=== PATIENT | male | born 1950 | race Caucasian/White ===

== ENCOUNTER 2020-06-16 07:39 | Outpatient (REF) | payer MEDICARE, OTHER, SELFPAY ==
[2020-06-16 10:11] LABS: Basophils Absolute Auto 0.1 X10*3/uL (0.0-0.2); Basophils Percent Auto 0.8 % (0-2); Eosinophils Percent Auto 12.3 % (0-4); Hematocrit 40.7 % (42-52); Hemoglobin 13.4 g/dl (14.0-18.0); Imm Gran Abs Auto 0.04 X10*3/uL (0.00-0.03); Imm Gran Pct Auto 0.5 % (0.0-0.4); Lymphocytes Absolute Auto 2.7 X10*3/uL (1.2-4.9); MANUAL DIFF FLAG NO; Mean Corpuscular HGB Conc 32.9 g/dl (31.0-36.0); Mean Corpuscular Hemoglobin 29.4 pg (27.0-33.0); Mean Corpuscular Volume 89.3 fL (80-98); Mean Platelet Volume 11.3 fL (9.4-12.4); Monocytes Absolute Auto 0.6 X10*3/uL (0.1-1.2); Neutrophils Absolute Auto 3.9 X10*3/uL (2.0-8.3); Neutrophils Percent Auto 47.4 % (45-73); Platelet Count 184 X10*3/uL (160-400); Red Blood Count 4.56 X10*6/uL (4.60-5.80); Red Cell Distribution Width 13.4 % (11.0-16.0); White Blood Count 8.3 X10*3/uL (4.8-10.8)
[2020-06-16 10:59] LABS: Alanine Aminotransferase 44 U/L (0-40); Albumin Level 4.1 g/dL (3.5-5.0); Alkaline Phosphatase 64 U/L (39-117); Anion Gap 16 (12-20); Aspartate Amino Transferase 37 U/L (5-37); Bilirubin Total 0.5 mg/dL (0.0-1.0); Blood Urea Nitrogen 36 mg/dL (9-16); Calcium 8.6 mg/dL (8.4-10.2); Carbon Dioxide 19 mmol/L (22-29); Chloride 107 mmol/L (96-108); Cholesterol 114 mg/dL; Estimated Glomerular Filt Rate > 60; Glucose Fasting 148 mg/dL (60-99); HDL Cholesterol 35 mg/dL; LDL Cholesterol Calculated 60 mg/dl; Potassium 4.8 mmol/l (3.3-5.1); Sodium 137 mmol/L (135-145); Total Protein 6.8 g/dL (6.5-8.0); Triglycerides 99 mg/dL
[2020-06-16 11:19] LABS: Vitamin D 25-OH Total 23.5 ng/mL (>30)
== END 2020-06-16 07:40 | disposition home or self-care (01) ==
LOC: HO.10HDL 07:39
PROVIDERS: Visit Provider Internal Medicine
DX: I10 Essential (primary) hypertension (principal); E11.9 Type 2 diabetes mellitus without complications; E78.5 Hyperlipidemia, unspecified; R74.8 Abnormal levels of other serum enzymes; M10.9 Gout, unspecified; E55.9 Vitamin D deficiency, unspecified; E66.9 Obesity, unspecified
CPT/HCPCS: 36415; 80053; 80061; 82306; 84443; 84550; 85025

== ENCOUNTER 2020-09-04 07:44 | Outpatient (REF) | payer MEDICARE, OTHER, SELFPAY ==
[2020-09-04 10:51] LABS: MANUAL DIFF FLAG NO
[2020-09-04 11:00] LABS: Basophils Absolute Auto 0.1 X10*3/uL (0.0-0.2); Eosinophils Absolute Auto 0.6 X10*3/uL (0.0-0.4); Eosinophils Percent Auto 8.6 % (0-4); Hematocrit 43.4 % (42-52); Hemoglobin 14.5 g/dl (14.0-18.0); Imm Gran Abs Auto 0.03 X10*3/uL (0.00-0.03); Imm Gran Pct Auto 0.4 % (0.0-0.4); Lymphocytes Absolute Auto 2.2 X10*3/uL (1.2-4.9); Mean Corpuscular HGB Conc 33.4 g/dl (31.0-36.0); Mean Corpuscular Hemoglobin 29.5 pg (27.0-33.0); Mean Corpuscular Volume 88.4 fL (80-98); Mean Platelet Volume 12.1 fL (9.4-12.4); Monocytes Absolute Auto 0.6 X10*3/uL (0.1-1.2); Monocytes Percent Auto 7.6 % (2-11); Neutrophils Absolute Auto 3.8 X10*3/uL (2.0-8.3); Neutrophils Percent Auto 52.4 % (45-73); Platelet Count 174 X10*3/uL (160-400); Red Blood Count 4.91 X10*6/uL (4.60-5.80); Red Cell Distribution Width 13.7 % (11.0-16.0); White Blood Count 7.2 X10*3/uL (4.8-10.8)
[2020-09-04 11:24] LABS: Estimated Average Glucose 120 mg/dL; Hemoglobin A1c % 5.8 %
[2020-09-04 11:39] LABS: Alanine Aminotransferase 26 U/L (0-40); Albumin Level 4.1 g/dL (3.5-5.0); Alkaline Phosphatase 66 U/L (39-117); Anion Gap 16 (12-20); Aspartate Amino Transferase 27 U/L (5-37); Bilirubin Total 0.6 mg/dL (0.0-1.0); Blood Urea Nitrogen 39 mg/dL (9-16); Calcium 9.1 mg/dL (8.4-10.2); Carbon Dioxide 18 mmol/L (22-29); Chloride 107 mmol/L (96-108); Cholesterol 149 mg/dL; Estimated Glomerular Filt Rate > 60; Glucose Fasting 122 mg/dL (60-99); HDL Cholesterol 41 mg/dL; LDL Cholesterol Calculated 95 mg/dl; Potassium 4.9 mmol/L (3.3-5.1); Sodium 136 mmol/L (135-145); Total Protein 6.8 g/dL (6.5-8.0); Triglycerides 69 mg/dL; Uric Acid 9.6 mg/dL (3.4-7.0)
[2020-09-04 11:42] LABS: Vitamin D 25-OH Total 25.4 ng/mL (>30)
== END 2020-09-04 07:45 | disposition home or self-care (01) ==
LOC: HO.10HDL 07:44
PROVIDERS: Visit Provider Internal Medicine
DX: I10 Essential (primary) hypertension (principal); E78.00 Pure hypercholesterolemia, unspecified; E11.9 Type 2 diabetes mellitus without complications; M10.9 Gout, unspecified; E55.9 Vitamin D deficiency, unspecified
CPT/HCPCS: 36415; 80053; 80061; 82306; 83036; 84443; 84550; 85025

== ENCOUNTER 2021-04-20 09:52 | Outpatient (REF) | payer MEDICARE, OTHER, SELFPAY ==
[2021-04-20 14:11] LABS: MANUAL DIFF FLAG NO
[2021-04-20 14:17] LABS: Basophils Absolute Auto 0.1 X10*3/uL (0.0-0.2); Eosinophils Absolute Auto 0.5 X10*3/uL (0.0-0.4); Eosinophils Percent Auto 7.6 % (0-4); Hematocrit 38.6 % (42-52); Hemoglobin 12.8 g/dl (14.0-18.0); Imm Gran Pct Auto 1.5 % (0.0-0.4); Lymphocytes Absolute Auto 1.7 X10*3/uL (1.2-4.9); Lymphocytes Percent Auto 24.4 % (20-40); Mean Corpuscular HGB Conc 33.2 g/dl (31.0-36.0); Mean Corpuscular Hemoglobin 30.2 pg (27.0-33.0); Mean Platelet Volume 11.1 fL (9.4-12.4); Monocytes Absolute Auto 0.5 X10*3/uL (0.1-1.2); Neutrophils Percent Auto 58.5 % (45-73); Platelet Count 128 X10*3/uL (160-400); Red Blood Count 4.24 X10*6/uL (4.60-5.80); Red Cell Distribution Width 14.4 % (11.0-16.0); White Blood Count 6.8 X10*3/uL (4.8-10.8)
[2021-04-20 14:36] LABS: Alanine Aminotransferase 29 U/L (0-40); Albumin Level 3.9 g/dL (3.5-5.0); Alkaline Phosphatase 65 U/L (39-117); Anion Gap 13 (12-20); Aspartate Amino Transferase 24 U/L (5-37); Bilirubin Total 0.3 mg/dL (0.0-1.0); Blood Urea Nitrogen 22 mg/dL (9-16); Calcium 8.6 mg/dL (8.4-10.2); Carbon Dioxide 21 mmol/L (22-29); Chloride 109 mmol/L (96-108); Cholesterol 154 mg/dL; Estimated Glomerular Filt Rate > 60; Glucose Fasting 130 mg/dL (60-99); HDL Cholesterol 46 mg/dL; LDL Cholesterol Calculated 82 mg/dl; Potassium 4.7 mmol/L (3.3-5.1); Sodium 138 mmol/L (135-145); Total Protein 6.4 g/dL (6.5-8.0); Triglycerides 134 mg/dL; Uric Acid 7.1 mg/dL (3.4-7.0)
[2021-04-20 14:41] LABS: Estimated Average Glucose 134 mg/dL; Hemoglobin A1C 148.8688 umol/L; Hemoglobin A1c % 6.3 %
[2021-04-20 14:59] LABS: TSH reflex Free T4 0.71 uIU/mL (0.32-4.0); Vitamin D 25-OH Total 19.9 ng/mL (>30)
== END 2021-04-20 09:53 | disposition home or self-care (01) ==
LOC: HO.10HDL 09:52
PROVIDERS: Visit Provider Internal Medicine
DX: E11.9 Type 2 diabetes mellitus without complications (principal); E55.9 Vitamin D deficiency, unspecified; M10.00 Idiopathic gout, unspecified site; I10 Essential (primary) hypertension; E78.00 Pure hypercholesterolemia, unspecified; E66.9 Obesity, unspecified; R74.8 Abnormal levels of other serum enzymes; Z79.4 Long term (current) use of insulin
CPT/HCPCS: 36415; 80053; 80061; 82306; 83036; 84443; 84550; 85025

== ENCOUNTER 2021-06-17 08:40 | Outpatient (REF) | payer MEDICARE, OTHER, SELFPAY ==
[2021-06-17 10:56] LABS: Erythrocyte Sedimentation Rate 38 MM/HR (0-15)
[2021-06-17 11:01] LABS: Uric Acid 6.9 mg/dL (3.4-7.0)
== END 2021-06-17 08:41 | disposition home or self-care (01) ==
LOC: HO.10HDL 08:40
PROVIDERS: Absent Provider Internal Medicine; Visit Provider Podiatrist
DX: M10.9 Gout, unspecified (principal)
CPT/HCPCS: 36415; 84550; 85652

== ENCOUNTER 2021-12-24 08:13 | Outpatient (REF) | payer MEDICARE, OTHER, SELFPAY ==
[2021-12-24 11:23] LABS: MANUAL DIFF FLAG NO
[2021-12-24 11:29] LABS: Appearance Urine CLEAR; Color Urine YELLOW; Glucose Urine UA NEG (NEG); Leukocyte Esterase Urine NEG (NEG); Nitrite Urine NEG (NEG); PH 5.5 (5.0-8.0); Specific Gravity - Urine >= 1.030 (1.005-1.025); UACC Culture Trigger NO; Urine Blood 1+ (NEG); Urine Ketones NEG (NEG); Urine Protein 2+ MG/DL (NEG-TRACE)
[2021-12-24 11:33] LABS: Basophils Absolute Auto 0.1 X10*3/uL (0.0-0.2); Basophils Percent Auto 0.9 % (0-2); Eosinophils Absolute Auto 0.6 X10*3/uL (0.0-0.4); Eosinophils Percent Auto 7.7 % (0-4); Hematocrit 36.4 % (42.0-52.0); Hemoglobin 12.2 g/dl (14.0-18.0); Imm Gran Abs Auto 0.07 X10*3/uL (0.00-0.03); Imm Gran Pct Auto 0.9 % (0.0-0.4); Lymphocytes Percent Auto 26.9 % (20-40); Mean Corpuscular HGB Conc 33.5 g/dl (31.0-36.0); Mean Corpuscular Hemoglobin 29.9 pg (27.0-33.0); Mean Corpuscular Volume 89.2 fL (80.0-98.0); Monocytes Absolute Auto 0.5 X10*3/uL (0.1-1.2); Monocytes Percent Auto 7.1 % (2-11); Neutrophils Absolute Auto 4.3 x10*3/uL (2.0-8.3); Neutrophils Percent Auto 56.5 % (45-73); Platelet Count 162 X10*3/uL (160-400); Red Blood Count 4.08 X10*6/uL (4.60-5.80); Red Cell Distribution Width 13.2 % (11.0-16.0); White Blood Count 7.6 X10*3/uL (4.8-10.8)
[2021-12-24 11:42] LABS: Estimated Average Glucose 151 mg/dL; Hemoglobin A1c % 6.9 %
[2021-12-24 11:48] LABS: Alanine Aminotransferase 24 U/L (0-40); Albumin Level 3.8 g/dL (3.5-5.0); Alkaline Phosphatase 74 U/L (39-117); Anion Gap 12 (12-20); Aspartate Amino Transferase 25 U/L (5-37); Bilirubin Total 0.5 mg/dL (0.0-1.0); Blood Urea Nitrogen 22 mg/dL (9-16); Calcium 8.9 mg/dL (8.4-10.2); Carbon Dioxide 22 mmol/L (22-29); Chloride 109 mmol/L (96-108); Cholesterol 144 mg/dL; Estimated Glomerular Filt Rate > 60; Glucose Fasting 132 mg/dL (60-99); HDL Cholesterol 45 mg/dL; LDL Cholesterol Calculated 78 mg/dl; Magnesium 1.2 mg/dL (1.6-2.6); Potassium 4.6 mmol/L (3.3-5.1); Sodium 138 mmol/L (135-145); Total Protein 6.3 g/dL (6.5-8.0); Triglycerides 105 mg/dL
[2021-12-24 12:00] LABS: Uric Acid 6.6 mg/dL (3.4-7.0)
[2021-12-24 12:02] LABS: Creatinine Urine 64.27 mg/dL
[2021-12-24 12:08] LABS: Vitamin D 25-OH Total 27.1 ng/mL (>30)
[2021-12-24 13:46] LABS: Squamous Epithelial Cell Urine TRACE /LPF
== END 2021-12-24 08:14 | disposition home or self-care (01) ==
LOC: HO.HMGCLDS 08:13
PROVIDERS: PCP Internal Medicine; Visit Provider Internal Medicine
DX: I10 Essential (primary) hypertension (principal); E78.00 Pure hypercholesterolemia, unspecified; E11.9 Type 2 diabetes mellitus without complications; M10.9 Gout, unspecified; E55.9 Vitamin D deficiency, unspecified; G47.62 Sleep related leg cramps
CPT/HCPCS: 36415; 80053; 80061; 81001; 82043; 82306; 83036; 83735; 84443; 84550; 85025

== ENCOUNTER 2022-04-15 09:42 | Outpatient (REF) | payer MEDICARE, OTHER, SELFPAY ==
[2022-04-15 12:35] LABS: Alanine Aminotransferase 22 U/L (0-40); Albumin Level 3.7 g/dL (3.5-5.0); Alkaline Phosphatase 68 U/L (39-117); Anion Gap 18 (12-20); Aspartate Amino Transferase 30 U/L (5-37); Bilirubin Total < 0.2 mg/dL (0.0-1.0); Blood Urea Nitrogen 27 mg/dL (9-16); Calcium 8.6 mg/dL (8.4-10.2); Carbon Dioxide 16 mmol/L (22-29); Chloride 113 mmol/L (96-108); Estimated Glomerular Filt Rate > 60; Glucose Random 173 mg/dL (60-115); Lipase 34 U/L (8-78); Sodium 141 mmol/L (135-145); Total Protein 6.2 g/dL (6.5-8.0)
[2022-04-15 15:41] LABS: Magnesium 1.3 mg/dL (1.6-2.6)
== END 2022-04-15 09:43 | disposition home or self-care (01) ==
LOC: HO.HMGCLDS 09:42
PROVIDERS: PCP Internal Medicine; Visit Provider Internal Medicine
DX: R10.9 Unspecified abdominal pain (principal); E83.42 Hypomagnesemia; M51.36 Other intervertebral disc degeneration, lumbar region; M54.16 Radiculopathy, lumbar region; M43.06 Spondylolysis, lumbar region
CPT/HCPCS: 36415; 80053; 83690; 83735; 99202

== ENCOUNTER 2022-04-19 13:49 | Outpatient (REF) | payer MEDICARE, OTHER, SELFPAY ==
[2022-04-19 17:20] LABS: Alanine Aminotransferase 28 U/L (0-40); Albumin Level 3.9 g/dL (3.5-5.0); Alkaline Phosphatase 62 U/L (39-117); Anion Gap 15 (12-20); Aspartate Amino Transferase 40 U/L (5-37); Bilirubin Total 0.4 mg/dL (0.0-1.0); Blood Urea Nitrogen 31 mg/dL (9-16); Calcium 8.6 mg/dL (8.4-10.2); Carbon Dioxide 20 mmol/L (22-29); Chloride 109 mmol/L (96-108); Estimated Glomerular Filt Rate > 60; Glucose Random 125 mg/dL (60-115); Potassium 5.1 mmol/L (3.3-5.1); Sodium 139 mmol/L (135-145); Total Protein 6.2 g/dL (6.5-8.0)
[2022-04-19 17:31] LABS: Magnesium 1.1 mg/dL (1.6-2.6)
== END 2022-04-19 13:50 | disposition home or self-care (01) ==
LOC: HO.HMGCLDS 13:49
PROVIDERS: PCP Internal Medicine; Visit Provider Internal Medicine
DX: E87.5 Hyperkalemia (principal); E83.42 Hypomagnesemia
CPT/HCPCS: 36415; 80053; 83735

== ENCOUNTER 2022-04-30 17:48 | Outpatient (REF) | payer MEDICARE, OTHER, SELFPAY ==
--- NOTE | ~2022-04-30 | MR_ITS ---
MR LUMBAR SPINE WITHOUT CONTRAST CLINICAL INFORMATION: Intervertebral disc degeneration/lumbar region. COMPARISON: Lumbar spine radiographs 09/15/2017. TECHNIQUE: MRI of the lumbar spine was obtained using routine sequences without contrast. FINDINGS: There are 5 nonrib-bearing lumbar-type vertebral bodies. There is grade 1 degenerative anterolisthesis of L4 on L5. Vertebral body heights are maintained. Disc volumes are preserved. There is no bone marrow edema. There are no acute fractures. Modic type II endplate signal changes at T12-L1. Intraosseous hemangioma within the L1 vertebral body. There are multilevel endplate osteophytes. There is partial disc desiccation at all lumbar levels the exception of L5-S1. Conus terminates at the L1 level. There is bilateral perinephric stranding. T12-L1: There is a large left lateral disc osteophyte protrusion resulting in mild to moderate left-sided foraminal stenosis. L1-L2: Diffuse annular disc bulge with a superimposed right lateral disc osteophyte results in mild right-sided foraminal encroachment. L2-L3: Diffuse annular disc bulge and mild bilateral hypertrophic facet arthropathy. No central canal stenosis. Mild foraminal encroachment bilaterally. L3-L4: Diffuse annular disc bulge and moderate bilateral facet arthropathy and ligamentum flavum thickening. No central canal stenosis. Mild to moderate bilateral foraminal encroachment. L4-L5: There is grade 1 degenerative anterolisthesis with uncovered disc and a superimposed diffuse annular disc bulge. There is severe bilateral hypertrophic facet arthropathy and ligamentum flavum thickening. There are very large bilateral facet joint effusions. Disc osteophyte and facet arthropathy result in severe bilateral foraminal stenosis with compression of the exiting L4 nerve roots bilaterally. There is mild central canal stenosis. L5-S1: There is a diffuse annular disc bulge with a superimposed right lateral disc osteophyte protrusion that contacts the extraforaminal right L5 nerve root. Disc osteophyte and facet arthropathy result in mild bilateral foraminal encroachment. No central canal stenosis. MR/MR lumbar spine wo con IMPRESSION: - At L4-L5, grade 1 degenerative anterolisthesis in the setting of advanced bilateral facet arthropathy and additional spondylitic changes result in mild central canal stenosis and severe bilateral foraminal stenosis with compression of the exiting L4 nerve roots bilaterally. THERE ARE VERY LARGE BILATERAL FACET JOINT EFFUSIONS AT L4-L5 THAT SHOULD BE FOLLOWED WITH FLEXION-EXTENSION RADIOGRAPHS TO EXCLUDE SEGMENTAL INSTABILITY. - At L5-S1, a right lateral disc osteophyte protrusion contacts the extraforaminal right L5 nerve root.
== END 2022-04-30 17:49 | disposition home or self-care (01) ==
LOC: HO.MRI 17:48
PROVIDERS: Visit Provider Nurse Practitioner Family
DX: M54.16 Radiculopathy, lumbar region (principal); M51.36 Other intervertebral disc degeneration, lumbar region; M43.06 Spondylolysis, lumbar region
CPT/HCPCS: 72148

== ENCOUNTER 2022-05-03 15:05 | Outpatient (REF) | payer MEDICARE, OTHER, SELFPAY ==
--- NOTE | ~2022-05-03 | XR_ITS ---
EXAMINATION: XR LUMBOSACRAL SPINE WITH OBLIQUES CLINICAL INFORMATION: Radiculopathy. COMPARISON: MRI of the lumbar spine dated 04/30/2012. TECHNIQUE: AP, both oblique, and lateral views of the lumbar spine. Lateral view of the lumbosacral junction. FINDINGS: Approximate 55% superior plate compression deformity at T12. Severe degenerative disc disease at T12-L1. Mild multilevel degenerative disc disease in the remainder of the lumbar spine. Minimal grade 1 anterolisthesis of L4 over L5. Mild to moderate bilateral facet arthropathy at L4-L5 and L5-S1. Moderate to severe atherosclerosis in the abdominal aorta and iliac vessels. XR/XR lumbar spine 6V w bending IMPRESSION: 1. Approximately 55% superior endplate compression deformity at T12 was not seen on the recent MRI. 2. Severe degenerative disc disease at T12-L1. Mild multilevel degenerative disc disease in the remainder of the lumbar spine. 3. Minimal grade 1 anterolisthesis of L4 over L5.
== END 2022-05-03 15:06 | disposition home or self-care (01) ==
LOC: HO.HMGCX 15:05
PROVIDERS: PCP Internal Medicine; Visit Provider Nurse Practitioner Family
DX: M43.06 Spondylolysis, lumbar region (principal); M51.36 Other intervertebral disc degeneration, lumbar region; M54.16 Radiculopathy, lumbar region
CPT/HCPCS: 72114

== ENCOUNTER → 2022-05-11 15:10 | Outpatient (BNVA) | payer MEDICARE, OTHER, SELFPAY | PROVIDERS: PCP Internal Medicine; Visit Provider Internal Medicine | DX: K52.9 Noninfective gastroenteritis and colitis, unspecified (principal); E83.42 Hypomagnesemia; E66.9 Obesity, unspecified; Z68.35 Body mass index [BMI] 35.0-35.9, adult | CPT/HCPCS: 99202 ==

== ENCOUNTER → 2022-05-12 08:06 | Outpatient (REF) | payer MEDICARE, OTHER, SELFPAY ==
--- NOTE | 2022-05-12 08:09 | CA_ITS ---
Transthoracic Echocardiogram Patient (Last, First, Middle): Vince Cedillo S Gender: Male Date of : 1950 Age: 71 Procedure Date: 05/12/2022 Procedure Type: Transthoracic Echocardiogram Location: OP Height: 167.64 cm Weight: 104.33 kg BSA: 2.12 m2 Heart Rate: 77 bpm BP: 170 / 80 mmHg Director Talent: SB Referring MD: Rob Valerio MD Mixed Animal Veterinarian: Raza Torres MD Symptoms: R94.31 - Abnormal electrocardiogram [ECG] [EKG] Study Quality: Adequate w contrast ECG Rhythm: Sinus Conclusions: - 1. Low normal LV systolic function with LVEF of 50-55% with impaired relaxation filling pattern with severe focal hypertrophy of the basal septum 2. Mild left atrial enlargement 3. Normal cardiac valvular Dopplers 4. No gross pericardial effusion Findings Procedure Information Contrast agent, definity, is being given per protocol without apparent complications. Left Ventricle Normal left ventricular cavity size. There is normal left ventricular wall thickness. The left ventricular systolic function is low normal. The visually estimated ejection fraction is between 50-55%. There is no dynamic left ventricular outflow tract obstruction. Spectral Doppler is indicative of an impaired relaxation filling pattern. E/E prime ratio is between 8 and 15 consistent with indeterminate filling pressures. There is severe septal asymmetric hypertrophy. Wall Motion Rest Echo Findings The basal inferior segment is akinetic. All other scored wall segments showed normal motion. Right Ventricle Normal right ventricular cavity size and systolic function. Atria The left atrium is mildly dilated. Interatrial shunt cannot be excluded. The right atrium is normal in size. Aortic Valve The aortic valve structure and function is likely normal. There is no aortic valve stenosis. There is no aortic valve regurgitation. Mitral Valve There is mild anterior and moderate posterior mitral leaflet thickening. There is mild mitral annular calcification. There is trace mitral valve regurgitation. There is no mitral valve stenosis. Pulmonic Valve The pulmonic valve was not well visualized. Tricuspid Valve Likely normal tricuspid valve structure and function. Tricuspid regurgitation envelope is inadequate for calculation of right ventricular systolic pressure. Normal right atrial pressure. Great Vessels All visible segments of the aorta are normal in size. The pulmonary artery was not well visualized. Venous The inferior vena cava is normal in size and collapses greater than 50% with inspiration. Pericardium/Pleural There is no evidence of pericardial effusion. Prior Study Comparison No prior study available for comparison. Measurements 2D Linear Measurements IVSd: 1.07 0.6-0.9/0.6-1.0 cm LVIDd: 5.03 3.9-5.3/4.2-5.9 cm LVIDd Index: 2.37 2.4-3.2/2.2-3.1 cm/m2 LVIDs: 3.64 2.0-3.6 cm LVPWd: 0.92 0.7-1.1 cm LA Diam: 4.20 2.7-3.8/3.0-4.0 cm LAIDs Index: 1.98 1.5-2.3 cm/m2 LV Mass: 227.74 67-162/88-224 g LV Mass Index: 107.42 43-95/49-115 g/m2 LVOT Diam: 2.30 3.0+(-)1.3 cm 2D Systolic Function EF 4C: 58.00 >55% EF 2C: 46.00 >55% EF BiP: 52.50 >55% Mitral Valve MV Pk E: 0.74 MV PK A: 1.14 MV Decel Time: 221.00 E/A: 0.60 E'Lateral: 10.30 E'Medial: 4.13 E/E' Med: 17.80 E/E' Lat: 7.20 PHT: 65.00 MVA PHT: 3.38 Decel [place]: 3.34 Aortic Valve AoV Pk Lester: 1.21 AoV Pk Grad: 6.00 BARBARA: 3.62 LVOT LVOT Pk Lester: 1.03 LVOT Mn Lester: 0.70 LVOT VTI: 0.21 LVOT Pk Grad: 4.00 LVOT Mn Grad: 2.00 LVOT Diam: 2.30 LVOT Area: 4.15 Diastolic Function MV Pk E: 0.74 MV Pk A: 1.14 E/A: 0.60 E'Medial: 4.13 E/E' Med: 17.80 E' Laterial: 10.30 E/E' Lat: 7.20 Right Ventricle TAPSE (mm): 18.60 TVS' Lester: 14.40 Tricuspid Valve RA Press: 3.00 Great Vessels Aorta Sinus of Valsalva: 4.10 2.0-3.5 cm Ao Asc: 3.60 2.1-3.4 cm Pulmonary Valve PV Pk Lester: 1.10 Peak PV Grad: 5.00 Updated in Other Vendor System with Status of Final Raza Torres MD electronically signed on 05/13/2022 10:57:50 AM with status of Final
== END ==
LOC: HO.CARD 08:06
PROVIDERS: PCP Internal Medicine; Visit Provider Internal Medicine
DX: R94.31 Abnormal electrocardiogram [ECG] [EKG] (principal)
CPT/HCPCS: 93306; Q9957

== ENCOUNTER 2022-05-13 08:55 | Outpatient (REF) | payer MEDICARE, OTHER, SELFPAY ==
[2022-05-13 11:34] LABS: Iron 75 mcg/dL (45-160); Percent Iron Saturation 25 % (15-50); Total Iron Binding Capacity 306 mcg/dL (228-428); Unsaturated Iron Binding 231 ug/dL
[2022-05-13 11:38] LABS: Appearance Urine Clear; Color Urine Yellow; Glucose Urine UA Negative (Negative); Leukocyte Esterase Urine Negative (Negative); Nitrite Urine Negative (Negative); Specific Gravity - Urine 1.015 (1.005-1.025); UMIC TRIGGER UA YES; Urine Blood Trace (Negative); Urine Ketones Negative (Negative); Urine Protein 100 (2+) mg/dL (Neg-Trace)
[2022-05-13 11:40] LABS: Bacteria Urine None Seen (None Seen); Hyaline Casts Urine 0-2 /LPF (0-2); RBC Urine 0-2 /HPF (0-2); Squamous Epithelial Cell Urine 0-2 /HPF (0-2); WBC Urine 0-5 /HPF (0-5)
[2022-05-13 11:43] LABS: Potassium Urine Random 28.6 mmol/L
[2022-05-13 11:54] LABS: Ferritin 55 ng/mL (20-250)
[2022-05-13 16:15] LABS: Adenovirus F 40/41 Not Detected (Not Detect.); Astrovirus Not Detected (Not Detect.); Campylobacter Not Detected (Not Detect.); Cryptosporidium Not Detected (Not Detect.); Cyclospora cayetanensis Not Detected (Not Detect.); E. coli EAEC Not Detected (Not Detect.); E. coli EPEC Not Detected (Not Detect.); E. coli ETEC Not Detected (Not Detect.); E. coli STEC Not Detected (Not Detect.); Entamoeba histolytica Not Detected (Not Detect.); Giardia lamblia Not Detected (Not Detect.); Norovirus GI/GII Not Detected (Not Detect.); Plesiomonas shigelloides Not Detected (Not Detect.); Rotavirus A Not Detected (Not Detect.); Salmonella Not Detected (Not Detect.); Sapovirus Not Detected (Not Detect.); Shigella sp./EIEC Not Detected (Not Detect.); Vibrio Not Detected (Not Detect.); Vibrio Cholerae Not Detected (Not Detect.); Yersinia enterocolitica Not Detected (Not Detect.)
[2022-05-15 14:33] LABS: Immunoglobulin A 346 mg/dL (70-320)
[2022-05-17 22:11] LABS: Transglutaminase IgA <1.0 U/mL
[2022-05-19 17:43] LABS: Creatinine, Random Urine 62 mg/dL (20-320); Magnesium, Random Urine 140 mg/g creat (22-130)
[2022-05-20 20:41] LABS: Calprotectin, Fecal 62 mcg/g
== END 2022-05-13 08:56 | disposition home or self-care (01) ==
LOC: HO.HMGCLDS 08:55
PROVIDERS: PCP Internal Medicine; Visit Provider Internal Medicine
DX: R19.7 Diarrhea, unspecified (principal); E87.5 Hyperkalemia; E83.42 Hypomagnesemia
CPT/HCPCS: 36415; 81001; 82728; 82784; 83540; 83735; 83993; 84133; 84300; 86140; 86364; 87507

== ENCOUNTER 2022-05-27 10:57 | Outpatient (REF) | payer MEDICARE, OTHER, SELFPAY ==
[2022-05-27 14:06] LABS: Appearance Urine Clear; Color Urine Yellow; Glucose Urine UA Negative (Negative); Leukocyte Esterase Urine Negative (Negative); Nitrite Urine Negative (Negative); PH 5.5 (5.0-9.0); Specific Gravity - Urine 1.015 (1.005-1.025); UMIC TRIGGER UACC YES; Urine Blood Trace (Negative); Urine Ketones Negative (Negative); Urine Protein 100 (2+) mg/dL (Neg-Trace)
[2022-05-27 14:16] LABS: Alanine Aminotransferase 33 U/L (0-40); Albumin Level 3.8 g/dL (3.5-5.0); Alkaline Phosphatase 90 U/L (39-117); Anion Gap 17 (12-20); Aspartate Amino Transferase 38 U/L (5-37); Bilirubin Total 0.5 mg/dL (0.0-1.0); Blood Urea Nitrogen 29 mg/dL (9-16); Calcium 8.7 mg/dL (8.4-10.2); Carbon Dioxide 19 mmol/L (22-29); Chloride 110 mmol/L (96-108); Estimated Glomerular Filt Rate > 60; Glucose Random 129 mg/dL (60-115); Magnesium 1.7 mg/dL (1.6-2.6); Potassium 5.7 mmol/L (3.3-5.1); Sodium 140 mmol/L (135-145); Total Protein 6.6 g/dL (6.5-8.0)
[2022-05-27 14:25] LABS: Bacteria Urine None Seen (None Seen); Hyaline Casts Urine 0-2 /LPF (0-2); RBC Urine 0-2 /HPF (0-2); Squamous Epithelial Cell Urine 0-2 /HPF (0-2); WBC Urine 0-5 /HPF (0-5)
[2022-05-27 14:58] LABS: Creatinine Urine 51.82 mg/dL
[2022-05-27 15:11] LABS: Microalbum/Creatinine Ratio Ur 1626.7 ug/mg cr
== END 2022-05-27 10:58 | disposition home or self-care (01) ==
LOC: HO.HMGCLDS 10:57
PROVIDERS: PCP Internal Medicine; Visit Provider Internal Medicine
DX: M43.06 Spondylolysis, lumbar region (principal); M54.16 Radiculopathy, lumbar region; M51.36 Other intervertebral disc degeneration, lumbar region; S22.080A Wedge compression fracture of T11-T12 vertebra, initial encounter for closed fracture; M48.062 Spinal stenosis, lumbar region with neurogenic claudication; E11.9 Type 2 diabetes mellitus without complications; K52.9 Noninfective gastroenteritis and colitis, unspecified; R80.9 Proteinuria, unspecified; E83.42 Hypomagnesemia; E66.9 Obesity, unspecified; Z79.899 Other long term (current) drug therapy
CPT/HCPCS: 36415; 80053; 81001; 81003; 82043; 83735; Q3014

== ENCOUNTER → 2022-06-21 09:43 | Outpatient (REF) | payer MEDICARE, OTHER, SELFPAY ==
--- NOTE | ~2022-06-21 | NM_ITS ---
EXAMINATION: NM BONE SCAN OF THE WHOLE BODY CLINICAL INFORMATION: Low back pain. Compression wedge fracture T11/T12 vertebra. COMPARISON: Lumbar spine x-ray 05/03/2022 TECHNIQUE: Multiple gamma scintillation camera images of the whole body were performed 3 hours following the intravenous administration of 36 mCi Tc-99m MDP. FINDINGS: In the head, no activity seen in the calvarium. There is nonspecific mild activity seen within the maxilla and the mandible related to dental disease.. In the thoracic cage and upper extremities, mild focal increased activity seen within the T7 and T8 vertebra likely related to fracture. There is mild increase activity in left T12 vertebra. No additional abnormal activity seen in the thoracic cage. Mild activity seen in bilateral AC joints and bilateral radial wrist joints likely related to degenerative arthritis. In the spine, there is mild increased activity seen at T12 vertebra In the pelvis, no abnormal activity seen in the pelvis In the lower extremities, mild focal activity seen in the left ankle and bilateral tarsometatarsal joints related degenerative arthritis. No other definite bony abnormalities are noted. The urinary bladder and faint visualization of both kidneys are noted. NM/NM bone scan whole body IMPRESSION: Mild focal increased activity seen in T7, T8 vertebra likely related to compression fracture. Correlate with thoracic spine x-rays or CT. There is mild focal activity seen in the left T7 vertebra corresponding to chronic degenerative changes at the T12-L1 disc level with moderate spondylosis and T12 compression fracture likely old. This can be further evaluated with CT. Mild DJD elsewhere.
== END ==
LOC: HO.NUCMED 09:43
PROVIDERS: Visit Provider Nurse Practitioner Family
DX: S22.060D Wedge compression fracture of T7-T8 vertebra, subsequent encounter for fracture with routine healing (principal)
CPT/HCPCS: 78306; A9503

== ENCOUNTER 2022-06-25 08:45 | Outpatient (REF) | payer MEDICARE, OTHER, SELFPAY ==
[2022-06-25 10:39] LABS: MANUAL DIFF FLAG NO
[2022-06-25 10:48] LABS: Basophils Absolute Auto 0.1 X10*3/uL (0.0-0.2); Basophils Percent Auto 1.2 % (0-2); Eosinophils Absolute Auto 0.5 X10*3/uL (0.0-0.4); Eosinophils Percent Auto 8.4 % (0-4); Hematocrit 34.9 % (42.0-52.0); Hemoglobin 11.7 g/dl (14.0-18.0); Imm Gran Abs Auto 0.05 X10*3/uL (0.00-0.03); Imm Gran Pct Auto 0.8 % (0.0-0.4); Lymphocytes Absolute Auto 1.5 X10*3/uL (1.2-4.9); Lymphocytes Percent Auto 24.1 % (20-40); Mean Corpuscular HGB Conc 33.5 g/dl (31.0-36.0); Mean Corpuscular Hemoglobin 29.9 pg (27.0-33.0); Mean Corpuscular Volume 89.3 fL (80.0-98.0); Mean Platelet Volume 10.7 fL (9.4-12.4); Monocytes Absolute Auto 0.5 X10*3/uL (0.1-1.2); Monocytes Percent Auto 8.9 % (2-11); Neutrophils Absolute Auto 3.4 x10*3/uL (2.0-8.3); Neutrophils Percent Auto 56.6 % (45-73); Platelet Count 164 X10*3/uL (160-400); Red Blood Count 3.91 X10*6/uL (4.60-5.80); Red Cell Distribution Width 13.6 % (11.0-16.0); White Blood Count 6.1 X10*3/uL (4.8-10.8)
[2022-06-25 10:51] LABS: Appearance Urine Clear; Color Urine Yellow; Glucose Urine UA Negative (Negative); Leukocyte Esterase Urine Negative (Negative); Nitrite Urine Negative (Negative); UMIC TRIGGER UACC YES; Urine Blood Trace (Negative); Urine Ketones Negative (Negative); Urine Protein 300 (3+) mg/dL (Neg-Trace)
[2022-06-25 10:57] LABS: Bacteria Urine None Seen (None Seen); RBC Urine 0-2 /HPF (0-2); Squamous Epithelial Cell Urine 0-2 /HPF (0-2); WBC Urine 0-5 /HPF (0-5)
[2022-06-25 11:10] LABS: Estimated Average Glucose 140 mg/dL; Hemoglobin A1c % 6.5 %
[2022-06-25 11:58] LABS: Alanine Aminotransferase 31 U/L (0-40); Alkaline Phosphatase 80 U/L (39-117); Anion Gap 13 (12-20); Aspartate Amino Transferase 30 U/L (5-37); Blood Urea Nitrogen 32 mg/dL (9-16); Calcium 8.9 mg/dL (8.4-10.2); Carbon Dioxide 22 mmol/L (22-29); Chloride 108 mmol/L (96-108); Cholesterol 156 mg/dL; Estimated Glomerular Filt Rate > 60; Glucose Fasting 128 mg/dL (60-99); HDL Cholesterol 50 mg/dL; LDL Cholesterol Calculated 84 mg/dl; Magnesium 1.7 mg/dL (1.6-2.6); Microalbum/Creatinine Ratio Ur 1537.4 ug/mg cr; Potassium 4.7 mmol/L (3.3-5.1); Sodium 138 mmol/L (135-145); Total Protein 6.5 g/dL (6.5-8.0); Triglycerides 112 mg/dL
[2022-06-25 12:14] LABS: TSH reflex Free T4 1.49 uIU/mL (0.32-4.0); Vitamin D 25-OH Total 31.1 ng/mL (>30)
[2022-06-25 12:31] LABS: Bilirubin Total 0.6 mg/dL (0.0-1.0)
== END 2022-06-25 08:46 | disposition home or self-care (01) ==
LOC: HO.10HDL 08:45
PROVIDERS: Visit Provider Internal Medicine
DX: E11.9 Type 2 diabetes mellitus without complications (principal); E78.00 Pure hypercholesterolemia, unspecified; E83.42 Hypomagnesemia; E55.9 Vitamin D deficiency, unspecified; I10 Essential (primary) hypertension
CPT/HCPCS: 36415; 80053; 80061; 81001; 82043; 82306; 83036; 83735; 84443; 85025

== ENCOUNTER 2022-06-29 06:29 | Outpatient (REF) | payer MEDICARE, OTHER, SELFPAY ==
--- NOTE | ~2022-06-29 | FL_ITS ---
EXAMINATION: XR FLUOROSCOPY WITH IMAGES CLINICAL INFORMATION: Spinal stenosis with neurogenic claudication. Lumbar region. COMPARISON: 05/03/2022. TECHNIQUE: Fluoroscopy Supervised By: Dr. Cameron Renee. Fluoroscopy Time: 0.5 minutes. Cumulative Dose: 17.2 mGy. DAP: 4.71 Gycm2. Images: 2. FINDINGS: [place] are seen overlying the lateral aspects of the L4 vertebra bilaterally. Contrast is seen around the exiting nerve root on the right. FL/FL guidance in treatment room IMPRESSION: Intraoperative fluoroscopy for pain management procedure.
== END 2022-06-29 06:30 | disposition home or self-care (01) ==
LOC: CF 06:29
PROVIDERS: Visit Provider Anesthesiology
DX: M48.062 Spinal stenosis, lumbar region with neurogenic claudication (principal); M54.16 Radiculopathy, lumbar region; M43.06 Spondylolysis, lumbar region; M51.36 Other intervertebral disc degeneration, lumbar region; S22.080A Wedge compression fracture of T11-T12 vertebra, initial encounter for closed fracture
CPT/HCPCS: 64483; J3301

== ENCOUNTER → 2022-07-29 10:57 | Outpatient (BNVA) | payer MEDICARE, OTHER, SELFPAY | PROVIDERS: PCP Internal Medicine; Visit Provider Nurse Practitioner Family | DX: M51.36 Other intervertebral disc degeneration, lumbar region (principal); M54.16 Radiculopathy, lumbar region; M43.06 Spondylolysis, lumbar region; E66.9 Obesity, unspecified; Z68.36 Body mass index [BMI] 36.0-36.9, adult; E11.9 Type 2 diabetes mellitus without complications; R94.31 Abnormal electrocardiogram [ECG] [EKG]; I70.0 Atherosclerosis of aorta; I10 Essential (primary) hypertension; Z79.4 Long term (current) use of insulin | CPT/HCPCS: 99212 ==

== ENCOUNTER 2022-09-16 11:28 | Outpatient (REF) | payer MEDICARE, OTHER, SELFPAY ==
[2022-09-16 14:21] LABS: Prothrombin Time 11.1 SEC (10.0-13.1)
[2022-09-16 14:27] LABS: Hematocrit 41.6 % (42.0-52.0); Hemoglobin 13.4 g/dl (14.0-18.0); Mean Corpuscular HGB Conc 32.2 g/dl (31.0-36.0); Mean Corpuscular Hemoglobin 28.5 pg (27.0-33.0); Mean Corpuscular Volume 88.3 fL (80.0-98.0); Platelet Count 186 X10*3/uL (160-400); Red Blood Count 4.71 X10*6/uL (4.60-5.80); Red Cell Distribution Width 13.1 % (11.0-16.0); White Blood Count 9.2 X10*3/uL (4.8-10.8)
[2022-09-16 14:48] LABS: Creatinine Urine 112.35 mg/dL; Protein/Creatinine Ratio, Ur 0.76 (<0.2); Total Protein Urine Random 85 mg/dL (<12)
[2022-09-16 15:00] LABS: Microalbum/Creatinine Ratio Ur 561.6 ug/mg cr
[2022-09-16 16:33] LABS: Anion Gap 13 (12-20); Blood Urea Nitrogen 30 mg/dL (9-16); Carbon Dioxide 23 mmol/L (22-29); Chloride 109 mmol/L (96-108); Estimated Glomerular Filt Rate 47; Phosphorus 3.7 mg/dL (2.7-4.5); Potassium 5.2 mmol/L (3.3-5.1); Sodium 140 mmol/L (135-145)
[2022-09-17 09:28] LABS: ~HepC Num1 0.11 S/CO (0.00-0.79); ~Hepatitis C Antibody Nonreactive (Nonreactive)
[2022-09-18 15:53] LABS: Anti Nuclear Antibody Screen NEGATIVE (NEGATIVE)
[2022-09-18 20:58] LABS: Complement C3 153 mg/dL (82-185)
[2022-09-20 14:09] LABS: Neutrophil Cyto Ab Screen NEGATIVE (NEGATIVE)
[2022-09-20 17:09] LABS: Anti Glomerular Basement Memb <1.0 AI
[2022-09-20 23:33] LABS: Prot Elec - Albumin 3.5 g/dL (3.8-4.8); Prot Elec - Alpha1 0.4 g/dL (0.2-0.3); Prot Elec - Alpha2 0.9 g/dL (0.5-0.9); Prot Elec - Beta 1 0.5 g/dL (0.4-0.6); Prot Elec - Beta 2 0.4 g/dL (0.2-0.5); Prot Elec - Gamma 0.7 g/dL (0.8-1.7); Prot Elec - Total Protein 6.4 g/dL (6.1-8.1)
[2022-09-25 14:28] LABS: Phospholipase A2 IgG ELISA <4 RU/mL; Phospholipase A2 IgG IFA NEGATIVE (NEGATIVE)
== END 2022-09-16 11:29 | disposition home or self-care (01) ==
LOC: HO.10HDL 11:28
PROVIDERS: Visit Provider Internal Medicine Nephrology
DX: R80.9 Proteinuria, unspecified (principal); I10 Essential (primary) hypertension; R79.1 Abnormal coagulation profile
CPT/HCPCS: 36415; 80051; 82043; 82310; 82565; 83520; 84100; 84156; 84165; 84520; 85027; 85610; 86036; 86037; 86038; 86039; 86160; 86255; 86803

== ENCOUNTER 2022-09-20 08:08 | Outpatient (REF) | payer MEDICARE, OTHER, SELFPAY ==
[2022-09-20 11:42] LABS: Creatinine, mg/dL 86.49; Protein mg/dL 47 mg/dL
[2022-09-20 14:51] LABS: Creatinine, 24Hr Urine 1.4 G/Day (1.0-2.0); Protein 24 Hr Urine 752 mg/Day (<150); Total Volume 24 Hour Urine 1600 mL
== END 2022-09-20 08:09 | disposition home or self-care (01) ==
LOC: HO.LNP 08:08
PROVIDERS: PCP Internal Medicine; Visit Provider Internal Medicine Nephrology
DX: Z13.89 Encounter for screening for other disorder (principal)
CPT/HCPCS: 84156; 86335

== ENCOUNTER 2022-09-20 14:26 | Outpatient (REF) | payer MEDICARE, OTHER, SELFPAY ==
--- NOTE | ~2022-09-20 | US_ITS ---
EXAMINATION: US RETROPERITONEAL LIMITED (AORTA) CLINICAL INFORMATION: Atherosclerotic changes in the aorta seen on lumbar spine films 05/03/2022. COMPARISON: Lumbar spine 05/03/2022: [id number] atherosclerosis in the abdominal aorta and iliac vessels. TECHNIQUE: [place]-scale, color Doppler and spectral Doppler evaluation of the abdominal aorta. FINDINGS: Aorta demonstrates atherosclerotic changes but no evidence of an aneurysm. The measurements of the aorta in maximum AP and transverse dimensions respectively are as follows: Proximal: 2.8 x 2.9 cm. Mid: 2.2 x 2.3 cm. Distal: 2.1 x 2.3 cm. PSV: 94 cm/s. The measurements of the common iliac arteries in maximum AP and TRV dimensions are as follows: Right Common Iliac Artery: 1.0 x 1.1 cm. Velocity in the right common iliac is 298 cm/s. Left Common Iliac Artery: 1.4 x 1.5 cm. Velocity in the left common iliac is 266 cm/s. US/US aorta IMPRESSION: 1. Atherosclerotic changes in the aorta without evidence of aneurysm. 2. Bilateral common iliac artery stenoses.
== END 2022-09-20 14:27 | disposition home or self-care (01) ==
LOC: HO.US 14:26
PROVIDERS: PCP Internal Medicine; Visit Provider Nurse Practitioner Family
DX: I70.0 Atherosclerosis of aorta (principal); R94.31 Abnormal electrocardiogram [ECG] [EKG]; E66.9 Obesity, unspecified; I10 Essential (primary) hypertension; Z87.891 Personal history of nicotine dependence
CPT/HCPCS: 76775; 84156; 86335

== ENCOUNTER → 2022-09-27 13:41 | Outpatient (BNVA) | payer MEDICARE, OTHER, SELFPAY | PROVIDERS: PCP Internal Medicine; Visit Provider Internal Medicine Cardiovascular Disease | DX: I25.10 Atherosclerotic heart disease of native coronary artery without angina pectoris (principal); I73.9 Peripheral vascular disease, unspecified | CPT/HCPCS: 99202 ==

== ENCOUNTER → 2022-10-15 08:33 | Outpatient (REF) | payer MEDICARE, OTHER, SELFPAY ==
--- NOTE | ~2022-10-15 | NM_ITS ---
Myocardial perfusion study Indication: Coronary artery disease to evaluate for myocardial ischemia Technique: The patient was brought in for a Lexiscan perfusion study on 10/15/2022. Patient performed low-level exercise and was injected 0.4 mg of Lexiscan intravenously. Within a minute of injection, 35 mCi of sestamibi was given intravenously. Images were obtained using the SPECT gamma camera interlaced with the gating device. Images were obtained in supine position. Resting perfusion study was performed on 10/19/2022. Patient was administered 35 mCi of sestamibi intravenously at rest. Images were then obtained in supine position. Images obtained with and without CT attenuation. Total DLP 141 mGy-cm. Images were processed with the software and compared side to side in short axis, horizontal long axis and vertical long axis views. Findings: The stress perfusion study showed non attenuated images show absent uptake in the basal inferior as well as basal and mid inferolateral as well as severely reduced uptake in the mid inferior and apical inferior as well as remainder of the inferolateral wall and moderately reduced uptake in the mid and basal lateral wall of the LV myocardium. The attenuation corrected images show similar findings. The gated study shows low normal LV systolic function with calculated LVEF of 52%. LV cavity is mildly dilated size. The gated study shows reduced wall thickening and contraction of basal inferior and basal inferolateral segments. Resting study shows much improved uptake in the mid and apical inferior as well as the lateral and partially reversible defect in the mid and basal inferolateral and basal lateral wall of the LV myocardium.. Gating at rest reveals basal inferior wall motion with ejection fraction at 59%. The findings are consistent with large area of reversible ischemia in circumflex territory with infarct in the basal inferior and possible basal inferolateral wall.. NM/NM rivka perf SPECT rest & str Impression: 1. Myocardial perfusion imaging study shows large area of moderate intensity ischemia in the circumflex and possibly RCA territory infarct in the basal inferior and adjacent inferolateral wall 2. Gated LVEF is 52% with stress and 59% with rest 3. Transient ischemic dilatation present EKG nondiagnostic for ischemia
--- NOTE | 2022-10-15 08:36 | CA_ITS ---
Acquisition Time: 2022-10-15 08:59:56 Total Exercise Time: 00:02:00 Test Indications: ASHD Medications: SEE MED SHEET Protocol: LEXISCAN Max HR: 083 BPM 55% of Pred: 150 BPM Max BP: 148/080 mmHG Max Work Load: 1.0 METS Pharmacological stress test with Lexiscan injection, while sitting and kicking his legs, without anginal symptoms, with isolated PACs, with normotensive response to injection, with nondiagnostic EKG for ischemia. Nuclear images pending. Test reviewed with Dr Cooley. Referred By: Raza Torres Overread By: KRYSTIN NICHOLSON
== END ==
LOC: HO.CARD 08:33
PROVIDERS: PCP Internal Medicine; Visit Provider Internal Medicine Cardiovascular Disease
DX: I25.10 Atherosclerotic heart disease of native coronary artery without angina pectoris (principal)
CPT/HCPCS: 78452; 93017; A9500; J0280; J2785

== ENCOUNTER 2022-10-27 07:52 | Outpatient (REF) | payer MEDICARE, OTHER, SELFPAY ==
--- NOTE | ~2022-10-27 | US_ITS ---
EXAMINATION: US LOWER EXTREMITY DUPLEX, BILATERAL CLINICAL INFORMATION: Peripheral vascular disease TECHNIQUE: Real-time ultrasound and Doppler techniques (integrating B-mode 2-D vascular images, Doppler spectral analysis and color flow Doppler imaging) were utilized to interrogate the lower extremities. COMPARISON: None FINDINGS: RIGHT LEG: Common femoral artery: 149 cm/s, biphasic Profunda femoris artery: 157 cm/s, biphasic Superficial femoral artery (proximal): 155 cm/s, Triphasic Superficial femoral artery (mid): 141 cm/s, biphasic Superficial femoral artery (distal): 117 cm/s, biphasic Popliteal artery: 89.7 cm/s, biphasic Posterior tibial artery: 64 cm/s, Triphasic Peroneal artery: 39 cm/s, monophasic LEFT LEG: Common femoral artery: 96 cm/s, monophasic Profunda femoris artery: 76 cm/s, monophasic Superficial femoral artery (proximal): 70 cm/s, monophasic Superficial femoral artery (mid): 59 cm/s, monophasic Superficial femoral artery (distal): 45 cm/s, monophasic Popliteal artery: 38 cm/s, biphasic Posterior tibial artery: 89 cm/s, monophasic Peroneal artery: 20 cm/s, monophasic US/US arterial duplex LE BI IMPRESSION: Mild atherosclerotic disease of the right lower extremity within the superficial femoral artery.
== END 2022-10-27 07:53 | disposition home or self-care (01) ==
LOC: HO.US 07:52
PROVIDERS: PCP Internal Medicine; Visit Provider Internal Medicine Cardiovascular Disease
DX: I73.9 Peripheral vascular disease, unspecified (principal)
CPT/HCPCS: 93925

== ENCOUNTER 2022-11-09 07:38 | Outpatient (REF) | payer MEDICARE, OTHER, SELFPAY ==
[2022-11-09 11:26] LABS: MANUAL DIFF FLAG NO
[2022-11-09 11:41] LABS: Appearance Urine Clear; Color Urine Yellow; Glucose Urine UA 500 mg/dL (Negative); Leukocyte Esterase Urine Negative (Negative); Nitrite Urine Negative (Negative); PH 5.5 (5.0-9.0); Specific Gravity - Urine 1.015 (1.005-1.025); UMIC TRIGGER UACC YES; Urine Blood Negative (Negative); Urine Ketones Negative (Negative); Urine Protein 100 (2+) mg/dL (Neg-Trace)
[2022-11-09 11:48] LABS: Bacteria Urine None Seen (None Seen); Hyaline Casts Urine 0-2 /LPF (0-2); RBC Urine 0-2 /HPF (0-2); Squamous Epithelial Cell Urine 0-2 /HPF (0-2); WBC Urine 0-5 /HPF (0-5)
[2022-11-09 12:00] LABS: Basophils Absolute Auto 0.1 X10*3/uL (0.0-0.2); Basophils Percent Auto 1.4 % (0-2); Eosinophils Absolute Auto 0.6 X10*3/uL (0.0-0.4); Eosinophils Percent Auto 8.6 % (0-4); Hematocrit 43.1 % (42.0-52.0); Hemoglobin 13.9 g/dl (14.0-18.0); Imm Gran Abs Auto 0.07 X10*3/uL (0.00-0.03); Imm Gran Pct Auto 1.1 % (0.0-0.4); Lymphocytes Absolute Auto 1.7 X10*3/uL (1.2-4.9); Lymphocytes Percent Auto 26.3 % (20-40); Mean Corpuscular HGB Conc 32.3 g/dl (31.0-36.0); Mean Corpuscular Hemoglobin 28.4 pg (27.0-33.0); Mean Corpuscular Volume 88.1 fL (80.0-98.0); Mean Platelet Volume 11.2 fL (9.4-12.4); Monocytes Absolute Auto 0.6 X10*3/uL (0.1-1.2); Monocytes Percent Auto 8.5 % (2-11); Neutrophils Absolute Auto 3.6 x10*3/uL (2.0-8.3); Neutrophils Percent Auto 54.1 % (45-73); Platelet Count 154 X10*3/uL (160-400); Red Blood Count 4.89 X10*6/uL (4.60-5.80); Red Cell Distribution Width 13.7 % (11.0-16.0); White Blood Count 6.6 X10*3/uL (4.8-10.8)
[2022-11-09 12:03] LABS: Estimated Average Glucose 177 mg/dL; Hemoglobin A1c % 7.8 %
[2022-11-09 12:12] LABS: Creatinine Urine 83.16 mg/dL; Microalbum/Creatinine Ratio Ur 389.6 ug/mg cr
[2022-11-09 13:25] LABS: Alanine Aminotransferase 22 U/L (0-40); Albumin Level 3.8 g/dL (3.5-5.0); Alkaline Phosphatase 82 U/L (39-117); Anion Gap 14 (12-20); Aspartate Amino Transferase 24 U/L (5-37); Bilirubin Total 0.9 mg/dL (0.0-1.0); Blood Urea Nitrogen 38 mg/dL (9-16); Carbon Dioxide 23 mmol/L (22-29); Chloride 107 mmol/L (96-108); Cholesterol 129 mg/dL; Estimated Glomerular Filt Rate 46; Glucose Fasting 174 mg/dL (60-99); HDL Cholesterol 42 mg/dL; LDL Cholesterol Calculated 67 mg/dl; Magnesium 1.9 mg/dL (1.6-2.6); Sodium 139 mmol/L (135-145); Total Protein 6.5 g/dL (6.5-8.0); Triglycerides 100 mg/dL; Uric Acid 6.6 mg/dL (3.4-7.0)
[2022-11-09 13:42] LABS: TSH reflex Free T4 1.61 uIU/mL (0.32-4.0); Vitamin D 25-OH Total 28.5 ng/mL (>30)
== END 2022-11-09 07:39 | disposition home or self-care (01) ==
LOC: HO.HMGCLDS 07:38
PROVIDERS: PCP Internal Medicine; Visit Provider Internal Medicine
DX: E78.00 Pure hypercholesterolemia, unspecified (principal); E11.9 Type 2 diabetes mellitus without complications; E55.9 Vitamin D deficiency, unspecified; I10 Essential (primary) hypertension; M10.9 Gout, unspecified
CPT/HCPCS: 36415; 80053; 80061; 81001; 82043; 82306; 83036; 83735; 84443; 84550; 85025

== ENCOUNTER → 2022-11-15 14:32 | Outpatient (BNVA) | payer MEDICARE, OTHER, SELFPAY | PROVIDERS: PCP Internal Medicine; Referring Provider Internal Medicine; Visit Provider Internal Medicine Cardiovascular Disease | DX: I25.10 Atherosclerotic heart disease of native coronary artery without angina pectoris (principal) | CPT/HCPCS: 99212 ==

== ENCOUNTER → 2022-11-17 10:08 | Outpatient (BNVA) | payer MEDICARE, OTHER, SELFPAY | PROVIDERS: PCP Internal Medicine; Visit Provider Neurological Surgery | DX: M43.16 Spondylolisthesis, lumbar region (principal); M48.062 Spinal stenosis, lumbar region with neurogenic claudication | CPT/HCPCS: 99202 ==

== ENCOUNTER 2022-12-27 09:25 | Outpatient (REF) | payer MEDICARE, OTHER, SELFPAY ==
[2022-12-27 11:32] LABS: Hematocrit 44.2 % (42.0-52.0); Hemoglobin 14.5 g/dl (14.0-18.0); Mean Corpuscular HGB Conc 32.8 g/dl (31.0-36.0); Mean Corpuscular Hemoglobin 28.7 pg (27.0-33.0); Mean Corpuscular Volume 87.4 fL (80.0-98.0); Mean Platelet Volume 10.5 fL (9.4-12.4); Platelet Count 157 X10*3/uL (160-400); Red Blood Count 5.06 X10*6/uL (4.60-5.80); Red Cell Distribution Width 14.4 % (11.0-16.0); White Blood Count 8.3 X10*3/uL (4.8-10.8)
[2022-12-27 11:44] LABS: INTERNATIONAL NORM RATIO 0.9 (0.9-1.1)
[2022-12-27 11:57] LABS: Anion Gap 14 (12-20); Blood Urea Nitrogen 27 mg/dL (9-16); Calcium 9.6 mg/dL (8.4-10.2); Carbon Dioxide 24 mmol/L (22-29); Chloride 105 mmol/L (96-108); Cholesterol 134 mg/dL; Estimated Glomerular Filt Rate 53; Glucose Random 234 mg/dL (60-115); HDL Cholesterol 43 mg/dL; LDL Cholesterol Calculated 63 mg/dl; Sodium 138 mmol/L (135-145); Triglycerides 143 mg/dL
== END 2022-12-27 09:26 | disposition home or self-care (01) ==
LOC: HO.HMGCLDS 09:25
PROVIDERS: PCP Internal Medicine; Visit Provider Internal Medicine Cardiovascular Disease
DX: I25.10 Atherosclerotic heart disease of native coronary artery without angina pectoris (principal)
CPT/HCPCS: 36415; 80048; 80061; 85027; 85610

== ENCOUNTER → 2023-01-20 15:30 | Outpatient (BNVA) | payer MEDICARE, OTHER, SELFPAY | PROVIDERS: Visit Provider Nurse Practitioner Family | DX: I25.10 Atherosclerotic heart disease of native coronary artery without angina pectoris (principal); I10 Essential (primary) hypertension; E78.00 Pure hypercholesterolemia, unspecified; E11.9 Type 2 diabetes mellitus without complications; Z79.4 Long term (current) use of insulin; Z98.890 Other specified postprocedural states | CPT/HCPCS: 99212 ==

== ENCOUNTER 2023-01-31 16:08 | Outpatient (AMB) | payer MEDICARE, OTHER, SELFPAY ==
--- NOTE | 2023-01-31 16:42 | MHC.OFFWIV ---
Intake Vital Signs 01/31/23 16:43 Height 5 ft 7 in BP 128/60 Blood Pressure Location Rt brachial Position Sitting Pulse 82 Pulse Source Pulse Oximeter Temp 97.8 F Temp Source Temporal Artery Scan Pulse Oximetry (%) 98 Oxygen Delivery Method Room Air Intake Visit Reasons: EP, Cough Intake Note: pt is here for c/o cough x2 weeks, states he feels like he pulled a muscle in back Patient Tobacco Use Status: Former Tobacco user Allergies Sulfa (Sulfonamide Antibiotics) Allergy (Intermediate, Verified 02/03/23 06:52) ITCHING HIVES sitagliptin [Januvia] Allergy (Unknown, Verified 02/03/23 06:52) Unknown metformin Adverse Reaction (Intermediate, Verified 02/03/23 06:52) Diarrhea Medication List - Last Reconciled 02/03/23 by Jaun Figueroa MD allopurinol 200 mg (2 x 100 mg) PO DAILY 90 days amlodipine 10 mg PO DAILY 30 days aspirin (Adult Aspirin Regimen) 81 mg PO DAILY atorvastatin 40 mg PO DAILY azithromycin take 500 mg today (day 1), then 250 mg for 4 days (days 2-5) PO back brace As directed blood sugar diagnostic (FreeStyle Lite Strips) 1 strip miscellaneous 4-5 TIMES DAILY; blood-glucose meter,continuous ([employer] G6 Straight Cutter Machine) As directed blood-glucose sensor ([employer] G6 Sensor device) As directed blood-glucose transmitter ([employer] G6 Transmitter device) As directed colchicine (Colcrys) 0.6 mg PO DAILY 90 days Farxiga (dapagliflozin propanediol) 5 mg PO DAILY 30 days NS glimepiride 1 mg PO QAM lisinopril 40 mg PO DAILY magnesium oxide 400 mg PO BID 90 days metoprolol succinate ER 25 mg PO DAILY prednisone 60 mg (3 x 20 mg) PO DAILY semaglutide 1 mg (0.75 mL) subcut QWEEK tizanidine 4 mg PO BEDTIME PRN 30 days vit D3-vit [id number] [id number]-[id number]-mg tabs PO Do you need a note to return to daycare/school/sports/work: No HPI EP, Cough HPI Details Patient presents for a sick visit. Reporting symptoms of sinus congestion, sore throat and difficulty swallowing. Low-grade fever. No family member is sick. No recent travel. Patient reports symptoms of malaise and fatigue. [facility] Medical History Allergic rhinitis Benign essential hypertension Carpal tunnel syndrome on both sides Depression Diabetes mellitus Elevated liver enzymes Gout Lumbar degenerative disc disease Obesity (BMI 30-39.9) Pure hypercholesterolemia Vitamin D deficiency Surgical History History of bilateral hip arthroplasty History of carpal tunnel release History of excision of lesion Hx of colonoscopy Status post carpal tunnel release (~06/19/20) Family History Father Medical history unknown Mother Diabetes Social History Housing: House Alcohol intake: former Patient Tobacco Use Status: Former Tobacco user e-Cigarette/Vaping Use: Never Used Second Hand Smoke Exposure: Yes service: No Current occupational status: employed Cognitive needs: No Hearing needs: No Vision needs: No Physical Exam Vital Signs: Last Vital Signs Temp 97.8 F 01/31/23 16:43 Pulse 82 01/31/23 16:43 BP 128/60 01/31/23 16:43 Pulse Ox 98 01/31/23 16:43 Oxygen Delivery Method Room Air 01/31/23 16:43 Const General: cooperative and healthy appearing Nutritional Appearance: well nourished Orientation/consciousness: patient oriented x3 Limitations: no limitations HEENT Head: Yes normal to inspection Eyes General: appearance normal, both eyes and all related structures Neck Neck: Yes normal visual inspection Chest Chest palpation & inspection: normal palpation of entire chest wall Resp Effort & Inspection: normal respiratory effort Neuro General: patient oriented x3 Assessment & Plan Assessment & Plan (1) Upper respiratory tract infection: Code(s): J06.9 - Acute upper respiratory infection, unspecified Plan: Antibiotics ordered. Increase fluid intake. Tylenol for aches and pains. If symptoms worsen, follow-up here for a recheck. Medications: New azithromycin take 500 mg today (day 1), then 250 mg for 4 days (days 2-5) PO 6 tabs 0RF prednisone 60 mg (3 x 20 mg) PO DAILY 9 tabs 0RF Coding Level of Care Code Est Pt Level 3 (30961) Diagnoses Upper respiratory tract infection J06.9
[2023-01-31 16:43] VITALS: BP 128/60; PULSE 82; TEMP 36.6; O2SAT 98
== END 2023-01-31 17:05 | disposition home or self-care (01) ==
PROVIDERS: PCP Internal Medicine; Visit Provider Internal Medicine
DX: J06.9 Acute upper respiratory infection, unspecified (principal)
CPT/HCPCS: 99213

== ENCOUNTER 2023-03-18 11:31 | Outpatient (AMB) | payer MEDICARE, OTHER, SELFPAY ==
--- NOTE | 2023-03-18 12:01 | A.OFFPC_ITS ---
Vital Signs 03/18/23 12:04 Height 5 ft 6 in Weight 207 lb 2 oz BMI 33.4 BP 138/68 Blood Pressure Location Lt brachial Position Sitting Pulse 80 Pulse Source Pulse Oximeter Pulse Oximetry (%) 97 Oxygen Delivery Method Room Air Intake Visit Reasons: [facility]/02-24/03-04/([facility]) Intake Note: Patient is here for hospital discharge follow up. Patient was discharged from [facility] on 02/24/2023. Presented at [facility] with unstable angina. Pt had CAD CABGX4 PABLO ENDOVEINENDRADI HV2 MEGA 530A. 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: No Accompanied by: Self / Same As Patient Allergies Sulfa (Sulfonamide Antibiotics) Allergy (Intermediate, Verified 03/18/23 12:14) ITCHING HIVES sitagliptin [Januvia] Allergy (Unknown, Verified 03/18/23 12:14) Unknown metformin Adverse Reaction (Intermediate, Verified 03/18/23 12:14) Diarrhea Medication List - Last Reconciled 03/18/23 by AZEEM Arias acetaminophen 325 mg PO QID PRN alcohol swabs (Alcohol Prep Pads) 0 pad topical allopurinol 200 mg (2 x 100 mg) PO DAILY 90 days amiodarone 200 mg PO BID aspirin (Adult Aspirin Regimen) 81 mg PO DAILY atorvastatin 40 mg PO DAILY back brace As directed blood sugar diagnostic (FreeStyle Lite Strips) 1 strip miscellaneous 4-5 TIMES DAILY; blood-glucose meter,continuous (Dexcom G6 Director Of Strategic Sales) As directed blood-glucose sensor (Dexcom G6 Sensor device) As directed blood-glucose transmitter (Dexcom G6 Transmitter device) As directed clopidogrel 75 mg PO DAILY Farxiga (dapagliflozin propanediol) 5 mg PO DAILY 30 days NS glimepiride 1 mg PO QAM insulin aspart U-100 (Novolog FlexPen U-100 Insulin aspart) subcut insulin glargine (Lantus Solostar U-100 Insulin) 36 units subcut BEDTIME metoprolol tartrate 25 mg PO BID pen needle, diabetic (BD Ultra-Fine Mini Pen Needle) As directed semaglutide 1 mg (0.75 mL) subcut QWEEK Tobacco use date assessed: 11/12/22 Fall risk assessment: No Falls in past year Last assessed Fall Risk: 03/18/23 Dental Screening Dental Screen Date: 03/18/23 Did you have a dental visit in the last 12 months?: Yes Did you have a dental problem in the last 6 months where you did not have access to dental care?: No Was dental information given to patient?: Patient has dentist HPI HPI Comments History of Present Illness Details 72-year-old male past medical history significant for hypertension, diabetes, hypercholesteremia, vitamin-D deficiency, lumbar degenerative disc disease, athersclorosis of abdominal aorta, CAD, S/P cardiac catheritization 01/04/2023, left main normal, lad proximal 70% stenosis, 1st diagonal 70% stenosis, left circumflex 1st OM 80% stenosis at ostial, 1st OM 100% DAIRY NUTRITIONIST, RCA proximal 100% DAIRY NUTRITIONIST. Patient of Dr. Valerio presents today hospital discharge follow-up from [facility] on 03/04/2023. Patient underwent CABG x4 (PABLO-mid LAD, SVG-PLV,SVG-OM, SVG diag) by Dr. Jones. Upon discharge patient was recommended to continue metoprolol 25 mg b.i.d., amiodarone 200 mg b.i.d. for prophylaxis patient to complete on 03/25/2023. Patient had history of postop ileus which was resolved prior to discharge. Patient also had KIM creatinine bumped to 1.8 on 03/03 due to over diuresis, Lasix was discontinued creatinine improving. Patient advised to get previously ordered follow-up lab work completed. Hemoglobin A1c 8.6 % patient was recommended to continue on long-acting insulin 36 units at bedtime, and decrease NovoLog to 4 units t.i.d. with meals once he restarted back on his Ozempic and Farxiga. Patient reports overall doing well he states he just took some Tylenol for some chest soreness. Surgical incision appears to be healing well, edges well approximated no surrounding erythema or drainage. Patient reports he therapy twice a week at home. Patient reports he does have a follow-up with Dr. Devendra chiu in the upcoming weeks as well as with surgeon Dr. Combs. Patient has an appointment with [facility] outpatient cardiac rehab on 04/04/2023. [facility] Medical History (Updated 02/03/23 @ 06:55 by Jaun Figueroa MD) Allergic rhinitis Benign essential hypertension Carpal tunnel syndrome on both sides Depression Diabetes mellitus Elevated liver enzymes Gout Lumbar degenerative disc disease Obesity (BMI 30-39.9) Pure hypercholesterolemia Vitamin D deficiency Surgical History (Updated 03/18/23 @ 12:16 by GILBERTO Morales) History of bilateral hip arthroplasty History of carpal tunnel release History of excision of lesion Hx of colonoscopy S/P CABG x 4 Status post carpal tunnel release (~06/19/20) Family History Father Medical history unknown Mother Diabetes Social History Housing: House Alcohol intake: former Patient Tobacco Use Status: Former Tobacco user e-Cigarette/Vaping Use: Never Used Second Hand Smoke Exposure: Yes service: No Current occupational status: employed Cognitive needs: No Hearing needs: No Vision needs: No Questionnaire Thrive Questionnaire Date Thrive assessed: 11/12/22 RIO-7 AMB Questionnaire RIO-7 Date RIO - 7 assessed: 11/12/22 Source: Developed by Drs. Rigoberto Iqbal, Celestina Murray, Tyrone Wong and colleagues, with an educational farida from [employer]. Review of Systems Const Denies chills, Denies fatigue, Denies fever(s) and Denies poor appetite Eyes Denies no additional complaints ENT Reports Normal hearing present Card Denies chest pain, Denies syncope, Denies rapid heart rate and Denies dyspnea Resp Denies cough and Denies dyspnea GI Denies change in stool character, Denies constipation, Denies diarrhea, Denies nausea and Denies vomiting Denies dysuria, Denies urinary frequency and Denies urinary urgency Neuro Reports Normal hearing present, Denies confusion and Denies syncope Psych Denies confusion Endo Denies fatigue Physical exam (Primary Care) Vital Signs: Last Vital Signs Pulse 80 03/18/23 12:04 BP 138/68 03/18/23 12:04 Pulse Ox 97 03/18/23 12:04 Oxygen Delivery Method Room Air 03/18/23 12:04 BMI result Body Mass Index 33.4 Tobacco/Smoking Status: Tobacco use Status Tobacco use date assessed 11/12/22 03/18/23 12:03 Patient Tobacco Use Status Former Tobacco user 03/18/23 12:03 e-Cigarette/Vaping Use Never Used 03/18/23 12:03 Thrive Assessment: Date of Thrive Assessment Date Thrive assessed 11/12/22 03/18/23 12:03 Const General: No confusion Orientation/consciousness: No confusion HENMT Head: Yes normocephalic and Yes atraumatic Eyes Conjunctivae: conjunctivae normal Chest Chest palpation & inspection: normal inspection of the chest Resp Effort & Inspection: normal respiratory effort Auscultation: clear to auscultation bilaterally, no crackles, no rhonchi and no wheezes Cardio Rate: regular rate Rhythm: regular rhythm Heart sounds: S1 normal heart sound present and S2 normal heart sound present GI Inspection: Yes normal to inspection Neuro General: No confusion Cranial nerves: Yes Normal hearing present Extrem General: No edema Assessment and Plan Assessment & Plan (1) Benign essential hypertension: Code(s): I10 - Essential (primary) hypertension Plan: Continue on metoprolol 25 mg b.i.d. Follow low-salt diet exercise. (2) Diabetes mellitus: Code(s): E11.9 - Type 2 diabetes mellitus without complications Qualifiers: Diabetes mellitus complication status: without complication Diabetes mellitus fdc insulin use: with intermission coordinator use Diabetes mellitus type: type 2 Qualified Code(s): E11.9 - Type 2 diabetes mellitus without complications; Z79.4 - longterm (current) use of insulin Plan: Continue on Ozempic, Faxiga, NovoLog 4 units t.i.d. with meals and Lantus 36 units at bedtime. Follow low-carbohydrate diet. Patient requesting prescription for dexcom; prescription sent for gas turbine assembler, transmitter and sensor. (3) Pure hypercholesterolemia: Code(s): E78.00 - Pure hypercholesterolemia, unspecified Plan: Continue on atorvastatin 40 mg daily. (4) Gout: Code(s): M10.9 - Gout, unspecified Qualifiers: Chronicity: unspecified Gout etiology: idiopathic Gout site: unspecified site Qualified Code(s): M10.00 - Idiopathic gout, unspecified site Plan: Continue on allopurinol. (5) Hospital discharge follow-up: Code(s): Z09 - Encounter for follow-up examination after completed treatment for conditions other than malignant neoplasm Plan: Patient recommended to attend all recommended follow-up with specialists as noted in HPI. Patient recommended to get previously ordered fasting blood done. Patient to stop amiodarone 200 mg b.i.d. on 03/25/2023. Plan Follow-up with Dr. Valerio in 3 months or sooner if needed. Medications: New insulin glargine (Lantus Solostar U-100 Insulin) 36 units (0.36 mL) subcut BEDTIME 15 mL 3RF insulin aspart U-100 (Novolog FlexPen U-100 Insulin aspart) 4 units (0.04 mL) subcut TID 15 mL 3RF clopidogrel 75 mg PO DAILY 30 tabs 3RF Refilled blood-glucose meter,continuous (Dexcom G6 Director Of Strategic Sales) As directed 1 ea 3RF E11.9 - Type 2 diabetes mellitus without complications blood-glucose sensor (Dexcom G6 Sensor device) As directed 3 ea 3RF E11.9 - Type 2 diabetes mellitus without complications blood-glucose transmitter (Dexcom G6 Transmitter device) As directed 1 ea 3RF Coding Level of Care Code Est Pt Level 4 (30406) Diagnoses Benign essential hypertension I10 Diabetes mellitus E11.9; Z79.4 Diabetes mellitus complication status: without complication Diabetes mellitus intermission coordinator insulin use: with intermission coordinator use Diabetes mellitus type: type 2 Pure hypercholesterolemia E78.00 Gout M10.00 Chronicity: unspecified Gout etiology: idiopathic Gout site: unspecified site Hospital discharge follow-up Z09
[2023-03-18 12:04] VITALS: BP 138/68; PULSE 80; O2SAT 97; BMI 33.4
== END 2023-03-18 12:30 | disposition home or self-care (01) ==
PROVIDERS: PCP Internal Medicine; Visit Provider Nurse Practitioner Family
DX: I10 Essential (primary) hypertension (principal); E11.9 Type 2 diabetes mellitus without complications; Z79.4 Long term (current) use of insulin; E78.00 Pure hypercholesterolemia, unspecified; M10.00 Idiopathic gout, unspecified site; Z09 Encounter for follow-up examination after completed treatment for conditions other than malignant neoplasm
CPT/HCPCS: 99214

== ENCOUNTER 2023-03-28 09:33 | Outpatient (AMB) | payer MEDICARE, OTHER, SELFPAY ==
--- NOTE | 2023-03-28 10:08 | A.OFFVIS_ITS ---
Intake Vital Signs 03/28/23 10:09 Height 5 ft 6 in Weight 208 lb 15.971 oz BMI 33.7 BP 114/62 Blood Pressure Location Lt brachial Position Sitting Pulse 68 Intake Visit Reasons: FOLLOW UP AFTER QUAD. BYPASS. Intake Note: f/up after quad by pass Windows Software Engineer Required: No Credit Rating Inspector: Credit Rating Inspector Present Accompanied by: Spouse Allergies Sulfa (Sulfonamide Antibiotics) Allergy (Intermediate, Verified 03/28/23 10:18) ITCHING HIVES sitagliptin [Januvia] Allergy (Unknown, Verified 03/28/23 10:18) Unknown metformin Adverse Reaction (Intermediate, Verified 03/28/23 10:18) Diarrhea Medication List - Last Reconciled 03/28/23 by SANTINO Benton acetaminophen 325 mg PO QID PRN alcohol swabs (Alcohol Prep Pads) 0 pad topical allopurinol 200 mg (2 x 100 mg) PO DAILY 90 days amiodarone 200 mg PO BID aspirin (Adult Aspirin Regimen) 81 mg PO DAILY atorvastatin 40 mg PO DAILY back brace As directed blood sugar diagnostic (FreeStyle Lite Strips) 1 strip miscellaneous 4-5 TIMES DAILY; blood-glucose meter,continuous (Dexcom G6 Metal Sprayer) As directed blood-glucose sensor (Dexcom G6 Sensor device) As directed blood-glucose transmitter (Dexcom G6 Transmitter device) As directed Farxiga (dapagliflozin propanediol) 5 mg PO DAILY 30 days NS gabapentin 100 mg PO TID glimepiride 1 mg PO QAM insulin aspart U-100 (Novolog FlexPen U-100 Insulin aspart) 4 units (0.04 mL) subcut TID insulin glargine (Lantus Solostar U-100 Insulin) 36 units (0.36 mL) subcut BEDTIME metoprolol tartrate 25 mg PO BID pen needle, diabetic (BD Ultra-Fine Mini Pen Needle) As directed semaglutide 1 mg (0.75 mL) subcut QWEEK HPI FOLLOW UP AFTER QUAD. BYPASS. HPI Details Vince is a 72-year-old male with past medical history of hypertension, hyperlipidemia, diabetes, obesity who underwent cardiac evaluation for abnormal EKG, and found to have significant coronary artery disease on cardiac catheterization. He then underwent a 4 vessel coronary artery bypass grafting on 02/24/2023. He now presents for follow-up. Today he reports he has been doing very well since his surgery. He reports only mild anterior chest discomfort. His sternal incision is healing very well. He denies any respiratory issues. No PND, orthopnea or edema. No presyncope, syncope, falls. No heart palpitations. He has been taking all his meds as directed. He is tolerating normal ADLs and just started cardiac rehab. He says he was cleared to undergo back surgery by his cardiac surgeon and once c learance from us to proceed. His is present. [facility], [facility] Medical History (Updated 03/28/23 @ 10:54 by SANTINO Benton) Allergic rhinitis Obesity (BMI 30-39.9) Depression Carpal tunnel syndrome on both sides Lumbar degenerative disc disease Vitamin D deficiency Elevated liver enzymes Gout Pure hypercholesterolemia Diabetes mellitus Benign essential hypertension Surgical History (Updated 03/28/23 @ 10:47 by SANTINO Benton) S/P CABG x 4 Hx of colonoscopy Status post carpal tunnel release (~06/19/20) History of excision of lesion History of carpal tunnel release History of bilateral hip arthroplasty Family History Father Medical history unknown Mother Diabetes Social History Housing: House Alcohol intake: former Patient Tobacco Use Status: Former Tobacco user e-Cigarette/Vaping Use: Never Used Second Hand Smoke Exposure: Yes service: No Current occupational status: employed Cognitive needs: No Hearing needs: No Vision needs: No Review of Systems Const All systems reviewed & are unremarkable except as noted in HPI and below ENT Denies dizziness Card Details: mild anterior chest discomfort at times Denies chest pain, Denies chest pain at rest, Denies chest pain with activity, Denies rapid heart rate, Denies pedal edema, Denies edema, Denies leg edema, Denies lightheadedness, Denies palpitations, Denies dyspnea, Denies dyspnea on exertion and Denies orthopnea Resp Denies cough, Denies dyspnea and Denies dyspnea on exertion GI Denies hematochezia and Denies change in stool character Musc Denies abnormal gait, Denies limited range of motion, Denies muscle cramps, Denies muscle weakness, Denies numbness, Denies radiating pain into limb, Denies stiffness and Denies tingling Neuro Denies abnormal gait, Denies dizziness, Denies numbness and Denies tingling Endo Denies palpitations Physical Exam Vital Signs: Last Vital Signs Pulse 68 03/28/23 10:09 BP 114/62 03/28/23 10:09 BMI result Body Mass Index 33.7 Const General: cooperative, healthy appearing, comfortable and no acute distress Orientation/consciousness: patient oriented x3 Neck Neck: Yes normal visual inspection and Yes no JVD Resp Effort & Inspection: normal respiratory effort Auscultation: clear to auscultation bilaterally, no crackles, no rales, no rhonchi and no wheezes Cardio Other: sternal incision well approximated, drain sites healing well. No signs of inflammation, infection, swelling. Jugular venous distension: no JVD Rate: regular rate Rhythm: regular rhythm Heart sounds: S1 normal heart sound present, S2 normal heart sound present, no gallops, no murmurs and no rubs Neuro General: patient oriented x3 Extrem General: Yes normal to inspection Psych Appearance: grossly normal Mental Status: mental status grossly normal Speech and movement: Normal speech and movement present Office Procedures EKG Details: Today, read by me, sinus rhythm, first-degree AV block, right bundle branch block, inferior Q-wave, T-wave abnormality laterally, V4 and V5, WI interval slightly more prolonged then last EKG on 02/27/2023, T-waves similar findings seen on prior EKG, right bundle branch block is not new, heart rate 68, [id number], Complete Assessment & Plan Assessment & Plan (1) CAD (coronary artery disease): Code(s): I25.10 - Atherosclerotic heart disease of [place] coronary artery without angina pectoris Plan: Prior EKG with inferior Q-waves and slight T-wave abnormality. Patient underwent cardiac evaluation with echocardiogram on 05/12/2022 showing EF 50- 55%, impaired relaxation, severe focal hypertrophy of the basal septum, mild left atrial enlargement, normal valves. A nuclear stress test was done on 10/15/2022 showing a large area of moderate intensity ischemia in the circumflex and possibly RCA territory infarct in the basal inferior and adjacent inferior lateral wall, EF 52% with stress and 59% with rest, t.i.d. present. Cardiac catheterization done on 01/04/2023 showing significant LAD stenosis, CREDIT OPERATIONS SPECIALIST of 1st OM and CREDIT OPERATIONS SPECIALIST of proximal RCA. He then underwent 4 vessel coronary artery bypass grafting on 02/24/2023. Reports a good recovery so far. He is very pleased with how he is feeling. Only mild anterior chest wall discomfort at times. Started in cardiac rehab. He has issues with back pain is requesting clearance for back surgery who which will require an anterior and posterior approach with hardware. He says the cardiac surgeon has cleared him already. Will check an echocardiogram post Coronary artery bypass grafting to assess EF and wall motion. An EKG from today shows sinus rhythm with first-degree AV block, right bundle branch block, overall no significant change from prior. Continue current med management including aspirin, Plavix, atorvastatin, metoprolol. He is still on amiodarone however almost completed his 1 month use. Cardiology follow-up 3 months, sooner if needed. (2) S/P CABG x 4: Comment: BEV RAMOS HV2 MEGA 530A [facility] 02/24/23 Code(s): Z95.1 - Presence of aortocoronary bypass graft (3) S/P cardiac catheterization: Comment: 01/04/2023, left main normal, lad proximal 70% stenosis, 1st diagonal 70% stenosis, left circumflex 1st OM 80% stenosis at ostial, 1st OM 100% CREDIT OPERATIONS SPECIALIST, RCA proximal 100% CREDIT OPERATIONS SPECIALIST Code(s): Z98.890 - Other specified postprocedural states Plan: Right radial catheterization site well healed (4) Hypertension: Code(s): I10 - Essential (primary) hypertension Plan: Well controlled at present. No med changes made (5) Pure hypercholesterolemia: Code(s): E78.00 - Pure hypercholesterolemia, unspecified Plan: [place] LDL goal less than 70. Labs done 12/27/2022 shows LDL 63. Continue atorvastatin 40 mg daily. (6) Diabetes mellitus: Code(s): E11.9 - Type 2 diabetes mellitus without complications Qualifiers: Diabetes mellitus complication status: without complication Diabetes mellitus correction insulin use: with watermaster use Diabetes mellitus type: type 2 Qualified Code(s): E11.9 - Type 2 diabetes mellitus without complications; Z79.4 - jail (current) use of insulin Plan: Hemoglobin A1c goal less than 7. Followed by his PCP (7) Preop cardiovascular exam: Code(s): Z01.810 - Encounter for preprocedural cardiovascular examination Plan: Patient tells me he is hoping to have back surgery May 2023. This will require general anesthesia, anterior and posterior approach with hardware. He is requesting cardiac clearance. Will plan to readdress once echo from above is completed. Surgeon is Dr. Monteiro. Orders: Orders CA echo transthoracic complete Today I25.10 - Atherosclerotic heart disease of [place] coronary artery without angina pectoris, Z95.1 - Presence of aortocoronary bypass graft Coding Level of Care Code Est Pt Level 4 (52699) Diagnoses CAD (coronary artery disease) I25.10 S/P CABG x 4 Z95.1 S/P cardiac catheterization Z98.890 Hypertension I10 Pure hypercholesterolemia E78.00 Type 2 diabetes mellitus without complication, with long-term current use of insulin E11.9; Z79.4 Diabetes mellitus complication status: without complication Diabetes mellitus correction insulin use: with correction use Diabetes mellitus type: type 2 Preop cardiovascular exam Z01.810 CPT Codes EKG - CPT: [id number], Complete ([id number]) Time Spent (min) 30
[2023-03-28 10:09] VITALS: BP 114/62; PULSE 68; BMI 33.7
== END 2023-03-28 10:51 | disposition home or self-care (01) ==
PROVIDERS: PCP Internal Medicine; Referring Provider Internal Medicine; Visit Provider Nurse Practitioner Family
DX: I25.10 Atherosclerotic heart disease of native coronary artery without angina pectoris (principal); Z95.1 Presence of aortocoronary bypass graft; Z98.890 Other specified postprocedural states; I10 Essential (primary) hypertension; E78.00 Pure hypercholesterolemia, unspecified; E11.9 Type 2 diabetes mellitus without complications; Z79.4 Long term (current) use of insulin; Z01.810 Encounter for preprocedural cardiovascular examination
CPT/HCPCS: 93010; 99214

== ENCOUNTER → 2023-03-28 09:33 | Outpatient (BNVA) | payer MEDICARE, OTHER, SELFPAY | PROVIDERS: PCP Internal Medicine; Referring Provider Internal Medicine; Visit Provider Nurse Practitioner Family | DX: Z01.810 Encounter for preprocedural cardiovascular examination (principal); I25.10 Atherosclerotic heart disease of native coronary artery without angina pectoris; I10 Essential (primary) hypertension; E78.00 Pure hypercholesterolemia, unspecified; E11.9 Type 2 diabetes mellitus without complications; Z79.02 Long term (current) use of antithrombotics/antiplatelets; Z79.4 Long term (current) use of insulin; Z79.82 Long term (current) use of aspirin; Z79.899 Other long term (current) drug therapy; Z95.1 Presence of aortocoronary bypass graft | CPT/HCPCS: 93005; 99212 ==

== ENCOUNTER → 2023-04-22 08:35 | Outpatient (REF) | payer MEDICARE, OTHER, SELFPAY | LOC: HO.CARD 08:35 | PROVIDERS: PCP Internal Medicine; Visit Provider Nurse Practitioner Family | DX: I25.10 Atherosclerotic heart disease of native coronary artery without angina pectoris (principal); Z95.1 Presence of aortocoronary bypass graft | CPT/HCPCS: 93306; Q9957 ==

== ENCOUNTER → 2023-04-22 08:38 | Outpatient (BNV) | payer MEDICARE, OTHER, SELFPAY | PROVIDERS: PCP Internal Medicine; Visit Provider Internal Medicine | DX: I25.10 Atherosclerotic heart disease of native coronary artery without angina pectoris (principal) | CPT/HCPCS: 93306 ==

== ENCOUNTER 2023-06-21 14:02 | Outpatient (AMB) | payer MEDICARE, OTHER, SELFPAY ==
[2023-06-21 14:15] VITALS: BP 130/68; PULSE 72; BMI 35.2
--- NOTE | 2023-06-21 14:15 | MHC.OFFVIS ---
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 He said he has been doing well and feels 20 years younger. Denies any symptoms exertional chest pain or shortness of breath. No orthopnea, PND, leg edema. He said he gets lot of stress related to work and when he thinks about work his blood pressure is elevated. He denies any prolonged palpitations irregular heartbeat. Takes all his medications. He has repeat echocardiogram shows improved LV ejection fraction to 56% with persistent basal inferior akinesis consistent with scar. His blood pressures overall been well controlled. [facility] Medical History Allergic rhinitis Obesity (BMI 30-39.9) Depression Carpal tunnel syndrome on both sides Lumbar degenerative disc disease Vitamin D deficiency Elevated liver enzymes Gout Pure hypercholesterolemia Diabetes mellitus Benign essential hypertension Surgical History (Updated 06/21/23 @ 14:47 by Raza Torres MD) S/P CABG x 4 S/P cardiac catheterization Hx of colonoscopy Status post carpal tunnel release (~06/19/20) History of excision of lesion History of carpal tunnel release History of bilateral hip arthroplasty Family History Father Medical history unknown Mother Diabetes Social History Housing: House Alcohol intake: former Patient Tobacco Use Status: Former Tobacco user e-Cigarette/Vaping Use: Never Used Second Hand Smoke Exposure: Yes service: No Current occupational status: employed Cognitive needs: No Hearing needs: No Vision needs: No Review of Systems Const Reports chills, Reports fatigue, Reports fever(s), Reports frequent falls, Reports weakness, Reports weight gain and Reports weight loss ENT Reports dizziness Card Reports chest pain, Reports leg edema, Reports lightheadedness, Reports palpitations, Reports dyspnea and Reports dyspnea on exertion Resp Reports cough, Reports dyspnea and Reports dyspnea on exertion GI Reports hematochezia Musc Reports abnormal gait, Reports muscle weakness, Reports numbness, Reports radiating pain into limb and Reports tingling Neuro Reports abnormal gait, Reports dizziness, Reports frequent falls, Reports numbness, Reports tingling and Reports weakness Endo Reports fatigue and Reports palpitations Physical Exam Vital Signs: Last Vital Signs Pulse 72 06/21/23 14:15 BP 130/68 06/21/23 14:15 BMI result Body Mass Index 35.2 Const General: cooperative, healthy appearing, comfortable and no acute distress Orientation/consciousness: patient oriented x3 Neck Neck: Yes normal visual inspection and Yes no JVD Resp Effort & Inspection: normal respiratory effort Auscultation: clear to auscultation bilaterally, no crackles, no rales, no rhonchi and no wheezes Cardio Other: sternal incision well approximated, drain sites healing well. No signs of inflammation, infection, swelling. Jugular venous distension: no JVD Rate: regular rate Rhythm: regular rhythm Heart sounds: S1 normal heart sound present, S2 normal heart sound present, no gallops, no murmurs and no rubs Neuro General: patient oriented x3 Extrem General: Yes normal to inspection Psych Appearance: grossly normal Mental Status: mental status grossly normal Speech and movement: Normal speech and movement present Office Procedures EKG Details: EKG shows normal sinus rhythm with right bundle-branch block with inferior infarct, unchanged from before [id number], Complete Assessment & Plan Assessment & Plan (1) CAD (coronary artery disease): Code(s): I25.10 - Atherosclerotic heart disease of [place] coronary artery without angina pectoris Plan: CAD with severe three-vessel coronary artery disease status post quadruple coronary bypass grafting with symptoms of exertional fatigue and reduced exercise tolerance. He does not have classic symptoms of angina or shortness of breath. However he is feeling a lot better since coronary bypass grafting with much improved energy. Importance of aggressive medical therapy was discussed. Low-dose aspirin therapy for life. Continue high-intensity statin therapy with target goal LDL closer to 60 mg/dL. Aggressive control of diabetes goal hemoglobin A1c less than 7%. Aggressive control blood pressures advised. Advised to avoid stress including professional stress. Advised to participate in regular physical activity and weight loss program. He understands and agrees. (2) Hypertension: Code(s): I10 - Essential (primary) hypertension Plan: Hypertension which is currently well optimized. Advised to monitor blood pressure at home and maintain a log. Goal blood pressure less than 130/84. Low-salt diet was discussed. Participate in aggressive heart healthy lifestyle. Will follow up in the clinic in 6 months time, sooner p.r.n.. Thank you for allowing me to partake in his care Orders: Orders Lipid Panel Today I25.10 - Atherosclerotic heart disease of [place] coronary artery without angina pectoris Coding Level of Care Code Est Pt Level 4 (91258) Diagnoses CAD (coronary artery disease) I25.10 Hypertension I10 CPT Codes EKG - CPT: 42761-[id number], Complete ([id number])
== END 2023-06-21 14:59 | disposition home or self-care (01) ==
PROVIDERS: PCP Internal Medicine; Visit Provider Internal Medicine Cardiovascular Disease
DX: I25.10 Atherosclerotic heart disease of native coronary artery without angina pectoris (principal); I10 Essential (primary) hypertension
CPT/HCPCS: 93010; 99214

== ENCOUNTER → 2023-06-21 14:02 | Outpatient (BNVA) | payer MEDICARE, OTHER, SELFPAY | PROVIDERS: PCP Internal Medicine; Visit Provider Internal Medicine Cardiovascular Disease | DX: I25.10 Atherosclerotic heart disease of native coronary artery without angina pectoris (principal); I10 Essential (primary) hypertension | CPT/HCPCS: 93005; 99212 ==

== ENCOUNTER 2023-07-01 13:06 | Outpatient (AMB) | payer MEDICARE, OTHER, SELFPAY ==
--- NOTE | 2023-07-01 13:14 | A.OFFPC_ITS ---
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 Accompanied by: Self / Same As Patient Allergies Sulfa (Sulfonamide Antibiotics) Allergy (Intermediate, Verified 07/01/23 13:45) ITCHING HIVES sitagliptin [Januvia] Allergy (Unknown, Verified 07/01/23 13:45) Unknown metformin Adverse Reaction (Intermediate, Verified 07/01/23 13:45) Diarrhea Medication List - Last Reconciled 07/01/23 by Rob Valerio MD acetaminophen 325 mg PO QID PRN alcohol swabs (Alcohol Prep Pads) 0 pad topical allopurinol 200 mg (2 x 100 mg) PO DAILY 90 days aspirin (Adult Aspirin Regimen) 81 mg PO DAILY atorvastatin 40 mg PO DAILY back brace As directed blood sugar diagnostic (FreeStyle Lite Strips) 1 strip miscellaneous 4-5 TIMES DAILY; blood-glucose meter,continuous (Dexcom G6 Mailer) As directed blood-glucose sensor (Dexcom G6 Sensor device) As directed blood-glucose transmitter (Dexcom G6 Transmitter device) As directed clopidogrel 75 mg PO DAILY 90 days Farxiga (dapagliflozin propanediol) 5 mg PO DAILY 30 days NS insulin aspart U-100 (Novolog FlexPen U-100 Insulin aspart) 4 units (0.04 mL) subcut TID insulin glargine (Lantus Solostar U-100 Insulin) 36 units (0.36 mL) subcut BEDTIME metoprolol tartrate 25 mg PO BID pen needle, diabetic (BD Ultra-Fine Mini Pen Needle) test 4 times per day semaglutide 1 mg (0.75 mL) subcut QWEEK Tobacco use date assessed: 07/01/23 Fall risk assessment: No Falls in past year Last assessed Fall Risk: 07/01/23 Dental Screening Dental Screen Date: 07/01/23 Did you have a dental visit in the last 12 months?: Yes Did you have a dental problem in the last 6 months where you did not have access to dental care?: No Was dental information given to patient?: Patient has dentist HPI persistent cough after RSV HPI Details Patient comes in today complaining of a persistent cough ever since he received his RSV vaccine about a week ago on 06/24/2023 States that his symptoms started up less than 2 days later and have gradually gotten worse since Relates increased fatigue - states that he can sleep in bed all day if he stays in bed Also relates (+) mild sore throat (+) headaches at times but he denies any dizziness; denies any fever Coughs up thick greenish phlegm often lately and states that he sometimes cannot sleep at night due to his increased coughing Notes (+) mild LO lately; denies any chest pains No nausea/vomiting, no abdominal pain No change in bowel habits noted PFSH Medical History Allergic rhinitis Obesity (BMI 30-39.9) Depression Carpal tunnel syndrome on both sides Lumbar degenerative disc disease Vitamin D deficiency Elevated liver enzymes Gout Pure hypercholesterolemia Diabetes mellitus Benign essential hypertension Surgical History S/P CABG x 4 S/P cardiac catheterization Hx of colonoscopy Status post carpal tunnel release (~06/19/20) History of excision of lesion History of carpal tunnel release History of bilateral hip arthroplasty Family History Father Medical history unknown Mother Diabetes Social History Housing: House Alcohol intake: former Patient Tobacco Use Status: Former Tobacco user e-Cigarette/Vaping Use: Never Used Second Hand Smoke Exposure: Yes service: No Current occupational status: employed Cognitive needs: No Hearing needs: No Vision needs: No Questionnaire PHQ-9 Over the last 2 weeks, how often have you been bothered by any of the following problems? 1. Little interest or pleasure in doing things: not at all 2. Feeling down, depressed, or hopeless: not at all 3. Trouble falling or staying asleep, or sleeping too much: not at all 4. Feeling tired or having little energy: not at all 5. Poor appetite or overeating: not at all 6. Feeling bad about yourself - or that you are a failure or have let yourself or your family down: not at all 7. Trouble concentrating on things, such as reading the newspaper or watching television: not at all 8. Moving or speaking so slowly that other people could have noticed. Or the opposite - being so fidgety or restless that you have been moving around a lot more than usual: not at all 9. Thoughts that you would be better off or of hurting yourself in some way: not at all Total score: 0 Depression Screening Interpretation: Negative Depression Screening Done: Yes 18467 - PHQ-9 Billing: Yes Source: Developed by Drs. Rigoberto Iqbal, Celestina Murray, Tyrone Wong and colleagues, with an educational farida from [employer] Thrive Questionnaire Date Thrive assessed: 07/01/23 I am a: Patient What is your living situation today?: I have a steady place to live Within the past 12 months, did the food you bought not last and you didn't have the money to get more?: Never true Within the past 12 months, did you worry whether your food would run out before you got money to buy more?: Never true Do you have trouble paying for medicines?: No Do you have trouble getting transportation to medical appointments?: No Do you have trouble paying your heating and electricity bill?: No Do you have trouble taking care of your child, family member or friend?: No Do you have trouble with day-to-day activities such as bathing, preparing meals, shopping, managing finances, etc.?: No Are you currently unemployed and looking for a job?: No Are you interested in more education?: No Please select the resources that you would like help with: None Currently or been in a relationship where the following occur: no concerns reported AUDIT C Alcohol Use Questionnaire (AUDIT-C) 1. How often do you have a drink containing alcohol?: Never 3. How often do you have six or more drinks on one occasion?: Never Total Score: 0 Score Reviewed/Action Taken: Yes RIO-7 AMB Questionnaire RIO-7 Date RIO - 7 assessed: 07/01/23 Feeling nervous, anxious, or on edge: 0 = Not at all Not being able to stop or control worryin = Not at all Worrying too much about different things: 0 = Not at all Trouble relaxin = Not at all Being so restless that it is hard to sit still: 0 = Not at all Becoming easily annoyed or irritable: 0 = Not at all Feeling afraid as if something awful might happen: 0 = Not at all Total RIO-7 score (0-4 normal; 5-9 mild; 10-14 moderate; 15-21 severe): 0 Source: Developed by Drs. Rigoberto Iqbal, Celestina Murray, Tyrone Wong and colleagues, with an educational farida from [employer] Review of Systems Const Denies chills, Reports fatigue (increased), Denies fever(s) and Reports headache(s) (on and off lately) ENT Denies dysphagia, Denies dizziness, Denies otalgia, Reports headache(s) (on and off lately), Reports nasal congestion, Denies neck pain, Denies odynophagia and Reports sore throat (mild) Card Denies chest pain, Denies palpitations and Reports dyspnea on exertion (mild) Resp Reports chest congestion, Reports cough (recurrent; coughs up thick greenish phlegm often lately) and Reports dyspnea on exertion (mild) GI Denies abdominal pain, Denies constipation, Denies dysphagia, Denies heartburn, Denies diarrhea, Denies nausea, Denies odynophagia and Denies vomiting Denies dysuria, Denies nocturia and Denies urinary frequency Musc Denies neck pain Neuro Denies dizziness and Reports headache(s) (on and off lately) Endo Reports fatigue (increased) and Denies palpitations Physical exam (Primary Care) Vital Signs: Last Vital Signs Pulse 83 07/01/23 13:15 BP 112/60 07/01/23 13:15 Pulse Ox 95 07/01/23 13:15 Oxygen Delivery Method Room Air 07/01/23 13:15 BMI result Body Mass Index 34.1 Tobacco/Smoking Status: Tobacco use Status Tobacco use date assessed 07/01/23 07/01/23 13:17 Patient Tobacco Use Status Former Tobacco user 07/01/23 13:15 e-Cigarette/Vaping Use Never Used 07/01/23 13:15 PHQ-9: PHQ-9 Score PHQ-9: Total score 0 07/01/23 13:29 Depression Screening Interpretation: Negative Thrive Assessment: Date of Thrive Assessment Date Thrive assessed 07/01/23 07/01/23 13:17 Currently or been in a relationship where the following occur: no concerns reported Const General: no acute distress and alert HENMT Ears: TM's normal bilaterally and EAC's normal Throat: Yes tonsils normal (no TP congestion) and Yes posterior oropharynx abnormal (increased erythema over the posterior pharynx) Neck Neck: Yes no lymphadenopathy and Yes supple Resp Auscultation: no rales, rhonchi (scattered bilaterally), no wheezes and diminished lung sounds (slightly) bilateral Cardio Rate: regular rate Rhythm: regular rhythm Heart sounds: no murmurs GI Palpation (GI): Soft to palpation and nontender Auscultation: normal bowel sounds Skin Rashes: no rashes Extrem General: Yes no clubbing, cyanosis or edema Assessment and Plan Assessment & Plan (1) Bronchitis: Code(s): J40 - Bronchitis, not specified as acute or chronic Plan: Because of his other multiple comorbidities, will start him empirically on Cefuroxime 500 mg BID x 10 days for now Will send him to the lab for a respiratory panel, including flu, COVID and RSV Advised that if his respiratory panel comes back positive, we will contact him regarding any change in his meds or Tx Plan Follow up as scheduled on 07/13/2023 Orders: Orders SARS-CoV2/FLU/RSV Today R09.89 - Other specified symptoms and signs involving the circulatory and respiratory systems Medications: New cefuroxime axetil 500 mg PO BID 20 tabs 0RF Coding Level of Care Code Est Pt Level 3 (60009) Diagnoses Bronchitis J40
[2023-07-01 13:15] VITALS: BP 112/60; PULSE 83; O2SAT 95; BMI 34.1
== END 2023-07-01 13:58 | disposition home or self-care (01) ==
PROVIDERS: PCP Internal Medicine; Visit Provider Internal Medicine
DX: J40 Bronchitis, not specified as acute or chronic (principal)
CPT/HCPCS: 99213

== ENCOUNTER 2023-07-01 14:04 | Outpatient (REF) | payer MEDICARE, OTHER, SELFPAY ==
[2023-07-01 15:28] LABS: Influenza A PCR NEGATIVE (Negative); Influenza B PCR NEGATIVE (Negative); Resp Syncy Virus RNA Qual PCR POSITIVE (Negative); SARS COV2 PCR INHOUSE NEGATIVE (Negative)
== END 2023-07-01 14:05 | disposition home or self-care (01) ==
LOC: HO.LAB 14:04
PROVIDERS: PCP Internal Medicine; Visit Provider Internal Medicine
DX: R09.89 Other specified symptoms and signs involving the circulatory and respiratory systems (principal); Z11.52 Encounter for screening for COVID-19; Z20.828 Contact with and (suspected) exposure to other viral communicable diseases
CPT/HCPCS: 0241U

== ENCOUNTER 2023-07-05 10:59 | Outpatient (REF) | payer MEDICARE, OTHER, SELFPAY | END 2023-07-05 11:00 | disposition home or self-care (01) | LOC: HO.XRAY 10:59 | PROVIDERS: PCP Internal Medicine; Visit Provider Internal Medicine | DX: R05.9 Cough, unspecified (principal) | CPT/HCPCS: 71046 ==

== ENCOUNTER 2023-07-08 09:35 | Outpatient (REF) | payer MEDICARE, OTHER, SELFPAY ==
[2023-07-08 11:16] LABS: MANUAL DIFF FLAG NO
[2023-07-08 11:21] LABS: Basophils Absolute Auto 0.1 X10*3/uL (0.0-0.2); Basophils Percent Auto 0.9 % (0-2); Eosinophils Absolute Auto 0.5 X10*3/uL (0.0-0.4); Eosinophils Percent Auto 5.8 % (0-4); Hemoglobin 13.2 g/dl (14.0-18.0); Imm Gran Abs Auto 0.11 X10*3/uL (0.00-0.03); Imm Gran Pct Auto 1.4 % (0.0-0.4); Lymphocytes Absolute Auto 2.4 X10*3/uL (1.2-4.9); Lymphocytes Percent Auto 29.4 % (20-40); Mean Corpuscular HGB Conc 31.4 g/dl (31.0-36.0); Mean Corpuscular Hemoglobin 23.7 pg (27.0-33.0); Mean Corpuscular Volume 75.3 fL (80.0-98.0); Mean Platelet Volume 9.8 fL (9.4-12.4); Monocytes Absolute Auto 0.5 X10*3/uL (0.1-1.2); Monocytes Percent Auto 6.4 % (2-11); Neutrophils Absolute Auto 4.6 x10*3/uL (2.0-8.3); Neutrophils Percent Auto 56.1 % (45-73); Platelet Count 248 X10*3/uL (160-400); Red Blood Count 5.58 X10*6/uL (4.60-5.80); Red Cell Distribution Width 20.2 % (11.0-16.0); White Blood Count 8.1 X10*3/uL (4.8-10.8)
[2023-07-08 12:00] LABS: Estimated Average Glucose 134 mg/dL; Hemoglobin A1C 149.2483 umol/L; Hemoglobin A1c % 6.3 % (<6.0)
[2023-07-08 12:18] LABS: Alanine Aminotransferase 33 U/L (0-40); Albumin Level 3.5 g/dL (3.5-5.0); Alkaline Phosphatase 135 U/L (39-117); Anion Gap 10 (12-20); Aspartate Amino Transferase 27 U/L (5-37); Bilirubin Total 0.4 mg/dL (0.0-1.0); Blood Urea Nitrogen 22 mg/dL (9-16); Calcium 9.3 mg/dL (8.4-10.2); Carbon Dioxide 24 mmol/L (22-29); Chloride 110 mmol/L (96-108); Cholesterol 105 mg/dL (<200); Estimated Glomerular Filt Rate > 60; Glucose Fasting 100 mg/dL (60-99); HDL Cholesterol 34 mg/dL (>40); LDL Cholesterol Calculated 50 mg/dL (<100); Potassium 4.3 mmol/L (3.3-5.1); Sodium 140 mmol/L (135-145); Total Protein 7.1 g/dL (6.5-8.0); Triglycerides 106 mg/dL (<150)
[2023-07-08 12:24] LABS: TSH reflex Free T4 0.46 uIU/mL (0.32-4.0); Vitamin D 25-OH Total 27.4 ng/mL (>30)
[2023-07-08 13:44] LABS: Appearance Urine Clear; Color Urine Yellow; Glucose Urine UA 500 mg/dL (Negative); Leukocyte Esterase Urine Negative (Negative); Nitrite Urine Negative (Negative); Specific Gravity - Urine 1.015 (1.005-1.025); Urine Blood Negative (Negative); Urine Ketones Negative (Negative); Urine Protein Trace mg/dL (Neg-Trace)
[2023-07-08 14:12] LABS: Creatinine Urine 60.23 mg/dL; Microalbum/Creatinine Ratio Ur 167.6 ug/mg cr (<30)
[2023-07-08 14:14] LABS: Creatinine Urine 59.86 mg/dL; Protein/Creatinine Ratio, Ur 0.32 (<0.2); Total Protein Urine Random 19 mg/dL (<12)
== END 2023-07-08 09:36 | disposition home or self-care (01) ==
LOC: HO.HMGCLDS 09:35
PROVIDERS: Internal Medicine Nephrology; PCP Internal Medicine; Visit Provider Internal Medicine
DX: E11.9 Type 2 diabetes mellitus without complications (principal); I10 Essential (primary) hypertension; N18.30 Chronic kidney disease, stage 3 unspecified; E78.00 Pure hypercholesterolemia, unspecified; E55.9 Vitamin D deficiency, unspecified; R30.0 Dysuria
CPT/HCPCS: 36415; 80053; 80061; 81003; 82043; 82306; 82570; 83036; 84156; 84443; 85025

== ENCOUNTER 2023-07-13 12:29 | Outpatient (AMB) | payer MEDICARE, OTHER, SELFPAY ==
--- NOTE | 2023-07-13 12:47 | MHC.PC.OV ---
Vital Signs 07/13/23 12:49 Height 5 ft 6 in Weight 215 lb BMI 34.7 BP 112/60 Blood Pressure Location Lt brachial Position Sitting Pulse 79 Pulse Source Pulse Oximeter Pulse Oximetry (%) 98 Oxygen Delivery Method Room Air Intake Visit Reasons: 3 month f/u Intake Note: Patient is here to follow up on DM, CKD, CAD, HTN. Academic Program Specialist Required: No Sales Order Processor: Not Required per policy Accompanied by: Self / Same As Patient Allergies Sulfa (Sulfonamide Antibiotics) Allergy (Intermediate, Verified 11/14/23 13:42) ITCHING HIVES sitagliptin [Januvia] Allergy (Unknown, Verified 11/14/23 13:42) Unknown metformin Adverse Reaction (Intermediate, Verified 11/14/23 13:42) Diarrhea Medication List - Last Reconciled 07/13/23 by Rob Valerio MD acetaminophen 325 mg PO QID PRN alcohol swabs (Alcohol Prep Pads) 0 pad topical allopurinol 200 mg (2 x 100 mg) PO DAILY 90 days aspirin (Adult Aspirin Regimen) 81 mg PO DAILY atorvastatin 40 mg PO DAILY benzonatate 200 mg PO BID-TID PRN blood sugar diagnostic (FreeStyle Lite Strips) 1 strip miscellaneous 4-5 TIMES DAILY; blood-glucose meter,continuous (Dexcom G6 Assistant Production Manager) As directed blood-glucose sensor (Dexcom G6 Sensor device) As directed blood-glucose transmitter (Dexcom G6 Transmitter device) As directed clopidogrel 75 mg PO DAILY 90 days Farxiga (dapagliflozin propanediol) 5 mg PO DAILY 30 days NS insulin aspart U-100 (Novolog FlexPen U-100 Insulin aspart) 4 units (0.04 mL) subcut TID insulin glargine (Lantus Solostar U-100 Insulin) 36 units (0.36 mL) subcut BEDTIME metoprolol tartrate 25 mg PO BID pen needle, diabetic (BD Ultra-Fine Mini Pen Needle) test 4 times per day semaglutide 1 mg (0.75 mL) subcut QWEEK Tobacco use date assessed: 07/01/23 HPI 3 month f/u HPI Details Patient comes in today for his follow up visit States that he currently feels okay and that his respiratory symptoms from a couple of weeks ago have all since cleared up He denies any headaches or dizziness Denies any chest pains, no SOB No nausea/vomiting, no abdominal pain No change in bowel habits noted Had his follow up labs done a few days ago - to discuss his results Per his insurance, they will reportedly no longer cover his Novolog at the beginning of the year and he should switch over to Admelog instead He would also like to have his Rx for Ozempic increased in dose as he wants to try losing some weight while on this PFSH Medical History Allergic rhinitis Obesity (BMI 30-39.9) Depression Carpal tunnel syndrome on both sides Lumbar degenerative disc disease Vitamin D deficiency Elevated liver enzymes Gout Pure hypercholesterolemia Diabetes mellitus Benign essential hypertension Surgical History S/P CABG x 4 S/P cardiac catheterization Hx of colonoscopy Status post carpal tunnel release (~06/19/20) History of excision of lesion History of carpal tunnel release History of bilateral hip arthroplasty Family History Father Medical history unknown Mother Diabetes Social History Housing: House Alcohol intake: former Patient Tobacco Use Status: Former Tobacco user e-Cigarette/Vaping Use: Never Used Second Hand Smoke Exposure: Yes service: No Current occupational status: employed Cognitive needs: No Hearing needs: No Vision needs: Yes (Glasses) Questionnaire Thrive Questionnaire Date Thrive assessed: 07/01/23 RIO-7 AMB Questionnaire RIO-7 Date RIO - 7 assessed: 07/01/23 Source: Developed by Drs. Rigoberto Iqbal, Celestina Murray, Tyrone Wong and colleagues, with an educational farida from [employer]. Review of Systems Const Denies chills, Denies fatigue, Denies fever(s) and Denies headache(s) ENT Denies dysphagia, Denies dizziness, Denies otalgia, Denies headache(s), Denies neck pain, Denies odynophagia and Denies sore throat Card Denies chest pain, Denies palpitations and Denies dyspnea Resp Denies chest congestion, Denies cough and Denies dyspnea GI Denies abdominal pain, Denies constipation, Denies dysphagia, Denies heartburn, Denies diarrhea, Denies nausea, Denies odynophagia and Denies vomiting Denies dysuria, Denies nocturia and Denies urinary frequency Musc Reports back pain (on and off) and Denies neck pain Skin/Breast Denies rash Neuro Denies dizziness and Denies headache(s) Endo Denies fatigue and Denies palpitations Physical exam (Primary Care) Vital Signs: Last Vital Signs Pulse 79 07/13/23 12:49 BP 112/60 07/13/23 12:49 Pulse Ox 98 07/13/23 12:49 Oxygen Delivery Method Room Air 07/13/23 12:49 BMI result Body Mass Index 34.7 Tobacco/Smoking Status: Tobacco use Status Tobacco use date assessed 07/01/23 07/13/23 12:48 Patient Tobacco Use Status Former Tobacco user 07/13/23 12:48 e-Cigarette/Vaping Use Never Used 07/13/23 12:48 Thrive Assessment: Date of Thrive Assessment Date Thrive assessed 07/01/23 07/13/23 12:48 Const General: no acute distress and alert HENMT Ears: TM's normal bilaterally and EAC's normal Throat: Yes posterior oropharynx normal and Yes tonsils normal (no TP congestion) Neck Neck: Yes no lymphadenopathy and Yes supple Thyroid: Thyroid normal Resp Auscultation: clear to auscultation bilaterally, no rales and no wheezes Cardio Rate: regular rate Rhythm: regular rhythm Heart sounds: no murmurs GI Palpation (GI): Soft to palpation and nontender Auscultation: normal bowel sounds General: Yes no CVA tenderness Back/Spine/Pelvis Back: no CVA tenderness Thoracic/Lumbar Spine: lumbar spinal tenderness (mild) Skin Rashes: no rashes Extrem General: Yes no clubbing, cyanosis or edema Results Reviewed Results Reviewed: Laboratory Tests 07/08/23 09:45 WBC 8.1 Hgb 13.2 L Hct 42.0 Plt Count 248 D Sodium 140 Potassium 4.3 Creatinine 0.97 Estimated GFR > 60 Fasting Glucose 100 H Hemoglobin A1c % 6.3 H Calcium 9.3 AST 27 ALT 33 Triglycerides 106 Cholesterol 105 LDL Cholesterol, Calc 50 HDL Cholesterol 34 L 25-OH Vitamin D Total 27.4 L TSH 0.46 Ur Specific [place] 1.015 Urine Protein Trace Urine Glucose (UA) 500 H Urine Blood Negative Urine Nitrite Negative Ur Leukocyte Esterase Negative Microalb/Creat Ratio 167.6 H Assessment and Plan Assessment & Plan (1) Diabetes mellitus: Code(s): E11.9 - Type 2 diabetes mellitus without complications Qualifiers: Diabetes mellitus complication status: without complication Diabetes mellitus fdc insulin use: with assistant terminal manager use Diabetes mellitus type: type 2 Qualified Code(s): E11.9 - Type 2 diabetes mellitus without complications; Z79.4 - longterm (current) use of insulin Plan: HgbA1c was at 6.3% on his labs done a few days ago (was at 7.8% a few months ago in October 2022) - goal is <7.0% Reinforced diabetic diet Continue Farxiga 5 mg QD, Lantus 36 units Q HS and Novolog 4 units TID - due to insurance restrictions, will change Novolog to Admelog starting next month WIll increase his Ozempic from 1 mg to 2 mg SQ once a week (Mounjaro is non-formulary and will not be approved by his insurance) Could not tolerate Metformin or Metformin ER in the past due to diarrhea (2) Benign essential hypertension: Code(s): I10 - Essential (primary) hypertension Plan: Reinforced low sodium diet - goal is systolic BP of at least 130 mm or less Continue Lisinopril 40 mg QD, Metoprolol ER 25 mg QD and Amlodipine to 10 mg QD Echocardiogram done a few months ago revealed low normal LV systolic function with LVEF of 50-55% with impaired relaxation filling pattern with severe focal hypertrophy of the basal septum, mild left atrial enlargement, normal cardiac valvular Dopplers and no gross pericardial effusion Follow up with cardiology as scheduled (3) Proteinuria: Code(s): R80.9 - Proteinuria, unspecified Qualifiers: Proteinuria type: persistent Qualified Code(s): R80.1 - Persistent proteinuria, unspecified Plan: Is most likely related to his HTN and DM Emphasized importance of tight BP and glucose control to slow down progression of renal disease Follow up with nephrology as scheduled - is now seeing Dr. Vann (4) Pure hypercholesterolemia: Code(s): E78.00 - Pure hypercholesterolemia, unspecified Plan: Results of his labs done a few days ago reviewed and discussed with patient Reinforced low cholesterol diet Continue Simvastatin 20 mg QD Will recheck his labs and fasting lipids in 4 months for follow up (5) Elevated liver enzymes: Code(s): R74.8 - Abnormal levels of other serum enzymes Plan: Most likely related to his weight - LFTs have improved and remained normal on his most recent labs Will continue to monitor his LFTs regularly (6) Hypomagnesemia: Code(s): E83.42 - Hypomagnesemia Plan: Corrected and serum magnesium level has remained normal on his recent labs Continue Magnesium Oxide 400 mg BID (7) Nocturnal leg cramps: Code(s): G47.62 - Sleep related leg cramps Plan: Continue Tizanidine 4 mg Q HS PRN (8) Lumbar degenerative disc disease: Code(s): M51.36 - Other intervertebral disc degeneration, lumbar region Plan: Reinforced activity and weight-lifting restrictions Lumbar spine MRI done back in April 2022 revealed (+) grade 1 degenerative anterolisthesis in the setting of advanced bilateral facet arthropathy and additional spondylitic changes resulting in mild central canal stenosis and severe bilateral foraminal stenosis with compression of the exiting L4 nerve roots bilaterally at L4-L5. THERE ARE VERY LARGE BILATERAL FACET JOINT EFFUSIONS AT L4-L5 THAT SHOULD BE FOLLOWED WITH FLEXION-EXTENSION RADIOGRAPHS TO EXCLUDE SEGMENTAL INSTABILITY. There is also a right lateral disc osteophyte protrusion contacts the extraforaminal right L5 nerve root at L5-S1 Patient has been referred to neurosurgery and he is now scheduled to see Dr. Monteiro next week for neurosurgery consultation regarding his lumbar spine issues (9) Gout: Code(s): M10.9 - Gout, unspecified Qualifiers: Chronicity: unspecified Gout etiology: idiopathic Gout site: unspecified site Qualified Code(s): M10.00 - Idiopathic gout, unspecified site Plan: Serum uric acid has improved and remained normal on his labs done a few days ago Reinforced low purine diet - states that he has not had any acute gout flare ups in a while now Continue Allopurinol 100 mg 2 tablets QD (10) Vitamin D deficiency: Code(s): E55.9 - Vitamin D deficiency, unspecified Plan: Continue Vitamin D3 2000 units QD (11) Obesity (BMI 30-39.9): Code(s): E66.9 - Obesity, unspecified Plan: Reinforced diet/exercise as tolerated/lose weight Plan Follow up in 4 months Orders: Orders Hemoglobin A1c 4 Months E11.9 - Type 2 diabetes mellitus without complications Comprehensive Apison. Panel Fast 4 Months E78.00 - Pure hypercholesterolemia, unspecified Complete Blood Count Auto Diff 4 Months I10 - Essential (primary) hypertension Lipid Panel 4 Months E78.00 - Pure hypercholesterolemia, unspecified Medications: New insulin lispro (Admelog SoloStar U-100 Insulin lispro) 4 units (0.04 mL) subcut TID 15 mL 1RF 90 days Changed From semaglutide for 4 weeks 1 mg (0.75 mL) subcut QWEEK 3 mL 3RF E11.9 - Type 2 diabetes mellitus without complications To semaglutide 2 mg (0.75 mL) subcut QWEEK 12 mL 3RF 3 months E11.9 - Type 2 diabetes mellitus without complications Discontinued insulin aspart U-100 Discontinued Reason: Insurance Denied 4 units (0.04 mL) subcut TID 15 mL 3RF Coding Level of Care Code Est Pt Level 4 (51000) Diagnoses Type 2 diabetes mellitus without complication, with long-term current use of insulin E11.9; Z79.4 Diabetes mellitus complication status: without complication Diabetes mellitus fdc insulin use: with fdc use Diabetes mellitus type: type 2 Benign essential hypertension I10 Persistent proteinuria R80.1 Proteinuria type: persistent Pure hypercholesterolemia E78.00 Elevated liver enzymes R74.8 Hypomagnesemia E83.42 Nocturnal leg cramps G47.62 Lumbar degenerative disc disease M51.36 Idiopathic gout, unspecified chronicity, unspecified site M10.00 Chronicity: unspecified Gout etiology: idiopathic Gout site: unspecified site Vitamin D deficiency E55.9 Obesity (BMI 30-39.9) E66.9
[2023-07-13 12:49] VITALS: BP 112/60; PULSE 79; O2SAT 98; BMI 34.7
== END 2023-07-13 13:41 | disposition home or self-care (01) ==
PROVIDERS: PCP Internal Medicine; Visit Provider Internal Medicine
DX: E11.9 Type 2 diabetes mellitus without complications (principal); Z79.4 Long term (current) use of insulin; I10 Essential (primary) hypertension; R80.1 Persistent proteinuria, unspecified; E78.00 Pure hypercholesterolemia, unspecified; R74.8 Abnormal levels of other serum enzymes; E83.42 Hypomagnesemia; G47.62 Sleep related leg cramps; M51.36 Other intervertebral disc degeneration, lumbar region; M10.00 Idiopathic gout, unspecified site; E55.9 Vitamin D deficiency, unspecified; E66.9 Obesity, unspecified
CPT/HCPCS: 99214

== ENCOUNTER 2023-08-17 15:00 | Outpatient (AMB) | payer MEDICARE, OTHER, SELFPAY ==
--- NOTE | 2023-08-17 16:39 | HO.SPINEOV ---
Intake Intake Visit Reasons: discuss surgery Allergies Sulfa (Sulfonamide Antibiotics) Allergy (Intermediate, Verified 07/13/23 13:22) ITCHING HIVES sitagliptin [Januvia] Allergy (Unknown, Verified 07/13/23 13:22) Unknown metformin Adverse Reaction (Intermediate, Verified 07/13/23 13:22) Diarrhea Assessment & Plan Assessment & Plan (1) Spondylolisthesis, lumbar region: Code(s): M43.16 - Spondylolisthesis, lumbar region Plan Dear colleague, On 08/17/2023, I saw for follow-up Vince Cedillo to schedule his L4-5 oblique lumbar interbody fusion to correct his grade 2 L4-5 spondylolisthesis and associated severe spinal stenosis. He suffering from severe back pain and neurogenic claudication. In the original surgery was postponed as he had quadruple bypass last February. He still using Plavix until coming February. I think it is better to plan the surgery for February 2024 as he will be off Plavix. He will get clearance from his financial services director. He is scheduled for 02/20/2024. I spent 30 minutes in his consult discussing the plan. Husam Monteiro MD, PhD Spine Fellowship Trained Neurosurgeon Director, [facility] Coding Level of Care Code Est Pt Level 3 (77095) Diagnoses Spondylolisthesis, lumbar region M43.16
== END 2023-08-17 16:45 | disposition home or self-care (01) ==
PROVIDERS: PCP Internal Medicine; Visit Provider Neurological Surgery
DX: M43.16 Spondylolisthesis, lumbar region (principal)
CPT/HCPCS: 99213

== ENCOUNTER → 2023-08-17 15:00 | Outpatient (BNVA) | payer MEDICARE, OTHER, SELFPAY | PROVIDERS: PCP Internal Medicine; Visit Provider Neurological Surgery | DX: M43.16 Spondylolisthesis, lumbar region (principal) | CPT/HCPCS: 99212 ==

== ENCOUNTER 2023-10-14 08:04 | Outpatient (REF) | payer MEDICARE, OTHER, SELFPAY ==
[2023-10-14 11:07] LABS: Anion Gap 11 (12-20); Blood Urea Nitrogen 31 mg/dL (9-16); Calcium 9.1 mg/dL (8.4-10.2); Carbon Dioxide 25 mmol/L (22-29); Chloride 110 mmol/L (96-108); Estimated Glomerular Filt Rate > 60; Potassium 4.4 mmol/L (3.3-5.1); Sodium 142 mmol/L (135-145)
== END 2023-10-14 08:05 | disposition home or self-care (01) ==
LOC: HO.HMGCLDS 08:04
PROVIDERS: PCP Internal Medicine; Visit Provider Internal Medicine Nephrology
DX: N18.30 Chronic kidney disease, stage 3 unspecified (principal)
CPT/HCPCS: 36415; 80051; 82310; 82565; 84520

== ENCOUNTER 2023-10-19 08:59 | Outpatient (AMB) | payer MEDICARE, OTHER, SELFPAY ==
--- NOTE | 2023-10-19 09:29 | HO.NEPHOV ---
HPI HPI Comments History of Present Illness Details I had the privilege of seeing Vince in follow-up of his chronic kidney disease. He has longstanding diabetes. He had taken metformin in the past but has caused diarrhea and it was discontinued. He is on Ozempic and Farxiga. His last hemoglobin A1c was under 7. He denied any retinopathy but has some proteinuria. He has no neuropathy. He is hypertensive and is on medications including SARY inhibitor. His blood pressure has been at goal. He has history of coronary artery disease. He has history of gout and recently had been having exacerbations in spite of being on allopurinol 200 mg daily. His sister the age of 7 due to kidney issues. He took some nonsteroidal anti-inflammatories recently during his gout exacerbation. He is compliant with his medications. He feels well. [facility] Medical History Allergic rhinitis Obesity (BMI 30-39.9) Depression Carpal tunnel syndrome on both sides Lumbar degenerative disc disease Vitamin D deficiency Elevated liver enzymes Gout Pure hypercholesterolemia Diabetes mellitus Benign essential hypertension Surgical History S/P CABG x 4 S/P cardiac catheterization Hx of colonoscopy Status post carpal tunnel release (~06/19/20) History of excision of lesion History of carpal tunnel release History of bilateral hip arthroplasty Family History Father Medical history unknown Mother Diabetes Social History Housing: House Alcohol intake: former Patient Tobacco Use Status: Former Tobacco user e-Cigarette/Vaping Use: Never Used Second Hand Smoke Exposure: Yes service: No Current occupational status: employed Cognitive needs: No Hearing needs: No Vision needs: No Vital Signs 10/19/23 09:30 Height 5 ft 6 in Weight 211 lb 6 oz BMI 34.1 BP 140/70 H Blood Pressure Location Lt brachial Position Sitting Pulse 69 Pulse Source Pulse Oximeter Pulse Oximetry (%) 96 Oxygen Delivery Method Room Air Physical Exam Vital Signs: Last Vital Signs Pulse 69 10/19/23 09:30 BP 140/70 H 10/19/23 09:30 Pulse Ox 96 10/19/23 09:30 Oxygen Delivery Method Room Air 10/19/23 09:30 BMI result Body Mass Index 34.1 Const General: comfortable and no acute distress Orientation/consciousness: patient oriented x3 HEENT Head: Yes normocephalic Mouth: Normal oral and palatal mucosa present Eyes EOM: EOMs intact bilaterally Neck Neck: Yes supple Resp Auscultation: clear to auscultation bilaterally Cardio Jugular venous distension: no JVD Rate: regular rate GI Palpation (GI): Soft to palpation Auscultation: normal bowel sounds General: Yes no CVA tenderness Back/Spine/Pelvis Back: no CVA tenderness Skin General skin exam: no rashes or lesions noted Neuro General: patient oriented x3 and moves all extremities Extrem General: Yes no pedal edema Assessment & Plan Assessment & Plan (1) CKD (chronic kidney disease) stage 3, GFR 30-59 ml/min: Code(s): N18.30 - Chronic kidney disease, stage 3 unspecified Qualifiers: Chronic kidney disease stage 3 subtype: stage 3a (GFR 45-59) Qualified Code(s): N18.31 - Chronic kidney disease, stage 3a (2) Diabetic nephropathy: Code(s): E11.21 - Type 2 diabetes mellitus with diabetic nephropathy Qualifiers: Diabetes mellitus type: type 2 Qualified Code(s): E11.21 - Type 2 diabetes mellitus with diabetic nephropathy (3) Hypertension: Code(s): I10 - Essential (primary) hypertension Qualifiers: Hypertension type: primary hypertension Qualified Code(s): I10 - Essential (primary) hypertension (4) Gout: Code(s): M10.9 - Gout, unspecified Qualifiers: Chronicity: unspecified Gout etiology: idiopathic Gout site: unspecified site Qualified Code(s): M10.00 - Idiopathic gout, unspecified site Plan 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 His renal functions are stable. He is on SARY inhibitor and Farxiga. His blood pressure is at goal. He has been getting gout exacerbations in spite of being on allopurinol 200 mg daily. I increased the same to 300 mg daily. He will benefit from weight loss. He should minimize or abstain from nonsteroidal anti-inflammatories. He should keep up with good hydration. There is no indication for any renal biopsy now. I did not make any other medication changes today. All his questions were answered. Follow-up blood work ordered. Orders: Orders Blood Urea Nitrogen Today E11.21 - Type 2 diabetes mellitus with diabetic nephropathy, I10 - Essential (primary) hypertension, M10.9 - Gout, unspecified, N18.30 - Chronic kidney disease, stage 3 unspecified Creatinine Today E11.21 - Type 2 diabetes mellitus with diabetic nephropathy, I10 - Essential (primary) hypertension, M10.9 - Gout, unspecified, N18.30 - Chronic kidney disease, stage 3 unspecified Electrolytes Today E11.21 - Type 2 diabetes mellitus with diabetic nephropathy, I10 - Essential (primary) hypertension, M10.9 - Gout, unspecified, N18.30 - Chronic kidney disease, stage 3 unspecified Coding Level of Care Code Est Pt Level 4 (05855) Diagnoses Stage 3a chronic kidney disease N18.31 Chronic kidney disease stage 3 subtype: stage 3a (GFR 45-59) Diabetic nephropathy associated with type 2 diabetes mellitus E11. Diabetes mellitus type: type 2 Primary hypertension I10 Hypertension type: primary hypertension Idiopathic gout, unspecified chronicity, unspecified site M10.00 Chronicity: unspecified Gout etiology: idiopathic Gout site: unspecified site Results Reviewed Nephrology Results: Hgb 13.2 g/dl (14.0-18.0) L 07/08/23 WBC 8.1 X10*3/uL (4.8-10.8) 07/08/23 Plt Count 248 X10*3/uL (160-400) 07/08/23 Sodium 142 mmol/L (135-145) 10/14/23 Potassium 4.4 mmol/L (3.3-5.1) 10/14/23 Chloride 110 mmol/L (96-108) H 10/14/23 Carbon Dioxide 25 mmol/L (22-29) 10/14/23 BUN 31 mg/dL (9-16) H 10/14/23 Creatinine 1.06 mg/dL (0.5-1.4) 10/14/23 Calcium 9.1 mg/dL (8.4-10.2) 10/14/23 Urine Protein Trace mg/dL (Neg-Trace) 07/08/23 Urine Creatinine 59.86 mg/dL 07/08/23 Protein/Creatinin Ratio 0.32 (<0.2) H 07/08/23
[2023-10-19 09:30] VITALS: BP 140/70; PULSE 69; O2SAT 96; BMI 34.1
== END 2023-10-19 10:02 | disposition home or self-care (01) ==
PROVIDERS: PCP Internal Medicine; Visit Provider Internal Medicine Nephrology
DX: N18.31 Chronic kidney disease, stage 3a (principal); E11.21 Type 2 diabetes mellitus with diabetic nephropathy; I10 Essential (primary) hypertension; M10.00 Idiopathic gout, unspecified site
CPT/HCPCS: 99214

== ENCOUNTER → 2023-10-19 08:59 | Outpatient (BNVA) | payer MEDICARE, OTHER, SELFPAY | PROVIDERS: PCP Internal Medicine; Visit Provider Internal Medicine Nephrology | DX: E11.22 Type 2 diabetes mellitus with diabetic chronic kidney disease (principal); I12.9 Hypertensive chronic kidney disease with stage 1 through stage 4 chronic kidney disease, or unspecified chronic kidney disease; N18.31 Chronic kidney disease, stage 3a; E11.21 Type 2 diabetes mellitus with diabetic nephropathy; M10.00 Idiopathic gout, unspecified site | CPT/HCPCS: 99212 ==

== ENCOUNTER 2023-11-08 08:33 | Outpatient (REF) | payer MEDICARE, OTHER, SELFPAY ==
[2023-11-08 10:22] LABS: MANUAL DIFF FLAG NO
[2023-11-08 10:43] LABS: Basophils Absolute Auto 0.1 X10*3/uL (0.0-0.2); Eosinophils Absolute Auto 0.6 X10*3/uL (0.0-0.4); Eosinophils Percent Auto 7.8 % (0-4); Hematocrit 43.6 % (42.0-52.0); Hemoglobin 14.1 g/dl (14.0-18.0); Imm Gran Abs Auto 0.03 X10*3/uL (0.00-0.03); Imm Gran Pct Auto 0.4 % (0.0-0.4); Lymphocytes Absolute Auto 2.2 X10*3/uL (1.2-4.9); Lymphocytes Percent Auto 28.8 % (20-40); Mean Corpuscular HGB Conc 32.3 g/dl (31.0-36.0); Mean Corpuscular Hemoglobin 27.3 pg (27.0-33.0); Mean Corpuscular Volume 84.3 fL (80.0-98.0); Mean Platelet Volume 10.6 fL (9.4-12.4); Monocytes Absolute Auto 0.6 X10*3/uL (0.1-1.2); Neutrophils Absolute Auto 4.2 x10*3/uL (2.0-8.3); Platelet Count 182 X10*3/uL (160-400); Red Blood Count 5.17 X10*6/uL (4.60-5.80); Red Cell Distribution Width 15.1 % (11.0-16.0); White Blood Count 7.7 X10*3/uL (4.8-10.8)
[2023-11-08 11:29] LABS: Estimated Average Glucose 120 mg/dL; Hemoglobin A1c % 5.8 % (<6.0)
[2023-11-08 12:04] LABS: Alanine Aminotransferase 22 U/L (0-40); Albumin Level 3.8 g/dL (3.5-5.0); Alkaline Phosphatase 96 U/L (39-117); Anion Gap 12 (12-20); Aspartate Amino Transferase 23 U/L (5-37); Bilirubin Total 0.4 mg/dL (0.0-1.0); Blood Urea Nitrogen 36 mg/dL (9-16); Calcium 9.3 mg/dL (8.4-10.2); Carbon Dioxide 23 mmol/L (22-29); Chloride 111 mmol/L (96-108); Cholesterol 111 mg/dL (<200); Estimated Glomerular Filt Rate 60; Glucose Fasting 94 mg/dL (60-99); HDL Cholesterol 36 mg/dL (>40); LDL Cholesterol Calculated 58 mg/dL (<100); Potassium 4.5 mmol/L (3.3-5.1); Sodium 141 mmol/L (135-145); Total Protein 6.7 g/dL (6.5-8.0); Triglycerides 87 mg/dL (<150)
== END 2023-11-08 08:34 | disposition home or self-care (01) ==
LOC: HO.HMGCLDS 08:33
PROVIDERS: PCP Internal Medicine; Visit Provider Internal Medicine
DX: E11.9 Type 2 diabetes mellitus without complications (principal); I10 Essential (primary) hypertension; E78.00 Pure hypercholesterolemia, unspecified
CPT/HCPCS: 36415; 80053; 80061; 83036; 85025

== ENCOUNTER 2023-11-14 13:04 | Outpatient (AMB) | payer MEDICARE, OTHER, SELFPAY ==
--- NOTE | 2023-11-14 13:15 | A.OFFPC_ITS ---
Vital Signs 11/14/23 13:17 Height 5 ft 6 in Weight 212 lb 4 oz BMI 34.3 BP 126/62 Blood Pressure Location Rt brachial Position Sitting Pulse 71 Pulse Source Pulse Oximeter Pulse Oximetry (%) 96 Intake Visit Reasons: CAD, hyperlipidemia, DM Intake Note: Patient is here to follow up on CAD, HLD, DM. Lifts And Cranes Inspector Required: No Lead Simulation Modeling Engineer: Not Required per policy Accompanied by: Self / Same As Patient Allergies Sulfa (Sulfonamide Antibiotics) Allergy (Intermediate, Verified 11/14/23 13:42) ITCHING HIVES sitagliptin [Januvia] Allergy (Unknown, Verified 11/14/23 13:42) Unknown metformin Adverse Reaction (Intermediate, Verified 11/14/23 13:42) Diarrhea Medication List - Last Reconciled 11/14/23 by Rob Valerio MD acetaminophen 325 mg PO QID PRN alcohol swabs (Alcohol Prep Pads) 0 pad topical allopurinol 300 mg PO DAILY aspirin (Adult Aspirin Regimen) 81 mg PO DAILY atorvastatin 40 mg PO DAILY blood-glucose meter,continuous (Dexcom G6 Apartment Manager) As directed blood-glucose sensor (Dexcom G6 Sensor device) As directed blood-glucose transmitter (Dexcom G6 Transmitter device) As directed clopidogrel 75 mg PO DAILY 90 days Farxiga (dapagliflozin propanediol) 5 mg PO DAILY 30 days NS insulin glargine (Lantus Solostar U-100 Insulin) 36 units (0.36 mL) subcut BEDTIME metoprolol succinate ER 50 mg PO DAILY pen needle, diabetic (BD Ultra-Fine Mini Pen Needle) test 4 times per day semaglutide 2 mg (0.75 mL) subcut QWEEK 3 months Tobacco use date assessed: 11/14/23 Fall risk assessment: No Falls in past year Last assessed Fall Risk: 11/14/23 Dental Screening Dental Screen Date: 11/14/23 Did you have a dental visit in the last 12 months?: Yes Did you have a dental problem in the last 6 months where you did not have access to dental care?: No Was dental information given to patient?: Patient has dentist HPI CAD, hyperlipidemia, DM HPI Details Patient comes in today for his follow up visit States that he feels okay except for recurrent burning pain and discomfort over his right lower leg and foot and at times, also over his right thigh Recalls that he was on Gabapentin 100 mg TID in the past but he stopped taking it a while back as he did not feel that it was helping States that he recently tried one of his 's 300 mg Gabapentin at bedtime and thinks it helped slightly but not by much States that his leg symptoms are starting to bother him and are becoming annoying He denies any headaches or dizziness Denies any chest pains, no SOB No nausea/vomiting, no abdominal pain No change in bowel habits noted Adds that his insurance is now switching formulary for his insulin and will no longer cover Humalog and he needs Rx for Admelog sent in to his local pharmacy Had his follow up labs done last week - to discuss his results [facility] [place] Medical History Allergic rhinitis Obesity (BMI 30-39.9) Depression Carpal tunnel syndrome on both sides Lumbar degenerative disc disease Vitamin D deficiency Elevated liver enzymes Gout Pure hypercholesterolemia Diabetes mellitus Benign essential hypertension Surgical History S/P CABG x 4 S/P cardiac catheterization Hx of colonoscopy Status post carpal tunnel release (~06/19/20) History of excision of lesion History of carpal tunnel release History of bilateral hip arthroplasty Family History Father Medical history unknown Mother Diabetes Social History Housing: House Alcohol intake: former Patient Tobacco Use Status: Former Tobacco user e-Cigarette/Vaping Use: Never Used Second Hand Smoke Exposure: Yes service: No Current occupational status: employed Cognitive needs: No Hearing needs: No Vision needs: Yes (Glasses) Questionnaire PHQ-9 Over the last 2 weeks, how often have you been bothered by any of the following problems? 1. Little interest or pleasure in doing things: not at all 2. Feeling down, depressed, or hopeless: not at all 3. Trouble falling or staying asleep, or sleeping too much: not at all 4. Feeling tired or having little energy: not at all 5. Poor appetite or overeating: not at all 6. Feeling bad about yourself - or that you are a failure or have let yourself or your family down: not at all 7. Trouble concentrating on things, such as reading the newspaper or watching television: not at all 8. Moving or speaking so slowly that other people could have noticed. Or the opposite - being so fidgety or restless that you have been moving around a lot more than usual: not at all 9. Thoughts that you would be better off or of hurting yourself in some way: not at all Total score: 0 Depression Screening Interpretation: Negative Depression Screening Done: Yes 31357 - PHQ-9 Billing: Yes Source: Developed by Drs. Rigoberto Iqbal, Celestina Murray, Tyrone Wong and colleagues, with an educational farida from [employer]. Thrive Questionnaire Date Thrive assessed: 11/14/23 I am a: Patient What is your living situation today?: I have a steady place to live Within the past 12 months, did the food you bought not last and you didn't have the money to get more?: Never true Within the past 12 months, did you worry whether your food would run out before you got money to buy more?: Never true Do you have trouble paying for medicines?: No Do you have trouble getting transportation to medical appointments?: No Do you have trouble paying your heating and electricity bill?: No Do you have trouble taking care of your child, family member or friend?: No Do you have trouble with day-to-day activities such as bathing, preparing meals, shopping, managing finances, etc.?: No Are you currently unemployed and looking for a job?: No Are you interested in more education?: No Currently or been in a relationship where the following occur: no concerns reported THRIVE Score: 0 AUDIT C Alcohol Use Questionnaire (AUDIT-C) 1. How often do you have a drink containing alcohol?: Never 3. How often do you have six or more drinks on one occasion?: Never Total Score: 0 Score Reviewed/Action Taken: Yes RIO-7 AMB Questionnaire RIO-7 Date RIO - 7 assessed: 11/14/23 Feeling nervous, anxious, or on edge: 0 = Not at all Not being able to stop or control worryin = Not at all Worrying too much about different things: 0 = Not at all Trouble relaxin = Not at all Being so restless that it is hard to sit still: 0 = Not at all Becoming easily annoyed or irritable: 0 = Not at all Feeling afraid as if something awful might happen: 0 = Not at all Total RIO-7 score (0-4 normal; 5-9 mild; 10-14 moderate; 15-21 severe): 0 Source: Developed by Drs. Rigoberto Iqbal, Celestina Murray, Tyrone Wong and colleagues, with an educational farida from [employer]. Review of Systems Const Denies chills, Denies fatigue, Denies fever(s) and Denies headache(s) ENT Denies dysphagia, Denies dizziness, Denies otalgia, Denies headache(s), Denies neck pain, Denies odynophagia and Denies sore throat Card Denies chest pain, Denies palpitations and Denies dyspnea Resp Denies chest congestion, Denies cough and Denies dyspnea GI Denies abdominal pain, Denies constipation, Denies dysphagia, Denies heartburn, Denies diarrhea, Denies nausea, Denies odynophagia and Denies vomiting Denies dysuria, Denies nocturia and Denies urinary frequency Musc Reports back pain (on and off) and Denies neck pain Skin/Breast Denies rash Neuro Reports as per HPI (burning pain over his right thigh, leg and foot), Denies dizziness and Denies headache(s) Endo Denies fatigue and Denies palpitations Physical exam (Primary Care) Vital Signs: Last Vital Signs Pulse 71 11/14/23 13:17 BP 126/62 11/14/23 13:17 Pulse Ox 96 11/14/23 13:17 BMI result Body Mass Index 34.3 Tobacco/Smoking Status: Tobacco use Status Tobacco use date assessed 11/14/23 11/14/23 13:25 Patient Tobacco Use Status Former Tobacco user 11/14/23 13:25 e-Cigarette/Vaping Use Never Used 11/14/23 13:25 PHQ-9: PHQ-9 Score PHQ-9: Total score 0 11/14/23 13:25 Depression Screening Interpretation: Negative Thrive Assessment: Date of Thrive Assessment Date Thrive assessed 11/14/23 11/14/23 13:25 Currently or been in a relationship where the following occur: no concerns reported Const General: no acute distress and alert HENMT Ears: TM's normal bilaterally and EAC's normal Throat: Yes posterior oropharynx normal and Yes tonsils normal (no TP congestion) Neck Neck: Yes no lymphadenopathy and Yes supple Thyroid: Thyroid normal Resp Auscultation: clear to auscultation bilaterally, no rales and no wheezes Cardio Rate: regular rate Rhythm: regular rhythm Heart sounds: no murmurs GI Palpation (GI): Soft to palpation and nontender Auscultation: normal bowel sounds General: Yes no CVA tenderness Back/Spine/Pelvis Back: no CVA tenderness Thoracic/Lumbar Spine: lumbar spinal tenderness (mild) Skin Rashes: no rashes Extrem General: Yes no clubbing, cyanosis or edema Results Reviewed Results Reviewed: Laboratory Tests 11/08/23 08:44 WBC 7.7 Hgb 14.1 Hct 43.6 Plt Count 182 D Sodium 141 Potassium 4.5 Creatinine 1.20 Estimated GFR 60 Fasting Glucose 94 Hemoglobin A1c % 5.8 Calcium 9.3 AST 23 ALT 22 Triglycerides 87 Cholesterol 111 LDL Cholesterol, Calc 58 HDL Cholesterol 36 L Assessment and Plan Assessment & Plan (1) Diabetes mellitus: Code(s): E11.9 - Type 2 diabetes mellitus without complications Qualifiers: Diabetes mellitus type: type 2 Diabetes mellitus long term care administrator insulin use: with chcf use Diabetes mellitus complication status: without complication Qualified Code(s): E11.9 - Type 2 diabetes mellitus without complications; 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 Plan: HgbA1c was at 5.8% on his labs done last week (was at 6.3% a few months ago) - goal is <7.0% Reinforced diabetic diet Continue Farxiga 5 mg QD and Lantus 36 units Q HS; will switch his Novolog 4 units TID to Admelog 6 to 8 units TID per sliding scale due to insurance restrictions Continue Ozempic 2 mg SQ once a week (Keithro is non-formulary and will not be approved by his insurance) - states that he has not really lost any weight on Ozempic even though others on it claims to have lost a lot of weight Patient again could not tolerate Metformin or Metformin ER in the past due to diarrhea (2) Benign essential hypertension: Code(s): I10 - Essential (primary) hypertension Plan: Reinforced low sodium diet - goal is systolic BP of at least 130 mm or less Continue Lisinopril 40 mg QD and Metoprolol ER 50 mg QD (dose was increased by nephrology recently) Echocardiogram done last year revealed low normal LV systolic function with LVEF of 50-55% with impaired relaxation filling pattern with severe focal hypert rophy of the basal septum, mild left atrial enlargement, normal cardiac valvular Dopplers and no gross pericardial effusion Follow up with cardiology as scheduled (3) Proteinuria: Code(s): R80.9 - Proteinuria, unspecified Qualifiers: Proteinuria type: persistent Qualified Code(s): R80.1 - Persistent proteinuria, unspecified Plan: Is most likely related to his HTN and DM Emphasized importance of tight BP and glucose control to slow down progression of renal disease Follow up with nephrology as scheduled - is now seeing Dr. Vann (4) Pure hypercholesterolemia: Code(s): E78.00 - Pure hypercholesterolemia, unspecified Plan: Results of his labs done last week reviewed and discussed with patient Reinforced low cholesterol diet Continue Simvastatin 20 mg QD Will recheck his labs and fasting lipids in 4 months for follow up (5) Elevated liver enzymes: Code(s): R74.8 - Abnormal levels of other serum enzymes Plan: Most likely related to his weight - LFTs have improved and remained normal on his most recent labs Will continue to monitor his LFTs regularly (6) Hypomagnesemia: Code(s): E83.42 - Hypomagnesemia Plan: Corrected and serum magnesium level has remained normal on his recent labs Continue Magnesium Oxide 400 mg BID (7) Nocturnal leg cramps: Code(s): G47.62 - Sleep related leg cramps Plan: Continue Tizanidine 4 mg Q HS PRN (8) Lumbar degenerative disc disease: Code(s): M51.36 - Other intervertebral disc degeneration, lumbar region Plan: Reinforced activity and weight-lifting restrictions Lumbar spine MRI done back in April 2022 revealed (+) grade 1 degenerative anterolisthesis in the setting of advanced bilateral facet arthropathy and additional spondylitic changes resulting in mild central canal stenosis and severe bilateral foraminal stenosis with compression of the exiting L4 nerve roots bilaterally at L4-L5. THERE ARE VERY LARGE BILATERAL FACET JOINT EFFUSIONS AT L4-L5 THAT SHOULD BE FOLLOWED WITH FLEXION-EXTENSION RADIOGRAPHS TO EXCLUDE SEGMENTAL INSTABILITY. There is also a right lateral disc osteophyte protrusion contacts the extraforaminal right L5 nerve root at L5-S1 Patient has been referred to neurosurgery (Dr. Monteiro) regarding his lumbar spine issues and he has been recommended to undergo L4-5 oblique lumbar interbody fusion, which will ne scheduled for February 2024 (9) Gout: Code(s): M10.9 - Gout, unspecified Qualifiers: Gout site: unspecified site Gout etiology: idiopathic Chronicity: unspecified Qualified Code(s): M10.00 - Idiopathic gout, unspecified site Plan: Serum uric acid has improved and remained normal on his labs done a few days ago Reinforced low purine diet - states that he has not had any acute gout flare ups in a while now Continue Allopurinol 300 mg QD (10) Vitamin D deficiency: Code(s): E55.9 - Vitamin D deficiency, unspecified Plan: Patient is advised that his Vitamin D level is again low and should start back on Vitamin D supplements - will start him back on Vitamin D3 1000 units QD (11) Obesity (BMI 30-39.9): Code(s): E66.9 - Obesity, unspecified Plan: Reinforced diet/exercise as tolerated/lose weight Plan Follow up in 4 months Orders: Orders Hemoglobin A1c 4 Months E11.9 - Type 2 diabetes mellitus without complications Lipid Panel 4 Months E78.00 - Pure hypercholesterolemia, unspecified Comprehensive [place]. Panel Fast 4 Months E78.00 - Pure hypercholesterolemia, unspecified Microalbumin, Random (w Creat) 4 Months E11.9 - Type 2 diabetes mellitus without complications Uric Acid 4 Months M10.9 - Gout, unspecified Complete Blood Count Auto Diff 4 Months D64.9 - Anemia, unspecified TSH reflex Free T4 4 Months E78.00 - Pure hypercholesterolemia, unspecified UA CC w/rflx Micro + Cult 4 Months R30.0 - Dysuria Vitamin D 25-OH Total 4 Months E55.9 - Vitamin D deficiency, unspecified Vitamin B12 and Folate 4 Months E53.8 - Deficiency of other specified B group vitamins Medications: New Admelog SoloStar U-100 Insulin (insulin lispro) 6 to 8 units 3 times a day with meals SQ per sliding scale subcutaneously 3 times a day; 30 days 15 mL 3RF NS cholecalciferol (vitamin D3) 25 mcg PO DAILY 90 days 90 caps 3RF E55.9 - Vitamin D deficiency, unspecified gabapentin 300 mg PO TID 30 days 90 caps 3RF Changed From allopurinol 200 mg (2 x 100 mg) PO DAILY 90 days 180 tabs 1RF M10.00 - Idiopathic gout, unspecified site To allopurinol 300 mg PO DAILY M10.00 - Idiopathic gout, unspecified site Coding Level of Care Code Est Pt Level 4 (37596) Diagnoses Type 2 diabetes mellitus without complication, with long-term current use of insulin E11.9; Z79.4 Diabetes mellitus type: type 2 Diabetes mellitus long term care administrator insulin use: with chcf use Diabetes mellitus complication status: without complication Benign essential hypertension I10 Persistent proteinuria R80.1 Proteinuria type: persistent Pure hypercholesterolemia E78.00 Elevated liver enzymes R74.8 Hypomagnesemia E83.42 Nocturnal leg cramps G47.62 Lumbar degenerative disc disease M51.36 Idiopathic gout, unspecified chronicity, unspecified site M10.00 Gout site: unspecified site Gout etiology: idiopathic Chronicity: unspecified Vitamin D deficiency E55.9 Obesity (BMI 30-39.9) E66.9
[2023-11-14 13:17] VITALS: BP 126/62; PULSE 71; O2SAT 96; BMI 34.3
== END 2023-11-14 13:59 | disposition home or self-care (01) ==
PROVIDERS: PCP Internal Medicine; Visit Provider Internal Medicine
DX: E11.9 Type 2 diabetes mellitus without complications (principal); Z79.4 Long term (current) use of insulin; I10 Essential (primary) hypertension; R80.1 Persistent proteinuria, unspecified; E78.00 Pure hypercholesterolemia, unspecified; R74.8 Abnormal levels of other serum enzymes; E83.42 Hypomagnesemia; G47.62 Sleep related leg cramps; M51.36 Other intervertebral disc degeneration, lumbar region; M10.00 Idiopathic gout, unspecified site; E55.9 Vitamin D deficiency, unspecified; E66.9 Obesity, unspecified
CPT/HCPCS: 99214

== ENCOUNTER 2023-12-29 10:27 | Outpatient (AMB) | payer MEDICARE, OTHER, SELFPAY ==
--- NOTE | 2023-12-29 10:43 | MHC.OFFVIS ---
Vital Signs 12/29/23 10:44 Height 5 ft 6 in Weight 218 lb 4.122 oz BMI 35.2 BP 122/62 Blood Pressure Location Lt brachial Position Sitting Pulse 71 Pulse Source Pulse Oximeter Intake Visit Reasons: 6 mth /up Intake Note: pt is here for 6 month f/u pt feels good Allergies Sulfa (Sulfonamide Antibiotics) Allergy (Intermediate, Verified 11/14/23 13:42) ITCHING HIVES sitagliptin [Januvia] Allergy (Unknown, Verified 11/14/23 13:42) Unknown metformin Adverse Reaction (Intermediate, Verified 11/14/23 13:42) Diarrhea Medication List - Last Reconciled 12/29/23 by Raza Torres MD acetaminophen 325 mg PO QID PRN Admelog SoloStar U-100 Insulin (insulin lispro) 6 to 8 units 3 times a day with meals SQ per sliding scale subcutaneously 3 times a day; 30 days NS alcohol swabs (Alcohol Prep Pads) 0 pad topical allopurinol 300 mg PO DAILY aspirin (Adult Aspirin Regimen) 81 mg PO DAILY atorvastatin 40 mg PO DAILY blood-glucose meter,continuous (Dexcom G6 Sprinkler Inspector) As directed blood-glucose sensor (Dexcom G6 Sensor device) As directed blood-glucose transmitter (Dexcom G6 Transmitter device) As directed cholecalciferol (vitamin D3) 25 mcg PO DAILY 90 days clopidogrel 75 mg PO DAILY 90 days Farxiga (dapagliflozin propanediol) 5 mg PO DAILY 30 days NS gabapentin 300 mg PO TID 30 days insulin glargine (Lantus Solostar U-100 Insulin) 36 units (0.36 mL) subcut BEDTIME lisinopril 40 mg PO DAILY metoprolol succinate ER 50 mg PO DAILY pen needle, diabetic (BD Ultra-Fine Mini Pen Needle) test 4 times per day semaglutide 2 mg (0.75 mL) subcut QWEEK 3 months HPI Comments Details: Vince comes for follow-up. Main issue currently is his back issues and currently seeing spine surgery for the same. He said cardiovascular symptoms have significantly improved. He denies any symptoms of exertional shortness of breath or fatigue or chest pain. Taking all his medications. LDL is well optimized. Currently still on dual antiplatelet therapy. Blood pressures been well stable. Denies any heart failure symptoms. Denies any prolonged palpitations irregular heartbeat. [facility] Medical History Allergic rhinitis Obesity (BMI 30-39.9) Depression Carpal tunnel syndrome on both sides Lumbar degenerative disc disease Vitamin D deficiency Elevated liver enzymes Gout Pure hypercholesterolemia Diabetes mellitus Benign essential hypertension Surgical History S/P CABG x 4 S/P cardiac catheterization Hx of colonoscopy Status post carpal tunnel release (~06/19/20) History of excision of lesion History of carpal tunnel release History of bilateral hip arthroplasty Family History Father Medical history unknown Mother Diabetes Social History Housing: House Alcohol intake: former Patient Tobacco Use Status: Former Tobacco user e-Cigarette/Vaping Use: Never Used Second Hand Smoke Exposure: Yes service: No Current occupational status: employed Cognitive needs: No Hearing needs: No Vision needs: Yes (Glasses) Review of Systems Const Denies weakness ENT Denies dizziness Card Denies chest pain, Denies chest pain with activity, Denies syncope, Denies rapid heart rate, Denies pedal edema, Denies edema, Denies leg edema, Denies lightheadedness, Denies palpitations, Denies dyspnea, Denies dyspnea on exertion and Denies orthopnea Resp Denies cough, Denies dyspnea and Denies dyspnea on exertion GI Denies hematochezia and Denies change in stool character Musc Denies abnormal gait, Denies muscle cramps, Denies muscle weakness, Denies numbness, Denies radiating pain into limb and Denies tingling Neuro Denies abnormal gait, Denies dizziness, Denies syncope, Denies numbness, Denies tingling and Denies weakness Endo Denies palpitations Physical Exam Vital Signs: Last Vital Signs Pulse 71 12/29/23 10:44 BP 122/62 12/29/23 10:44 BMI result Body Mass Index 35.2 Const General: cooperative, healthy appearing, comfortable and no acute distress Orientation/consciousness: patient oriented x3 Neck Neck: Yes normal visual inspection and Yes no JVD Resp Effort & Inspection: normal respiratory effort Auscultation: clear to auscultation bilaterally, no crackles, no rales, no rhonchi and no wheezes Cardio Other: sternal incision well approximated, drain sites healing well. No signs of inflammation, infection, swelling. Jugular venous distension: no JVD Rate: regular rate Rhythm: regular rhythm Heart sounds: S1 normal heart sound present, S2 normal heart sound present, no gallops, no murmurs and no rubs Neuro General: patient oriented x3 Extrem General: Yes normal to inspection Psych Appearance: grossly normal Mental Status: mental status grossly normal Speech and movement: Normal speech and movement present Assessment & Plan Assessment & Plan (1) CAD (coronary artery disease): Code(s): I25.10 - Atherosclerotic heart disease of [place] coronary artery without angina pectoris Category: Medical Plan: Coronary artery disease status post coronary artery bypass grafting with resolved symptoms. Doing very well from cardiac perspective. Continue dual antiplatelet therapy till March of 2024. Then lifelong aspirin therapy beyond that. However if he has to undergo spine surgery in the near future for his disabling symptoms he can stop his antiplatelet therapy for short period of time. He is optimized to undergo spine surgery with low to intermediate risk for perioperative cardiovascular morbidity mortality. Continue high-intensity statin therapy with well optimized LDL at this point in time. Target goal LDL closer to 60 mg/dL. Aggressive diabetes as blood pressure control is recommended. Encouraged to continue to participate in physical activity as tolerated. (2) Benign essential hypertension: Code(s): I10 - Essential (primary) hypertension Category: Medical Plan: Hypertension which is currently well optimized advised to monitor blood pressure at home and maintain a log. Goal blood pressure less than 130/84. Low-salt diet was discussed. Importance of good blood pressure control was discussed. Continue participate in regular physical activity and weight loss program. Will follow up in the clinic in 1 year's time, sooner p.r.n.. Thank you for allowing me to partake in his care Coding Level of Care Code Est Pt Level 4 (31116) Diagnoses CAD (coronary artery disease) I25.10 Benign essential hypertension I10
[2023-12-29 10:44] VITALS: BP 122/62; PULSE 71; BMI 35.2
== END 2023-12-29 11:08 | disposition home or self-care (01) ==
PROVIDERS: PCP Internal Medicine; Visit Provider Internal Medicine Cardiovascular Disease
DX: I25.10 Atherosclerotic heart disease of native coronary artery without angina pectoris (principal); I10 Essential (primary) hypertension
CPT/HCPCS: 99214

== ENCOUNTER → 2023-12-29 10:27 | Outpatient (BNVA) | payer MEDICARE, OTHER, SELFPAY | PROVIDERS: PCP Internal Medicine; Visit Provider Internal Medicine Cardiovascular Disease | DX: I25.10 Atherosclerotic heart disease of native coronary artery without angina pectoris (principal); I10 Essential (primary) hypertension | CPT/HCPCS: 99212 ==

== ENCOUNTER 2024-03-16 08:49 | Outpatient (REF) | payer MEDICARE, OTHER, SELFPAY ==
[2024-03-16 10:01] LABS: MANUAL DIFF FLAG NO
[2024-03-16 10:07] LABS: Appearance Urine Clear; Color Urine Yellow; Glucose Urine UA Negative (Negative); Leukocyte Esterase Urine Negative (Negative); Nitrite Urine Negative (Negative); Urine Blood Negative (Negative); Urine Ketones Negative (Negative); Urine Protein Trace mg/dL (Neg-Trace)
[2024-03-16 10:11] LABS: Basophils Absolute Auto 0.1 X10*3/uL (0.0-0.2); Eosinophils Absolute Auto 0.5 X10*3/uL (0.0-0.4); Eosinophils Percent Auto 7.3 % (0-4); Hematocrit 41.8 % (42.0-52.0); Hemoglobin 13.8 g/dl (14.0-18.0); Imm Gran Abs Auto 0.04 X10*3/uL (0.00-0.03); Imm Gran Pct Auto 0.6 % (0.0-0.4); Lymphocytes Percent Auto 29.5 % (20-40); Mean Corpuscular Hemoglobin 29.3 pg (27.0-33.0); Mean Corpuscular Volume 88.7 fL (80.0-98.0); Mean Platelet Volume 10.8 fL (9.4-12.4); Monocytes Absolute Auto 0.5 X10*3/uL (0.1-1.2); Monocytes Percent Auto 6.7 % (2-11); Neutrophils Absolute Auto 3.8 x10*3/uL (2.0-8.3); Neutrophils Percent Auto 54.9 % (45-73); Platelet Count 147 X10*3/uL (160-400); Red Blood Count 4.71 X10*6/uL (4.60-5.80); Red Cell Distribution Width 15.7 % (11.0-16.0); White Blood Count 6.9 X10*3/uL (4.8-10.8)
[2024-03-16 10:41] LABS: Blood Urea Nitrogen 27 mg/dL (9-16)
[2024-03-16 10:45] LABS: Alanine Aminotransferase 26 U/L (0-40); Albumin Level 3.9 g/dL (3.5-5.0); Alkaline Phosphatase 86 U/L (39-117); Anion Gap 9 (12-20); Aspartate Amino Transferase 28 U/L (5-37); Bilirubin Total 0.5 mg/dL (0.0-1.0); Blood Urea Nitrogen 27 mg/dL (9-16); Calcium 8.9 mg/dL (8.4-10.2); Carbon Dioxide 21 mmol/L (22-29); Chloride 113 mmol/L (96-108); Cholesterol 120 mg/dL (<200); Estimated Glomerular Filt Rate > 60; Glucose Fasting 100 mg/dL (60-99); HDL Cholesterol 44 mg/dL (>40); LDL Cholesterol Calculated 65 mg/dL (<100); Potassium 4.3 mmol/L (3.3-5.1); Sodium 139 mmol/L (135-145); TSH reflex Free T4 0.34 uIU/mL (0.32-4.0); Total Protein 6.6 g/dL (6.5-8.0); Triglycerides 55 mg/dL (<150); Uric Acid 4.6 mg/dL (3.4-7.0)
[2024-03-16 10:47] LABS: Microalbum/Creatinine Ratio Ur 75.9 ug/mg cr (<30)
[2024-03-16 11:00] LABS: Folate 11.2 ng/mL (> or = 4.0); Vitamin B12 672 pg/mL (200-900)
[2024-03-16 12:11] LABS: Estimated Average Glucose 114 mg/dL; Hemoglobin A1c % 5.6 % (<6.0)
== END 2024-03-16 08:50 | disposition home or self-care (01) ==
LOC: HO.HMGCLDS 08:49
PROVIDERS: PCP Internal Medicine; Referring Provider Internal Medicine Nephrology; Visit Provider Internal Medicine
DX: I12.9 Hypertensive chronic kidney disease with stage 1 through stage 4 chronic kidney disease, or unspecified chronic kidney disease (principal); E11.21 Type 2 diabetes mellitus with diabetic nephropathy; N18.30 Chronic kidney disease, stage 3 unspecified; E53.8 Deficiency of other specified B group vitamins; R30.0 Dysuria; E55.9 Vitamin D deficiency, unspecified; E78.00 Pure hypercholesterolemia, unspecified; D64.9 Anemia, unspecified; M10.9 Gout, unspecified
CPT/HCPCS: 36415; 80053; 80061; 81003; 82043; 82306; 82570; 82607; 82746; 83036; 84443; 84520; 84550; 85025

== ENCOUNTER 2024-03-21 09:28 | Outpatient (AMB) | payer MEDICARE, OTHER, SELFPAY ==
--- NOTE | 2024-03-21 09:36 | HO.NEPHOV_ITS ---
Vital Signs 03/21/24 09:37 Height 5 ft 6 in Weight 218 lb BMI 35.2 BP 130/70 Blood Pressure Location Lt brachial Pulse 71 Pulse Source Pulse Oximeter Pulse Oximetry (%) 97 Oxygen Delivery Method Room Air Intake Visit Reasons: CKD/ 5 MO FU- Conf Spar Cap Beveler Required: No Accompanied by: Self / Same As Patient Allergies Sulfa (Sulfonamide Antibiotics) Allergy (Intermediate, Verified 03/21/24 09:40) ITCHING HIVES sitagliptin [Januvia] Allergy (Unknown, Verified 03/21/24 09:40) Unknown metformin Adverse Reaction (Intermediate, Verified 03/21/24 09:40) Diarrhea HPI Comments Details: I had the privilege of seeing Vince in follow-up of his chronic kidney disease. He has longstanding diabetes. He had taken metformin in the past but has caused diarrhea and it was discontinued. He is on Ozempic and Farxiga. His last hemoglobin A1c was under 6. He denied any retinopathy but has some proteinuria. He has no neuropathy. He is hypertensive and is on medications including SARY inhibitor. His blood pressure has been at goal. He has history of coronary artery disease. He has history of gout but is on allopurinol 200 mg daily. His sister the age of 7 due to kidney issues. He took some nonsteroidal anti-inflammatories recently during his gout exacerbation. He is compliant with his medications. He feels well. [facility] Medical History Allergic rhinitis Obesity (BMI 30-39.9) Depression Carpal tunnel syndrome on both sides Lumbar degenerative disc disease Vitamin D deficiency Elevated liver enzymes Gout Pure hypercholesterolemia Diabetes mellitus Benign essential hypertension Surgical History S/P CABG x 4 S/P cardiac catheterization Hx of colonoscopy Status post carpal tunnel release (~06/19/20) History of excision of lesion History of carpal tunnel release History of bilateral hip arthroplasty Family History Father Medical history unknown Mother Diabetes Social History Housing: House Alcohol intake: former Patient Tobacco Use Status: Former Tobacco user e-Cigarette/Vaping Use: Never Used Second Hand Smoke Exposure: Yes service: No Current occupational status: employed Cognitive needs: No Hearing needs: No Vision needs: Yes (Glasses) Review of Systems Const All systems reviewed & are unremarkable except as noted in HPI and below Physical Exam Vital Signs: Last Vital Signs Pulse 71 03/21/24 09:37 BP 130/70 03/21/24 09:37 Pulse Ox 97 03/21/24 09:37 Oxygen Delivery Method Room Air 03/21/24 09:37 BMI result Body Mass Index 35.2 Const General: comfortable and no acute distress Orientation/consciousness: patient oriented x3 HEENT Head: Yes normocephalic Mouth: Normal oral and palatal mucosa present Eyes EOM: EOMs intact bilaterally Neck Neck: Yes supple Resp Auscultation: clear to auscultation bilaterally Cardio Jugular venous distension: no JVD Rate: regular rate GI Palpation (GI): Soft to palpation Auscultation: normal bowel sounds General: Yes no CVA tenderness Back/Spine/Pelvis Back: no CVA tenderness Skin General skin exam: no rashes or lesions noted Neuro General: patient oriented x3 and moves all extremities Extrem General: Yes no pedal edema Results Reviewed Nephrology Results: Hgb 13.8 g/dl (14.0-18.0) L 03/16/24 WBC 6.9 X10*3/uL (4.8-10.8) 03/16/24 Plt Count 147 X10*3/uL (160-400) L 03/16/24 Sodium 139 mmol/L (135-145) 03/16/24 Potassium 4.3 mmol/L (3.3-5.1) 03/16/24 Chloride 113 mmol/L (96-108) H 03/16/24 Carbon Dioxide 21 mmol/L (22-29) L 03/16/24 BUN 27 mg/dL (9-16) H 03/16/24 Creatinine 1.11 mg/dL (0.5-1.4) 03/16/24 Calcium 8.9 mg/dL (8.4-10.2) 03/16/24 Urine Protein Trace mg/dL (Neg-Trace) 03/16/24 Urine Creatinine 110.60 mg/dL 03/16/24 Protein/Creatinin Ratio 0.32 (<0.2) H 07/08/23 Assessment & Plan Assessment & Plan (1) Diabetic nephropathy: Code(s): E11.21 - Type 2 diabetes mellitus with diabetic nephropathy Category: Medical Qualifiers: Diabetes mellitus type: type 2 Qualified Code(s): E11.21 - Type 2 diabetes mellitus with diabetic nephropathy (2) CKD (chronic kidney disease) stage 3, GFR 30-59 ml/min: Code(s): N18.30 - Chronic kidney disease, stage 3 unspecified Category: Medical Qualifiers: Chronic kidney disease stage 3 subtype: stage 3a (GFR 45-59) Qualified Code(s): N18.31 - Chronic kidney disease, stage 3a (3) Gout: Code(s): M10.9 - Gout, unspecified Category: Medical Qualifiers: Gout site: unspecified site Gout etiology: idiopathic Chronicity: unspecified Qualified Code(s): M10.00 - Idiopathic gout, unspecified site (4) Benign essential hypertension: Code(s): I10 - Essential (primary) hypertension Category: Medical Plan 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 His renal functions are stable. He is on SARY inhibitor and Farxiga. His blood pressure is at goal. He should continue Allopurinol 300 mg daily. He will benefit from weight loss. He should minimize or abstain from nonsteroidal anti-inflammatories. He should keep up with good hydration. There is no indication for any renal biopsy now. I did not make any other medication changes today. All his questions were answered. Follow-up blood work ordered. Orders: Orders Creatinine Today E11.21 - Type 2 diabetes mellitus with diabetic nephropathy, I10 - Essential (primary) hypertension, M10.00 - Idiopathic gout, unspecified site, N18.31 - Chronic kidney disease, stage 3a Blood Urea Nitrogen Today E11.21 - Type 2 diabetes mellitus with diabetic nephropathy, I10 - Essential (primary) hypertension, M10.00 - Idiopathic gout, unspecified site, N18.31 - Chronic kidney disease, stage 3a Electrolytes Today E11.21 - Type 2 diabetes mellitus with diabetic nephropathy, I10 - Essential (primary) hypertension, M10.00 - Idiopathic gout, unspecified site, N18.31 - Chronic kidney disease, stage 3a Coding Level of Care Code Est Pt Level 4 (50657) Diagnoses Diabetic nephropathy associated with type 2 diabetes mellitus E11.21 Diabetes mellitus type: type 2 Stage 3a chronic kidney disease N18.31 Chronic kidney disease stage 3 subtype: stage 3a (GFR 45-59) Idiopathic gout, unspecified chronicity, unspecified site M10.00 Gout site: unspecified site Gout etiology: idiopathic Chronicity: unspecified Benign essential hypertension I10
[2024-03-21 09:37] VITALS: BP 130/70; PULSE 71; O2SAT 97; BMI 35.2
== END 2024-03-21 10:12 | disposition home or self-care (01) ==
PROVIDERS: PCP Internal Medicine; Visit Provider Internal Medicine Nephrology
DX: E11.21 Type 2 diabetes mellitus with diabetic nephropathy (principal); N18.31 Chronic kidney disease, stage 3a; M10.00 Idiopathic gout, unspecified site; I10 Essential (primary) hypertension
CPT/HCPCS: 99214

== ENCOUNTER → 2024-03-21 09:28 | Outpatient (BNVA) | payer MEDICARE, OTHER, SELFPAY | PROVIDERS: PCP Internal Medicine; Visit Provider Internal Medicine Nephrology | DX: E11.22 Type 2 diabetes mellitus with diabetic chronic kidney disease (principal); I12.9 Hypertensive chronic kidney disease with stage 1 through stage 4 chronic kidney disease, or unspecified chronic kidney disease; N18.31 Chronic kidney disease, stage 3a; E11.21 Type 2 diabetes mellitus with diabetic nephropathy; M10.00 Idiopathic gout, unspecified site | CPT/HCPCS: 99212 ==

== ENCOUNTER 2024-03-26 16:24 | Outpatient (AMB) | payer MEDICARE, OTHER, SELFPAY ==
[2024-03-26 16:25] VITALS: BP 132/80; PULSE 73; O2SAT 98; BMI 35.0
--- NOTE | 2024-03-26 16:25 | MHC.PC.OV ---
Vital Signs 03/26/24 16:25 Height 5 ft 6 in Weight 217 lb BMI 35.0 BP 132/80 Blood Pressure Location Lt brachial Position Sitting Pulse 73 Pulse Source Pulse Oximeter Pulse Oximetry (%) 98 Oxygen Delivery Method Room Air Intake Visit Reasons: DM, hyperlipidemia, neuropathy [employer] [place] Required: No Accompanied by: Self / Same As Patient Allergies Sulfa (Sulfonamide Antibiotics) Allergy (Intermediate, Verified 03/26/24 16:52) ITCHING HIVES sitagliptin [Januvia] Allergy (Unknown, Verified 03/26/24 16:52) Unknown metformin Adverse Reaction (Intermediate, Verified 03/26/24 16:52) Diarrhea Medication List - Last Reconciled 03/26/24 by Rob Valerio MD acetaminophen 325 mg PO QID PRN Admelog SoloStar U-100 Insulin (insulin lispro) 6 to 8 units 3 times a day with meals SQ per sliding scale subcutaneously 3 times a day; 30 days NS alcohol swabs (Alcohol Prep Pads) 0 pad topical allopurinol 300 mg (3 x 100 mg) PO DAILY aspirin (Adult Aspirin Regimen) 81 mg PO DAILY atorvastatin 40 mg PO DAILY blood-glucose meter,continuous (Dexcom G6 Copy Worker) As directed blood-glucose sensor (Dexcom G6 Sensor device) As directed blood-glucose transmitter (Dexcom G6 Transmitter device) As directed cholecalciferol (vitamin D3) 25 mcg PO DAILY 90 days Farxiga (dapagliflozin propanediol) 5 mg PO DAILY 30 days NS insulin glargine (Lantus Solostar U-100 Insulin) 36 units (0.36 mL) subcut BEDTIME lisinopril 40 mg PO DAILY metoprolol succinate ER 50 mg (2 x 25 mg) PO DAILY pen needle, diabetic (BD Ultra-Fine Mini Pen Needle) test 4 times per day semaglutide 2 mg (0.75 mL) subcut QWEEK 3 months tizanidine 4 mg PO BEDTIME Tobacco use date assessed: 03/26/24 Fall risk assessment: No Falls in past year Last assessed Fall Risk: 03/26/24 Dental Screening Dental Screen Date: 03/26/24 Did you have a dental visit in the last 12 months?: Yes Did you have a dental problem in the last 6 months where you did not have access to dental care?: No Was dental information given to patient?: Patient has dentist HPI DM, hyperlipidemia, neuropathy HPI Details Patient comes in today for his follow up visit States that he feels okay He denies any headaches or dizziness Denies any chest pains, no increased SOB No nausea/vomiting, no abdominal pain No change in bowel habits noted He continues to experiencing recurrent low back pain that gets worse with activity or exertion and he is scheduled for back surgery with Dr. Monteiro in a few weeks Needs his Allopurinol Rx refilled today He had his follow up labs done about a week or so ago - to discuss his results [facility] Medical History Allergic rhinitis Obesity (BMI 30-39.9) Depression Carpal tunnel syndrome on both sides Lumbar degenerative disc disease Vitamin D deficiency Elevated liver enzymes Gout Pure hypercholesterolemia Diabetes mellitus Benign essential hypertension Surgical History S/P CABG x 4 S/P cardiac catheterization Hx of colonoscopy Status post carpal tunnel release (~06/19/20) History of excision of lesion History of carpal tunnel release History of bilateral hip arthroplasty Family History Father Medical history unknown Mother Diabetes Social History Housing: House Alcohol intake: former Patient Tobacco Use Status: Former Tobacco user e-Cigarette/Vaping Use: Never Used Second Hand Smoke Exposure: Yes service: No Current occupational status: employed Cognitive needs: No Hearing needs: No Vision needs: Yes (Glasses) Questionnaire PHQ-9 Over the last 2 weeks, how often have you been bothered by any of the following problems? 1. Little interest or pleasure in doing things: not at all 2. Feeling down, depressed, or hopeless: not at all 3. Trouble falling or staying asleep, or sleeping too much: not at all 4. Feeling tired or having little energy: not at all 5. Poor appetite or overeating: not at all 6. Feeling bad about yourself - or that you are a failure or have let yourself or your family down: not at all 7. Trouble concentrating on things, such as reading the newspaper or watching television: not at all 8. Moving or speaking so slowly that other people could have noticed. Or the opposite - being so fidgety or restless that you have been moving around a lot more than usual: not at all 9. Thoughts that you would be better off or of hurting yourself in some way: not at all Total score: 0 Depression Screening Interpretation: Negative Depression Screening Done: Yes 73533 - PHQ-9 Billing: Yes Source: Developed by Drs. Rigoberto Iqbal, Celestina Murray, Tyrone Wong and colleagues, with an educational farida from [employer]. Thrive Questionnaire Date Thrive assessed: 03/26/24 I am a: Patient What is your living situation today?: I have a steady place to live Within the past 12 months, did the food you bought not last and you didn't have the money to get more?: Never true Within the past 12 months, did you worry whether your food would run out before you got money to buy more?: Never true Do you have trouble paying for medicines?: No Do you have trouble getting transportation to medical appointments?: No Do you have trouble paying your heating and electricity bill?: No Do you have trouble taking care of your child, family member or friend?: No Do you have trouble with day-to-day activities such as bathing, preparing meals, shopping, managing finances, etc.?: No Are you currently unemployed and looking for a job?: No Are you interested in more education?: No Please select the resources that you would like help with: None Currently or been in a relationship where the following occur: No concerns reported THRIVE Score: 0 AUDIT C Alcohol Use Questionnaire (AUDIT-C) 1. How often do you have a drink containing alcohol?: Never 3. How often do you have six or more drinks on one occasion?: Never Total Score: 0 Score Reviewed/Action Taken: Yes RIO-7 AMB Questionnaire RIO-7 Date RIO - 7 assessed: 03/26/24 Feeling nervous, anxious, or on edge: 0 = Not at all Not being able to stop or control worryin = Not at all Worrying too much about different things: 0 = Not at all Trouble relaxin = Not at all Being so restless that it is hard to sit still: 0 = Not at all Becoming easily annoyed or irritable: 0 = Not at all Feeling afraid as if something awful might happen: 0 = Not at all Total RIO-7 score (0-4 normal; 5-9 mild; 10-14 moderate; 15-21 severe): 0 Source: Developed by Drs. Rigoberto Iqbal, Celestina Murray, Tyrone Wong and colleagues, with an educational farida from [employer]. Review of Systems Const Denies chills, Denies fatigue, Denies fever(s) and Denies headache(s) ENT Denies dysphagia, Denies dizziness, Denies otalgia, Denies headache(s), Denies neck pain, Denies odynophagia and Denies sore throat Card Denies chest pain, Denies palpitations and Denies dyspnea Resp Denies chest congestion, Denies cough and Denies dyspnea GI Denies abdominal pain, Denies constipation, Denies dysphagia, Denies heartburn, Denies diarrhea, Denies nausea, Denies odynophagia and Denies vomiting Denies dysuria, Denies nocturia and Denies urinary frequency Musc Reports back pain (on and off) and Denies neck pain Skin/Breast Denies rash Neuro Reports burning sensations (on and off burning pain over his right thigh, leg and foot), Denies dizziness and Denies headache(s) Endo Denies fatigue and Denies palpitations Physical exam (Primary Care) Vital Signs: Last Vital Signs Pulse 73 03/26/24 16:25 BP 132/80 03/26/24 16:25 Pulse Ox 98 03/26/24 16:25 Oxygen Delivery Method Room Air 03/26/24 16:25 BMI result Body Mass Index 35.0 Tobacco/Smoking Status: Tobacco use Status Tobacco use date assessed 03/26/24 03/26/24 16:27 Patient Tobacco Use Status Former Tobacco user 03/26/24 16:27 e-Cigarette/Vaping Use Never Used 03/26/24 16:27 PHQ-9: PHQ-9 Score PHQ-9: Total score 0 03/26/24 16:27 Depression Screening Interpretation: Negative Thrive Assessment: Date of Thrive Assessment Date Thrive assessed 03/26/24 03/26/24 16:27 Currently or been in a relationship where the following occur: No concerns reported Const General: no acute distress and alert HENMT Ears: TM's normal bilaterally and EAC's normal Throat: Yes posterior oropharynx normal and Yes tonsils normal (no TP congestion) Neck Neck: Yes no lymphadenopathy and Yes supple Thyroid: Thyroid normal Resp Auscultation: clear to auscultation bilaterally, no rales and no wheezes Cardio Rate: regular rate Rhythm: regular rhythm Heart sounds: no murmurs GI Palpation (GI): Soft to palpation and nontender Auscultation: normal bowel sounds General: Yes no CVA tenderness Back/Spine/Pelvis Back: no CVA tenderness Thoracic/Lumbar Spine: lumbar spinal tenderness Skin Rashes: no rashes Extrem General: Yes no clubbing, cyanosis or edema Results Reviewed Results Reviewed: Laboratory Tests 03/16/24 03/16/24 09:05 09:08 WBC 6.9 Hgb 13.8 L Hct 41.8 L Plt Count 147 L Sodium 139 Potassium 4.3 Creatinine 1.11 Estimated GFR > 60 Fasting Glucose 100 H Hemoglobin A1c % 5.6 Uric Acid 4.6 Calcium 8.9 AST 28 ALT 26 Triglycerides 55 Cholesterol 120 LDL Cholesterol, Calc 65 HDL Cholesterol 44 Vitamin B12 672 25-OH Vitamin D Total 34.0 TSH 0.34 Ur Specific [place] 1.020 Urine Protein Trace Urine Glucose (UA) Negative Urine Blood Negative Urine Nitrite Negative Ur Leukocyte Esterase Negative Microalb/Creat Ratio 75.9 H Assessment and Plan Assessment & Plan (1) Diabetes mellitus: Code(s): E11.9 - Type 2 diabetes mellitus without complications Qualifiers: Diabetes mellitus type: type 2 Diabetes mellitus long term care social worker insulin use: with snf use Diabetes mellitus complication status: without complication Qualified Code(s): E11.9 - Type 2 diabetes mellitus without complications; Z79.4 - [facility] (current) use of insulin Plan: HgbA1c was at 5.6% on his labs done last about a week ago (was previously at 5.8% a few months ago) - goal is <7.0% Reinforced diabetic diet Continue Farxiga 5 mg QD, Ozempic 2 mg SQ once a week, Lantus 36 units Q HS and Admelog 6 to 8 units TID per sliding scale (Rx was changed from Novolog and Mounjaro due to insurance restrictions) Patient could not tolerate Metformin or Metformin ER in the past due to diarrhea (2) Benign essential hypertension: Code(s): I10 - Essential (primary) hypertension Plan: Reinforced low sodium diet - goal is systolic BP of at least 130 mm or less Continue Lisinopril 40 mg QD and Metoprolol ER 50 mg QD Echocardiogram done last year revealed low normal LV systolic function with LVEF of 50-55% with impaired relaxation filling pattern with severe focal hypertrophy of the basal septum, mild left atrial enlargement, normal cardiac valvular dopplers and no gross pericardial effusion Follow up with cardiology as scheduled (3) Proteinuria: Code(s): R80.9 - Proteinuria, unspecified Qualifiers: Proteinuria type: persistent Qualified Code(s): R80.1 - Persistent proteinuria, unspecified Plan: Is most likely related to his HTN and DM Have emphasized again the importance of tight BP and glucose control to slow down progression of renal disease Follow up with nephrology (Dr. Vann) as scheduled (4) Pure hypercholesterolemia: Code(s): E78.00 - Pure hypercholesterolemia, unspecified Plan: Results of his labs done a week or so ago reviewed and discussed with patient Reinforced low cholesterol diet Continue Simvastatin 20 mg QD Will recheck his labs and fasting lipids in 4 months for follow up (5) Elevated liver enzymes: Code(s): R74.8 - Abnormal levels of other serum enzymes Plan: Discussed again that this is most likely related to his weight - his LFTs have improved and remained normal on his most recent labs Will continue to monitor his LFTs regularly (6) Hypomagnesemia: Code(s): E83.42 - Hypomagnesemia Plan: Corrected; serum magnesium level has remained normal on his recent labs Continue Magnesium Oxide 400 mg BID (7) Nocturnal leg cramps: Code(s): G47.62 - Sleep related leg cramps Plan: Continue Tizanidine 4 mg Q HS PRN (8) Lumbar degenerative disc disease: Code(s): M51.36 - Other intervertebral disc degeneration, lumbar region Plan: Reinforced activity and weight-lifting restrictions Lumbar spine MRI done back in April 2022 revealed (+) grade 1 degenerative anterolisthesis in the setting of advanced bilateral facet arthropathy and additional spondylitic changes resulting in mild central canal stenosis and severe bilateral foraminal stenosis with compression of the exiting L4 nerve roots bilaterally at L4-L5. THERE ARE VERY LARGE BILATERAL FACET JOINT EFFUSIONS AT L4-L5 THAT SHOULD BE FOLLOWED WITH FLEXION-EXTENSION RADIOGRAPHS TO EXCLUDE SEGMENTAL INSTABILITY. There is also a right lateral disc osteophyte protrusion contacts the extraforaminal right L5 nerve root at L5-S1 Patient has been referred to neurosurgery (Dr. Monteiro) regarding his lumbar spine issues and he has been recommended to undergo L4-5 oblique lumbar interbody fusion, which is now scheduled for 04/17/2024 (9) Gout: Code(s): M10.9 - Gout, unspecified Qualifiers: Gout site: unspecified site Gout etiology: idiopathic Chronicity: unspecified Qualified Code(s): M10.00 - Idiopathic gout, unspecified site Plan: His serum uric acid has improved and has remained normal on his recent labs Reinforced low purine diet - states that he has not had any acute gout flare ups in a while now Continue Allopurinol 300 mg QD (Rx refilled) Will recheck his serum uric acid level in a few months for follow up (10) Vitamin D deficiency: Code(s): E55.9 - Vitamin D deficiency, unspecified Plan: Continue Vitamin D3 1000 units QD (11) Obesity (BMI 30-39.9): Code(s): E66.9 - Obesity, unspecified Plan: Reinforced diet/exercise as tolerated/lose weight Plan Follow up in 4 months Orders: Orders Complete Blood Count Auto Diff 4 Months D64.9 - Anemia, unspecified Comprehensive [place]. Panel Fast 4 Months E78.00 - Pure hypercholesterolemia, unspecified Hemoglobin A1c 4 Months E11.9 - Type 2 diabetes mellitus without complications Microalbumin, Random (w Creat) 4 Months E11.9 - Type 2 diabetes mellitus without complications TSH reflex Free T4 4 Months E78.00 - Pure hypercholesterolemia, unspecified Uric Acid 4 Months M10.9 - Gout, unspecified Vitamin D 25-OH Total 4 Months E55.9 - Vitamin D deficiency, unspecified Lipid Panel 4 Months E78.00 - Pure hypercholesterolemia, unspecified Magnesium 4 Months E83.42 - Hypomagnesemia UA CC w/rflx Micro + Cult 4 Months R30.0 - Dysuria Vitamin B12 and Folate 4 Months E53.8 - Deficiency of other specified B group vitamins Medications: Refilled allopurinol 300 mg (3 x 100 mg) PO DAILY 240 tabs 1RF M10.00 - Idiopathic gout, unspecified site Coding Level of Care Code Est Pt Level 4 (25652) Complex EM visit Add On G2211 Diagnoses Type 2 diabetes mellitus without complication, with long-term current use of insulin E11.9; Z79.4 Diabetes mellitus type: type 2 Diabetes mellitus snf insulin use: with long term care social worker use Diabetes mellitus complication status: without complication Benign essential hypertension I10 Persistent proteinuria R80.1 Proteinuria type: persistent Pure hypercholesterolemia E78.00 Elevated liver enzymes R74.8 Hypomagnesemia E83.42 Nocturnal leg cramps G47.62 Lumbar degenerative disc disease M51.36 Idiopathic gout, unspecified chronicity, unspecified site M10.00 Gout site: unspecified site Gout etiology: idiopathic Chronicity: unspecified Vitamin D deficiency E55.9 Obesity (BMI 30-39.9) E66.9
== END 2024-03-26 17:08 | disposition home or self-care (01) ==
PROVIDERS: PCP Internal Medicine; Visit Provider Internal Medicine
DX: E11.29 Type 2 diabetes mellitus with other diabetic kidney complication (principal); R80.1 Persistent proteinuria, unspecified; Z79.4 Long term (current) use of insulin; I10 Essential (primary) hypertension; E78.00 Pure hypercholesterolemia, unspecified; R74.8 Abnormal levels of other serum enzymes; E83.42 Hypomagnesemia; G47.62 Sleep related leg cramps; M51.36 Other intervertebral disc degeneration, lumbar region; M10.00 Idiopathic gout, unspecified site; E55.9 Vitamin D deficiency, unspecified
CPT/HCPCS: 99214; G2211

== ENCOUNTER 2024-06-28 07:29 | Outpatient (REF) | payer MEDICARE, OTHER, SELFPAY ==
--- OUTSIDE RECORDS SUMMARY | 2024-06-28 07:32 | XMS_ITS | Patient Health Record ---
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 Name Role Phone Teodoro NAYLOR, [place] Primary Care Provider Yocasta Brito Unavailable [phone] Vince Perez Unavailable [phone] Allergies Allergen (clinical drug ingredient) Drug/Non Drug Allergy documented on EMR Reaction Allergy Type Onset Date Status sulfamethoxazole / trimethoprim Bactrim DS Rash Drug Allergy Active Results Component Value Reference Range Notes HEMOGLOBIN A1C (GLYCOHEMOGLO BIN) Reviewed date:12/27/2023 08:09:14 AM Interpretation: Performing Lab: Notes/Report: HEMOGLOBIN A1C (HH) 6.1 Reason For Referral No Information Medications Medication SIG (Take, Route, Frequency, Duration) Notes Start Date End Date Status Vitamin D3 Not-Takin g Extra Depth Orthopedic Shoes (1 Pair) with Customized Heat Molded Multidensity Innersoles (3 Pair) Dx: IDDM/Polyneuropathy (E10.42), Hammertoe Foot Deformity (M20.41,M20.42), Preulcerative Skin Lesion(s) (L85.1) 06/26/2024 Active Allopurinol 100 MG 1 tablet Orally Once a day for 30 day(s) 200mg Active Basaglar KwikPen Not -Taking Baby Aspirin Active Lisinopril 40 MG 1 tablet Orally Once a day for 30 day(s) Active Metoprolol & Diet Manage Prod 25 1/2 tablet twice daily Activ e Vitamin C Not-Taking Clopidogrel Bisulfate Not-Taking Colcrys 0.6 MG 1 tablet Orally Once a day for 30 Not-Taking Farxiga Active Victoza Not-Taking Atorvastatin Calcium Active Trulicity Not-Taking Colcrys 0.6 MG 1 tablet Orally Once a day for 30 days Not-Taking metFORMIN HCl ER 500 MG 1 tablet with ev ening meal Orally Twice daily Not-Alicia luna Lantus Active Extra Depth Diabetic Shoes with 3 Pair Custom heat-molded multi-density innersoles for 1 year Dx: N ot-Taking Extra Depth Diabetic Shoes with 3 Pair Custom heat-molded multi-density innersoles for 1 year Dx: N ot-Taking Indomethacin 50 MG 1 capsule with food Orally i po tid pc for 10 days 08/13/2019 Not-Taking Colcrys 0.6 MG 1 tablet Orally once a day for 10 days 06/16/2021 Not-Taking Medrol eben 4mg as directed orally a s directed for 6 days 08/10/2021 Not-Taking Work Note . . . patient is disab led from work until further notice 08/13/2019 Not-Taking Gabapentin Not-Pro g Extra Depth Diabetic Shoes with 3 Pair Custom heat-molded multi-density innersoles for 1 year Dx: N ot-Taking Aleve Not-Taking Gabapentin 300 MG 1 capsule Orally Thr ee times daily Not-Taking Magnesium 500 MG 1 tablet with a meal Orally Once a day for 30 day(s) Not-Taking Ozempic Not-Taking Amlodipine & Diet Manage Prod 5 Once daily Not-Taking Simvastatin 20 MG 1 tablet in the even ing Orally Once a day for 30 day(s) Not-Taking Immunizations Vaccine Route Administration Date Status Comme nts COVID-19 Pfizer BioNTech Vaccine Unknown 05/19/2021 Administered 1st 10/12/2020 2nd 11/03/2020 Influenza Unknown 04/16/2021 Administered Social History Tobacco Use: Social History Observation Description Date Details (start date - stop date) Former Smoker NA - NA Tobacco Use/Smoking Question Answer Notes Are you a: former smoker Additional Findings: Tobacco Non-User Current no n-smoker Alcohol Screen Question Answer Notes Did you have a drink containing alcohol in the p ast year? No Points 0 Interpretation Negative Tobacco use other than smoking: Question Answer Notes Are you an other tobacco user? No Problems Problem Type SNOMED Code ICD Code Onset Dates Problem Status W/U Status Risk Notes Problem 810154478 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, accidental (unintentional), initial encounter (T56.0X1A) Active confirmed Problem Acquired hammer toe of right foot (9447624134175824) Other hammer toe(s) (acquired), right foot (M20.41) Active confirmed Problem Acquired hammer toe of left foot (8933413383909967) Other hammer toe(s) (acquired), left foot (M20.42) Active confirmed Problem Polyneuropathy due to type 2 diabetes mellitus (528638097) Type 2 diabetes mellitus with diabetic polyneuropathy (E11.42) Active confirmed Problem Primary gout (22128448) Idiopathic gout, 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) Active confirmed Problem Polyneuropathy due to diabetes mellitus type I (270736053) Type 1 diabetes mellitus with diabetic polyneuropathy (E10.42) Active confirmed Problem 8333144101530165 Acute gout of left foot, unspecified cause (M10.9) Active confirmed Vital Signs Height 5ft 7in in 06/26/2024 Weight 210 lbs 06/26/2024 BMI 32.89 kg/m2 06/26/2024 Procedures Procedure Date Ordered Date Performed Result Body Sit e 40868-TNKQLPJ NAIL, 6 OR MORE 06/26/2024 N/A 90646-WKVS SKIN LESIONS, OVER 4 06/26/2024 N/A Encounters Encounter Location Date Provider Diagnosis [address] [address] 12/27/2023 Vince Perez Type 2 diabetes mellitus with diabetic polyneuropathy E11.42 ; Pain in right foot M79.671 ; Other hammer toe(s) (acquired), left foot M20.42 ; Other hammer toe(s) (acquired), right foot M20.41 ; Other viral warts B07.8 ; Pain in left foot M79.672 ; Metatarsalgia, right foot M77.41 and Xerosis cutis L85.[address] [facility] [address] 06/26/2024 Yocasta Ashford Other hammer toe(s) (acquired), right foot M20.41 ; Other hammer toe(s) (acquired), left foot M20.42 ; Type 2 diabetes mellitus with diabetic polyneuropathy E11.42 and Tinea unguium B35.1 Assessments Encounter Date Diagnosis (ICD Code) Assessment Notes Treatment Notes Treatment Clinical Notes Section Notes 12/27/2023 Pain in right foot (ICD-10 - M79.671) 12/27/2023 Type 2 diabetes mellitus with diabetic polyneuropathy (ICD-10 - E11.42) 06/26/2024 Other hammer toe(s) (acquired), right foot (ICD-10 - M20.41) Patient Educated with: DIABETIC FOOT CARE INSTRUCTIONS. pdf (DIABETIC FOOT CARE INSTRUCTIONS. pdf) 06/26/2024 Other hammer toe(s) (acquired), left foot (ICD-10 - M20.42) 06/26/2024 Type 2 diabetes mellitus with diabetic polyneuropathy (ICD-10 - E11.42) 12/27/2023 Other hammer toe(s) (acquired), left foot (ICD-10 - M20.42) 12/27/2023 Other hammer toe(s) (acquired), right foot (ICD-10 - M20.41) 06/26/2024 Tinea unguium (ICD-10 - B35.1) 12/27/2023 Other viral warts (ICD-10 - B07.8) 12/27/2023 Pain in left foot (ICD-10 - M79.672) 12/27/2023 Metatarsalgia, right foot (ICD-10 - M77.41) 12/27/2023 Xerosis cutis (ICD-10 - L85.3) Plan Of Treatment Pending Test Test Name Order Date *Uric Acid, Serum 08/13/2019 *Uric Acid, Serum 06/16/2021 *CBC With Differential/Platelet 08/13/19 20 *Sedimentation Rate-Westergren 0 *Sedimentation Rate-Westergren 1 X ray : Foot, left 3V 08/10/2021 X ray : Foot, right 3V 08/13/2019 50929-JIVMWLX NAIL, 6 OR MORE 06/26/2024 33308-GJLT SKIN LESIONS, OVER 4 06/26/20 24 29268-UXRP SKIN LESIONS, OVER 4 06/04/20 21 12799-FGVG SKIN LESIONS, OVER 4 12/23/19 22 84164-SVYB SKIN LESIONS, OVER 4 12/02/19 21 70630-VUNB SKIN LESIONS, OVER 4 08/22/19 20 69122-OQJQ SKIN LESIONS, OVER 4 06/02/20 20 F3146-ULFEGAQQ DYSTROPHIC NAILS ANY # Z2092-IIZYUEOD DYSTROPHIC NAILS ANY # F5323-JPVWNNZY DYSTROPHIC NAILS ANY # A5129-GEQOXNOK DYSTROPHIC NAILS ANY # Next Appt Details Provider Name:Yocasta Augustin ale, 12/25/2024 09:00:00 AM, [address], [address], [place], [address], Insurance Providers Payer Name Payer Address Payer Phone Subscriber Number Group Number Insured Name Patient Relationship to Insured Coverage Start Date Coverage End Date Medicare [employer] [address] [place] [address] [id number] Vince Cedillo Self - patient is the insured [facility] [address] [place] [address] [id number] Aga Cedillo Spouse - patient is the spouse of the insured Medical (General) History Medical History History ICD Code Arthritis Back,Hip,and Knee pain type II diabetes High blood pressure Measles Mumps Chicken pox Joint implants/screws Surgical History Surgery Date(Month/Year) hip replacement-Bilateral 1997 bone scan, back 06/21/22 quadruple bypass 02/2023
--- OUTSIDE RECORDS SUMMARY | 2024-06-28 07:32 | XMS_ITS ---
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 Name Role Phone Teodoro NAYLOR, Rob Primary Care Provider Yocasta Brito Unavailable [phone] Vince Perez Unavailable [phone] Allergies Allergen (clinical drug ingredient) Drug/Non Drug Allergy documented on EMR Reaction Allergy Type Onset Date Status sulfamethoxazole / trimethoprim Bactrim DS Rash Drug Allergy Active REASON FOR VISIT Wart(s) Medications Medication SIG (Take, Route, Frequency, Duration) Notes Start Date End Date Status Tres GutierrezHayden Not -Taking Trulicity Not-Taking Victoza Not-Taking Colcrys 0.6 MG 1 tablet Orally Once a day for 30 Not-Taking Vitamin C Not-Taking Medrol eben 4mg as directed orally a s directed for 6 days 08/10/2021 Not-Taking Vitamin D3 Not-Takin g metFORMIN HCl ER 500 MG 1 tablet with ev ening meal Orally Twice daily Not-Taki ng Colcrys 0.6 MG 1 tablet Orally Once a day for 30 days Not-Taking Work Note . . . patient is disab led from work until further notice 08/13/2019 Not-Taking Colcrys 0.6 MG 1 tablet Orally once a day for 10 days 06/16/2021 Not-Taking Magnesium 500 MG 1 tablet with a meal Orally Once a day for 30 day(s) Not-Taking Gabapentin 300 MG 1 capsule Orally Thr ee times daily Not-Taking Aleve Not-Taking Indomethacin 50 MG 1 capsule with food Orally i po tid pc for 10 days 08/13/2019 Not-Taking Simvastatin 20 MG 1 tablet in the even ing Orally Once a day for 30 day(s) Not-Taking Amlodipine & Diet Manage Prod 5 Once daily Not-Taking Ozempic Not-Taking Extra Depth Diabetic Shoes with 3 Pair Custom heat-molded multi-density innersoles for 1 year Dx: Not-Taking Extra Depth Diabetic Shoes with 3 Pair Custom heat-molded multi-density innersoles for 1 year Dx: Active Lisinopril 40 MG 1 tablet Orally Once a day for 30 day(s) Active Metoprolol & Diet Manage Prod 25 1/2 tablet twice daily Activ e Baby Aspirin Active Extra Depth Diabetic Shoes with 3 Pair Custom heat-molded multi-density innersoles for 1 year Dx: Active Allopurinol 100 MG 1 tablet Orally Once a day for 30 day(s) 200mg Active Gabapentin Active Atorvastatin Calcium Active Farxiga Active Clopidogrel Bisulfate Active Social History Tobacco Use: Social History Observation [...] Are you an other tobacco user? No Vital Signs Height 5ft 7in in 12/27/2023 Weight 202 lbs 12/27/2023 BMI 31.63 kg/m2 12/27/2023 Encounters Encounter Location Date Provider Diagnosis [facility] [address] [address] 12/27/2023 Vince Perez Type 2 diabetes mellitus with diabetic polyneuropathy E11.42 ; Pain in right foot M79.671 ; Other hammer toe(s) (acquired), left foot M20.42 ; Other hammer toe(s) (acquired), right foot M20.41 ; Other viral warts B07.8 ; Pain in left foot M79.672 ; Metatarsalgia, right foot M77.41 and Xerosis cutis L85.3 Assessments Encounter Date Diagnosis (ICD Code) Assessment Notes Treatment Notes Treatment Clinical Notes Section Notes 12/27/2023 Type 2 diabetes mellitus with diabetic polyneuropathy (ICD-10 - E11.42) 12/27/2023 Pain in right foot (ICD-10 - M79.671) 12/27/2023 Other hammer toe(s) (acquired), left foot (ICD-10 - M20.42) 12/27/2023 Other hammer toe(s) (acquired), right foot (ICD-10 - M20.41) 12/27/2023 Other viral warts (ICD-10 - B07.8) 12/27/2023 Pain in left foot (ICD-10 - M79.672) 12/27/2023 Metatarsalgia, right foot (ICD-10 - M77.41) 12/27/2023 Xerosis cutis (ICD-10 - L85.3) Plan Of Treatment Medication Medication Name Sig Start Date Stop Date Notes Extra Depth Diabetic Shoes w ith 3 Pair Custom heat-molded multi-density innersoles for 1 year Dx: Extra Depth Diabetic Shoes w ith 3 Pair Custom heat-molded multi-density innersoles for 1 year Dx: Next Appt Details Follow Up: 6 Months, Reason: Provider Name:Yocasta aguilera, 12/25/2024 09:00:00 AM, [address] [facility], [address], [place], [address], Procedure Notes * Category Sub-Category Detail Notes Keratoma Treatment Parring or Cutting o f Benign Hyperkeratotic Lesion(s) 44623 ( >4 Lesions) - The Benign hyperkeratotic lesions, as described above were pared, and/or cut utilizing a sterile #15 blade, tissue nippers, and/or dremel Nail Reduction Nail Reduction Trimming of dyst rophic nails performed to reduce/remove overall nail length and girth, by manual and electrical means with use of a nail nipper and/or dremel, to more viable healthy nail plate or bed tissue 6-10 (G0127) Progress Notes * Vince PHAN SDOB:[birth year] (73 yo M)Acc No.[id number]:12/27/2023 Progress Note Patient:?Vince Phan Provider:?Vince Perez DPM :1950???Age:73 Y???Sex:Male Sina e:12/27/2023 Address:[address] [place], [place] [id number] Pcp:Rob Valerio MD Subjective: * Chief Complaints: * ???Wart(s) * HPI: ???Wart:?Pt States Last PCP Visit:?Date:?10/17/2023 ?Misc:?pt had cabgx4 03/09.?Skin problems:?Nature:?feels like skin is cut.?Location:?Bottom, Forefoot, Right .?Duration:?a week.?Onset/Cause:?unknown, denies injury.?Course:?worse.?Foot Pain:?Nature:?aching.?Location:?B/L, Midfoot.?Course:?intermittent.? * ROS:?General/Constitutional:?Nausea?denies.?Vomiting?denies.?Hunger Thirst?denies.?Loss appetite?denies.?Chills?denies.?Fatigue?denies.?Fever?denies.?Night Sweats?denies.?Unexplained weight loss?denies.?Unexplained weight gain?denies.?HEENTM:?Dentures?denies.?Dizziness?denies.?Glasses/contacts?admits.?Retinopathy?de nies.?Blurred/double vision?denies.?TMJ?denies.?Discharge/drainage?denies.?Implants?denies.?Sore throat?denies.?Dental implants?denies.?Hard of hearing ?denies.?Difficulty chewing/swallowing/speaking?denies.?Nose bleeds?denies.?Sore mouth?denies.?Respiratory:?On Oxygen?denies.?Pneumonia/pleurisy?denies.?Bronchitis?denies.?Emphysema?denies.?C oughing?denies.?Cough blood?denies.?Shortness of breath?denies.?Wheezing?denies.?Cardiovascular:?Pacemaker?denies.?MVP?denies.?WPW?denies.?CHF?denies.?Heart attack?denies.?Septal defect?denies.?Rapid beat?denies.?Chest pain ?denies.?Atrial Fib.?denies.?Murmur/Palpitations?denies.?Gastrointestinal:?Hemorrhoids?denies.?Stomach/Abdominal pain?denies.?Dark blood stool?denies.?Irritable bowel ?denies.?Constipation?denies.?Diarrhea?denies.?Hematology:?Swelling?admits.?Clots?denies.?Varicose Veins?denies.?Bruising?denies.?Bleeding problem?denies.?Genitourinary:?Blood urine?denies.?Frequent/Painfu/urination/bladder control?denies.?Kidney stones?denies.?Infection (UTI)?denies.?Nephropathy?denies.?sex trans dis (STD)?denies.?Prostate?denies.?Musculoskeletal:?Hammertoes?denies.?Bunions?denies.?Back Pain?denies.?Muscle Cramps/ Resting?denies.?Muscle cramps / walking?denies.?Generalized aches and pains?denies.?Weakness?denies.?Integ.:?Hammonds?denies.?Scars?denies.?Corns/calluses?denies.?Ingrown nails?denies.?Painful nails?denies.?Open Sores?denies.?Rashes?denies.?Neurologic:?Difficulty sleeping?denies.?Brain disorder?denies.?Numbness?denies.?Balance trouble?denies.?Confusion?denies.?Fainting/blackouts?denies.?Tingling?denies.?Tr emors?denies.? * Medical History:? * Surgical History:?hip replac ement-Bilateral 1998bone scan, back 06/21/22quadruple bypass 02/2023 * Hospitalization/Major Diagno stic Procedure:?No Hospitalization History. * Family History:?Mother: dece ased, diagnosed with Diabetic - NIDDM.?Father: .? * Social History:?Tobacco Use:?Tobacco Use/Smoking?Are you a:?former smoker ?Additional Findings: Tobacco Non-User?Current non-smoker ?Tobacco use other than smoking?Are you an other tobacco user??No ???Drugs/Alcohol:?Drugs?Have you used drugs other than those for medical reasons in the past 12 months??No ?Alcohol Screen?Did you have a drink containing alcohol in the past year??No ?Points?0 ?Interpretation?Negative ???Miscellaneous:?Caffeine: yes. ?Children: yes. ?no Exercise. ?Marital status: . 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 * Medications:?TakingGabapenti n Clopidogrel Bisulfate Farxiga Atorvastatin Calcium Allopurinol 100 MG Tablet 1 tablet Orally Once a day, Notes: 200mgBaby Aspirin Lisinopril 40 MG Tablet 1 tablet Orally Once a dayMetoprolol & Diet Manage Prod 25 MG 1/2 tablet twice dailyTaking Gabapentin Taking Clopidogrel Bisulfate Taking Farxiga Taking Atorvastatin Calcium Taking Allopurinol 100 MG Tablet 1 tablet Orally Once a day, Notes: 200mgTaking Baby Aspirin Taking Lisinopril 40 MG Tablet 1 tablet Orally Once a dayTaking Metoprolol & Diet Manage Prod 25 MG 1/2 tablet twice dailyNot-Taking/PRNExtra Depth Diabetic Shoes with 3 Pair Custom heat-molded multi-density innersoles for 1 year Dx:Extra Depth Diabetic Shoes with 3 Pair Custom heat-molded multi-density innersoles for 1 year Dx:Ozempic Amlodipine & Diet Manage Prod 5 MG Once dailySimvastatin 20 MG Tablet 1 tablet in the evening Orally Once a dayExtra Depth Diabetic Shoes with 3 Pair Custom heat-molded multi-density innersoles for 1 year Dx:Aleve Gabapentin 300 MG Capsule 1 capsule Orally Three times dailyMagnesium 500 MG Tablet 1 tablet with a meal Orally Once a dayIndomethacin 50 MG Capsule 1 capsule with food Orally i po tid pcColcrys 0.6 MG Tablet 1 tablet Orally once a dayMedrol eben 4mg Tablet Therapy Pack as directed orally as directedWork Note . . . . patient is disabled from work until further noticeColcrys 0.6 MG Tablet 1 tablet Orally Once a daymetFORMIN HCl ER 500 MG Tablet Extended Release 24 Hour 1 tablet with evening meal Orally Twice dailyVitamin D3 Vitamin C Colcrys 0.6 MG Tablet 1 tablet Orally Once a dayVictoza TrMag[facility] Medication List reviewed and reconciled with the patientNot-Taking/PRN Extra Depth Diabetic Shoes with 3 Pair Custom heat-molded multi-density innersoles for 1 year Dx:Not-Taking/PRN Extra Depth Diabetic Shoes with 3 Pair Custom heat-molded multi-density innersoles for 1 year Dx:Not-Taking/PRN Ozempic Not-Taking/PRN Amlodipine & Diet Manage Prod 5 MG Once dailyNot-Taking/PRN Simvastatin 20 MG Tablet 1 tablet in the evening Orally Once a dayNot-Taking/PRN Extra Depth Diabetic Shoes with 3 Pair Custom heat-molded multi-density innersoles for 1 year Dx:Not-Taking/PRN Aleve Not-Taking/PRN Gabapentin 300 MG Capsule 1 capsule Orally Three times dailyNot-Taking/PRN Magnesium 500 MG Tablet 1 tablet with a meal Orally Once a dayNot-Taking/PRN Indomethacin 50 MG Capsule 1 capsule with food Orally i po tid pcNot-Taking/PRN Colcrys 0.6 MG Tablet 1 tablet Orally once a dayNot-Taking/PRN Medrol eben 4mg Tablet Therapy Pack as directed orally as directedNot-Taking/PRN Work Note . . . . patient is disabled from work until further noticeNot-Taking/PRN Colcrys 0.6 MG Tablet 1 tablet Orally Once a dayNot-Taking/PRN metFORMIN HCl ER 500 MG Tablet Extended Release 24 Hour 1 tablet with evening meal Orally Twice dailyNot-Taking/PRN Vitamin D3 Not-Taking/PRN Vitamin C Not-Taking/PRN Colcrys 0.6 MG Tablet 1 tablet Orally Once a dayNot-Taking/PRN Victoza Not-Taking/PRN Trulicity Not-Taking/PRN Bassarah MattHayden Medication List reviewed and reconciled with the patient * Allergies:?Bactrim DS: Antoine jeffery[Allergies Verified] Objective: * Vitals:?Ht: 5ft 7in, Wt:202, BMI:31.63, Shoe size: 8.5EEE, BS: 78, Ht-cm: 170.18 cm, Wt-k.63 kg. * ???Past Orders: ???Lab:HEMOGLOBIN A1C (GLYCO HEMOGLOBIN) (Order Date - 12/27/2023) (Collection Date - 12/27/2023) ? Value Reference Range ?HEMOGLOBIN A1C (HH) 6.1 * Examination: ???General Examination: ?GENERAL APPEARANCE:?pleasant, alert, well nourished, well developed, well hydrated, with good attention to hygene/body habitus, and in no acute distress.?ORIENTED:?person,place, and time.?FOOT EXAM:?Neurological: ?SENSORY:?Neurological exam demonstrates, reduced vibration sensation, at Forefoot, at Midfoot, B/L--right has more sensory loss.?TINEL'S COMPRESSION:?Negative tarsal tunnel, sang pedis, and medial calcaneal nerves B/L.?BABINSKI REFLEX:?absent.?Neuroma Pain: ?PALPATION:?No interspace pain noted on palpation.?Vascular: ?DP PULSES:? 07/21, B/L.?PT PULSES:? 07/21, B/L.?CAPILLARY FILL TIME:?3 secs. per digit, B/L.?EDEMA:? 07/21, Right.?TELANGECTASIA:?absent.?VARICOSITIES:?absent.?Dermatologic: ?SKIN FINDINGS:?Skin exam reveals Keratotic lesion(s) located at, Plantar, Heel(s), B/L , Skin exam reveals Keratotic lesion(s) located at, SUB MTH (s), 4, 5, Left , SUB MTH (s), 2, 3, Right, fissure noted plantar right 1/2 mtpj?.?Orthopedic: ?MUSCLE STRENGTH:?/ all groups in a symmetrical fashion , B/L.?GAIT ABNORMALITY:?pronated, abducted, B/L.?DIGITAL DEFORMITIES:? Digital contracture, PIPJ, 2-5 B/L, incompl- reducable to push-up test, no over, nor underlapping.?Ophthalmology Referral: ?DIABETES EYE EXAM?Nails: ?NAILS are:? Elongated, overgrown, dystrophic, lytic, greater than 3mm thick, discolored and friable with crumbly malodorous subungual debris, with dull to no pain on palpation due to neuropathy, 1-5 B/L.? Assessment: * Assessment: 1.?Pain in right foot - M79. 671?2.?Type 2 diabetes mellitus with diabetic polyneuropathy - E11.42 (Primary)?3.?Other hammer toe(s) (acquired), left foot - M20.42?4.?Other hammer toe(s) (acquired), right foot - M20.41?5.?Other viral warts - B07.8?6. 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 Plan: * Treatment: * Procedures:?Keratoma Treatment:?Parring or Cutting of Benign Hyperkeratotic Lesion(s)?83010 ( >4 Lesions) - The Benign hyperkeratotic lesions, as described above were pared, and/or cut utilizing a sterile #15 blade, tissue nippers, and/or dremel.?Nail Reduction:?Nail Reduction?Trimming of dystrophic nails performed to reduce/remove overall nail length and girth, by manual and electrical means with use of a nail nipper and/or dremel, to more viable healthy nail plate or bed tissue 6-10 (G0127).? * Procedure Codes:?24135 TRIM SKIN LESIONS, OVER 4, Modifiers: XS G0127 TRIMMING DYSTROPHIC NAILS ANY #, Modifiers: XS * Preventive Medicine:? ??Counseling:?Discussion:?-13: Office or other outpatient visit for the evaluation and management of an established patient, which required a medically appropriate history and/or examination and LOW level of DECISION MAKING for: 1 STABLE ACUTE UNCOMPLICATED PROBLEM, 2 OR MORE MINOR PROBLEMS, OR 1 STABLE CHRONIC PROBLEM, THAT POSE(S) A LOW RISK FOR MORBIDITY/MORTALITY. The visit on the day of the encounter encompassed interpreting the data and educating the patient as to the nature of their condition, treatment options available according to their individual PMH, meds, allergies, and overall health/living conditions, as well as any potential risks or complications that may occur from a failure to adhere to, and participate in, the recommended course of therapy. The discussion included a complete verbal, and/or written explanation of the examination results, any x-rays taken, the proposed diagnosis, and outline of the treatment plan. A schedule for future care needs was also explained. The patient verbalized an understanding of the instructions at this time and agreed to be an active participant in their treatment. If the patient should think of any questions or concerns after the visit, I have encouraged the patient to call the office.?Xerosis:?The patient was counseled on the diagnosis, potential etiologies, and treatment options for their skin condition. We discussed the risks and benefits of each option from performing no treatment, to utilizing OTC topical skin creams/ointments, to utilizing prescription topical creams/ointments, to utilizing customized compounded topical medications and use of nocturnal occlusion with any/all previously detailed therapies. We discussed the advantages and disadvantages of each possible treatment and importance for adherence to all the recommended therapies for optimum success and avoid potential complications such as open sore/infection/possible hospitalization. We discussed the potential effectiveness of each topical preparation as well as each ones possible side effects and/or patient medication interactions. Patient questions re: use, dosage, successful outcomes, and application consistency were reviewed and the patient verbalized that all answers were clearly understood. The patient has decided to apply Rx skin creams to their feet save the interspaces while paying special attention to the heels. Such was sent to their pharmacy at the time of visit.? * Follow Up:?6 Months * Images: * Sign off status: Completed true * Provider:?Vince Perez DPM Date:? 024 Generated for Hugh luna/Joseph/Melviitting on:?06/28/2024 07:31 AM EST History and Physical Notes * HPI (History of Present Illness) Category Sub-Category Detail Notes Category Not es Wart Misc: pt had cabgx4 03/09 Pt States Last PCP Visit: Date:: 10/17/2023 Skin problems Nature: feels like skin is cut Location: Bottom, Forefoot, Ri ght Duration: a week Onset/Cause: unknown, denies inju ry Course: worse Foot Pain Nature: aching Location: B/L, Midfoot Course: intermittent Examination Category Sub-Category Detail Notes Category Not es Neuroma Pain PALPATION: No interspace pain noted on palpation Neurological SENSORY: Neurological exa m demonstrates, reduced vibration sensation, at Forefoot, at Midfoot, B/L--right has more sensory loss BABINSKI REFLEX: absent TINEL'S COMPRESSION: Negative tarsal sona matt, sang pedis, and medial calcaneal nerves B/L Dermatologic SKIN FINDINGS: Skin exam reveal s Keratotic lesion(s) located at, Plantar, Heel(s), B/L , Skin exam reveals Keratotic lesion(s) located at, SUB MTH (s), 4, 5, Left , SUB MTH (s), 2, 3, Right, fissure noted plantar right 1/2 mtpj Orthopedic GAIT ABNORMALITY: pronated, abducted, B/L DIGITAL DEFORMITIES: Digital contracture , PIPJ, 2-5 B/L, incompl-reducable to push-up test, no over, nor underlapping MUSCLE STRENGTH: 5/5 all groups in a symmetrical fashion , B/L General Examination GENERAL APPEARANCE: pleasant , alert, well nourished, well developed, well hydrated, with good attention to hygene/body habitus, and in no acute distress FOOT EXAM: Lower Extremity Neurological Exa m performed:: Yes Visual exam of foot performed:: Yes Date: 12/27/2023 Sensory testing performed:: sensations d iminished Pedal pulse taking performed:: 1+ ORIENTED: person,place, and ti me Ophthalmology Referral DIABETES EYE EXAM Diabetic Retinopa thy Screening:: Yes Vascular DP PULSES(B): 1/4, B/L PT PULSES(B): 1/4, B/L CAPILLARY FILL TIME: 3 secs. per digit, B/L EDEMA(C): 1/4, Right TELANGECTASIA: absent VARICOSITIES: absent Nails NAILS are: Elongated, overg rown, dystrophic, lytic, greater than 3mm thick, discolored and friable with crumbly malodorous subungual debris, with dull to no pain on palpation due to neuropathy, 1-5 B/L
--- OUTSIDE RECORDS SUMMARY | 2024-06-28 07:32 | XMS_ITS ---
[facility] Address [address] [place] [address] Care Team Providers Care Undercover Cop Name Role Phone Teodoro NAYLOR, Rob Primary Care Provider Yocasta Brito Unavailable [phone] Allergies Allergen (clinical drug ingredient) Drug/Non Drug Allergy documented on EMR Reaction Allergy Type Onset Date Status sulfamethoxazole / trimethoprim Bactrim DS Rash Drug Allergy Active REASON FOR VISIT Transfer to Different Provider, Toe Irritation, At Risk Footcare Medications Medication SIG (Take, Route, Frequency, Duration) Notes Start Date End Date Status Simvastatin 20 MG 1 tablet in the even ing Orally Once a day for 30 day(s) Not-Taking Extra Depth Diabetic Shoes with 3 Pair Custom heat-molded multi-density innersoles for 1 year Dx: N ot-Taking Aleve Not-Taking Gabapentin 300 MG 1 capsule Orally Thr ee times daily Not-Taking Magnesium 500 MG 1 tablet with a meal Orally Once a day for 30 day(s) Not-Taking Ozempic Not-Taking Amlodipine & Diet Manage Prod 5 Once daily Not-Taking Extra Depth Orthopedic Shoes (1 Pair) with Customized Heat Molded Multidensity Innersoles (3 Pair) Dx: IDDM/Polyneuropathy (E10.42), Hammertoe Foot Deformity (M20.41,M20.42), Preulcerative Skin Lesion(s) (L85.1) 06/26/2024 Active Lisinopril 40 MG 1 tablet Orally Once a day for 30 day(s) Active Metoprolol & Diet Manage Prod 25 1/2 tablet twice daily Activ e Allopurinol 100 MG 1 tablet Orally Once a day for 30 day(s) 200mg Active Baby Aspirin Active Clopidogrel Bisulfate Not-Taking Farxiga Active Atorvastatin Calcium Active Lantus Active Extra Depth Diabetic Shoes with 3 Pair Custom heat-molded multi-density innersoles for 1 year Dx: N ot-Taking Extra Depth Diabetic Shoes with 3 Pair Custom heat-molded multi-density innersoles for 1 year Dx: N ot-Taking Basaglar KwikPen Not -Taking Gabapentin Not-Takin g Vitamin D3 Not-Takin g Vitamin C Not-Taking Colcrys 0.6 MG 1 tablet Orally Once a day for 30 Not-Taking Victoza Not-Taking Trulicity Not-Taking Colcrys 0.6 MG 1 tablet Orally Once a day for 30 days Not-Taking metFORMIN HCl ER 500 MG 1 tablet with ev ening meal Orally Twice daily Not-Taki ng Colcrys 0.6 MG 1 tablet Orally once a day for 10 days 06/16/2021 Not-Taking Medrol eben 4mg as directed orally a s directed for 6 days 08/10/2021 Not-Taking Work Note . . . patient is disab led from work until further notice 08/13/2019 Not-Taking Indomethacin 50 MG 1 capsule with food Orally i po tid pc for 10 days 08/13/2019 Not-Taking Social History Tobacco Use: Social History Observation [...] No Vital Signs Height 5ft 7in in 06/26/2024 Weight 210 lbs 06/26/2024 BMI 32.89 kg/m2 06/26/2024 Procedures Procedure Date Ordered Date Performed Result Body Sit e 15671-YYMRMKW NAIL, 6 OR MORE 06/26/2024 N/A 48451-LEYW SKIN LESIONS, OVER 4 06/26/2024 N/A Encounters Encounter Location Date Provider Diagnosis [facility] [address] [address] 06/26/2024 Yocasta Mcginnisaker Other hammer toe(s) (acquired), right foot M20.41 ; Other hammer toe(s) (acquired), left foot M20.42 ; Type 2 diabetes mellitus with diabetic polyneuropathy E11.42 and Tinea unguium B35.1 Assessments Encounter Date Diagnosis (ICD Code) Assessment Notes Treatment Notes Treatment Clinical Notes Section Notes 06/26/2024 Other hammer toe(s) (acquired), right foot (ICD-10 - M20.41) Patient Educated with: DIABETIC FOOT CARE INSTRUCTIONS. pdf (DIABETIC FOOT CARE INSTRUCTIONS. pdf) 06/26/2024 Other hammer toe(s) (acquired), left foot (ICD-10 - M20.42) 06/26/2024 Type 2 diabetes mellitus with diabetic polyneuropathy (ICD-10 - E11.42) 06/26/2024 Tinea unguium (ICD-10 - B35.1) Plan Of Treatment Medication Medication Name Sig Start Date Stop Date Notes Extra Depth Orthopedic Shoes (1 Pair) with Customized Heat Molded Multidensity Innersoles (3 Pair) Dx: IDDM/Polyneuropathy (E10.42), Hammertoe Foot Deformity (M20.41,M20.42), Preulcerative Skin Lesion(s) (L85.1) 06/26/2024 Treatment Notes Assessment Notes Other hammer toe(s) (acquired), right fo ot Patient Educated with: DIABETIC FOOT CARE INSTRUCTIONS.pdf (DIABETIC FOOT CARE INSTRUCTIONS.pdf) Pending Test Test Name Order Date 14939-WXGCDSK NAIL, 6 OR MORE 06/26/2024 92497-ODHP SKIN LESIONS, OVER 4 06/26/20 24 Next Appt Details Follow Up: 6 Months, Reason: Provider Name:Yocasta Rahelnima ale, 12/25/2024 09:00:00 AM, [address] [facility], [address], [place], [address], Procedure Notes * Category Sub-Category Detail Notes Debride Nail 6-10 Nail debridement Due to the cl inical pathology outlined in the exam findings, performance of this nail treatment is medically necessary as its management by an unskilled/untrained nonprofessional would put this patients foot and overall health at risk. Therefore, debridement to affected nail(s), as described in exam, was performed extensively to reduce/remove overall nail length, girth, thickness, subungual debris, and necrotic tissue, by manual and/or electrical means through the use of a nail nipper and/or dremel-type gear grinder, to a more viable healthy nail plate or bed tissue 6-10 nails in total. Silver nitrate was used for any petechial bleeding as necessary. Definitive antifungal treatment options, both pharmaceutical and surgical, have been reviewed and discussed with the patient. The patient solely prefers the use of intermittent/as needed professional debridement services for their nail condition and understands the need for additional periodic treatments to maintain effectiveness in symptomatic relief - 00101 Keratoma Treatment Parring or Cutting o f Benign Hyperkeratotic Lesion(s) (-57) More than 4 Lesions - Due to the at risk nature of the patients medical condition as documented in the exam findings, performance of this keratoderma treatment is medically necessary as its management by an unskilled/untrained nonprofessional would put this patients foot and overall health at risk. Therefore, the benign hyperkeratotic lesions, ( 5 ) in total, locations as stated and described in the exam, were pared, and/or cut utilizing a sterile 15 blade, tissue nippers, and/or power dremel instrumentation - 86608 Progress Notes * Vince PHAN SDOB:[birth year] (73 yo M)Acc No.[id number]:06/26/2024 Progress Note Patient:?SYLVESTERVince GRAFF Samantha Provider:?Yocasta Ashford DPM :1950???Age:73 Y???Sex:Male Sina e:06/26/2024 Address:[address] [place], [place] [id number] Pcp:Rob Valerio MD Subjective: * Chief Complaints: * ???Transfer to Different Pro viderToe IrritationAt Risk Footcare * HPI: ???Toe pain:?Location:?B/L feet.?Duration:?several years.?Course:?worse.?Aggravated by:?shoes, any pressure.?Treatments:?change in shoes.?At Risk footcare:?Pt States Last PCP Visit:?Date?03/06/2024 * ROS:?General/Constitutional:?Nausea?denies.?Vomiting?denies.?Hunger Thirst?denies.?Loss appetite?denies.?Chills?denies.?Fatigue?denies.?Fever?denies.?Night Sweats?denies.?Unexplained weight loss?denies.?Unexplained [...] year??No ?Points?0 ?Interpretation?Negative ???Miscellaneous:?Caffeine: yes. ?Children: yes. ?Exercise: no. ?Marital status: . 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 * Medications:?TakingLantus Fa rxiga Atorvastatin Calcium Allopurinol 100 MG Tablet 1 tablet Orally Once a day , Notes to Pharmacist: 200mgBaby Aspirin Lisinopril 40 MG Tablet 1 tablet Orally Once a day Metoprolol & Diet Manage Prod 25 MG 1/2 tablet twice daily Taking Lantus Taking Farxiga Taking Atorvastatin Calcium Taking Allopurinol 100 MG Tablet 1 tablet Orally Once a day , Notes to Pharmacist: 200mgTaking Baby Aspirin Taking Lisinopril 40 MG Tablet 1 tablet Orally Once a day Taking Metoprolol & Diet Manage Prod 25 MG 1/2 tablet twice daily Not- Taking/PRNExtra Depth Diabetic Shoes with 3 Pair Custom heat-molded multi-density innersoles for 1 year Dx: Extra Depth Diabetic Shoes with 3 Pair Custom heat-molded multi-density innersoles for 1 year Dx: Gabapentin Clopidogrel Bisulfate Ozempic Amlodipine & Diet Manage Prod 5 MG Once daily Simvastatin 20 MG Tablet 1 tablet in the evening Orally Once a day Extra Depth Diabetic Shoes with 3 Pair Custom heat-molded multi- density innersoles for 1 year Dx: Aleve Gabapentin 300 MG Capsule 1 capsule Orally Three times daily Magnesium 500 MG Tablet 1 tablet with a meal Orally Once a day Indomethacin 50 MG Capsule 1 capsule with food Orally i po tid pc Colcrys 0.6 MG Tablet 1 tablet Orally once a day Medrol eben 4mg Tablet Therapy Pack as directed orally as directed Work Note . . . . patient is disabled from work until further notice Colcrys 0.6 MG Tablet 1 tablet Orally Once a day metFORMIN HCl ER 500 MG Tablet Extended Release 24 Hour 1 tablet with evening meal Orally Twice daily Vitamin D3 Vitamin C Colcrys 0.6 MG Tablet 1 tablet Orally Once a day Victoza Trulicity Basaglar KwikPen Medication List reviewed and reconciled with the patientNot-Taking/PRN Extra Depth Diabetic Shoes with 3 Pair Custom heat-molded multi-density innersoles for 1 year Dx: Not-Taking/PRN Extra Depth Diabetic Shoes with 3 Pair Custom heat-molded multi-density innersoles for 1 year Dx: Not- Taking/PRN Gabapentin Not-Taking/PRN Clopidogrel Bisulfate Not-Taking/PRN Ozempic Not- Taking/PRN Amlodipine & Diet Manage Prod 5 MG Once daily Not-Taking/PRN Simvastatin 20 MG Tablet 1 tablet in the evening Orally Once a day Not-Taking/PRN Extra Depth Diabetic Shoes with 3 Pair Custom heat-molded multi-density innersoles for 1 year Dx: Not- Taking/PRN Aleve Not-Taking/PRN Gabapentin 300 MG Capsule 1 capsule Orally Three times daily Not-Taking/PRN Magnesium 500 MG Tablet 1 tablet with a meal Orally Once a day Not-Taking/PRN Indomethacin 50 MG Capsule 1 capsule with food Orally i po tid pc Not-Taking/PRN Colcrys 0.6 MG Tablet 1 tablet Orally once a day Not-Taking/PRN Medrol eben 4mg Tablet Therapy Pack as directed orally as directed Not-Taking/PRN Work Note . . . . patient is disabled from work until further notice Not-Taking/PRN Colcrys 0.6 MG Tablet 1 tablet Orally Once a day Not-Taking/PRN metFORMIN HCl ER 500 MG Tablet Extended Release 24 Hour 1 tablet with evening meal Orally Twice daily Not- Taking/PRN Vitamin D3 Not-Taking/PRN Vitamin C Not-Taking/PRN Colcrys 0.6 MG Tablet 1 tablet Orally Once a day Not-Taking/PRN Victoza Not-Taking/PRN Trulicity Not-Taking/PRN Basaglar KwikPen Medication List reviewed and reconciled with the patient * Allergies:?Bactrim DS: Antoine jeffery[Allergies Verified] Objective: * Vitals:?Ht: 5ft 7in, Wt:210, BMI:32.89, Shoe size: 8.5EEE, BS: 139, Ht-cm: 170.18 cm, Wt-k.25 kg. * ???Past Orders: ???Lab:HEMOGLOBIN A1C (GLYCO HEMOGLOBIN) (Order Date - 12/27/2023) (Collection Date & Time - 12/27/2023 08:08 AM) ? Value Reference Range ?HEMOGLOBIN A1C (HH) 6.1 * Examination: ???General Examination: ?GENERAL APPEARANCE:?Reveals a pleasant, alert, well nourished, well- developed, well hydrated individual, who demonstrates proper attention to hygiene/body habitus, and is in no acute distress, Pt serves as own historian for office visit today.?ORIENTED:?person, place, and time.?FOOT EXAM:?Footwear Evaluation?Orthopedic: ?MUSCLE STRENGTH:?5/5 all groups in a symmetrical fashion, B/L.?DIGITAL DEFORMITIES:?Digital contracture, PIPJ, 2-5 B/L, incompl-reducible to push-up test, no over, nor underlapping,?there is?evidence of shoe producing skin irritation.?FOOTWEAR:?worn, non-supportive, shoe gear properties exacerbate patient's foot/toe deformity.?Neurological: ?SENSORY:? Neurological exam demonstrates, reduced light touch sensation, reduced sharp/dull pin prick discrimination , B/L, 5.07 monofilament test performed at plantar aspects of 5 varied sites per foot shows sensation, reduced , B/L.?Dermatologic: ?SKIN FINDINGS:?Skin exam reveals Keratotic lesion(s) located at sub 3rd metatarsal head, RIGHT, sub 1st and 5th metatarsal head, LEFT, plantar heels B/L.?Nails: ?NAILS are:?Elongated, overgrown, dystrophic, lytic, greater than 3mm thick, discolored and friable with crumbly malodorous subungual debris, with dull to no pain on palpation due to neuropathy, 1-5 B/L.?Vascular: ?DP PULSES(B):?1/, B/L.?PT PULSES(B):? 1/4, B/L.?CAPILLARY FILL TIME:?3 secs. per digit, B/L.?EDEMA(C):? /, Right.?TELANGECTASIA:?absent.?VARICOSITIES:?absent.?Ophthalmology Referral: ?DIABETES EYE EXAM? Assessment: * Assessment: 1.?Other hammer toe(s) (acqu ired), right foot - M20.41 (Primary)???Specify :Chronic problem, Worse (4),Rx Management (4)???2.?Other hammer toe(s) (acquired), left foot - M20.42???Specify :Chronic problem, Worse (4),Rx Management (4)???3.?Type 2 diabetes mellitus with diabetic polyneuropathy - E11.42???4.?Tinea unguium - B35.1??? Plan: * Treatment: 2.?Type 2 diabetes mellitus with diabetic polyneuropathy?Procedure: 18200-UKLPNYL NAIL, 6 OR MORE ?Procedure: 53316-QCXY SKIN LESIONS, OVER 4 * Procedures:?Debride Nail 6-10:?Nail debridement?Due to the clinical pathology outlined in the exam findings, performance of this nail treatment is medically necessary as its management by an unskilled/untrained nonprofessional would put this patients foot and overall health at risk. Therefore, debridement to affected nail(s), as described in exam, was performed extensively to reduce/remove overall nail length, girth, thickness, subungual debris, and necrotic tissue, by manual and/or electrical means through the use of a nail nipper and/or dremel-type gear grinder, to a more viable healthy nail plate or bed tissue 6-10 nails in total. Silver nitrate was used for any petechial bleeding as necessary. Definitive antifungal treatment options, both pharmaceutical and surgical, have been reviewed and discussed with the patient. The patient solely prefers the use of intermittent/as needed professional debridement services for their nail condition and understands the need for additional periodic treatments to maintain effectiveness in symptomatic relief - 74918.?Keratoma Treatment:?Parring or Cutting of Benign Hyperkeratotic Lesion(s)?(-57) More than 4 Lesions - Due to the at risk nature of the patients medical condition as documented in the exam findings, performance of this keratoderma treatment is medically necessary as its management by an unskilled/untrained nonprofessional would put this patients foot and overall health at risk. Therefore, the benign hyperkeratotic lesions, ( 5 ) in total, locations as stated and described in the exam, were pared, and/or cut utilizing a sterile 15 blade, tissue nippers, and/or power dremel instrumentation - 70226.? * Procedure Codes:?04960 DEBRI DE NAIL, 6 OR MORE, Modifiers: XS 71203 TRIM SKIN LESIONS, OVER 4, Modifiers: XS * Preventive Medicine:? ??Counseling:?Discussion:?-14: Office or other outpatient visit for the evaluation and management of an established patient, which required a medically appropriate history and/or examination and MODERATE level of DECISION MAKING for: 1 OR MORE CHRONIC PROBLEM(S) THATS WORSENING, 2 STABLE CHRONIC PROBLEMS, A NEWLY DIAGNOSED PROBLEM WITH UNCERTAIN PROGNOSIS, AN ACUTE COMPLICATED INJURY WITH MULTIPLE TREATMENT OPTIONS, OR AN ACUTE PROBLEM WITH ACCOMPANYING SYSTEMIC SYMPTOMS, THAT POSE(S) A MODERATE RISK OF MORBIDITY. THIS CONDITION MAY ALSO INCLUDE RX DRUG MANAGEMENT, OR A DECISON FOR MINOR SURGERY. The visit on the day of the [...] have encouraged the patient to call the office.?Digital Surgery:?Digital surgery was discussed with the patient, We elected to try conservative treatment at the present time, due to the patients medical history and increased asssociated post-operative risks.?Digital Treatment:?HT- I explained to the patient the possible etiologies of Hammertoes, including genetics/foot type/shoegear/activity level/exercise routine and the risks/benefits of all the different treatment options for their pain including: No treatment at all, Rest, Ice, New/supportive/wider/deeper Shoegear, Digital Padding/Strapping/Taping/Bracing/Gel protective sleeves, Foot/Ankle AFO Bracing, Stretching exercises, Deep Tissue Massage, Arch support/shoe inserts with splay metatarsal padding, and Custom orthoses. I insisted that any digital devices be removed daily and not worn overnight for safety. The patient is to carefully examine the toes daily for any skin irritation while using any splinting or padding device. The advantages and disadvantages of each option were discussed and the patients questions re: shoegear, padding, custom vs prefabricated inserts, activity level, and consistency in home treatment regimens for optimal success were answered to their verbally confirmed satisfaction.?Shoe Gear Counseling:?SHOE Rx - The patient was counseled in great detail on their muscoloskeletal foot and toe deformities which coincided with the dermatological presentations visualized on exam. We discussed how their deformities put the integrity of their feet at risk for potential pedal complications which makes the accomidative diabetic shoes and cutomizable inserts medically necessary. We discussed the different shoe and insert treatment types and options, as well as the important advantages for adhering to regularly wearing these accomidative devices daily. The patient was made aware of the fact that a failure to abide by these recommedations may be deleterious to their foot health as they are able to prevent many pedal complications such as skin irritation, skin ulceration, infection, and even loss of toe/foot/leg/or life. Time was also spent with the patient dispensing and discussing proper diabetic footcare techniques including daily skin moisturization, daily foot inspection for any interruption in skin integrity including open lesions, or sign of infection such as redness/malodor/drainage/swelling. Also discussed and recommended were procedures regarding daily shoe inspection for the presence of internal foreign bodies as well as any visualized irregular shoe or insert wear. Patient questions re: shoes, inserts, and self foot inspections were answered to their satisfaction as the patient verbally confirmed a full understanding of the above information. A Rx for Extra Depth Orthopedic Shoes with 3 pair of custom heat-molded inserts was dispensed.? * Follow Up:?6 Months * Images: * Sign off status: Completed true * Provider:?Yocasta Ashford DPM Date:?08/27/2023 Generated for Hugh luna/Joseph/Willy on:?06/28/2024 07:31 AM EST History and Physical Notes * HPI (History of Present Illness) Category Sub-Category Detail Notes Category Not es Toe pain Location: B/L feet Duration: several years Course: worse Aggravated by: shoes, any pressure Treatments: change in shoes At Risk footcare Pt States Last PCP Visit: Date: 4 Examination Category Sub-Category Detail Notes Category Not es Neurological SENSORY: Neurological exa m demonstrates, reduced light touch sensation, reduced sharp/dull pin prick discrimination , B/L, 5.07 monofilament test performed at plantar aspects of 5 varied sites per foot shows sensation, reduced , B/L Dermatologic SKIN FINDINGS: Skin exam reveal s Keratotic lesion(s) located at sub 3rd metatarsal head, RIGHT, sub 1st and 5th metatarsal head, LEFT, plantar heels B/L Orthopedic FOOTWEAR: worn, non-suppor tive, shoe gear properties exacerbate patient's foot/toe deformity DIGITAL DEFORMITIES: Digital contracture , PIPJ, 2-5 B/L, incompl-reducible to push-up test, no over, nor underlapping, there is evidence of shoe producing skin irritation MUSCLE STRENGTH: 5/5 all groups in a symmetrical fashion, B/L General Examination GENERAL APPEARANCE: Reveals a pleasant, alert, well nourished, well-developed, well hydrated individual, who demonstrates proper attention to hygiene/body habitus, and is in no acute distress, Pt serves as own historian for office visit today FOOT EXAM: Lower Extremity Neurological Exa m performed:: Yes ORIENTED: person, place, and t nohemy Footwear Evaluation Footwear Evaluation performe d:: Yes Ophthalmology Referral DIABETES EYE EXAM Diabetic Retinopa thy Screening:: Yes Vascular DP PULSES(B): 07/21, B/L PT PULSES(B): 07/21, B/L CAPILLARY FILL TIME: 3 secs. per digit, B/L EDEMA(C): 07/21, Right TELANGECTASIA: absent VARICOSITIES: absent Nails NAILS are: Elongated, overg rown, dystrophic, lytic, greater than 3mm thick, discolored and friable with crumbly malodorous subungual debris, with dull to no pain on palpation due to neuropathy, 1-5 B/L
--- OUTSIDE RECORDS SUMMARY | 2024-06-28 07:32 | XMS_ITS ---
Author Organization [facility] Address [address] [place] [address] Care Team Providers Care Tripe Finisher Name Role Phone Teodoro NAYLOR, Rob Primary Care Provider Yocasta Brito Unavailable [phone] Vince Perez Unavailable [phone] Allergies Allergen (clinical drug ingredient) Drug/Non Drug Allergy documented on EMR Reaction Allergy Type Onset Date Status sulfamethoxazole / trimethoprim Bactrim DS Rash Drug Allergy Active REASON FOR VISIT Wart(s) Medications Medication SIG (Take, Route, Frequency, Duration) Notes Start Date End Date Status Colcrys 0.6 MG 1 tablet Orally Once a day for 30 Not-Taking Victoza Not-Taking Vitamin C Not-Taking Trulicity Not-Taking Basaglar KwikPen Not -Taking Colcrys 0.6 MG 1 tablet Orally Once a day for 30 days Not-Taking metFORMIN HCl ER 500 MG 1 tablet with ev ening meal Orally Twice daily Not-Alicia luna Work Note . . . patient is disab led from work until further notice 08/13/2019 Not-Taking Vitamin D3 Not-Pro nelson Medrol eben 4mg as directed orally a s directed for 6 days 08/10/2021 Not-Taking Aleve Not-Taking Gabapentin 300 MG 1 capsule Orally Thr ee times daily Not-Taking Colcrys 0.6 MG 1 tablet Orally once a day for 10 days 06/16/2021 Not-Taking Magnesium 500 MG 1 tablet with a meal Orally Once a day for 30 day(s) Not-Taking Indomethacin 50 MG 1 capsule with food Orally i po tid pc for 10 days 08/13/2019 Not-Taking Lisinopril 40 MG 1 tablet Orally Once a day for 30 day(s) Active Metoprolol & Diet Manage Prod 25 1/2 tablet twice daily Activ e Extra Depth Diabetic Shoes with 3 Pair Custom heat-molded multi-density innersoles for 1 year Dx: Active Simvastatin 20 MG 1 tablet in the even ing Orally Once a day for 30 day(s) Not-Taking Extra Depth Diabetic Shoes with 3 Pair Custom heat-molded multi-density innersoles for 1 year Dx: Not-Taking Allopurinol 100 MG 1 tablet Orally Once a day for 30 day(s) 200mg Active Baby Aspirin Active Extra Depth Diabetic Shoes with 3 Pair Custom heat-molded multi-density innersoles for 1 year Dx: Active Atorvastatin Calcium Active Amlodipine & Diet Manage Prod 5 Once daily Not-Taking Clopidogrel Bisulfate Active Ozempic Not-Taking Farxiga Active Social History Tobacco Use: Social History [...] No Vital Signs Height 5ft 7in in 06/21/2023 Weight 203 lbs 06/21/2023 BMI 31.79 kg/m2 06/21/2023 Encounters Encounter Location Date Provider Diagnosis [facility] [address] [address] 06/21/2023 Vince Perez Type 2 diabetes mellitus with diabetic polyneuropathy E11.42 ; Pain in right foot M79.671 ; Other hammer toe(s) (acquired), left foot M20.42 ; Other hammer toe(s) (acquired), right foot M20.41 ; Other viral warts B07.8 ; Pain in left foot M79.672 and Metatarsalgia, right foot M77.41 Assessments Encounter Date Diagnosis (ICD Code) Assessment Notes Treatment Notes Treatment Clinical Notes Section Notes 06/21/2023 Type 2 diabetes mellitus with diabetic polyneuropathy (ICD-10 - E11.42) 06/21/2023 Pain in right foot (ICD-10 - M79.671) 06/21/2023 Other hammer toe(s) (acquired), left foot (ICD-10 - M20.42) 06/21/2023 Other hammer toe(s) (acquired), right foot (ICD-10 - M20.41) 06/21/2023 Other viral warts (ICD-10 - B07.8) 06/21/2023 Pain in left foot (ICD-10 - M79.672) 06/21/2023 Metatarsalgia, right foot (ICD-10 - M77.41) Plan Of Treatment Medication Medication Name Sig Start Date Stop Date Notes Extra Depth Diabetic Shoes w ith 3 Pair Custom heat-molded multi-density innersoles for 1 year Dx: Extra Depth Diabetic Shoes w ith 3 Pair Custom heat-molded multi-density innersoles for 1 year Dx: Next Appt Details Follow Up: 6 Months, Reason: Provider Name:Yocasta aguilera, 12/25/2024 09:00:00 AM, [address] [facility], [address], [place], [address], Procedure Notes * Category Sub-Category Detail Notes Keratoma Treatment Parring or Cutting o f Benign Hyperkeratotic Lesion(s) 78827 ( >4 Lesions) - The Benign hyperkeratotic [...] Progress Notes * Vince PHAN SDOB:[birth year] (72 yo M)Acc No.[id number]:06/21/2023 Progress Note Patient:?Vince Phan Samantha Provider:?Vince Perez DPM :1950???Age:72 Y???Sex:Male Sina e:06/21/2023 Address:[address] [place], [place] [id number] Pcp:Rob Valerio MD Subjective: * Chief Complaints: * ???Wart(s) * HPI: ???Wart:?Pt States Last PCP Visit:?Date:?03/18/2023 ?Misc:?pt had cabgx4 03/09.?Skin problems:?Nature:?itching.?Location:?B/L legs.?Course:?improved.?Foot Pain:?Nature:?aching.?Location:?B/L, Midfoot.?Course:?intermittent.? * ROS:?General/Constitutional:?Nausea?denies.?Vomiting?denies.?Hunger Thirst?denies.?Loss appetite?denies.?Chills?denies.?Fatigue?denies.?Fever?denies.?Night Sweats?denies.?Unexplained [...] yes. ?no Exercise. ?Marital status: . 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 * Medications:?TakingClopidogr el Bisulfate Extra Depth Diabetic Shoes with 3 Pair Custom heat-molded multi-density innersoles for 1 year Dx:Extra Depth Diabetic Shoes with 3 Pair Custom heat-molded multi-density innersoles for 1 year Dx:Farxiga Atorvastatin Calcium Allopurinol 100 MG Tablet 1 tablet Orally Once a day, Notes: 200mgBaby Aspirin Lisinopril 40 MG Tablet 1 tablet Orally Once a dayMetoprolol & Diet Manage Prod 25 MG 1/2 tablet twice dailyTaking Clopidogrel Bisulfate Taking Extra Depth Diabetic Shoes with 3 Pair Custom heat-molded multi-density innersoles for 1 year Dx:Taking Extra Depth Diabetic Shoes with 3 Pair Custom heat-molded multi-density innersoles for 1 year Dx:Taking Farxiga Taking Atorvastatin Calcium Taking Allopurinol 100 MG Tablet 1 tablet Orally Once a day, Notes: 200mgTaking Baby Aspirin Taking Lisinopril 40 MG Tablet 1 tablet Orally Once a dayTaking Metoprolol & Diet Manage Prod 25 MG 1/2 tablet twice dailyNot-Taking/PRNOzempic Amlodipine & Diet Manage Prod 5 MG Once dailySimvastatin 20 MG Tablet 1 tablet in the evening Orally Once a dayExtra Depth Diabetic Shoes with 3 Pair Custom heat-molded multi- density innersoles for 1 year Dx:Aleve Gabapentin 300 [...] MG Tablet 1 tablet Orally Once a dayVicto [facility]iom[facility] [place] Medication List reviewed and reconciled with the patientNot-Taking/PRN Ozempic Not-Taking/PRN Amlodipine & Diet Manage Prod [...] 1 tablet with evening meal Orally Twice dailyNot- Taking/PRN Vitamin D3 Not-Taking/PRN Vitamin C Not-Taking/PRN Colcrys 0.6 MG Tablet 1 tablet Orally Once a dayNot-Taking/PRN Victoza Not-Taking/PRN Trulicity Not-Taking/PRN [place] Medication List reviewed and reconciled with the patient * Allergies:?Bactrim DS: Antoine es[Allergies Verified] Objective: * Vitals:?Ht: 5ft 7in, Wt:203, BMI:31.79, Shoe size: 8.5EEE, BS: 99, Ht-cm: 170.18 cm, Wt-k.08 kg. * ???Past Orders: ???Lab:HEMOGLOBIN A1C (GLYCO HEMOGLOBIN) (Order Date - 06/21/2023) (Collection Date - 06/21/2023) ? Value Reference Range ?HEMOGLOBIN A1C (HH) 6.3 * Examination: ???General Examination: ?GENERAL APPEARANCE:?pleasant, alert, [...] B/L.?CAPILLARY FILL TIME:?3 secs. per digit, B/L.?EDEMA:? /, Right.?TELANGECTASIA:?absent.?VARICOSITIES:?absent.?Dermatologic: ?SKIN FINDINGS:?Skin exam reveals Keratotic lesion(s) located at, Plantar, Heel(s), B/L , Skin exam reveals Keratotic lesion(s) located at, SUB MTH (s), 4, 5, Left , SUB MTH (s), 2, 3, Right .?Orthopedic: ?MUSCLE STRENGTH:?5/5 all groups in a symmetrical fashion , B/L.?GAIT ABNORMALITY:?pronated, abducted, B/L.?DIGITAL DEFORMITIES:? Digital contracture, PIPJ, 2-5 B/L, incompl- reducable to push-up test, no over, nor underlapping.?Ophthalmology Referral: ?DIABETES EYE EXAM?Nails: ?NAILS are:? Elongated, overgrown, dystrophic, lytic, greater than 3mm thick, discolored and friable with crumbly malodorous subungual debris, with dull to no pain on palpation due to neuropathy, 1-5 B/L.? Assessment: * Assessment: 1.?Type 2 diabetes mellitus with diabetic polyneuropathy - E11.42 (Primary)?2.?Pain in right foot - M79.671?3.?Other hammer toe(s) (acquired), left foot - M20.42?4.?Other hammer toe(s) (acquired), right foot - M20.41?5.?Other viral warts - B07.8?6. Pain in left foot - M79.672?7.?Metatarsalgia, right foot - M77.41? Plan: * Treatment: * Procedures:?Keratoma Treatment:?Parring or Cutting of Benign Hyperkeratotic Lesion(s)?17488 ( >4 Lesions) - The Benign hyperkeratotic lesions, as described above were pared, and/or cut utilizing a sterile #15 blade, tissue nippers, and/or dremel.?Nail Reduction:?Nail Reduction?Trimming of dystrophic nails performed to reduce/remove overall nail length and girth, by manual and electrical means with use of a nail nipper and/or dremel, to more viable healthy nail plate or bed tissue 6-10 (G0127).? * Procedure Codes:?29958 TRIM SKIN LESIONS, OVER 4, Modifiers: XS G0127 TRIMMING DYSTROPHIC NAILS ANY #, Modifiers: XS * Follow Up:?6 Months * Images: * Sign off status: Completed true * Provider:?Vince Perez DPM Date:? 023 Generated for Hugh luna/Joseph/Willy on:?06/28/2024 07:31 AM EST History and Physical Notes * HPI (History of Present Illness) Category Sub-Category Detail Notes Category Not es Wart Misc: pt had cabgx4 03/09 Pt States Last PCP Visit: Date:: 03/18/2023 Skin problems Nature: itching Location: B/L legs Course: improved Foot Pain Nature: aching Location: B/L, Midfoot [...] Left , SUB MTH (s), 2, 3, Right Orthopedic GAIT ABNORMALITY: pronated, abducted, B/L DIGITAL [...] Visual exam of foot performed:: Yes Date: 12/21/2022 Sensory testing performed:: sensations d iminished Pedal [...]
[2024-06-28 09:50] LABS: Appearance Urine Cloudy; Color Urine Yellow; Glucose Urine UA Negative (Negative); Leukocyte Esterase Urine Negative (Negative); Nitrite Urine Negative (Negative); PH 5.5 (5.0-9.0); Urine Blood Negative (Negative); Urine Ketones Negative (Negative); Urine Protein Negative (Neg-Trace)
[2024-06-28 09:50] LABS: MANUAL DIFF FLAG NO
[2024-06-28 10:02] LABS: Creatinine Urine 101.38 mg/dL; Microalbum/Creatinine Ratio Ur 59.1 ug/mg cr (<30)
[2024-06-28 10:05] LABS: Basophils Absolute Auto 0.1 X10*3/uL (0.0-0.2); Basophils Percent Auto 1.1 % (0-2); Eosinophils Absolute Auto 0.6 X10*3/uL (0.0-0.4); Eosinophils Percent Auto 7.9 % (0-4); Hematocrit 44.5 % (42.0-52.0); Hemoglobin 14.7 g/dl (14.0-18.0); Imm Gran Abs Auto 0.02 X10*3/uL (0.00-0.03); Imm Gran Pct Auto 0.3 % (0.0-0.4); Lymphocytes Percent Auto 28.5 % (20-40); Mean Corpuscular Hemoglobin 29.6 pg (27.0-33.0); Mean Corpuscular Volume 89.7 fL (80.0-98.0); Mean Platelet Volume 11.1 fL (9.4-12.4); Monocytes Absolute Auto 0.6 X10*3/uL (0.1-1.2); Monocytes Percent Auto 8.5 % (2-11); Neutrophils Absolute Auto 3.9 x10*3/uL (2.0-8.3); Neutrophils Percent Auto 53.7 % (45-73); Platelet Count 162 X10*3/uL (160-400); Red Blood Count 4.96 X10*6/uL (4.60-5.80); Red Cell Distribution Width 14.3 % (11.0-16.0); White Blood Count 7.2 X10*3/uL (4.8-10.8)
[2024-06-28 10:18] LABS: Estimated Average Glucose 114 mg/dL; Hemoglobin A1C 142.7946 umol/L; Hemoglobin A1c % 5.6 % (<6.0); Total Hemoglobin (HGBA1C) 3767.7673 umol/L
[2024-06-28 11:01] LABS: Folate 12.3 ng/mL (> or = 4.0); Vitamin B12 > 2000 pg/mL (200-900)
[2024-06-28 11:26] LABS: Alanine Aminotransferase 31 U/L (0-40); Albumin Level 3.8 g/dL (3.5-5.0); Alkaline Phosphatase 84 U/L (39-117); Anion Gap 14 (12-20); Aspartate Amino Transferase 40 U/L (5-37); Bilirubin Total 0.7 mg/dL (0.0-1.0); Blood Urea Nitrogen 40 mg/dL (9-16); Calcium 9.4 mg/dL (8.4-10.2); Carbon Dioxide 21 mmol/L (22-29); Chloride 109 mmol/L (96-108); Cholesterol 115 mg/dL (<200); Estimated Glomerular Filt Rate 57; Glucose Fasting 88 mg/dL (60-99); HDL Cholesterol 42 mg/dL (>40); LDL Cholesterol Calculated 58 mg/dL (<100); Potassium 4.8 mmol/L (3.3-5.1); Sodium 139 mmol/L (135-145); TSH reflex Free T4 0.65 uIU/mL (0.32-4.0); Total Protein 6.9 g/dL (6.5-8.0); Triglycerides 76 mg/dL (<150); Uric Acid 4.7 mg/dL (3.4-7.0); Vitamin D 25-OH Total 43.9 ng/mL (>30)
== END 2024-06-28 07:30 | disposition home or self-care (01) ==
LOC: HO.HMGCLDS 07:29
PROVIDERS: PCP Internal Medicine; Visit Provider Internal Medicine
DX: D64.9 Anemia, unspecified (principal); E78.00 Pure hypercholesterolemia, unspecified; M10.9 Gout, unspecified; E83.42 Hypomagnesemia; R30.0 Dysuria; E53.8 Deficiency of other specified B group vitamins; E11.9 Type 2 diabetes mellitus without complications; E55.9 Vitamin D deficiency, unspecified
CPT/HCPCS: 36415; 80053; 80061; 81003; 82043; 82306; 82570; 82607; 82746; 83036; 83735; 84443; 84550; 85025

== ENCOUNTER 2024-07-02 09:35 | Outpatient (AMB) | payer MEDICARE, OTHER, SELFPAY ==
--- OUTSIDE RECORDS SUMMARY | 2024-07-02 09:38 | XMS_ITS ---
Author Organization [facility] Address [address] [place] [address] Care Team Providers Care Typing Element Machine Operator Name Role Phone Teodoro NAYLOR, Rob Primary Care Provider Yocasta Brito Unavailable [phone] Allergies Allergen (clinical drug ingredient) Drug/Non Drug [...] Ordered Date Performed Result Body Sit e 25838-QUHLRMN NAIL, 6 OR MORE 06/26/2024 N/A 85401-NPEK SKIN LESIONS, OVER 4 06/26/2024 N/A Encounters Encounter Location Date Provider Diagnosis [facility] [address] [address] 06/26/2024 Yocasta Mcginnisaker Other hammer toe(s) (acquired), [...] INSTRUCTIONS.pdf) Pending Test Test Name Order Date 13505-CKRNENX NAIL, 6 OR MORE 06/26/2024 62577-IFBF SKIN LESIONS, OVER 4 06/26/20 24 Next Appt Details Follow Up: 6 Months, Reason: Provider Name:Yocasta Rahelnima ale, 12/25/2024 09:00:00 AM, [address] [facility], [address], [place], [address], Procedure Notes * Category Sub-Category Detail Notes [...] use of a nail nipper and/or dremel-type tool grinder operator, to a more viable healthy nail plate [...] to maintain effectiveness in symptomatic relief - 86728 Keratoma Treatment Parring or Cutting o f [...] tissue nippers, and/or power dremel instrumentation - 92419 Progress Notes * Vince PHAN SDOB:[birth year] (73 yo M)Acc No.[id number]:06/26/2024 Progress Note Patient:?SYLVESTERVince GRAFF Samantha Provider:?Yocasta Ashford DPM :1950???Age:73 Y???Sex:Male Sina e:06/26/2024 Address:[address] [place], [place] [address] Pcp:Rob Valerio MD Subjective: * Chief Complaints: [...] yes. ?Exercise: no. ?Marital status: . 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 * Medications:?TakingLantus Fa rxiga Atorvastatin Calcium [...] 2.?Type 2 diabetes mellitus with diabetic polyneuropathy?Procedure: 88462-BFJEHYP NAIL, 6 OR MORE ?Procedure: 79245-ULIK SKIN LESIONS, OVER 4 * Procedures:?Debride Nail [...] use of a nail nipper and/or dremel-type tool grinder operator, to a more viable healthy nail plate [...] to maintain effectiveness in symptomatic relief - 95371.?Keratoma Treatment:?Parring or Cutting of Benign Hyperkeratotic Lesion(s)?(-57) [...] tissue nippers, and/or power dremel instrumentation - 89202.? * Procedure Codes:?45014 DEBRI DE NAIL, 6 OR MORE, Modifiers: XS 53060 TRIM SKIN LESIONS, OVER 4, Modifiers: XS [...] Ashford DPM Date:?08/27/2023 Generated for Hugh luna/Joseph/Willy on:?07/02/2024 09:38 AM EST History and Physical Notes * [...]
--- OUTSIDE RECORDS SUMMARY | 2024-07-02 09:38 | XMS_ITS ---
Author Organization [facility] Address [address] [place] [address] Care Team Providers Care Email Manager Name Role Phone Teodoro NAYLOR, Rob Primary Care Provider Yocasta Brito Unavailable [phone] Vince Perez Unavailable [phone] Allergies Allergen (clinical drug ingredient) Drug/Non Drug [...] 06/21/2023 Encounters Encounter Location Date Provider Diagnosis [facility] [address] [address] 06/21/2023 Vince Perez Type 2 diabetes mellitus [...] Provider Name:Yocasta aguilera, 12/25/2024 09:00:00 AM, [address] [facility], [address], [place], [address], Procedure Notes * Category Sub-Category Detail Notes Keratoma Treatment Parring or Cutting o f Benign Hyperkeratotic Lesion(s) 36221 ( >4 Lesions) - The Benign hyperkeratotic [...] Vince PHAN SDOB:[birth year] (72 yo M)Acc No.[id number]:06/21/2023 Progress Note Patient:?Vince Phan Samantha Provider:?Vince Perez DPM :1950???Age:72 Y???Sex:Male Sina e:06/21/2023 Address:[address] [place], [place] [id number] Pcp:Rob Valerio MD Subjective: * Chief Complaints: [...] yes. ?no Exercise. ?Marital status: . 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 * Medications:?TakingClopidogr el Bisulfate Extra Depth Diabetic [...] Tablet 1 tablet Orally Once a dayVicto Antonioselect [facility] [place] Medication List reviewed and [...] Procedures:?Keratoma Treatment:?Parring or Cutting of Benign Hyperkeratotic Lesion(s)?03720 ( >4 Lesions) - The Benign hyperkeratotic lesions, as described above were pared, and/or cut utilizing a sterile #15 blade, tissue nippers, and/or dremel.?Nail Reduction:?Nail Reduction?Trimming of dystrophic nails performed to reduce/remove overall nail length and girth, by manual and electrical means with use of a nail nipper and/or dremel, to more viable healthy nail plate or bed tissue 6-10 (G0127).? * Procedure Codes:?82602 TRIM SKIN LESIONS, OVER 4, Modifiers: XS G0127 TRIMMING DYSTROPHIC NAILS ANY #, Modifiers: XS * Follow Up:?6 Months * Images: * Sign off status: Completed true * Provider:?Vince Perez DPM Date:? 023 Generated for Hugh luna/Joseph/Willy on:?07/02/2024 09:38 AM [...]
--- OUTSIDE RECORDS SUMMARY | 2024-07-02 09:38 | XMS_ITS ---
Author Organization [facility] Address [address] [place] [address] Care Team Providers Care Stucco Laborer Name Role Phone Teodoro NAYLOR, Rob Primary Care Provider Yocasta Brito Unavailable [phone] Vince Perez Unavailable [phone] Allergies Allergen (clinical drug ingredient) Drug/Non Drug [...] 12/27/2023 Encounters Encounter Location Date Provider Diagnosis [facility] [address] [address] 12/27/2023 Vince Perez Type 2 diabetes mellitus [...] Provider Name:Yocasta aguilera, 12/25/2024 09:00:00 AM, [address] [facility], [address], [place], [address], Procedure Notes * Category Sub-Category Detail Notes Keratoma Treatment Parring or Cutting o f Benign Hyperkeratotic Lesion(s) 26667 ( >4 Lesions) - The Benign hyperkeratotic [...] Vince PHAN SDOB:[birth year] (73 yo M)Acc No.[id number]:12/27/2023 Progress Note Patient:?Vince hPan Provider:?Vince Perez DPM :1950???Age:73 Y???Sex:Male Sina e:12/27/2023 Address:[address] [place], [place] [id number] Pcp:Rob Valerio MD Subjective: * Chief Complaints: [...] ?no Exercise. ?Marital status: . 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 * Medications:?TakingGabapenti n Clopidogrel Bisulfate Farxiga Atorvastatin [...] Tablet 1 tablet Orally Once a dayVictoza TrOhio[facility] Medication List reviewed and reconciled with [...] Procedures:?Keratoma Treatment:?Parring or Cutting of Benign Hyperkeratotic Lesion(s)?97998 ( >4 Lesions) - The Benign hyperkeratotic lesions, as described above were pared, and/or cut utilizing a sterile #15 blade, tissue nippers, and/or dremel.?Nail Reduction:?Nail Reduction?Trimming of dystrophic nails performed to reduce/remove overall nail length and girth, by manual and electrical means with use of a nail nipper and/or dremel, to more viable healthy nail plate or bed tissue 6-10 (G0127).? * Procedure Codes:?06701 TRIM SKIN LESIONS, OVER 4, Modifiers: XS [...] DPM Date:? 024 Generated for Hugh luna/Joseph/Melviitting on:?07/02/2024 09:38 AM EST History and Physical [...]
--- OUTSIDE RECORDS SUMMARY | 2024-07-02 09:39 | XMS_ITS | Patient Health Record ---
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) Active confirmed Problem Acquired hammer toe of right foot (8918186720645257) Other hammer toe(s) (acquired), right foot (M20.41) Active confirmed Problem Acquired hammer toe of left foot (0289931115846410) Other hammer toe(s) (acquired), left foot (M20.42) Active confirmed Problem Polyneuropathy due to type 2 diabetes mellitus (481981338) Type 2 diabetes mellitus with diabetic polyneuropathy (E11.42) Active confirmed Problem Primary gout (92136392) Idiopathic gout, 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) Active confirmed Problem Polyneuropathy due to diabetes mellitus type I (652306154) Type 1 diabetes mellitus with diabetic polyneuropathy (E10.42) Active confirmed Problem 8681617562538801 Acute gout of left foot, unspecified cause (M10.9) Active confirmed Vital Signs Height 5ft 7in in 06/26/2024 Weight 210 lbs 06/26/2024 BMI 32.89 kg/m2 06/26/2024 Procedures Procedure Date Ordered Date Performed Result Body Sit e 56768-RCPMGWB NAIL, 6 OR MORE 06/26/2024 N/A 06741-SCWZ SKIN LESIONS, OVER 4 06/26/2024 N/A Encounters Encounter Location Date Provider Diagnosis [address] [address] 12/27/2023 Vince Perez Type 2 diabetes mellitus with diabetic polyneuropathy E11.42 ; Pain in right foot M79.671 ; Other hammer toe(s) (acquired), left foot M20.42 ; Other hammer toe(s) (acquired), right foot M20.41 ; Other viral warts B07.8 ; Pain in left foot M79.672 ; Metatarsalgia, right foot M77.41 and Xerosis cutis L85.[address] [facility] [address] 06/26/2024 Yocasta Ashford Other hammer toe(s) (acquired), [...] X ray : Foot, right 3V 08/13/2019 83315-KQZUIVT NAIL, 6 OR MORE 06/26/2024 91276-SMZP SKIN LESIONS, OVER 4 06/26/20 24 62326-GIUB SKIN LESIONS, OVER 4 06/04/20 21 26861-CGEK SKIN LESIONS, OVER 4 12/23/19 22 50903-OXCR SKIN LESIONS, OVER 4 12/02/19 21 62705-GQWE SKIN LESIONS, OVER 4 08/22/19 20 20882-KCSB SKIN LESIONS, OVER 4 06/02/20 20 L8380-PIRDJQHS DYSTROPHIC NAILS ANY # Z4972-TMOUXIBU DYSTROPHIC NAILS ANY # M9310-AWDSSIYZ DYSTROPHIC NAILS ANY # E6449-VKSTESOK DYSTROPHIC NAILS ANY # Next Appt Details Provider Name:Yocasta Augustin ale, 12/25/2024 09:00:00 AM, [address] [facility], [address], [place], [address], Insurance Providers Payer Name Payer Address Payer Phone Subscriber Number Group Number Insured Name Patient Relationship to Insured Coverage Start Date Coverage End Date Medicare [employer] [address] [place] [address] [id number] Vince Cedillo Self - patient is the insured [facility] [address] [place] [address] [phone] [id number] Aga Cedillo Spouse - patient is the spouse of the insured Medical (General) History Medical History History ICD Code Arthritis Back,Hip,and Knee pain type II diabetes High blood pressure Measles Mumps Chicken pox Joint implants/screws Surgical History Surgery Date(Month/Year) hip replacement-Bilateral 1997 bone scan, back 06/21/22 quadruple bypass 02/2023
[2024-07-02 09:43] VITALS: BP 124/76; PULSE 71; O2SAT 96; BMI 35.1
--- NOTE | 2024-07-02 09:43 | MHC.PC.OV ---
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 Required: No Accompanied by: Self / Same As Patient Allergies Sulfa (Sulfonamide Antibiotics) Allergy (Intermediate, Verified 07/02/24 10:18) ITCHING HIVES sitagliptin [Januvia] Allergy (Unknown, Verified 07/02/24 10:18) Unknown metformin Adverse Reaction (Intermediate, Verified 07/02/24 10:18) Diarrhea Medication List - Last Reconciled 07/02/24 by Rob Valerio MD acetaminophen 325 mg PO QID PRN Admelog SoloStar U-100 Insulin (insulin lispro) 6 to 8 units 3 times a day with meals SQ per sliding scale subcutaneously 3 times a day; 30 days NS alcohol swabs (Alcohol Prep Pads) 0 pad topical allopurinol 300 mg (3 x 100 mg) PO DAILY aspirin (Adult Aspirin Regimen) 81 mg PO DAILY atorvastatin 40 mg PO DAILY blood-glucose meter,continuous (Dexcom G6 Broadcast Director Operations) As directed blood-glucose sensor (Dexcom G6 Sensor device) As directed blood-glucose transmitter (Dexcom G6 Transmitter device) As directed cholecalciferol (vitamin D3) 25 mcg PO DAILY 90 days Farxiga (dapagliflozin propanediol) 5 mg PO DAILY 30 days NS insulin glargine (Lantus Solostar U-100 Insulin) 36 units (0.36 mL) subcut BEDTIME lisinopril 40 mg PO DAILY metoprolol succinate ER 50 mg (2 x 25 mg) PO DAILY pen needle, diabetic (BD Ultra-Fine Mini Pen Needle) test 4 times per day semaglutide 2 mg (0.75 mL) subcut QWEEK 3 months tizanidine 4 mg PO BEDTIME PRN 90 days Tobacco use date assessed: 07/02/24 Fall risk assessment: No Falls in past year Last assessed Fall Risk: 07/02/24 Dental Screening Dental Screen Date: 07/02/24 Did you have a dental visit in the last 12 months?: Yes Did you have a dental problem in the last 6 months where you did not have access to dental care?: No Was dental information given to patient?: Patient has dentist HPI 4 month f/u HPI Details Patient comes in today for his follow up visit States that he feels okay He denies any headaches or dizziness Denies any chest pains, no increased SOB No nausea/vomiting, no abdominal pain No change in bowel habits noted He continues to experiencing recurrent low back pain that gets worse with activity or exertion and he is scheduled for back surgery with Dr. Monteiro early next year on 07/24/2024 He had his follow up labs done a few days ago - to discuss his results [facility] Medical History Allergic rhinitis Obesity (BMI 30-39.9) Depression Carpal tunnel syndrome on both sides Lumbar degenerative disc disease Vitamin D deficiency Elevated liver enzymes Gout Pure hypercholesterolemia Diabetes mellitus Benign essential hypertension Surgical History S/P CABG x 4 S/P cardiac catheterization Hx of colonoscopy Status post carpal tunnel release (~06/19/20) History of excision of lesion History of carpal tunnel release History of bilateral hip arthroplasty Family History Father Medical history unknown Mother Diabetes Social History Housing: House Alcohol intake: former Patient Tobacco Use Status: Former Tobacco user e-Cigarette/Vaping Use: Never Used Second Hand Smoke Exposure: Yes service: No Current occupational status: employed Cognitive needs: No Hearing needs: No Vision needs: Yes (Glasses) Questionnaire PHQ-9 Over the last 2 weeks, how often have you been bothered by any of the following problems? 1. Little interest or pleasure in doing things: not at all 2. Feeling down, depressed, or hopeless: not at all 3. Trouble falling or staying asleep, or sleeping too much: not at all 4. Feeling tired or having little energy: not at all 5. Poor appetite or overeating: not at all 6. Feeling bad about yourself - or that you are a failure or have let yourself or your family down: not at all 7. Trouble concentrating on things, such as reading the newspaper or watching television: not at all 8. Moving or speaking so slowly that other people could have noticed. Or the opposite - being so fidgety or restless that you have been moving around a lot more than usual: not at all 9. Thoughts that you would be better off or of hurting yourself in some way: not at all Total score: 0 Depression Screening Interpretation: Negative Depression Screening Done: Yes 47566 - PHQ-9 Billing: Yes Source: Developed by Drs. Rigoberto Iqbal, Celestina Murray, Tyrone Wong and colleagues, with an educational farida from [employer]. Thrive Questionnaire Date Thrive assessed: 07/02/24 I am a: Patient What is your living situation today?: I have a steady place to live Within the past 12 months, did the food you bought not last and you didn't have the money to get more?: Never true Within the past 12 months, did you worry whether your food would run out before you got money to buy more?: Never true Do you have trouble paying for medicines?: No Do you have trouble getting transportation to medical appointments?: No Do you have trouble paying your heating and electricity bill?: No Do you have trouble taking care of your child, family member or friend?: No Do you have trouble with day-to-day activities such as bathing, preparing meals, shopping, managing finances, etc.?: No Are you currently unemployed and looking for a job?: No Are you interested in more education?: No Please select the resources that you would like help with: None Currently or been in a relationship where the following occur: No concerns reported THRIVE Score: 0 AUDIT C Alcohol Use Questionnaire (AUDIT-C) 1. How often do you have a drink containing alcohol?: Never 3. How often do you have six or more drinks on one occasion?: Never Total Score: 0 Score Reviewed/Action Taken: Yes RIO-7 AMB Questionnaire RIO-7 Date RIO - 7 assessed: 07/02/24 Feeling nervous, anxious, or on edge: 0 = Not at all Not being able to stop or control worryin = Not at all Worrying too much about different things: 0 = Not at all Trouble relaxin = Not at all Being so restless that it is hard to sit still: 0 = Not at all Becoming easily annoyed or irritable: 0 = Not at all Feeling afraid as if something awful might happen: 0 = Not at all Total RIO-7 score (0-4 normal; 5-9 mild; 10-14 moderate; 15-21 severe): 0 Source: Developed by Drs. Rigoberto Iqbal, Celestina Murray, Tyrone Wong and colleagues, with an educational farida from [employer]. Review of Systems Const Denies chills, Denies fatigue, Denies fever(s) and Denies headache(s) ENT Denies dysphagia, Denies dizziness, Denies otalgia, Denies headache(s), Denies neck pain, Denies odynophagia and Denies sore throat Card Denies chest pain, Denies palpitations and Denies dyspnea Resp Denies chest congestion, Denies cough and Denies dyspnea GI Denies abdominal pain, Denies constipation, Denies dysphagia, Denies heartburn, Denies diarrhea, Denies nausea, Denies odynophagia and Denies vomiting Denies dysuria, Denies nocturia and Denies urinary frequency Musc Reports back pain (chronic, worse with prolonged standing or increased activity) and Denies neck pain Skin/Breast Denies rash Neuro Reports burning sensations (on and off burning pain over his right thigh, leg and foot), Denies dizziness and Denies headache(s) Endo Denies fatigue and Denies palpitations Physical exam (Primary Care) Vital Signs: Last Vital Signs Pulse 71 07/02/24 09:43 BP 124/76 07/02/24 09:43 Pulse Ox 96 07/02/24 09:43 Oxygen Delivery Method Room Air 07/02/24 09:43 BMI result Body Mass Index 35.1 Tobacco/Smoking Status: Tobacco use Status Tobacco use date assessed 07/02/24 07/02/24 09:49 Patient Tobacco Use Status Former Tobacco user 07/02/24 09:49 e-Cigarette/Vaping Use Never Used 07/02/24 09:49 PHQ-9: PHQ-9 Score PHQ-9: Total score 0 07/02/24 09:49 Depression Screening Interpretation: Negative Thrive Assessment: Date of Thrive Assessment Date Thrive assessed 07/02/24 07/02/24 09:49 Currently or been in a relationship where the following occur: No concerns reported Const General: no acute distress and alert HENMT Ears: TM's normal bilaterally and EAC's normal Throat: Yes posterior oropharynx normal and Yes tonsils normal (no TP congestion) Neck Neck: Yes supple and No lymphadenopathy Thyroid: Thyroid normal Resp Auscultation: clear to auscultation bilaterally, no rales and no wheezes Cardio Rate: regular rate Rhythm: regular rhythm Heart sounds: no murmurs GI Palpation (GI): Soft to palpation and nontender Auscultation: normal bowel sounds General: Yes no CVA tenderness Back/Spine/Pelvis Back: no CVA tenderness Thoracic/Lumbar Spine: lumbar spinal tenderness Skin Rashes: no rashes Extrem General: Yes no clubbing, cyanosis or edema Results Reviewed Results Reviewed: Laboratory Tests 06/28/24 06/28/24 06/28/24 07:42 07:47 07:50 WBC 7.2 Hgb 14.7 Hct 44.5 Plt Count 162 Sodium 139 Potassium 4.8 Creatinine 1.25 Estimated GFR 57 Fasting Glucose 88 Hemoglobin A1c % 5.6 Uric Acid 4.7 Calcium 9.4 Magnesium 2.0 AST 40 H ALT 31 Triglycerides 76 Cholesterol 115 LDL Cholesterol, Calc 58 HDL Cholesterol 42 Vitamin B12 > 2000 H 25-OH Vitamin D Total 43.9 TSH 0.65 Urine pH 5.5 Ur Specific Paradox 1.020 Urine Protein Negative Urine Glucose (UA) Negative Urine Blood Negative Urine Nitrite Negative Ur Leukocyte Esterase Negative Microalb/Creat Ratio 59.1 H Coding Level of Care Code Est Pt Level 4 (59688) Complex EM visit Add On G2211 Diagnoses Type 2 diabetes mellitus without complication, with long-term current use of insulin E11.9; Z79.4 Diabetes mellitus type: type 2 Diabetes mellitus fci insulin use: with fci use Diabetes mellitus complication status: without complication Benign essential hypertension I10 Persistent proteinuria R80.1 Proteinuria type: persistent Pure hypercholesterolemia E78.00 Elevated liver enzymes R74.8 Hypomagnesemia E83.42 Nocturnal leg cramps G47.62 Degeneration of intervertebral disc of lumbar region with discogenic back pain and lower extremity pain M51.362 Disc-related pain type: discogenic back pain and lower extremity pain Idiopathic gout, unspecified chronicity, unspecified site M10.00 Gout site: unspecified site Gout etiology: idiopathic Chronicity: unspecified Vitamin D deficiency E55.9 Elevated vitamin B12 level R79.89 Obesity (BMI 30-39.9) E66.9 Additional Codes PHQ-9 - 29895 - PHQ-9 Billing: Yes ([id number]) Assessment & Plan Assessment & Plan (1) Diabetes mellitus: Code(s): E11.9 - Type 2 diabetes mellitus without complications Category: Medical Qualifiers: Diabetes mellitus type: type 2 Diabetes mellitus 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 Diabetes mellitus complication status: without complication Qualified Code(s): E11.9 - Type 2 diabetes mellitus without complications; Z79.4 - USP (current) use of insulin Plan: His HgbA1c remained unchanged from previous at 5.6% on his labs done a few days ago (HgbA1c was also at 5.6% a few months ago) - goal is at least <7.0% but ideally <6.5% Reinforced diabetic diet Continue Farxiga 5 mg QD, Ozempic 2 mg SQ once a week, Lantus 36 units Q HS and Admelog 6 to 8 units TID per sliding scale (Rx was changed from Novolog and Mounjaro due to insurance restrictions and it looks like his Lantus will need to be changed to Basaglar next year) Patient could not tolerate Metformin or Metformin ER in the past due to diarrhea (2) Benign essential hypertension: Code(s): I10 - Essential (primary) hypertension Category: Medical Plan: Reinforced low sodium diet - goal is systolic BP of at least 130 mm or less Continue Lisinopril 40 mg QD and Metoprolol ER 50 mg QD Echocardiogram done last year revealed low normal LV systolic function with LVEF of 50-55% with impaired relaxation filling pattern with severe focal hypertrophy of the basal septum, mild left atrial enlargement, normal cardiac valvular dopplers and no gross pericardial effusion Follow up with cardiology as scheduled (3) Proteinuria: Code(s): R80.9 - Proteinuria, unspecified Category: Medical Qualifiers: Proteinuria type: persistent Qualified Code(s): R80.1 - Persistent proteinuria, unspecified Plan: This is most likely related to his HTN and DM and appears to have cleared up as he no longer has any proteins in his urine and his microalbumin level has also improved significantly on his recent labs Have emphasized again the importance of tight BP and glucose control to slow down progression of renal disease Follow up with nephrology (Dr. Vann) as scheduled (4) Pure hypercholesterolemia: Code(s): E78.00 - Pure hypercholesterolemia, unspecified Category: Medical Plan: Results of his labs done a few days ago reviewed and discussed with patient Reinforced low cholesterol diet Continue Simvastatin 20 mg QD Will recheck his labs and fasting lipids in 4 months for follow up (5) Elevated liver enzymes: Code(s): R74.8 - Abnormal levels of other serum enzymes Category: Medical Plan: Improving - have advised patient again that this is most likely related to his weight and should improve with continuing weight loss Will continue to monitor his LFTs regularly (6) Hypomagnesemia: Code(s): E83.42 - Hypomagnesemia Category: Medical Plan: Corrected; his serum magnesium level has remained normal on his recent labs Continue Magnesium Oxide 400 mg BID (7) Nocturnal leg cramps: Code(s): G47.62 - Sleep related leg cramps Category: Medical Plan: Continue Tizanidine 4 mg Q HS PRN (8) Lumbar degenerative disc disease: Code(s): M51.36 - Other intervertebral disc degeneration, lumbar region Category: Medical Qualifiers: Disc-related pain type: discogenic back pain and lower extremity pain Qualified Code(s): M51.362 - Other intervertebral disc degeneration, lumbar region with discogenic back pain and lower extremity pain Plan: Reinforced activity and weight-lifting restrictions Lumbar spine MRI done back in April 2022 revealed (+) grade 1 degenerative anterolisthesis in the setting of advanced bilateral facet arthropathy and additional spondylitic changes resulting in mild central canal stenosis and severe bilateral foraminal stenosis with compression of the exiting L4 nerve roots bilaterally at L4-L5. THERE ARE VERY LARGE BILATERAL FACET JOINT EFFUSIONS AT L4-L5 THAT SHOULD BE FOLLOWED WITH FLEXION-EXTENSION RADIOGRAPHS TO EXCLUDE SEGMENTAL INSTABILITY. There is also a right lateral disc osteophyte protrusion contacts the extraforaminal right L5 nerve root at L5-S1 Patient has been referred to neurosurgery (Dr. Monteiro) regarding his lumbar spine issues and he has been recommended to undergo L4-5 oblique lumbar interbody fusion, which is now scheduled for 07/24/2024 (9) Gout: Code(s): M10.9 - Gout, unspecified Category: Medical Qualifiers: Gout site: unspecified site Gout etiology: idiopathic Chronicity: unspecified Qualified Code(s): M10.00 - Idiopathic gout, unspecified site Plan: His serum uric acid has improved and has remained normal on his recent labs Reinforced low purine diet - states that he has not had any acute gout flare ups in a while now Continue Allopurinol 300 mg QD Will recheck his serum uric acid level in a few months for follow up (10) Vitamin D deficiency: Code(s): E55.9 - Vitamin D deficiency, unspecified Category: Medical Plan: Continue Vitamin D3 1000 units QD (11) Elevated vitamin B12 level: Code(s): R79.89 - Other specified abnormal findings of blood chemistry Category: Medical Plan: Patient adds that he currently takes about 300 to 500 mcg of Vitamin B12 daily Have advised him that his B12 level is now very high (> 2000 pg/ml) on his recent labs and he should cut back on his Vitamin B12 to every 2 to 3 days dosing instead of daily Will recheck his Vitamin B12 level in a few months for follow up (12) Obesity (BMI 30-39.9): Code(s): E66.9 - Obesity, unspecified Category: Medical Plan: Reinforced diet/exercise as tolerated/lose weight Plan Follow up in 4 months Orders: Orders Comprehensive [place]. Panel Fast 4 Months E78.00 - Pure hypercholesterolemia, unspecified Prostate Specific Antigen Scr 4 Months Z00.00 - Encounter for general adult medical examination without abnormal findings Vitamin B12 and Folate 4 Months E53.8 - Deficiency of other specified B group vitamins Vitamin D 25-OH Total 4 Months E55.9 - Vitamin D deficiency, unspecified Complete Blood Count Auto Diff 4 Months D64.9 - Anemia, unspecified Lipid Panel 4 Months E78.00 - Pure hypercholesterolemia, unspecified Hemoglobin A1c 4 Months E11.9 - Type 2 diabetes mellitus without complications Magnesium 4 Months E83.42 - Hypomagnesemia Uric Acid 4 Months M10.9 - Gout, unspecified Microalbumin, Random (w Creat) 4 Months E11.9 - Type 2 diabetes mellitus without complications TSH reflex Free T4 4 Months E78.00 - Pure hypercholesterolemia, unspecified UA CC w/rflx Micro + Cult 4 Months R30.0 - Dysuria
== END 2024-07-02 10:29 | disposition home or self-care (01) ==
PROVIDERS: PCP Internal Medicine; Visit Provider Internal Medicine
DX: E11.9 Type 2 diabetes mellitus without complications (principal); Z79.4 Long term (current) use of insulin; I10 Essential (primary) hypertension; R80.1 Persistent proteinuria, unspecified; E78.00 Pure hypercholesterolemia, unspecified; R74.8 Abnormal levels of other serum enzymes; E83.42 Hypomagnesemia; G47.62 Sleep related leg cramps; M51.362 Other intervertebral disc degeneration, lumbar region with discogenic back pain and lower extremity pain; M10.00 Idiopathic gout, unspecified site; E55.9 Vitamin D deficiency, unspecified; R79.89 Other specified abnormal findings of blood chemistry; E66.9 Obesity, unspecified

== ENCOUNTER → 2024-07-02 09:35 | Outpatient (BNVA) | payer MEDICARE, OTHER, SELFPAY | PROVIDERS: PCP Internal Medicine; Visit Provider Internal Medicine | DX: E11.9 Type 2 diabetes mellitus without complications (principal); I10 Essential (primary) hypertension; R80.1 Persistent proteinuria, unspecified; E78.00 Pure hypercholesterolemia, unspecified; R74.8 Abnormal levels of other serum enzymes; E83.42 Hypomagnesemia; G47.62 Sleep related leg cramps; M51.362 Other intervertebral disc degeneration, lumbar region with discogenic back pain and lower extremity pain; M10.00 Idiopathic gout, unspecified site; E55.9 Vitamin D deficiency, unspecified; R79.89 Other specified abnormal findings of blood chemistry; E66.9 Obesity, unspecified; D64.9 Anemia, unspecified; M10.9 Gout, unspecified; R30.0 Dysuria; Z87.891 Personal history of nicotine dependence; Z68.35 Body mass index [BMI] 35.0-35.9, adult; Z79.4 Long term (current) use of insulin | CPT/HCPCS: 96127; 99212 ==

== ENCOUNTER 2024-07-09 | Outpatient (REF) | payer MEDICARE, OTHER, SELFPAY ==
--- NOTE | 2024-07-09 | ECG_ITS ---
Test Reason : PRE OP Blood Pressure : / mmHG Vent. Rate : 064 BPM Atrial Rate : 064 BPM P-R Int : 212 ms QRS Dur : 130 ms QT Int : 416 ms P-R-T Axes : 032 -07 076 degrees QTc Int : 429 ms Sinus rhythm with 1st degree A-V block Right bundle branch block Inferior infarct , age undetermined Abnormal ECG When compared with ECG of 06-FEB-2010 10:24, GA interval has increased Right bundle branch block is now Present Inferior infarct is now Present Referred By: Mayte Cespedes Electronically Signed By:Wei Nieto
[2024-07-09 10:00] VITALS: BP 145/67; PULSE 61; RESP 20; O2SAT 97; BMI 35.5
--- NOTE | 2024-07-09 10:16 | HO.ANESPROP2 ---
HPI - Anesthesia Eval Consult details Narrative: ? Reschedule 73yo M for L4-5 Oblique Lumbar Interbody Fusion Cardiac optimized. Follows [facility] Cardiology for CAD s/p CABG x 4 2022. 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 Follows [facility] nephro, stable disease per 03/2024 office visit Anesthesia Pre-Procedure Meds Is the patient on any of the following meds?: GLP1/DPP4 and SGLT2 Inhib PMFSH Active Problems Active Problems: All Active Problems Elevated vitamin B12 level (Acute) Diabetic nephropathy (Acute) Bronchitis (Acute) CKD (chronic kidney disease) stage 3, GFR 30-59 ml/min (Acute) Preop cardiovascular exam (Acute) Upper respiratory tract infection (Acute) Spondylolisthesis, lumbar region (Acute) Claudication of both lower extremities (Acute) CAD (coronary artery disease) (Acute) Atherosclerosis of abdominal aorta (Acute) Hypertension (Acute) Spinal stenosis, lumbar region, with neurogenic claudication (Acute) T12 compression fracture (Acute) Proteinuria (Acute) Chronic diarrhea (Acute) COVID-19 (Acute) Hyperkalemia (Acute) Abnormal electrocardiogram [ECG] [EKG] (Acute) Lumbar spondylolysis (Acute) Lumbar back pain with radiculopathy affecting lower extremity (Acute) Postprandial diarrhea (Acute) Hypomagnesemia (Acute) Nocturnal leg cramps (Acute) Colon cancer screening (Acute) Allergic rhinitis (Acute) Obesity (BMI 30-39.9) (Acute) Depression (Acute) Carpal tunnel syndrome on both sides (Acute) Lumbar degenerative disc disease (Acute) Vitamin D deficiency (Acute) Elevated liver enzymes (Acute) Gout (Acute) Pure hypercholesterolemia (Acute) Diabetes mellitus (Acute) Benign essential hypertension (Acute) Past Medical History Medical History (Updated 07/09/24 @ 10:15 by Evelin Smith RN) Skin cancer Back pain CAD (coronary artery disease) Allergic rhinitis Obesity (BMI 30-39.9) Depression Carpal tunnel syndrome on both sides Lumbar degenerative disc disease Vitamin D deficiency Elevated liver enzymes Gout Pure hypercholesterolemia Diabetes mellitus Benign essential hypertension Family History Family History Father Medical history unknown Mother Diabetes Surgical History Surgical History (Updated 07/09/24 @ 09:38 by Evelin Smith RN) S/P CABG x 4 S/P cardiac catheterization Hx of colonoscopy Status post carpal tunnel release (~06/19/20) History of excision of lesion History of carpal tunnel release History of bilateral hip arthroplasty Social History Social History Housing: House Are you a primary home care manager rn to a significant other at home: No Do you presently have visiting nurse or other home services: No Alcohol intake: former Patient Tobacco Use Status: Former Tobacco user Tobacco use type: Cigarette Years Smoked: 15 e-Cigarette/Vaping Use: Never Used Second Hand Smoke Exposure: Yes Use of substances other than those prescribed or required for medical reasons: No Have you been hit, kicked, punched, or otherwise hurt by someone within the past year? If so, by whom?: No Spiritual Healthcare Practices: none Cheondoism Healthcare Practices: Judaism Cultural Healthcare Practices: none Are you DNR?: No Advance Directives Information Provided: Yes (as above noted) Advance Directives on File: No Recently lost weight without trying: No Eating poorly because of decreased appetite: No Nutrition Risks: No Nutritional Risk Poor oral hygiene: Yes (partial) service: No Current occupational status: employed Cognitive needs: No Hearing needs: No Vision needs: Yes (Glasses) Meds Allergies Allergy/AdvReac Type Severity Reaction Status Date / Time Sulfa (Sulfonamide Allergy Intermediate ITCHING / Verified 07/09/24 09:53 Antibiotics) HIVES sitagliptin [Januvia] Allergy Unknown Unknown-patient Verified 07/09/24 09:53 does not remember reaction metformin AdvReac Intermediate Diarrhea Verified 07/02/24 10:18 Home Medications ?Medication ?Instructions ?Recorded ?Confirmed ?Last Taken ?Type aspirin 81 mg tablet,delayed 81 mg PO QAM 05/11/22 07/09/24 Unknown History release (Adult Aspirin Regimen) acetaminophen 325 mg tablet 325 mg PO QID PRN Pain 03/18/23 07/09/24 Unknown History alcohol swabs (Alcohol Prep Pads) 0 pad topical 03/18/23 07/02/24 Unknown History allopurinol 100 mg tablet 300 mg PO QAM 07/09/24 07/09/24 Unknown History atorvastatin 40 mg tablet 40 mg PO BEDTIME 07/09/24 07/09/24 Unknown History cholecalciferol (vitamin D3) 25 25 mcg PO QAM 07/09/24 07/09/24 Unknown History mcg (1,000 unit) capsule cyanocobalamin (vitamin B-12) 2,500 mcg sublingual Q2D 07/09/24 07/09/24 Unknown History 2,500 mcg sublingual tablet (Vitamin B-12) dapagliflozin propanediol 5 mg 5 mg PO QAM 07/09/24 07/09/24 Unknown History tablet (Farxiga) lisinopril 40 mg tablet 40 mg PO QAM 07/09/24 07/09/24 Unknown History magnesium oxide 800 mg PO BEDTIME 07/09/24 07/09/24 Unknown History milk thistle seed extract 150 1 cap PO DAILY 07/09/24 07/09/24 Unknown History mg-artichoke leaf extract 300 mg capsule (Artichoke Premium Extract) Exam Height,Weight and Vital Signs: Height 5 ft 6 in Weight 99.79 kg Last Vital Signs Pulse 61 07/09/24 10:00 Resp 20 07/09/24 10:00 BP 145/67 H 07/09/24 10:00 Pulse Ox 97 07/09/24 10:00 O2 Del Method Room Air 07/09/24 10:00 Pertinent Lab Results Pertinent Lab Results: Laboratory Tests 06/28/24 07:42 WBC 7.2 Hgb 14.7 Hct 44.5 Plt Count 162 Sodium 139 Potassium 4.8 Chloride 109 H Carbon Dioxide 21 L BUN 40 H Creatinine 1.25 Narrative Narrative: EKG 06/2024 Vent. Rate : 064 BPM Atrial Rate : 064 BPM P-R Int : 212 ms QRS Dur : 130 ms QT Int : 416 ms P-R-T Axes : 032 -07 076 degrees QTc Int : 429 ms Sinus rhythm with 1st degree A-V block Right bundle branch block Inferior infarct , age undetermined Abnormal ECG When compared with ECG of 06-FEB-2010 10:24, DC interval has increased Right bundle branch block is now Present Inferior infarct is now Present (No change from in office EKGs) Airway Mallampati Class: III TM Dist: >3cm Neck ROM: Full Partial: Upper Heart: RRR Lungs: CTAB Assessment and Plan Assessment Anesthesia Assessment: Anesthesia Plan Discussed and PAT Visit
== END 2024-07-09 00:01 | disposition home or self-care (01) ==
LOC: HO.PAT
PROVIDERS: Admitting Provider Neurological Surgery; PCP Internal Medicine; Visit Provider Neurological Surgery
DX: Z01.818 Encounter for other preprocedural examination (principal); M43.16 Spondylolisthesis, lumbar region
CPT/HCPCS: 86850; 86900; 86901; 93005

== ENCOUNTER → 2024-07-09 11:19 | Outpatient (BNV) | payer MEDICARE, OTHER, SELFPAY | PROVIDERS: Admitting Provider Neurological Surgery; PCP Internal Medicine; Visit Provider Internal Medicine Cardiovascular Disease | DX: R94.31 Abnormal electrocardiogram [ECG] [EKG] (principal) | CPT/HCPCS: 93010 ==

== ENCOUNTER 2024-09-04 06:29 | Inpatient (IN) | payer MEDICARE, OTHER, SELFPAY ==
--- NOTE | 2024-08-30 14:31 | P.CONAN_ITS ---
Documented by User: Mayte Cespedes NP 08/30/24 14:32 HPI - Anesthesia Eval Consult details Narrative: 73yo M for L4-5 Oblique Lumbar Interbody Fusion Cardiac optimized. Follows [facility] Cardiology for CAD s/p CABG x 4 2022. 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 Follows [facility] nephro, stable disease per 03/2024 office visit (Pt seen in PAT 06/2024) Anesthesia Pre-Procedure Meds Is the patient on any of the following meds?: GLP1/DPP4 and SGLT2 Inhib PMFSH Active Problems Active Problems: All Active Problems Elevated vitamin B12 level (Acute) Diabetic nephropathy (Acute) Bronchitis (Acute) CKD (chronic kidney disease) stage 3, GFR 30-59 ml/min (Acute) Preop cardiovascular exam (Acute) Upper respiratory tract infection (Acute) Spondylolisthesis, lumbar region (Acute) Claudication of both lower extremities (Acute) CAD (coronary artery disease) (Acute) Atherosclerosis of abdominal aorta (Acute) Hypertension (Acute) Spinal stenosis, lumbar region, with neurogenic claudication (Acute) T12 compression fracture (Acute) Proteinuria (Acute) Chronic diarrhea (Acute) COVID-19 (Acute) Hyperkalemia (Acute) Abnormal electrocardiogram [ECG] [EKG] (Acute) Lumbar spondylolysis (Acute) Lumbar back pain with radiculopathy affecting lower extremity (Acute) Postprandial diarrhea (Acute) Hypomagnesemia (Acute) Nocturnal leg cramps (Acute) Colon cancer screening (Acute) Allergic rhinitis (Acute) Obesity (BMI 30-39.9) (Acute) Depression (Acute) Carpal tunnel syndrome on both sides (Acute) Lumbar degenerative disc disease (Acute) Vitamin D deficiency (Acute) Elevated liver enzymes (Acute) Gout (Acute) Pure hypercholesterolemia (Acute) Diabetes mellitus (Acute) Benign essential hypertension (Acute) Past Medical History Medical History Skin cancer Back pain CAD (coronary artery disease) Allergic rhinitis Obesity (BMI 30-39.9) Depression Carpal tunnel syndrome on both sides Lumbar degenerative disc disease Vitamin D deficiency Elevated liver enzymes Gout Pure hypercholesterolemia Diabetes mellitus Benign essential hypertension Family History Family History Father Medical history unknown Mother Diabetes Surgical History Surgical History S/P CABG x 4 S/P cardiac catheterization Hx of colonoscopy Status post carpal tunnel release (~06/19/20) History of excision of lesion History of carpal tunnel release History of bilateral hip arthroplasty Social History Social History Housing: House Are you a primary healthcare science specialist to a significant other at home: No Do you presently have visiting nurse or other home services: No Alcohol intake: former Patient Tobacco Use Status: Former Tobacco user Tobacco use type: Cigarette Years Smoked: 15 e-Cigarette/Vaping Use: Never Used Second Hand Smoke Exposure: Yes Have you been hit, kicked, punched, or otherwise hurt by someone within the past year? If so, by whom?: No Baptism Healthcare Practices: congregation Are you DNR?: No Advance Directives: No Advance Directives Information Provided: Yes Advance Directives on File: No Recently lost weight without trying: No Nutrition Risks: No Nutritional Risk Poor oral hygiene: Yes (partial) service: No Current occupational status: employed Cognitive needs: No Hearing needs: No Vision needs: Yes (Glasses) Meds Allergies Allergy/AdvReac Type Severity Reaction Status Date / Time Sulfa (Sulfonamide Allergy Intermediate ITCHING / Verified 07/09/24 09:53 Antibiotics) HIVES sitagliptin [Januvia] Allergy Unknown Unknown-patient Verified 07/09/24 09:53 does not remember reaction metformin AdvReac Intermediate Diarrhea Verified 07/02/24 10:18 Home Medications ?Medication ?Instructions ?Recorded ?Confirmed ?Last Taken ?Type aspirin 81 mg tablet,delayed 81 mg PO QAM 05/11/22 09/04/24 08/31/24 History release (Adult Aspirin Regimen) acetaminophen 325 mg tablet 325 mg PO QID PRN Pain 03/18/23 09/04/24 08/18/24 History allopurinol 100 mg tablet 300 mg PO QAM 07/09/24 09/04/24 08/30/24 History atorvastatin 40 mg tablet 40 mg PO BEDTIME 07/09/24 09/04/24 08/30/24 History cholecalciferol (vitamin D3) 25 25 mcg PO QAM 07/09/24 09/04/24 08/30/24 History mcg (1,000 unit) capsule cyanocobalamin (vitamin B-12) 2,500 mcg sublingual Q2D 07/09/24 09/04/24 08/30/24 History 2,500 mcg sublingual tablet (Vitamin B-12) dapagliflozin propanediol 5 mg 5 mg PO QAM 07/09/24 09/04/24 08/30/24 History tablet (Farxiga) lisinopril 40 mg tablet 40 mg PO QAM 07/09/24 09/04/24 08/30/24 History magnesium oxide 800 mg PO BEDTIME 07/09/24 09/04/24 08/30/24 History milk thistle seed extract 150 1 cap PO DAILY 07/09/24 09/04/24 08/24/24 History mg-artichoke leaf extract 300 mg capsule (Artichoke Premium Extract) Exam Height,Weight and Vital Signs: Height 5 ft 6 in Weight 99.79 kg Last Vital Signs Pulse 61 07/09/24 10:00 Resp 20 07/09/24 10:00 BP 145/67 H 07/09/24 10:00 Pulse Ox 97 07/09/24 10:00 O2 Del Method Room Air 07/09/24 10:00 Pertinent Lab Results Pertinent Lab Results: Laboratory Tests 06/28/24 07:42 WBC 7.2 Hgb 14.7 Hct 44.5 Plt Count 162 Sodium 139 Potassium 4.8 Chloride 109 H Carbon Dioxide 21 L BUN 40 H Creatinine 1.25 Narrative Narrative: EKG 06/2024 Vent. Rate : 064 BPM Atrial Rate : 064 BPM P-R Int : 212 ms QRS Dur : 130 ms QT Int : 416 ms P-R-T Axes : 032 -07 076 degrees QTc Int : 429 ms Sinus rhythm with 1st degree A-V block Right bundle branch block Inferior infarct , age undetermined Abnormal ECG When compared with ECG of 06-FEB-2010 10:24, ME interval has increased Right bundle branch block is now Present Inferior infarct is now Present (No change from in office EKGs) Airway Mallampati Class: III TM Dist: >3cm Neck ROM: Full Partial: Upper Heart: RRR Lungs: CTAB Assessment and Plan Assessment Anesthesia Assessment: Chart Reviewed Documented by User: Luisa Avilez MD 09/04/24 08:21 PMFSH Past Medical History Medical History Skin cancer Back pain CAD (coronary artery disease) Allergic rhinitis Obesity (BMI 30-39.9) Depression Carpal tunnel syndrome on both sides Lumbar degenerative disc disease Vitamin D deficiency Elevated liver enzymes Gout Pure hypercholesterolemia Diabetes mellitus Benign essential hypertension Family History Family History Father Medical history unknown Mother Diabetes Surgical History Surgical History S/P CABG x 4 S/P cardiac catheterization Hx of colonoscopy Status post carpal tunnel release (~06/19/20) History of excision of lesion History of carpal tunnel release History of bilateral hip arthroplasty History of Problems with Anesthesia: No Social History Social History Housing: House Are you a primary healthcare science specialist to a significant other at home: No Do you presently have visiting nurse or other home services: No Alcohol intake: former Patient Tobacco Use Status: Former Tobacco user Tobacco use type: Cigarette Years Smoked: 15 e-Cigarette/Vaping Use: Never Used Second Hand Smoke Exposure: Yes Have you been hit, kicked, punched, or otherwise hurt by someone within the past year? If so, by whom?: No Baptism Healthcare Practices: congregation Are you DNR?: No Advance Directives: No Advance Directives Information Provided: Yes Advance Directives on File: No Recently lost weight without trying: No Nutrition Risks: No Nutritional Risk Poor oral hygiene: Yes (partial) service: No Current occupational status: employed Cognitive needs: No Hearing needs: No Vision needs: Yes (Glasses) Meds Allergies Allergy/AdvReac Type Severity Reaction Status Date / Time Sulfa (Sulfonamide Allergy Intermediate ITCHING / Verified 07/09/24 09:53 Antibiotics) HIVES sitagliptin [Januvia] Allergy Unknown Unknown-patient Verified 07/09/24 09:53 does not remember reaction metformin AdvReac Intermediate Diarrhea Verified 07/02/24 10:18 Home Medications ?Medication ?Instructions ?Recorded ?Confirmed ?Last Taken ?Type aspirin 81 mg tablet,delayed 81 mg PO QAM 05/11/22 09/04/24 08/31/24 History release (Adult Aspirin Regimen) acetaminophen 325 mg tablet 325 mg PO QID PRN Pain 03/18/23 09/04/24 08/18/24 History allopurinol 100 mg tablet 300 mg PO QAM 07/09/24 09/04/24 08/30/24 History atorvastatin 40 mg tablet 40 mg PO BEDTIME 07/09/24 09/04/24 08/30/24 History cholecalciferol (vitamin D3) 25 25 mcg PO QAM 07/09/24 09/04/24 08/30/24 History mcg (1,000 unit) capsule cyanocobalamin (vitamin B-12) 2,500 mcg sublingual Q2D 07/09/24 09/04/24 08/30/24 History 2,500 mcg sublingual tablet (Vitamin B-12) dapagliflozin propanediol 5 mg 5 mg PO QAM 07/09/24 09/04/24 08/30/24 History tablet (Farxiga) lisinopril 40 mg tablet 40 mg PO QAM 07/09/24 09/04/24 08/30/24 History magnesium oxide 800 mg PO BEDTIME 07/09/24 09/04/24 08/30/24 History milk thistle seed extract 150 1 cap PO DAILY 07/09/24 09/04/24 08/24/24 History mg-artichoke leaf extract 300 mg capsule (Artichoke Premium Extract) Exam Airway Loose/Missing/Broken Teeth: No Assessment and Plan Assessment Anesthesia Assessment: Anesthesia Plan Discussed Final Anesthetic Review History of Problems with Anesthesia: No NPO: Yes ASA Class: III Final Preanesthetic Review: Meds/Allgs Chart Reviewed, Consent Obtained/Reviewed and Anes Risks/Benef Reviewed Patient Risk: Intermediate Procedure Risk: Intermediate Assessment/Block/Sedation in SS: Assess/Block/Sedation- Anesthetic Plan Anesthetic Plan: GA Disposition: Standard PACU
[2024-08-31 09:11] VITALS: BMI 35.0
[2024-09-04] VITALS (17 sets, daily range): BP systolic 115–170; BP diastolic 49–76; PULSE 53–85; RESP 16–20; TEMP 36–37; O2SAT 92–99; BMI 35.6; BMI 33.9
--- NOTE | ~2024-09-04 | FL_ITS ---
EXAMINATION: XR FLUOROSCOPY WITH IMAGES CLINICAL INFORMATION: Lumbar OLIF COMPARISON: None available. TECHNIQUE: Fluoroscopy provided to: Dr. Monteiro Fluoroscopy time: 1 minute, 58 seconds DAP: 25.65 Gycm2 Images: 6 FINDINGS: 6 images taken during L4-5 anterior and posterior interbody fusion. Please refer to the full operative report for details. FL/FL guidance in OR IMPRESSION: Fluoroscopic guidance. Electronically signed by: Han Alejandre MD 09/05/2024 08:32 AM JELLY
[2024-09-04] MEDS: Gabapentin 300 MG CAPSULE PO (06:21)
[2024-09-04] MEDS: methocarbamoL 750 MG TABLET PO (06:21)
[2024-09-04] MEDS: Lactated Ringers 1,000 ML 100 ML IVCONT (06:21)
[2024-09-04] MEDS: vancomycin HCL 1,500 MG in 0.9 % Sodium Chloride 500 ML 333.33 MG IV (06:27)
--- NOTE | 2024-09-04 07:00 | MHC.SHP ---
Pre-Procedural Eval Section A - 24 Hr Update-Section A only Date of Service: 09/04/24 The patient is an INPATIENT: No Changes since office visit: No Cold of Flu in the past 2 weeks, No New Medical Problems, No Changes in Medication and No Patient answered all questions The patient has been examined within 24 hours of the surgical procedure. The History & Physical has been completed within 30 days and I have reviewed it.: No Section B - Complete if H&P > 30 days Chief Complaint: Spondylolisthesis, lumbar region Allergies: Allergies Allergy/AdvReac Type Severity Reaction Status Date / Time Sulfa (Sulfonamide Allergy Intermediate ITCHING / Verified 07/09/24 09:53 Antibiotics) HIVES sitagliptin [Januvia] Allergy Unknown Unknown-patient Verified 07/09/24 09:53 does not remember reaction metformin AdvReac Intermediate Diarrhea Verified 07/02/24 10:18 Review of Systems Sugical H&P ROS: Negative: Constitution, Cardiovascular, Respiratory, Neurological, Psychiatric, Hem-Onc, Allergic/Immunologic, Gastrointestinal, Genitourinary, Musculoskeletal, Integumentary, Endocrine and Eyes/Ears/Nose/Throat Exam Surgical H&P Exam: Normal: HEENT, Normal: Heart, Normal: Lungs, Normal: Extremities, Normal: Abdomen, Normal: Skin and Normal: Neurological (awake, alert,oriented x 3 ) Plan Diagnosis/Plan: Unchanged L4-5 oblique lumbar interbody fusion Time Spent With Patient Time: Total time managing care of this patient today __5__ minutes.
--- NOTE | 2024-09-04 07:56 | PHA.MEDREC ---
Addendum entered by Shayna Menjivar RPh 09/04/24 12:51: Pt takes Ozempic on Fridays. Original Note: Pharmacy Consult ? Medication Reconciliation Pharmacy has reviewed the medication reconciliation completed by nursing. Pt has not taken Ozempic in over a month, could not confirm day of the week.
--- NOTE | 2024-09-04 09:52 | P.OP_ITS ---
Operative Note Operative Note Date of Service: 09/04/24 Narrative: Preop Diagnosis: 1.) L4-5 instability 2.) Neurogenic claudication Procedure: 1) L4-5 discectomy, arthrodesis and implantation cage through an anterolateral, retroperitoneal approach 2) L4-5 posterior instrumented fusion 3) allograft 4) Injection of 10 cc of Exparel at the bilateral L4 transverse processi for a muscular erector spinae block and additional Exparel in paravertebral tissue for postop management Consent Informed Consent was obtained for this operation. I have explained the nature, purpose and benefits of the operation. I have discussed the risks and benefit of the operation including possible complications or adverse events with patient/family. Alternative(s) were discussed with the patient with their relative benefits and risks as well as the consequences of not accepting the operation were included in obtaining consent. Surgeon: OBED MACIAS MD, PHD Procedure Assisted By: diomedes Padron Description of Procedure This 74-year-old male suffering from back and bilateral leg walking and standing, which improves when he sits down. The MRI shows instability L4-5 with spinal stenosis. The patient was offered an oblique lumbar interbody fusion L4- 5. The procedure and complications were explained. The patient was consented. The patient was brought to the operating room and endotracheally intubated. The patient was turned in a lateral position with the left side up. Prep and drape was done followed by timeout. A small incision was made in the left lower abdominal quadrant. The muscle fascia was opened after which the 3 muscle layer was split to enter the retroperitoneal space. Dilators were docked in the anterior one third of the L4-5 disc space followed by a retractor. The retractor was opened. The L4-5 disc space was exposed. An annulotomy was done after which an elevator Astudillo was used to release the disc material from its endplates and to perforate the contralateral side. A partial discectomy was done. An 8, 10 and 12 mm height trial implants were inserted. The discectomy was completed. The endplates were prepared. An 12 x 50 mm with 6 degree lordosis 4 web cage filled with allograft was inserted into the disc space under fluoroscopic guidance. This resulted in correction of the spondylolisthesis. The retractor was removed. Hemostasis was done. The incision was closed in 2 layers. Steri-Strips used to approximate incision. An OpSite with Tegaderm was used to cover the incision. This marked first part of the procedure. The patient was turned prone on the Fermin spine table. 2C arms were installed for fluoroscopy. Prep and drape was done followed by a second timeout. Injection of 10 cc of Exparel at the bilateral L4 transverse processi for a muscular erector spinae block. Two paramedian incisions were made lateral from the L4 and L5 pedicles. The muscle fascia was opened after which the muscle layer was split bluntly to expose the posterolateral gutter. The following steps were taken. A pediguard tap was used to create a transpedicular trajectory into the vertebral body. A K wire was placed. A specially designed instrument was advanced over the K wire to decorticate the posterolateral gutter in preparation for the posterolateral fusion. A pedicle screw was advanced over the K wire and the K wire was removed. The steps were done for the bilateral L4 and L5 pedicles. A total of 4 screws were placed with a diameter of 6.5 x 45 mm. Pedicle screws were connected with 40 mm tania bilaterally and locked down with locking caps. The extension towers were removed. The posterolateral gutter was filled with allograft to complete the posterolateral L4-5 fusion Hemostasis was done and the incision was closed in 2 layers. Steri-Strips were used to approximate the incision. An OpSite with tegaderm was used to cover the incision. All sponge and needle counts were correct. Patient was extubated and transferred in stable is to recovery room. Anesthesia: General Estimated Blood Loss (ml): 35 Duration of Surgery: 1 hour 45 minutes Complications: None Postoperative Plan: Admit to inpatient for observation
[2024-09-04] MEDS: oxyCODONE HCl Immed Release 5 MG TABLET 10 MG PO ×2 (13:05→20:23)
[2024-09-04] MEDS: 0.9 % Sodium Chloride 1,000 ML 75 ML IVCONT (13:47)
[2024-09-04 13:56] LABS: Glucose, Whole Blood 103 mg/dL (60-115)
[2024-09-04] MEDS: Empagliflozin 10 MG TABLET PO (14:18)
[2024-09-04] MEDS: allopurinoL 300 MG TABLET PO (14:18)
[2024-09-04] MEDS: lisinopriL 40 MG TABLET PO (14:18)
[2024-09-04] MEDS: Cyanocobalamin (Vitamin B-12) 500 MCG TABLET 2500 MCG PO (14:19)
[2024-09-04] MEDS: ceFAZolin Sodium/Dextrose,Iso 2 GM/50 ML PIGGYBACK IV ×2 (14:20→20:38)
[2024-09-04] MEDS: Cholecalciferol (Vitamin D3) 25 MCG TABLET PO (14:21)
[2024-09-04] MEDS: Acetaminophen 1,000 MG/100 ML PIGGYBACK 400 MG IV ×2 (16:32→20:19)
[2024-09-04 16:38] LABS: Glucose, Whole Blood 143 mg/dL (60-115)
[2024-09-04 19:42] LABS: Glucose, Whole Blood 148 mg/dL (60-115)
[2024-09-04] MEDS: Magnesium Oxide 400 MG TABLET 800 MG PO (20:23)
[2024-09-04] MEDS: Atorvastatin Calcium 40 MG TABLET PO (20:23)
[2024-09-04] MEDS: Docusate Sodium 100 MG CAPSULE PO (20:23)
[2024-09-04] MEDS: Insulin Glargine,Hum.rec.anlog 100 UNIT/ML 10 ML VIAL 36 UNIT SUBCUT (20:24)
[2024-09-05 00:19] VITALS: BP 131/58; PULSE 74; RESP 18; TEMP 36.8; O2SAT 96
[2024-09-05] MEDS: HYDROmorphone HCl 1 MG/ML SYRINGE IVPUSH ×2 (00:29→09:10)
[2024-09-05] MEDS: ceFAZolin Sodium/Dextrose,Iso 2 GM/50 ML PIGGYBACK IV (02:27)
[2024-09-05] MEDS: 0.9 % Sodium Chloride 1,000 ML 75 ML IVCONT (02:57)
[2024-09-05 03:20] VITALS: BP 133/63; PULSE 75; RESP 18; TEMP 37.2; O2SAT 94
[2024-09-05] MEDS: Acetaminophen 1,000 MG/100 ML PIGGYBACK 400 MG IV (03:20)
[2024-09-05] MEDS: oxyCODONE HCl Immed Release 5 MG TABLET 10 MG PO ×2 (06:58→10:47)
[2024-09-05] MEDS: Empagliflozin 10 MG TABLET PO (06:58)
[2024-09-05] MEDS: Docusate Sodium 100 MG CAPSULE PO (06:58)
[2024-09-05] MEDS: allopurinoL 300 MG TABLET PO (06:58)
[2024-09-05 07:33] VITALS: BP 142/75; PULSE 75; RESP 18; TEMP 36.6; O2SAT 92
[2024-09-05 07:40] LABS: Glucose, Whole Blood 130 mg/dL (60-115)
[2024-09-05 07:51] VITALS: BP 142/75; PULSE 75; O2SAT 92
--- NOTE | 2024-09-05 09:02 | HO.POSTANES ---
Post Anesthesia Evaluation Post Anesthesia Evaluation Date of Service: 09/05/24 Vital Signs: Vital Signs Temp Pulse Resp BP Pulse Ox O2 Del Method O2 Flow Rate 09/05/24 07:51 75 142/75 H 92 09/05/24 07:33 98 F 75 18 142/75 H 92 Room Air 09/05/24 03:20 98.9 F 75 18 133/63 94 Room Air 09/05/24 00:19 98.2 F 74 18 131/58 L 96 Room Air 09/04/24 22:00 98.6 F 85 20 145/75 H 95 Nasal Cannula 1 Anesthesia: General Endotracheal-GETA Mental Status: Awake Pain Control: Satisfactory Nausea/Vomiting: None Hydration: Adequate Anesthesia-Related Issues: No Anes. Related Issues
[2024-09-05] MEDS: Cholecalciferol (Vitamin D3) 25 MCG TABLET PO (09:05)
[2024-09-05] MEDS: lisinopriL 40 MG TABLET PO (09:05)
[2024-09-05] MEDS: Metoprolol Succinate ER 50 MG TAB.ER.24H PO (09:05)
--- NOTE | 2024-09-05 09:10 | P.DS_ITS ---
DS: Providers Provider Date of Service: 09/05/24 Date of admission: 09/04/24 06:29 Date of discharge: 09/05/24 Primary care physician: Rob Valerio MD DS: Summary Time Attestation Discharge Coordination Time (in mins): 14 Quality: Safe Use of Opioids Does Pt have an Active Cancer Diagnosis on the Problem List?: No Quality: Stroke Does the patient have a stroke diagnosis?: No Physical Exam Vital Signs: Vital Signs: Last Vital Signs Temp 98 F 09/05/24 07:33 Pulse 75 09/05/24 07:51 Resp 18 09/05/24 07:33 BP 142/75 H 09/05/24 07:51 Pulse Ox 92 09/05/24 07:51 O2 Del Method Room Air 09/05/24 07:33 O2 Flow Rate 1 09/04/24 22:00 BMI result Body Mass Index 33.9 DS: Data Data Completed and Pending Labs on day of discharge: Laboratory Results - last 24 hr 09/04/24 09/04/24 09/04/24 13:51 16:18 19:33 POC Glucose 103 143 H 148 H 09/05/24 07:35 POC Glucose 130 H Discharge Plan Discharge Anticipated Discharge Date/Time: 09/05/24 09:10 Patient Disposition: Home, Self-Care Discharge Diagnosis: S/P L4-5 OLIF Referrals: Rob Valerio MD [Primary Care Provider] - 1 Week Discharge Medications: New oxycodone 5 mg tablet See Rx Instructions .ROUTE .COMPLEX PRN (Reason: pain) Qty: 30 0RF Rx Instructions: Take 1-2 tablets every 4 hours. Partial Fill upon patient request. Continued tizanidine 4 mg tablet 4 mg PO BEDTIME PRN (Reason: for cramps) 90 Days Qty: 90 1RF insulin lispro [Admelog SoloStar U-100 Insulin] 100 unit/mL insulin pen See Rx Instructions subcut TID 30 Days Qty: 15 3RF Rx Instructions: 6 to 8 units 3 times a day with meals SQ per sliding scale subcutaneously 3 times a day; insulin glargine [Basaglar KwikPen U-100 Insulin] 100 unit/mL (3 mL) insulin pen 36 unit subcut BEDTIME Qty: 15 5RF metoprolol succinate 25 mg tablet extended release 24 hr 50 mg PO QAM Qty: 90 3RF (DME) pen needle, diabetic [BD Ultra-Fine Mini Pen Needle] 31 gauge x 3/16 needle See Rx Instructions .ROUTE QID Qty: 1200 3RF Rx Instructions: 4 times per day semaglutide 2 mg/dose (8 mg/3 mL) pen injector 2 mg subcut FR@0900 Rx Instructions: takes on Fridays cyanocobalamin (vitamin B-12) [Vitamin B-12] 2,500 mcg Tablet, Sublingual 2,500 mcg SUBLINGUAL Q2D magnesium oxide 400 mg magnesium Tablet 800 mg PO BEDTIME Artichoke Premium Extract 150-300 mg Capsule 1 cap PO DAILY atorvastatin 40 mg tablet 40 mg PO BEDTIME allopurinol 100 mg tablet 300 mg PO QAM lisinopril 40 mg tablet 40 mg PO QAM cholecalciferol (vitamin D3) 25 mcg (1,000 unit) capsule 25 mcg PO QAM dapagliflozin propanediol [Farxiga] 5 mg tablet 5 mg PO QAM acetaminophen 325 mg tablet 325 mg PO QID PRN (Reason: Pain) (DME) Dexcom G6 Component Lab Tech Misc See Rx Instructions .Route Qty: 1 3RF Rx Instructions: As directed (DME) Dexcom G6 Sensor Device See Rx Instructions .Route Qty: 3 3RF Rx Instructions: As directed (DME) Dexcom G6 Transmitter Device See Rx Instructions .Route Qty: 1 3RF Rx Instructions: As directed Held aspirin [Adult Aspirin Regimen] 81 mg tablet,delayed release (DR/EC) 81 mg PO QAM Hold Instructions: Resume on 09/09/24. Discharge Orders: Discharge Order (Routine); Ordered 09/05/24 Ordered By: Arnulfo Sumner Diet: Advance to usual diet Activity on Discharge: As tolerated Stand Alone Forms: Patient Portal Discharge page Print Language: Maori Activity Restrictions/Additional Instructions: After your spinal surgery we ask you to observe the following restrictions/guidelines: Activity: It is normal to feel some discomfort as you increase your activity, but that will improve with time. We ask you avoid heavy lifting or acitivities that cause pain. As a general rule, 8lbs is a safe limit for lifting right after surgery. Walk as much as you feel comfortable but not to exhaustion. You will feel extra tired the first few days after surgery. Stay well hydrated. It is OK to walk up and down stairs You may return to driving when you are off narcotics (such as vicodin, oxycodone, dilaudid, etc), and you are back to normal functional capacity. If you have any concerns please check with office before driving. Return to work is specific to each patient and each surgery, so please speak with your doctor/PA at first follow up. Please bring paperwork such as FMLA at that time if you need it filled out. Medications: We recommend you take 1,000mg Tylenol every 8 hours for the first few weeks after surgery, if you do not have any liver issues and can tolerate this medication. Do not exceed 4,000mg daily. We will give you a short supply of narcotics after surgery (usually one weeks worth). If you need more please call the office but do not use more than prescribed. You will need to give our office 48 hours notice if you need narcotics refilled and we do not fill narcotics on weekends or evenings. If you are on a narcotic, it is a good idea to take a stool softener such as colace or senna to avoid constipation If you take blood thinner such as aspirin, Plavix, Coumadin, Effient, Eliquis etc for conditions such as Afib, DVT, Pulmonary embolus, coronary disease, stents etc please speak with your surgeon about specific details as to when you can resume these medications. You can resume NSAIDs on post op day 1 (eg: Motrin, Naproxen, etc). Follow up: Please call the office, , after surgery to arrange a 3 week follow up for wound check. Wound Care: You may remove your dressing on the first day after surgery. ?You may ?leave open to air. Please do not remove the steri strips underneath. they will fall off on their own in one week. IT IS NORMAL FOR THE WOUND TO OOZE OR BE BLOODY FOR A FEW DAYS AFTER SURGERY. ?IF THIS HAPPENS JUST PLACE NEW DRESSING OVER IT TO AVOID STAINING CLOTHES. You may shower on post op day # 1 We ask that you do not let the water soak the wound. If it does get wet, just towel dry lightly. Please do not scrub your incision or place any type of chemical/ointment on the wound. No tub baths, pools or jacuzzis for one month. If you have any leaking or redness from your wound, or fevers, please call the office. Care Plan Goals: Return to normal activity as tolerated Health Concerns: None Plan of Treatment: Follow-up in clinic in 2-3 weeks Assessment: POD: 1 Procedure: L4-5 OLIF Vince was seen this morning sitting urpright in bed on 3-S. He is a pleasant 74-year-old male who underwent L4-[address] Monteiro yesterday. He reports he is up walking around is otherwise doing well. He feels his symptoms are overall much better than pre-operatively. He still reports mild pain in his low back with good relief with pain medication. He is voiding well, tolerating diet. Afebrile, vital signs stable. Full strength 5/5 bilateral LE's. Back dressings have some staining without signs of hematoma. No active sanguineous drainage. Area is dry. Plan: Patient meets criteria to be medically discharged home. I will send in a short supply of Oxycodone for him to take at home. This was discussed with Dr. Monteiro. Arnulfo Monteiro MD,PhD [facility]
--- NOTE | 2024-09-05 09:14 | MHC.CM.PN ---
pt dcd home self care prior to being seen by cm
[2024-09-05 10:52] VITALS: BP 112/60; PULSE 75; RESP 18; TEMP 36.8; O2SAT 97
== END 2024-09-05 11:31 | disposition home or self-care (01) | DRG 451 ==
LOC: HO.SSSA 06:30 → HO.S3 12:41
PROVIDERS: Neurological Surgery; Admitting Provider Physician Assistant; PCP Internal Medicine; Visit Provider Physician Assistant
PROC: 0SG00A0 Fusion of Lumbar Vertebral Joint with Interbody Fusion Device, Anterior Approach, Anterior Column, Open Approach (ICD-10-PCS; principal; 2024-09-04 07:30)
DX: M53.2X6 Spinal instabilities, lumbar region (principal); M43.16 Spondylolisthesis, lumbar region; I25.10 Atherosclerotic heart disease of native coronary artery without angina pectoris; Z95.1 Presence of aortocoronary bypass graft; Z87.891 Personal history of nicotine dependence; Z79.4 Long term (current) use of insulin; Z79.82 Long term (current) use of aspirin; Z79.899 Other long term (current) drug therapy
CPT/HCPCS: 82947; 86850; 86900; 86901; 97116; 97162; C1713; J0131; J0665; J0666; J0690; J1171; J2003; J2250; J2371; J2405; J2704; J3010; J3371; L8699

== ENCOUNTER → 2024-09-04 06:29 | Outpatient (BNV) | payer MEDICARE, OTHER, SELFPAY | PROVIDERS: Admitting Provider Physician Assistant; PCP Internal Medicine; Visit Provider Neurological Surgery | DX: M43.16 Spondylolisthesis, lumbar region (principal); M48.062 Spinal stenosis, lumbar region with neurogenic claudication | CPT/HCPCS: 20930; 22558; 22612; 22840; 22853; 99499 ==

== ENCOUNTER 2024-09-27 10:56 | Outpatient (REF) | payer MEDICARE, OTHER, SELFPAY ==
--- NOTE | ~2024-09-27 | XR_ITS ---
EXAMINATION: XR LUMBAR SPINE 4 OR MORE VIEWS HISTORY: M54.50 - Low back pain, unspecified COMPARISON: Comparison is made with the prior examination dated 05/03/2022. FINDINGS: AP, and neutral, flexion, and extension lateral views of the lumbar spine are submitted. Osseous mineralization is normal. Interval since the prior study, the patient is status post posterior fusion of L4 and L5 with pedicle screws, spinal stabilization rods, and intervertebral spacer. The fusion hardware is intact. Again seen is slight spondylolisthesis of L4 on L5. This does not change with flexion or extension. Again seen is a moderate compression deformity of T12. There is degenerative disc disease most prominent at the thoracolumbar junction with anterior osteophyte formation and disc space narrowing. The patient is status post bilateral total hip arthroplasty. There is calcification of the abdominal aorta. XR/XR lumbar spine 4V min IMPRESSION: Status post posterior fusion of L4 and L5. Slight spondylolisthesis at this level does not change with flexion or extension. Electronically signed by: Rigoberto Pressley MD 09/27/2024 02:15 PM EDT
--- OUTSIDE RECORDS SUMMARY | 2024-09-27 15:02 | XMS_ITS | Clinical Summary ---
Author Organization [facility] ity Address [address] [place] [address] Care Team Providers Care Rag Sorter And Cutter Name Role Phone Unavailable Primary Care Provider [...]
--- OUTSIDE RECORDS SUMMARY | 2024-09-27 15:02 | XMS_ITS | Clinical Summary ---
Author Organization [facility] Address [address] [place] [address] Care Team Providers Care Pool Coordinator Name Role Phone Rob Valerio MD Primary Care Provider +1- [phone] Allergies Active Allergy Reactions Criticality Noted Date [...] age to complete this topic Insurance MEDICARE [facility] MEDICARE [facility] Care Teams Pool Coordinator Relationship Specialty Start Date End Date Rob Valerio MD [address] [place] [address] PCP - General Internal Medicine 05/24/22
== END 2024-09-27 10:57 | disposition home or self-care (01) ==
LOC: HO.HOSX 10:56
PROVIDERS: PCP Internal Medicine; Visit Provider Physician Assistant
DX: M54.50 Low back pain, unspecified (principal); Z98.1 Arthrodesis status
CPT/HCPCS: 72110

== ENCOUNTER → 2024-09-27 11:59 | Outpatient (BNV) | payer MEDICARE, OTHER, SELFPAY | PROVIDERS: PCP Internal Medicine; Visit Provider Radiology Diagnostic Radiology | DX: M54.50 Low back pain, unspecified (principal) | CPT/HCPCS: 72110 ==

== ENCOUNTER 2024-10-24 09:02 | Outpatient (REF) | payer MEDICARE, OTHER, SELFPAY ==
--- OUTSIDE RECORDS SUMMARY | 2024-10-24 09:31 | XMS_ITS | Clinical Summary ---
Author Organization [facility] Address [address] [place] [address] Care Team Providers Care Dam Worker Name Role Phone Rob Valerio MD Primary Care Provider +1- [phone] Allergies Active Allergy Reactions Criticality Noted Date [...] Diabetes: Visual Foot Exam 08/19/2022 Influenza Vaccine (Season Ended) 2025 04/16/20 21 Hepatitis B Vaccine Aged Out No longe r eligible based on patient's age to complete this topic Insurance MEDICARE [facility] MEDICARE [facility] Care Teams Dam Worker Relationship Specialty Start Date End Date Rob Valerio MD [address] [place] [address] PCP - General Internal Medicine 05/24/22
--- OUTSIDE RECORDS SUMMARY | 2024-10-24 09:31 | XMS_ITS ---
Author Organization [facility] Address [address] [place] [address] Care Team Providers Care Junior Software Engineer Name Role Phone Teodoro NAYLOR, Rob Primary Care Provider Yocasta Brito Unavailable [phone] Vince Perez Unavailable [phone] Allergies Allergen (clinical drug ingredient) Drug/Non Drug [...] 06/21/2023 Encounters Encounter Location Date Provider Diagnosis [facility] [address] [address] 06/21/2023 Vince Perez Type 2 diabetes mellitus [...] AM, [address] [facility], [address], [place], [address], Procedure Notes * Category Sub-Category Detail Notes Keratoma Treatment Parring or Cutting o f Benign Hyperkeratotic Lesion(s) 61532 ( >4 Lesions) - The Benign hyperkeratotic [...] Vince PHAN SDOB:[birth year] (72 yo M)Acc No.[id number]:06/21/2023 Progress Note Patient:?Vince Phan Samantha Provider:?Vince Perez DPM :1950???Age:72 Y???Sex:Male Sina e:06/21/2023 Address:[address] [place], [place] [address] Pcp:Rob Valerio MD Subjective: * Chief Complaints: [...] ?no Exercise. ?Marital status: . 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 * Medications:?TakingClopidogr el Bisulfate Extra Depth Diabetic [...] Tablet 1 tablet Orally Once a dayVicto Antoniothe [facility] [place] Medication List reviewed [...] Procedures:?Keratoma Treatment:?Parring or Cutting of Benign Hyperkeratotic Lesion(s)?81863 ( >4 Lesions) - The Benign hyperkeratotic lesions, as described above were pared, and/or cut utilizing a sterile #15 blade, tissue nippers, and/or dremel.?Nail Reduction:?Nail Reduction?Trimming of dystrophic nails performed to reduce/remove overall nail length and girth, by manual and electrical means with use of a nail nipper and/or dremel, to more viable healthy nail plate or bed tissue 6-10 (G0127).? * Procedure Codes:?96494 TRIM SKIN LESIONS, OVER 4, Modifiers: XS G0127 TRIMMING DYSTROPHIC NAILS ANY #, Modifiers: XS * Follow Up:?6 Months * Images: * Sign off status: Completed true * Provider:?Vince Perez DPM Date:? 023 Generated for Hugh luna/Joseph/eTlizitting on:?10/24/2024 09:31 AM EDT History and Physical Notes * [...]
--- OUTSIDE RECORDS SUMMARY | 2024-10-24 09:31 | XMS_ITS ---
Author Organization [facility] Address [address] [place] [address] Care Team Providers Care Reading Specialist Name Role Phone Teodoro NAYLOR, Rob Primary Care Provider Yocasta Brito Unavailable [phone] Allergies Allergen (clinical drug ingredient) Drug/Non Drug [...] Ordered Date Performed Result Body Sit e 39601-WGAIROC NAIL, 6 OR MORE 06/26/2024 N/A 60912-DEJT SKIN LESIONS, OVER 4 06/26/2024 N/A Encounters Encounter Location Date Provider Diagnosis [facility] [address] [address] 06/26/2024 Yocasta Mcginnisaker Other hammer toe(s) (acquired), [...] INSTRUCTIONS.pdf) Pending Test Test Name Order Date 00709-FNMPLXR NAIL, 6 OR MORE 06/26/2024 87883-BNIM SKIN LESIONS, OVER 4 06/26/20 24 Next Appt Details Follow Up: 6 Months, Reason: Provider Name:Yocasta Rahelnima ale, 12/25/2024 09:00:00 AM, [address] [facility], [address], [place], [address], Procedure Notes * Category Sub-Category Detail Notes [...] use of a nail nipper and/or dremel-type external grinder tool, to a more viable healthy nail plate [...] to maintain effectiveness in symptomatic relief - 29910 Keratoma Treatment Parring or Cutting o f [...] tissue nippers, and/or power dremel instrumentation - 67408 Progress Notes * Vince PHAN SDOB:[birth year] (73 yo M)Acc No.[id number]:06/26/2024 Progress Note Patient:?SYLVESTERVince GRAFF Samantha Provider:?Yocasta Ashford DPM :1950???Age:73 Y???Sex:Male Sina e:06/26/2024 Address:[address] [place], [place] [address] Pcp:Rob Valerio MD Subjective: * Chief Complaints: [...] yes. ?Exercise: no. ?Marital status: . 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 * Medications:?TakingLantus Fa rxiga Atorvastatin Calcium Allopurinol [...] 2.?Type 2 diabetes mellitus with diabetic polyneuropathy?Procedure: 33482-YPMBGWD NAIL, 6 OR MORE ?Procedure: 86866-PZTL SKIN LESIONS, OVER 4 * Procedures:?Debride Nail [...] use of a nail nipper and/or dremel-type external grinder tool, to a more viable healthy nail plate [...] to maintain effectiveness in symptomatic relief - 06541.?Keratoma Treatment:?Parring or Cutting of Benign Hyperkeratotic Lesion(s)?(-57) [...] tissue nippers, and/or power dremel instrumentation - 72076.? * Procedure Codes:?77485 DEBRI DE NAIL, 6 OR MORE, Modifiers: XS 81493 TRIM SKIN LESIONS, OVER 4, Modifiers: XS [...] Provider:?Yocasta Ashford DPM Date:?08/27/2023 Generated for Hugh luna/Joseph/Melviitting on:?10/24/2024 09:31 AM EDT History and Physical [...] metatarsal head, LEFT, plantar heels B/L Orthopedic FOOTWEAR EVALUATION: worn, non-s upportive, shoe gear properties exacerbate patient's foot/toe deformity [...]
--- OUTSIDE RECORDS SUMMARY | 2024-10-24 09:31 | XMS_ITS | Clinical Summary ---
Author Organization [facility] ity Address [address] [place] [address] Care Team Providers Care Piccolo Mechanic Name Role Phone Unavailable Primary Care Provider [...] 2024 Influenza Vaccine (#1) 2024 RSV Immunization Adult Patie nts (1 - 1-dose 75+ series) 2027 HIB [...] age to complete this topic Meningococcal B Vaccine Aged Out No l onger eligible based on patient's age to complete this topic RSV Immunization Patients Un gerardo 20 months Aged Out No longer eligible b ased on patient's age to complete this topic Varicella Vaccines Aged Out No longer eligible based on patient's age to complete this topic
--- OUTSIDE RECORDS SUMMARY | 2024-10-24 09:31 | XMS_ITS | Patient Health Record ---
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, accidental (unintentional), initial encounter (T56.0X1A) Active confirmed Problem Acquired hammer toe of right foot (1880627863747962) Other hammer toe(s) (acquired), right foot (M20.41) Active confirmed Problem Acquired hammer toe of left foot (6467108724996399) Other hammer toe(s) (acquired), left foot (M20.42) Active confirmed Problem Polyneuropathy due to type 2 diabetes mellitus (589408707) Type 2 diabetes mellitus with diabetic polyneuropathy (E11.42) Active confirmed Problem Primary gout (30079152) Idiopathic gout, 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) Active confirmed Problem Polyneuropathy due to diabetes mellitus type I (711265186) Type 1 diabetes mellitus with diabetic polyneuropathy (E10.42) Active confirmed Problem 2251278784388813 Acute gout of left foot, unspecified cause (M10.9) Active confirmed Vital Signs Height 5ft 7in in 06/26/2024 Weight 210 lbs 06/26/2024 BMI 32.89 kg/m2 06/26/2024 Procedures Procedure Date Ordered Date Performed Result Body Sit e 41529-SGEOQUV NAIL, 6 OR MORE 06/26/2024 N/A 41942-UBJE SKIN LESIONS, OVER 4 06/26/2024 N/A Encounters Encounter Location Date Provider Diagnosis [address] [address] 12/27/2023 Vince Perez Type 2 diabetes mellitus with diabetic polyneuropathy E11.42 ; Pain in right foot M79.671 ; Other hammer toe(s) (acquired), left foot M20.42 ; Other hammer toe(s) (acquired), right foot M20.41 ; Other viral warts B07.8 ; Pain in left foot M79.672 ; Metatarsalgia, right foot M77.41 and Xerosis cutis L85.[address] [facility] [address] 06/26/2024 Yocasta Ashford Other hammer toe(s) (acquired), [...] X ray : Foot, right 3V 08/13/2019 59238-HJHSCLA NAIL, 6 OR MORE 06/26/2024 11726-QOUR SKIN LESIONS, OVER 4 06/26/20 24 20557-FKLN SKIN LESIONS, OVER 4 06/04/20 21 37964-FHVC SKIN LESIONS, OVER 4 12/23/19 22 12849-HITX SKIN LESIONS, OVER 4 12/02/19 21 04416-KIPO SKIN LESIONS, OVER 4 08/22/19 20 21556-ZOIZ SKIN LESIONS, OVER 4 06/02/20 20 Q9704-SGREZOEC DYSTROPHIC NAILS ANY # J7407-VFPWBQMI DYSTROPHIC NAILS ANY # S6855-VOHQSMBJ DYSTROPHIC NAILS ANY # F3909-JWSWFVDY DYSTROPHIC NAILS ANY # Next Appt Details Provider Name:Yocasta Augustin ale, 12/25/2024 09:00:00 AM, [address] [facility], [address], [place], [address], Insurance Providers Payer Name Payer Address Payer Phone Subscriber Number Group Number Insured Name Patient Relationship to Insured Coverage Start Date Coverage End Date Medicare National Govt Svcs Inc [address] [place] [address] [id number] Vince Cedillo Self - patient is the insured [facility] [address] [place] [id number] Aga Cedillo Spouse - patient is the spouse of the insured Medical (General) History Medical History History ICD Code Arthritis Back,Hip,and Knee pain type II diabetes High blood pressure Measles Mumps Chicken pox Joint implants/screws Surgical History Surgery Date(Month/Year) hip replacement-Bilateral 1997 bone scan, back 06/21/22 quadruple bypass 02/2023
--- OUTSIDE RECORDS SUMMARY | 2024-10-24 09:32 | XMS_ITS ---
Author [facility] Address [address] [place] [address] Care Team Providers Care Bed Setter Name Role Phone Teodoro NAYLOR, Rob Primary Care Provider Yocasta Brito Unavailable [phone] Vince Perez Unavailable [phone] Allergies Allergen (clinical drug ingredient) Drug/Non Drug [...] 12/27/2023 Encounters Encounter Location Date Provider Diagnosis [facility] [address] [address] 12/27/2023 Vince Perez Type 2 diabetes mellitus [...] Provider Name:Yocasta aguilera, 12/25/2024 09:00:00 AM, [address] [facility], [address], [place], [address], Procedure Notes * Category Sub-Category Detail Notes Keratoma Treatment Parring or Cutting o f Benign Hyperkeratotic Lesion(s) 48331 ( >4 Lesions) - The Benign hyperkeratotic [...] Vince PHAN SDOB:[birth year] (73 yo M)Acc No.[id number]:12/27/2023 Progress Note Patient:?Vince Phan Provider:?Vince Perez DPM :1950???Age:73 Y???Sex:Male Sina e:12/27/2023 Address:[address] [place], [place] [address] Pcp:Rob Valerio MD Subjective: * Chief Complaints: [...] yes. ?no Exercise. ?Marital status: . 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 * Medications:?TakingGabapenti n Clopidogrel Bisulfate Farxiga [...] Tablet 1 tablet Orally Once a dayVictoza [facility] Medication List reviewed and reconciled with the [...] a dayNot-Taking/PRN Victoza Not-Taking/PRN Trulicity Not-Taking/PRN [place] Medication List reviewed and reconciled with [...] Procedures:?Keratoma Treatment:?Parring or Cutting of Benign Hyperkeratotic Lesion(s)?62729 ( >4 Lesions) - The Benign hyperkeratotic lesions, as described above were pared, and/or cut utilizing a sterile #15 blade, tissue nippers, and/or dremel.?Nail Reduction:?Nail Reduction?Trimming of dystrophic nails performed to reduce/remove overall nail length and girth, by manual and electrical means with use of a nail nipper and/or dremel, to more viable healthy nail plate or bed tissue 6-10 (G0127).? * Procedure Codes:?50031 TRIM SKIN LESIONS, OVER 4, Modifiers: XS [...] DPM Date:? 024 Generated for Hugh luna/Joseph/Melviitting on:?10/24/2024 09:31 AM [...] taking performed:: 1+ ORIENTED: person,place, and ti co Ophthalmology Referral DIABETES EYE EXAM Diabetic Retinopa [...]
[2024-10-24 10:47] LABS: MANUAL DIFF FLAG NO
[2024-10-24 10:57] LABS: Appearance Urine Clear; Color Urine Yellow; Glucose Urine UA 250 mg/dL (Negative); Leukocyte Esterase Urine Negative (Negative); Nitrite Urine Negative (Negative); PH 5.5 (5.0-9.0); Specific Gravity - Urine 1.015 (1.005-1.025); UMIC TRIGGER UACC YES; Urine Blood Negative (Negative); Urine Ketones Negative (Negative); Urine Protein 30 (1+) mg/dL (Neg-Trace)
[2024-10-24 11:02] LABS: Bacteria Urine None Seen (None Seen); Hyaline Casts Urine 0-2 /LPF (0-2); RBC Urine 0-2 /HPF (0-2); Squamous Epithelial Cell Urine 0-2 /HPF (0-2); WBC Urine 0-5 /HPF (0-5)
[2024-10-24 11:03] LABS: Basophils Absolute Auto 0.1 X10*3/uL (0.0-0.2); Eosinophils Absolute Auto 0.6 X10*3/uL (0.0-0.4); Eosinophils Percent Auto 7.6 % (0-4); Hematocrit 43.1 % (42.0-52.0); Imm Gran Abs Auto 0.06 X10*3/uL (0.00-0.03); Imm Gran Pct Auto 0.8 % (0.0-0.4); Lymphocytes Absolute Auto 1.8 X10*3/uL (1.2-4.9); Mean Corpuscular HGB Conc 32.5 g/dl (31.0-36.0); Mean Corpuscular Hemoglobin 29.4 pg (27.0-33.0); Mean Corpuscular Volume 90.4 fL (80.0-98.0); Mean Platelet Volume 10.5 fL (9.4-12.4); Monocytes Absolute Auto 0.6 X10*3/uL (0.1-1.2); Neutrophils Absolute Auto 4.7 x10*3/uL (2.0-8.3); Neutrophils Percent Auto 59.6 % (45-73); Platelet Count 172 X10*3/uL (160-400); Red Blood Count 4.77 X10*6/uL (4.60-5.80); Red Cell Distribution Width 14.8 % (11.0-16.0); White Blood Count 7.9 X10*3/uL (4.8-10.8)
[2024-10-24 11:06] LABS: Estimated Average Glucose 117 mg/dL; Hemoglobin A1C 150.0946 umol/L; Hemoglobin A1c % 5.7 % (<6.0); Total Hemoglobin (HGBA1C) 3840.9422 umol/L
[2024-10-24 11:22] LABS: Creatinine Urine 79.23 mg/dL; Microalbum/Creatinine Ratio Ur 214.5 ug/mg cr (<30)
[2024-10-24 12:02] LABS: Prostate Specific Antigen Scr 0.42 ng/mL (<0.05-4.0); Vitamin B12 979 pg/mL (200-900)
== END 2024-10-24 09:03 | disposition home or self-care (01) ==
LOC: HO.HMGCLDS 09:02
PROVIDERS: PCP Internal Medicine; Visit Provider Internal Medicine
DX: D64.9 Anemia, unspecified (principal); E11.9 Type 2 diabetes mellitus without complications; Z00.00 Encounter for general adult medical examination without abnormal findings; E53.8 Deficiency of other specified B group vitamins; Z12.5 Encounter for screening for malignant neoplasm of prostate
CPT/HCPCS: 36415; 80053; 80061; 81001; 82043; 82306; 82570; 82607; 82746; 83036; 83735; 84153; 84443; 84550; 85025

== ENCOUNTER 2024-10-26 09:28 | Outpatient (REF) | payer MEDICARE, OTHER, SELFPAY ==
--- OUTSIDE RECORDS SUMMARY | 2024-10-26 09:54 | XMS_ITS ---
Author Organization [facility] Address [address] [place] [address] Care Team Providers Care Transit Mixer Driver Name Role Phone Teodoro NAYLOR, Rob Primary Care Provider Yocasta Brito Unavailable [phone] Allergies Allergen (clinical drug ingredient) Drug/Non Drug [...] Ordered Date Performed Result Body Sit e 78036-XSSYYLP NAIL, 6 OR MORE 06/26/2024 N/A 37678-AIIN SKIN LESIONS, OVER 4 06/26/2024 N/A Encounters Encounter Location Date Provider Diagnosis [facility] [address] [address] 06/26/2024 Yocasta Mcginnisaker Other hammer toe(s) (acquired), [...] INSTRUCTIONS.pdf) Pending Test Test Name Order Date 00767-YLJXUFH NAIL, 6 OR MORE 06/26/2024 44838-HCTX SKIN LESIONS, OVER 4 06/26/20 24 Next Appt Details Follow Up: 6 Months, Reason: Provider Name:Yocasta Rahelnima ale, 12/25/2024 09:00:00 AM, [address] [facility], [address], [place], [address], Procedure Notes * Category Sub-Category Detail Notes [...] use of a nail nipper and/or dremel-type industrial coffee grinder, to a more viable healthy nail [...] to maintain effectiveness in symptomatic relief - 55016 Keratoma Treatment Parring or Cutting o f [...] tissue nippers, and/or power dremel instrumentation - 94601 Progress Notes * Vince PHAN SDOB:[birth year] (73 yo M)Acc No.[id number]:06/26/2024 Progress Note Patient:?SYLVESTERVince GRAFF Samantha Provider:?Yocasta Ashford DPM :1950???Age:73 Y???Sex:Male Sina e:06/26/2024 Address:[address] [place], [place] [address] Pcp:Rob Valerio MD Subjective: * Chief Complaints: [...] ?Exercise: no. ?Marital status: . 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 * Medications:?TakingLantus Fa rxiga Atorvastatin Calcium Allopurinol [...] 2.?Type 2 diabetes mellitus with diabetic polyneuropathy?Procedure: 07376-FWBUUVX NAIL, 6 OR MORE ?Procedure: 05366-JOLY SKIN LESIONS, OVER 4 * Procedures:?Debride Nail [...] use of a nail nipper and/or dremel-type industrial coffee grinder, to a more viable healthy nail [...] to maintain effectiveness in symptomatic relief - 85775.?Keratoma Treatment:?Parring or Cutting of Benign Hyperkeratotic Lesion(s)?(-57) [...] tissue nippers, and/or power dremel instrumentation - 26331.? * Procedure Codes:?93128 DEBRI DE NAIL, 6 OR MORE, Modifiers: XS 31605 TRIM SKIN LESIONS, OVER 4, Modifiers: XS [...] Ashford DPM Date:?08/27/2023 Generated for Hugh luna/Joseph/Melviitting on:?10/26/2024 09:54 AM EDT History and Physical Notes * [...]
--- OUTSIDE RECORDS SUMMARY | 2024-10-26 09:54 | XMS_ITS ---
Author Organization [facility] Address [address] [place] [address] Care Team Providers Care Ethnology Professor Name Role Phone Teodoro NAYLOR, Rob Primary Care Provider Yocasta Brito Unavailable [phone] Vince Perez Unavailable [phone] Allergies Allergen (clinical drug ingredient) Drug/Non Drug [...] 06/21/2023 Encounters Encounter Location Date Provider Diagnosis [facility] [address] [address] 06/21/2023 Vince Perez Type 2 diabetes mellitus [...] Provider Name:Yocasta aguilera, 12/25/2024 09:00:00 AM, [address] [facility], [address], [place], [address], Procedure Notes * Category Sub-Category Detail Notes Keratoma Treatment Parring or Cutting o f Benign Hyperkeratotic Lesion(s) 66023 ( >4 Lesions) - The Benign hyperkeratotic [...] Vince PHAN SDOB:[birth year] (72 yo M)Acc No.[id number]:06/21/2023 Progress Note Patient:?Vince Phan Samantha Provider:?Vince Perez DPM :1950???Age:72 Y???Sex:Male Sina e:06/21/2023 Address:[address] [place], [place] [address] Pcp:Rob Valerio MD Subjective: * Chief Complaints: [...] ?no Exercise. ?Marital status: . 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 * Medications:?TakingClopidogr el Bisulfate Extra Depth Diabetic [...] Tablet 1 tablet Orally Once a dayVicto [facility]oh[facility] [place] Medication List reviewed [...] Procedures:?Keratoma Treatment:?Parring or Cutting of Benign Hyperkeratotic Lesion(s)?23819 ( >4 Lesions) - The Benign hyperkeratotic lesions, as described above were pared, and/or cut utilizing a sterile #15 blade, tissue nippers, and/or dremel.?Nail Reduction:?Nail Reduction?Trimming of dystrophic nails performed to reduce/remove overall nail length and girth, by manual and electrical means with use of a nail nipper and/or dremel, to more viable healthy nail plate or bed tissue 6-10 (G0127).? * Procedure Codes:?55006 TRIM SKIN LESIONS, OVER 4, Modifiers: XS G0127 TRIMMING DYSTROPHIC NAILS ANY #, Modifiers: XS * Follow Up:?6 Months * Images: * Sign off status: Completed true * Provider:?Vince Perez DPM Date:? 023 Generated for Hugh luna/Joseph/eTlizitting on:?10/26/2024 09:54 AM EDT History and Physical [...]
--- OUTSIDE RECORDS SUMMARY | 2024-10-26 09:54 | XMS_ITS | Clinical Summary ---
Author Organization [facility] Address [address] [place] [address] Care Team Providers Care Customer Advisor Specialist Name Role Phone Rob Valerio MD Primary Care Provider [phone] Allergies Active Allergy Reactions Criticality Noted Date [...] left ankle Hypertension 08/19/2022 Hypotension 02/16/2011 Immunizations Immunization Administration Dates Next Due Influenza (IM) Preservative [...] Due Date Last Done Comments Pneumococcal Vaccine: 50+ Ye ars (1 of 2 - PCV) [...] patient's age to complete this topic Insurance Medicare [facility] Medicare [facility] Care Teams Customer Advisor Specialist Relationship Specialty Start Date End Date Rob Valerio MD [address] [place] [address] PCP - General Internal Medicine 05/24/22
--- OUTSIDE RECORDS SUMMARY | 2024-10-26 09:54 | XMS_ITS ---
Author Organization [facility] Address [address] [place] [address] Care Team Providers Care Fashion Director Party Plan Sales Name Role Phone Teodoro NAYLOR, Rob Primary Care Provider Yocasta Brito Unavailable [phone] Vince Perez Unavailable [phone] Allergies Allergen (clinical drug ingredient) Drug/Non Drug [...] 12/27/2023 Encounters Encounter Location Date Provider Diagnosis [facility] [address] [address] 12/27/2023 Vince Perez Type 2 diabetes mellitus [...] Provider Name:Yocasta aguilera, 12/25/2024 09:00:00 AM, [address] [facility], [address], [place], [address], Procedure Notes * Category Sub-Category Detail Notes Keratoma Treatment Parring or Cutting o f Benign Hyperkeratotic Lesion(s) 91643 ( >4 Lesions) - The Benign hyperkeratotic [...] Vince PHAN SDOB:[birth year] (73 yo M)Acc No.[id number]:12/27/2023 Progress Note Patient:?Vince Phan Provider:?Vince Perez DPM :1950???Age:73 Y???Sex:Male Sina e:12/27/2023 Address:[address] [place], [place] [address] Pcp:Rob Valerio MD Subjective: * Chief Complaints: [...] yes. ?no Exercise. ?Marital status: . 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 * Medications:?TakingGabapenti n Clopidogrel Bisulfate Farxiga [...] Tablet 1 tablet Orally Once a dayVictoza [facility] Medication List reviewed and reconciled with the [...] Procedures:?Keratoma Treatment:?Parring or Cutting of Benign Hyperkeratotic Lesion(s)?91643 ( >4 Lesions) - The Benign hyperkeratotic lesions, as described above were pared, and/or cut utilizing a sterile #15 blade, tissue nippers, and/or dremel.?Nail Reduction:?Nail Reduction?Trimming of dystrophic nails performed to reduce/remove overall nail length and girth, by manual and electrical means with use of a nail nipper and/or dremel, to more viable healthy nail plate or bed tissue 6-10 (G0127).? * Procedure Codes:?04659 TRIM SKIN LESIONS, OVER 4, Modifiers: XS [...] Perez DPM Date:? 024 Generated for Hugh luna/Joseph/eTlizitting on:?10/26/2024 09:54 AM [...] taking performed:: 1+ ORIENTED: person,place, and ti ne Ophthalmology Referral DIABETES EYE EXAM Diabetic Retinopa [...]
--- OUTSIDE RECORDS SUMMARY | 2024-10-26 09:54 | XMS_ITS | Clinical Summary ---
Author Organization [facility] Address [address] [place] [address] Care Team Providers Care Binitrotoluene Operator Name Role Phone Unavailable Primary Care Provider [...] - 2023-2 5 season) 2024 Influenza Vaccine (Season Ended) 2025 RSV Immunization Adult Patie nts (1 - [...]
--- OUTSIDE RECORDS SUMMARY | 2024-10-26 09:54 | XMS_ITS | Patient Health Record ---
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, accidental (unintentional), initial encounter (T56.0X1A) Active confirmed Problem Acquired hammer toe of right foot (6584034409542239) Other hammer toe(s) (acquired), right foot (M20.41) Active confirmed Problem Acquired hammer toe of left foot (7783655659584975) Other hammer toe(s) (acquired), left foot (M20.42) Active confirmed Problem Polyneuropathy due to type 2 diabetes mellitus (594699207) Type 2 diabetes mellitus with diabetic polyneuropathy (E11.42) Active confirmed Problem Primary gout (95680159) Idiopathic gout, 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) Active confirmed Problem Polyneuropathy due to diabetes mellitus type I (167854013) Type 1 diabetes mellitus with diabetic polyneuropathy (E10.42) Active confirmed Problem 1621606842066062 Acute gout of left foot, unspecified cause (M10.9) Active confirmed Vital Signs Height 5ft 7in in 06/26/2024 Weight 210 lbs 06/26/2024 BMI 32.89 kg/m2 06/26/2024 Procedures Procedure Date Ordered Date Performed Result Body Sit e 48409-GPANGNO NAIL, 6 OR MORE 06/26/2024 N/A 22920-BHPS SKIN LESIONS, OVER 4 06/26/2024 N/A Encounters Encounter Location Date Provider Diagnosis [address] [address] 12/27/2023 Vince Perez Type 2 diabetes mellitus with diabetic polyneuropathy E11.42 ; Pain in right foot M79.671 ; Other hammer toe(s) (acquired), left foot M20.42 ; Other hammer toe(s) (acquired), right foot M20.41 ; Other viral warts B07.8 ; Pain in left foot M79.672 ; Metatarsalgia, right foot M77.41 and Xerosis cutis L85.[address] [facility] [address] 06/26/2024 Yocasta Ashford Other hammer toe(s) (acquired), [...] X ray : Foot, right 3V 08/13/2019 36294-ENLOUZF NAIL, 6 OR MORE 06/26/2024 71498-HGCI SKIN LESIONS, OVER 4 06/26/20 24 16794-LAGR SKIN LESIONS, OVER 4 06/04/20 21 00087-RBNL SKIN LESIONS, OVER 4 12/23/19 22 60042-UNXA SKIN LESIONS, OVER 4 12/02/19 21 17974-JIRP SKIN LESIONS, OVER 4 08/22/19 20 85597-BDGM SKIN LESIONS, OVER 4 06/02/20 20 B4240-LKLUPSVV DYSTROPHIC NAILS ANY # Y4903-IRMDEGNS DYSTROPHIC NAILS ANY # O8712-XPPJUCTD DYSTROPHIC NAILS ANY # I3768-NINZTIRF DYSTROPHIC NAILS ANY # Next Appt Details Provider Name:Yocasta Augustin ale, 12/25/2024 09:00:00 AM, [address] [facility], [address], [place], [address], Insurance Providers Payer Name Payer Address Payer Phone Subscriber Number Group Number Insured Name Patient Relationship to Insured Coverage Start Date Coverage End Date Medicare National Govt Svcs Inc [address] [place] [address] [id number] Vince Cedillo Self - patient is the insured [facility] [address] [place] [id number] Aga Cedillo Spouse - patient is the spouse of the insured Medical (General) History Medical History History ICD Code Arthritis Back,Hip,and Knee pain type II diabetes High blood pressure Measles Mumps Chicken pox Joint implants/screws Surgical History Surgery Date(Month/Year) hip replacement-Bilateral 1997 bone scan, back 06/21/22 quadruple bypass 02/2023
[2024-10-26 13:56] LABS: Cholesterol 132 mg/dL (<200); HDL Cholesterol 52 mg/dL (>40); LDL Cholesterol Calculated 61 mg/dL (<100); Magnesium 1.6 mg/dL (1.6-2.6); Triglycerides 97 mg/dL (<150); Uric Acid 4.8 mg/dL (3.4-7.0)
[2024-10-26 14:15] LABS: TSH reflex Free T4 0.64 uIU/mL (0.32-4.0); Vitamin D 25-OH Total 33.5 ng/mL (>30)
== END 2024-10-26 09:29 | disposition home or self-care (01) ==
LOC: HO.HMGCLDS 09:28
PROVIDERS: PCP Internal Medicine; Visit Provider Internal Medicine
DX: E55.9 Vitamin D deficiency, unspecified (principal); E83.42 Hypomagnesemia; M10.9 Gout, unspecified; E78.00 Pure hypercholesterolemia, unspecified
CPT/HCPCS: 36415; 80061; 82306; 83735; 84443; 84550

== ENCOUNTER 2024-10-31 15:46 | Outpatient (AMB) | payer MEDICARE, OTHER, SELFPAY ==
[2024-10-31 16:12] VITALS: BP 128/60; PULSE 73; O2SAT 95; BMI 36.0
--- NOTE | 2024-10-31 16:12 | A.OFFPC_ITS ---
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 Required: No Accompanied by: Self / Same As Patient Allergies Sulfa (Sulfonamide Antibiotics) Allergy (Intermediate, Verified 10/31/24 16:47) ITCHING / HIVES sitagliptin [Januvia] Allergy (Unknown, Verified 10/31/24 16:47) Unknown-patient does not remember reaction metformin Adverse Reaction (Intermediate, Verified 10/31/24 16:47) Diarrhea Medication List - Last Reconciled 10/31/24 by Rob Valerio MD acetaminophen 325 mg PO QID PRN Admelog SoloStar U-100 Insulin (insulin lispro) 6 to 8 units 3 times a day with meals SQ per sliding scale subcutaneously 3 times a day; 30 days NS allopurinol 300 mg PO QAM aspirin (Adult Aspirin Regimen) 81 mg PO QAM atorvastatin 40 mg PO BEDTIME Basaglar KwikPen U-100 Insulin (insulin glargine) 36 units (0.36 mL) subcut BEDTIME NS blood-glucose sensor (Dexcom G6 Sensor device) As directed blood-glucose transmitter (Dexcom G6 Transmitter device) As directed blood-glucose,hl7 interface developer,cont (Dexcom G6 Senior Java Architect) As directed cholecalciferol (vitamin D3) 25 mcg PO QAM cyanocobalamin (vitamin B-12) (Vitamin B-12) 2,500 mcg sublingual Q2D dapagliflozin propanediol (Farxiga) 5 mg PO QAM lisinopril 40 mg PO QAM magnesium oxide 800 mg PO BEDTIME metoprolol succinate ER 50 mg (2 x 25 mg) PO QAM milk thist seed-artichoke leaf 150-300 mg (Artichoke Premium Extract) 1 cap PO DAILY oxycodone Take 1-2 tablets every 4-6 hours. Partial Fill upon patient request. pen needle, diabetic (BD Ultra-Fine Mini Pen Needle) 4 times per day semaglutide 2 mg subcut FR@0900 tizanidine 4 mg PO BEDTIME PRN 90 days Tobacco use date assessed: 10/31/24 Fall risk assessment: No Falls in past year Last assessed Fall Risk: 10/31/24 Dental Screening Dental Screen Date: 10/31/24 Did you have a dental visit in the last 12 months?: Yes Did you have a dental problem in the last 6 months where you did not have access to dental care?: No Was dental information given to patient?: Patient has dentist HPI 4 month f/u HPI Details Patient comes in today for his follow-up visit He continues to experience increased pain over his lower back, especially on the right side, with frequent radiation of pain down the back of his right leg He underwent L4-5 discectomy, arthrodesis, implantation cage and posterior instrumented fusion surgery a couple of months ago on 09/04/2024 States that he is now almost 2 months out from his back surgery and is still experiencing a lot of pain and discomfort over his lower back States that he feels very disappointed and does not think that his back surgery helped at all He will be seeing neurosurgery for follow-up again next week for his lower back issues He is aware that he has gained a lot of weight lately as he has not been able to move around much over the past couple of months due to his increased low back pain States that he has noticed high blood sugar readings again often lately, which he is attributing to his weight gain and reduced physical activity States that he continues to watch his diet diligently and takes all of his medications as prescribed He denies any headaches or dizziness Denies any chest pains, no increased shortness of breath No nausea/vomiting, no abdominal pain No change in bowel habits noted He had his follow-up labs done a few days ago - to discuss his results He also has a couple of additional requests today - he is looking for a dermatology referral for further evaluation of a few keratotic lesions that he has noticed on his skin - over his arms, over his scalp and around the sides of his neck He is also concerned about the possibility of sleep apnea as his has mentioned to him that he snores very heavily when he is sleeping at night lately He is aware that his recent weight gain is likely contributing to this but he would like to see if we can get a home sleep study to get checked out for possible sleep apnea [facility] Medical History Skin cancer Back pain CAD (coronary artery disease) Allergic rhinitis Obesity (BMI 30-39.9) Depression Carpal tunnel syndrome on both sides Lumbar degenerative disc disease Vitamin D deficiency Elevated liver enzymes Gout Pure hypercholesterolemia Diabetes mellitus Benign essential hypertension Surgical History S/P CABG x 4 S/P cardiac catheterization Hx of colonoscopy Status post carpal tunnel release (~06/19/20) History of excision of lesion History of carpal tunnel release History of bilateral hip arthroplasty Family History Father Medical history unknown Mother Diabetes Social History Household Members: Spouse Housing: House Are you a primary lawn care technician to a significant other at home: No Do you presently have visiting nurse or other home services: No Alcohol intake: former Patient Tobacco Use Status: Former Tobacco user Tobacco use type: Cigarette Years Smoked: 15 e-Cigarette/Vaping Use: Never Used Second Hand Smoke Exposure: No service: No Current occupational status: employed Cognitive needs: No Hearing needs: No Vision needs: Yes (Glasses) Questionnaire PHQ-9 Over the last 2 weeks, how often have you been bothered by any of the following problems? 1. Little interest or pleasure in doing things: not at all 2. Feeling down, depressed, or hopeless: not at all 3. Trouble falling or staying asleep, or sleeping too much: not at all 4. Feeling tired or having little energy: not at all 5. Poor appetite or overeating: not at all 6. Feeling bad about yourself - or that you are a failure or have let yourself or your family down: not at all 7. Trouble concentrating on things, such as reading the newspaper or watching television: not at all 8. Moving or speaking so slowly that other people could have noticed. Or the opposite - being so fidgety or restless that you have been moving around a lot more than usual: not at all 9. Thoughts that you would be better off or of hurting yourself in some way: not at all Total score: 0 Depression Screening Interpretation: Negative Depression Screening Done: Yes 23066 - PHQ-9 Billing: Yes Source: Developed by Drs. Rigoberto Iqbal, Celestina Tyrone Rodríguez and colleagues, with an educational farida from [employer]. Thrive Questionnaire Date Thrive assessed: 10/31/24 I am a: Patient What is your living situation today?: I have a steady place to live Within the past 12 months, did the food you bought not last and you didn't have the money to get more?: Never true Within the past 12 months, did you worry whether your food would run out before you got money to buy more?: Never true Do you have trouble paying for medicines?: No Do you have trouble getting transportation to medical appointments?: No Do you have trouble paying your heating and electricity bill?: No Do you have trouble taking care of your child, family member or friend?: No Do you have trouble with day-to-day activities such as bathing, preparing meals, shopping, managing finances, etc.?: No Are you currently unemployed and looking for a job?: No Are you interested in more education?: No Please select the resources that you would like help with: None Currently or been in a relationship where the following occur: No concerns reported THRIVE Score: 0 AUDIT C Alcohol Use Questionnaire (AUDIT-C) 1. How often do you have a drink containing alcohol?: Never 3. How often do you have six or more drinks on one occasion?: Never Total Score: 0 Score Reviewed/Action Taken: Yes RIO-7 AMB Questionnaire RIO-7 Date RIO - 7 assessed: 10/31/24 Feeling nervous, anxious, or on edge: 0 = Not at all Not being able to stop or control worryin = Not at all Worrying too much about different things: 0 = Not at all Trouble relaxin = Not at all Being so restless that it is hard to sit still: 0 = Not at all Becoming easily annoyed or irritable: 0 = Not at all Feeling afraid as if something awful might happen: 0 = Not at all Total RIO-7 score (0-4 normal; 5-9 mild; 10-14 moderate; 15-21 severe): 0 Source: Developed by Drs. Rigoberto Iqbal, Tyrone Good and colleagues, with an educational farida from [employer]. Review of Systems Const Denies chills, Denies fatigue, Denies fever(s), Denies headache(s), Reports snoring and Reports weight gain ENT Denies dysphagia, Denies dizziness, Denies otalgia, Denies headache(s), Denies neck pain, Denies odynophagia and Denies sore throat Card Denies chest pain, Denies palpitations and Denies dyspnea Resp Denies chest congestion, Denies cough, Denies dyspnea and Reports snoring GI Denies abdominal pain, Denies constipation, Denies dysphagia, Denies heartburn, Denies diarrhea, Denies nausea, Denies odynophagia and Denies vomiting Denies difficulty urinating, Denies dysuria, Denies nocturia and Denies urinary frequency Musc Reports back pain (chronic, worse with prolonged standing or increased activity) and Denies neck pain Skin/Breast Details: (+) few scattered keratotic skin lesions - see HPI Denies rash Neuro Denies dizziness and Denies headache(s) Endo Denies fatigue and Denies palpitations Physical exam (Primary Care) Vital Signs: Last Vital Signs Pulse 73 10/31/24 16:12 BP 128/60 10/31/24 16:12 Pulse Ox 95 10/31/24 16:12 Oxygen Delivery Method Room Air 10/31/24 16:12 BMI result Body Mass Index 36.0 Tobacco/Smoking Status: Tobacco use Status Tobacco use date assessed 10/31/24 10/31/24 16:19 Patient Tobacco Use Status Former Tobacco user 10/31/24 16:19 Tobacco use type Cigarette 10/31/24 16:19 e-Cigarette/Vaping Use Never Used 10/31/24 16:19 PHQ-9: PHQ-9 Score PHQ-9: Total score 0 10/31/24 16:52 Depression Screening Interpretation: Negative Thrive Assessment: Date of Thrive Assessment Date Thrive assessed 10/31/24 10/31/24 16:19 Currently or been in a relationship where the following occur: No concerns reported Const General: no acute distress and alert HENMT Ears: TM's normal bilaterally and EAC's normal Throat: Yes posterior oropharynx normal and Yes tonsils normal (no TP congestion) Neck Neck: Yes supple and No lymphadenopathy Thyroid: Thyroid normal Resp Auscultation: clear to auscultation bilaterally, no rales and no wheezes Cardio Rate: regular rate Rhythm: regular rhythm Heart sounds: no murmurs GI Palpation (GI): Soft to palpation and nontender Auscultation: normal bowel sounds General: Yes no CVA tenderness Back/Spine/Pelvis Back: no CVA tenderness Thoracic/Lumbar Spine: lumbar spinal tenderness Skin Other: (+) few scattered patches of keratotic lesions - on the right arm, on the scalp and around neck area Extrem General: Yes no clubbing, cyanosis or edema Results Reviewed Results Reviewed: Laboratory Tests 10/24/24 10/24/24 10/26/24 09:20 09:28 09:46 WBC 7.9 Hgb 14.0 Hct 43.1 Plt Count 172 Estimat Average Glucose 117 Hemoglobin A1c % 5.7 Uric Acid 4.8 Magnesium 1.6 Triglycerides 97 Cholesterol 132 LDL Cholesterol, Calc 61 HDL Cholesterol 52 PSA Screen 0.42 Vitamin B12 979 H 25-OH Vitamin D Total 33.5 TSH 0.64 Ur Specific [place] 1.015 Urine Protein 30 (1+) H Urine Glucose (UA) 250 H Urine Blood Negative Urine Nitrite Negative Ur Leukocyte Esterase Negative Microalb/Creat Ratio 214.5 H Coding Level of Care Code Est Pt Level 4 (78758) Complex EM visit Add On G2211 Diagnoses Type 2 diabetes mellitus without complication, with long-term current use of insulin E11.9; Z79.4 Diabetes mellitus complication status: without complication Diabetes mellitus assisted insulin use: with assisted use Diabetes mellitus type: type 2 Benign essential hypertension I10 Persistent proteinuria R80.1 Proteinuria type: persistent Pure hypercholesterolemia E78.00 Elevated liver enzymes R74.8 Hypomagnesemia E83.42 Nocturnal leg cramps G47.62 Degeneration of intervertebral disc of lumbar region with discogenic back pain and lower extremity pain M51.362 Disc-related pain type: discogenic back pain and lower extremity pain Idiopathic gout, unspecified chronicity, unspecified site M10.00 Chronicity: unspecified Gout etiology: idiopathic Gout site: unspecified site Vitamin D deficiency E55.9 Elevated vitamin B12 level R79.89 Loud snoring R06.83 Keratotic lesion L57.0 Obesity (BMI 30-39.9) E66.9 Additional Codes PHQ-9 - 26145 - PHQ-9 Billing: Yes ([id number]) Assessment & Plan Assessment & Plan (1) Diabetes mellitus: Comment: type 2-dx ~ age 52-has glucose sensor-usually ~ 110 (A1C on 06/28/24 was 5.6%) Code(s): E11.9 - Type 2 diabetes mellitus without complications Category: Medical Qualifiers: Diabetes mellitus complication status: without complication 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 insulin use: with termite control technician use Diabetes mellitus type: type 2 Qualified Code(s): E11.9 - Type 2 diabetes mellitus without complications; Z79.4 - care home (current) use of insulin Plan: His HgbA1c was at 5.7% on his labs done a few days ago (was previously at 5.6% a few months ago) - goal is at least <7.0% but ideally <6.5% Reinforced diabetic diet Continue Farxiga 5 mg QD, Ozempic 2 mg SQ once a week, Lantus 36 units Q HS and Admelog 6 to 8 units TID per sliding scale (Lantus might need to be switched over to Basaglar soon due to formulary changes) Patient could not tolerate Metformin or Metformin ER in the past due to diarrhea (2) Benign essential hypertension: Code(s): I10 - Essential (primary) hypertension Category: Medical Plan: Reinforced low sodium diet - goal is systolic BP of at least 130 mm or less Continue Lisinopril 40 mg QD and Metoprolol ER 50 mg QD Echocardiogram done a couple of years ago revealed low normal LV systolic function with LVEF of 50-55% with impaired relaxation filling pattern with severe focal hypertrophy of the basal septum, mild left atrial enlargement, normal cardiac valvular dopplers and no gross pericardial effusion Follow up with cardiology as scheduled (3) Proteinuria: Code(s): R80.9 - Proteinuria, unspecified Category: Medical Qualifiers: Proteinuria type: persistent Qualified Code(s): R80.1 - Persistent proteinuria, unspecified Plan: This is most likely related to his HTN and DM This appears to have cleared up previously as he did not have any proteins in his urine a few months ago and his microalbumin level also improved significantly but both appears to have regressed/recurred on his recent labs Have emphasized again the importance of tight BP and glucose control to slow down progression of renal disease Follow up with nephrology (Dr. Vann) as scheduled (4) Pure hypercholesterolemia: Code(s): E78.00 - Pure hypercholesterolemia, unspecified Category: Medical Plan: Results of his labs done a few days ago reviewed and discussed with patient Reinforced low cholesterol diet Continue Simvastatin 20 mg QD Will recheck his labs and fasting lipids in 4 months for follow up (5) Elevated liver enzymes: Code(s): R74.8 - Abnormal levels of other serum enzymes Category: Medical Plan: His recent labs did not include his LFTs for unclear reasons as they were previously ordered They were improving when last checked a few months ago - have advised patient again that his elevated LFTs were most likely related to his weight and should improve with continuing weight loss but he has gained weight lately due to decreased physical activity related to his lower back issues Will continue to monitor his LFTs regularly (6) Hypomagnesemia: Code(s): E83.42 - Hypomagnesemia Category: Medical Plan: Corrected - his serum magnesium level remained normal on his previous labs Continue Magnesium Oxide 400 mg BID (7) Nocturnal leg cramps: Code(s): G47.62 - Sleep related leg cramps Category: Medical Plan: Continue Tizanidine 4 mg Q HS PRN (8) Lumbar degenerative disc disease: Code(s): M51.36 - Other intervertebral disc degeneration, lumbar region Category: Medical Qualifiers: Disc-related pain type: discogenic back pain and lower extremity pain Qualified Code(s): M51.362 - Other intervertebral disc degeneration, lumbar region with discogenic back pain and lower extremity pain Plan: Reinforced activity and weight-lifting restrictions Lumbar spine MRI done back in April 2022 revealed (+) grade 1 degenerative anterolisthesis in the setting of advanced bilateral facet arthropathy and additional spondylitic changes resulting in mild central canal stenosis and severe bilateral foraminal stenosis with compression of the exiting L4 nerve roots bilaterally at L4-L5. THERE ARE VERY LARGE BILATERAL FACET JOINT EFFUSIONS AT L4-L5 THAT SHOULD BE FOLLOWED WITH FLEXION-EXTENSION RADIOGRAPHS TO EXCLUDE SEGMENTAL INSTABILITY. There is also a right lateral disc osteophyte protrusion contacts the extraforaminal right L5 nerve root at L5-S1 Patient has been referred to neurosurgery (Dr. Monteiro) regarding his lumbar spine issues and he subsequently underwent L4-5 oblique lumbar interbody fusion back on 09/04/2024 Patient states that it has been almost 2 months since his back surgery but he has not yet experience any improvement so far and he is disappointed and frustrated that his back surgery apparently failed to address his symptoms Follow-up with neurosurgery as scheduled (9) Gout: Code(s): M10.9 - Gout, unspecified Category: Medical Qualifiers: Chronicity: unspecified Gout etiology: idiopathic Gout site: unspecified site Qualified Code(s): M10.00 - Idiopathic gout, unspecified site Plan: His serum uric acid has improved and has remained normal on his recent labs Reinforced low purine diet - states that he has not had any acute gout flare ups in a while now Continue Allopurinol 300 mg QD Will recheck his serum uric acid level in a few months for follow up (10) Vitamin D deficiency: Code(s): E55.9 - Vitamin D deficiency, unspecified Category: Medical Plan: Continue Vitamin D3 1000 units QD (11) Elevated vitamin B12 level: Code(s): R79.89 - Other specified abnormal findings of blood chemistry Category: Medical Plan: His Vitamin B12 level has dropped off from previous on his recent labs - it was > 2000 pg/ml a few months ago and is now down to 979 pg/ml Continue Vitamin B12 tablets every 2 to 3 days Will recheck his Vitamin B12 level in a few months for follow up (12) Loud snoring: Code(s): R06.83 - Snoring Category: Medical Plan: Per request, will try to send patient for a home sleep study for further ev aluation and to rule out sleep apnea (13) Keratotic lesion: Code(s): L57.0 - Actinic keratosis Category: Medical Plan: Will refer patient to Dermatology for further evaluation and management (14) Obesity (BMI 30-39.9): Code(s): E66.9 - Obesity, unspecified Category: Medical Plan: Reinforced diet; exercise and weight loss are not practical or realistic at this time due to his low back pain and physical issues Plan Follow up in 4 months Orders: Orders Complete Blood Count Auto Diff 4 Months D64.9 - Anemia, unspecified Comprehensive [place]. Panel Fast 4 Months E78.00 - Pure hypercholesterolemia, unspecified Lipid Panel 4 Months E78.00 - Pure hypercholesterolemia, unspecified TSH reflex Free T4 4 Months E78.00 - Pure hypercholesterolemia, unspecified UA CC w/rflx Micro + Cult 4 Months R30.0 - Dysuria Vitamin D 25-OH Total 4 Months E55.9 - Vitamin D deficiency, unspecified RT home sleep study 10/31/24 G47.33 - Obstructive sleep apnea (adult) (pediatric) Microalbumin, Random (w Creat) 4 Months E11.9 - Type 2 diabetes mellitus without complications Hemoglobin A1c 4 Months E11.9 - Type 2 diabetes mellitus without complications Vitamin B12 and Folate 4 Months E53.8 - Deficiency of other specified B group vitamins Uric Acid 4 Months M10.9 - Gout, unspecified Referrals Dermatology Referral L57.0 - Actinic keratosis
--- OUTSIDE RECORDS SUMMARY | 2024-10-31 18:07 | XMS_ITS | Clinical Summary ---
Author Organization [facility] [address] ity Address [address] [place] [address] Care Team Providers Care Institute Scientist Name Role Phone Unavailable Primary Care Provider [...]
--- OUTSIDE RECORDS SUMMARY | 2024-10-31 18:07 | XMS_ITS | Clinical Summary ---
Author Organization [facility] Address [address] [place] [address] Care Team Providers Care Brim Edge Trimmer Name Role Phone Rob Valerio MD Primary Care Provider [phone] Allergies Active Allergy Reactions Criticality Noted Date [...] Ye ars (1 of 2 - PCV) 1971 Colorectal Cancer Screening: Annual FOBT 2001 Colorectal [...] age to complete this topic Insurance Medicare [facility] Medicare [facility] Care Teams Brim Edge Trimmer Relationship Specialty Start Date End Date Rob Valerio MD [address] [place] [address] PCP - General Internal Medicine 05/24/22
--- OUTSIDE RECORDS SUMMARY | 2024-10-31 18:07 | XMS_ITS ---
[facility] Address [address] [place] [address] Care Team Providers Care Vegetable Picker Name Role Phone Teodoro NAYLOR, Rob Primary Care Provider Yocasta Brito Unavailable [phone] Allergies Allergen (clinical drug ingredient) Drug/Non Drug [...] Ordered Date Performed Result Body Sit e 05711-[id number] NAIL, 6 OR MORE 06/26/2024 N/A 81808-UFXY SKIN LESIONS, OVER 4 06/26/2024 N/A Encounters Encounter Location Date Provider Diagnosis [facility] [address] [address] 06/26/2024 Yocasta Mcginnisaker Other hammer toe(s) (acquired), [...] INSTRUCTIONS.pdf) Pending Test Test Name Order Date [id number] NAIL, 6 OR MORE 06/26/2024 95779-FCKN SKIN LESIONS, OVER 4 06/26/20 24 Next Appt Details Follow Up: 6 Months, Reason: Provider Name:Yocasta Rahelnima ale, 12/25/2024 09:00:00 AM, [address], [address], [place], [address], Procedure Notes * Category Sub-Category Detail Notes [...] use of a nail nipper and/or dremel-type blade grinder, to a more viable healthy nail [...] to maintain effectiveness in symptomatic relief - 30180 Keratoma Treatment Parring or Cutting o f [...] tissue nippers, and/or power dremel instrumentation - 43253 Progress Notes * Vince PHAN SDOB:[birth year] (73 yo M)Acc No.[id number]:06/26/2024 Progress Note Patient:?SYLVESTERVince GRAFF Samantha Provider:?Yocasta Ashford DPM :1950???Age:73 Y???Sex:Male Sina e:06/26/2024 Address:[address] [place], [place] [id number] Pcp:Rob Valerio MD Subjective: * Chief Complaints: [...] ?Exercise: no. ?Marital status: . 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 * Medications:?TakingLantus Fa rxiga Atorvastatin Calcium Allopurinol [...] 2.?Type 2 diabetes mellitus with diabetic polyneuropathy?Procedure: 99097-DZMQCIM NAIL, 6 OR MORE ?Procedure: 80695-MHDP SKIN LESIONS, OVER 4 * Procedures:?Debride Nail [...] use of a nail nipper and/or dremel-type blade grinder, to a more viable healthy nail [...] to maintain effectiveness in symptomatic relief - 33506.?Keratoma Treatment:?Parring or Cutting of Benign Hyperkeratotic Lesion(s)?(-57) [...] tissue nippers, and/or power dremel instrumentation - 87596.? * Procedure Codes:?72476 DEBRI DE NAIL, 6 OR MORE, Modifiers: XS 50809 TRIM SKIN LESIONS, OVER 4, Modifiers: XS [...] Ashford DPM Date:?08/27/2023 Generated for Hugh luna/Joseph/Melviitting on:?10/31/2024 06:07 PM EDT History and Physical Notes * HPI [...]
--- OUTSIDE RECORDS SUMMARY | 2024-10-31 18:07 | XMS_ITS | Patient Health Record ---
Author Organization [facility] Address [address] [place] [address] Care Team Providers Care Director Of Investigations Name Role Phone Teodoro NAYLOR, [place] Primary Care Provider Yocasta Brito Unavailable [phone] Vince Perez Unavailable [phone] Allergies Allergen (clinical drug ingredient) Drug/Non Drug [...] Problem Status W/U Status Risk Notes Problem 587007866 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, accidental (unintentional), initial encounter (T56.0X1A) Active confirmed Problem Acquired hammer toe of right foot (8595150190169080) Other hammer toe(s) (acquired), right foot (M20.41) Active confirmed Problem Acquired hammer toe of left foot (7607147725455501) Other hammer toe(s) (acquired), left foot (M20.42) Active confirmed Problem Polyneuropathy due to type 2 diabetes mellitus (594606308) Type 2 diabetes mellitus with diabetic polyneuropathy (E11.42) Active confirmed Problem Primary gout (67908694) Idiopathic gout, 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) Active confirmed Problem Polyneuropathy due to diabetes mellitus type I (008635846) Type 1 diabetes mellitus with diabetic polyneuropathy (E10.42) Active confirmed Problem 1412313722303400 Acute gout of left foot, unspecified cause (M10.9) Active confirmed Vital Signs Height 5ft 7in in 06/26/2024 Weight 210 lbs 06/26/2024 BMI 32.89 kg/m2 06/26/2024 Procedures Procedure Date Ordered Date Performed Result Body Sit e 80887-QCOQAVJ NAIL, 6 OR MORE 06/26/2024 N/A 48066-FXFP SKIN LESIONS, OVER 4 06/26/2024 N/A Encounters Encounter Location Date Provider Diagnosis [address] [address] 12/27/2023 Vince Perez Type 2 diabetes mellitus with diabetic polyneuropathy E11.42 ; Pain in right foot M79.671 ; Other hammer toe(s) (acquired), left foot M20.42 ; Other hammer toe(s) (acquired), right foot M20.41 ; Other viral warts B07.8 ; Pain in left foot M79.672 ; Metatarsalgia, right foot M77.41 and Xerosis cutis L85.[address] [facility] [address] 06/26/2024 Yocasta Ashford Other hammer toe(s) (acquired), [...] X ray : Foot, right 3V 08/13/2019 38096-HDDELLX NAIL, 6 OR MORE 06/26/2024 77841-TZQJ SKIN LESIONS, OVER 4 06/26/20 24 41659-BLWY SKIN LESIONS, OVER 4 06/04/20 21 33741-TTIC SKIN LESIONS, OVER 4 12/23/19 22 03656-GGEJ SKIN LESIONS, OVER 4 12/02/19 21 27728-AXXW SKIN LESIONS, OVER 4 08/22/19 20 18201-VCKZ SKIN LESIONS, OVER 4 06/02/20 20 E8541-LHKDBMIU DYSTROPHIC NAILS ANY # T4140-VURCQVNK DYSTROPHIC NAILS ANY # O0596-BRALAOBJ DYSTROPHIC NAILS ANY # W9751-VOKLSOTW DYSTROPHIC NAILS ANY # Next Appt Details Provider Name:Yocasta Augustin ale, 12/25/2024 09:00:00 AM, [address] [facility] [place] [facility], [address], [place], [address], Insurance Providers Payer Name Payer Address Payer Phone Subscriber Number Group Number Insured Name Patient Relationship to Insured Coverage Start Date Coverage End Date Medicare National Govt Sv[employer] [address] [place] [address] [id number] Vince Cedillo Self - patient is the insured [facility] [address] [place] [address] [phone] [id number] Aga Cedillo Spouse - patient is the spouse of the insured Medical (General) History Medical History History ICD Code Arthritis Back,Hip,and Knee pain type II diabetes High blood pressure Measles Mumps Chicken pox Joint implants/screws Surgical History Surgery Date(Month/Year) hip replacement-Bilateral 1997 bone scan, back 06/21/22 quadruple bypass 02/2023
--- OUTSIDE RECORDS SUMMARY | 2024-10-31 18:07 | XMS_ITS ---
Author Organization [facility] Address [address] [place] [address] Care Team Providers Care Web Ui Designer Name Role Phone Teodoro NAYLOR, Rob Primary Care Provider Yocasta Brito Unavailable [phone] Vince Perez Unavailable [phone] Allergies Allergen (clinical drug ingredient) Drug/Non Drug [...] 06/21/2023 Encounters Encounter Location Date Provider Diagnosis [facility] [address] [address] 06/21/2023 Vince Perez Type 2 diabetes mellitus [...] Provider Name:Yocasta aguilera, 12/25/2024 09:00:00 AM, [address] [facility], [address], [address], Procedure Notes * Category Sub-Category Detail Notes Keratoma Treatment Parring or Cutting o f Benign Hyperkeratotic Lesion(s) 12822 ( >4 Lesions) - The Benign hyperkeratotic [...] Vince PHAN SDOB:[birth year] (72 yo M)Acc No.[id number]:06/21/2023 Progress Note Patient:?Vince Phan Samantha Provider:?Vince Perez DPM :1950???Age:72 Y???Sex:Male Sina e:06/21/2023 Address:[address] [place], [place] [id number] Pcp:Rob Valerio MD Subjective: * Chief Complaints: [...] yes. ?no Exercise. ?Marital status: . 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 * Medications:?TakingClopidogr el Bisulfate Extra Depth [...] Tablet 1 tablet Orally Once a dayVicto [facility]hol[facility] [place] Medication List reviewed and [...] Procedures:?Keratoma Treatment:?Parring or Cutting of Benign Hyperkeratotic Lesion(s)?21942 ( >4 Lesions) - The Benign hyperkeratotic lesions, as described above were pared, and/or cut utilizing a sterile #15 blade, tissue nippers, and/or dremel.?Nail Reduction:?Nail Reduction?Trimming of dystrophic nails performed to reduce/remove overall nail length and girth, by manual and electrical means with use of a nail nipper and/or dremel, to more viable healthy nail plate or bed tissue 6-10 (G0127).? * Procedure Codes:?51366 TRIM SKIN LESIONS, OVER 4, Modifiers: XS G0127 TRIMMING DYSTROPHIC NAILS ANY #, Modifiers: XS * Follow Up:?6 Months * Images: * Sign off status: Completed true * Provider:?Vince Perez DPM Date:? 023 Generated for Hugh luna/Joseph/eTlizitting on:?10/31/2024 06:07 PM EDT History and Physical [...]
--- OUTSIDE RECORDS SUMMARY | 2024-10-31 18:08 | XMS_ITS ---
Author Organization [facility] Address [address] [place] [address] Care Team Providers Care Electric Meter Setter Name Role Phone Teodoro NAYLOR, Rob Primary Care Provider Yocasta Brito Unavailable [phone] Vince Perez Unavailable [phone] Allergies Allergen (clinical drug ingredient) Drug/Non Drug [...] 12/27/2023 Encounters Encounter Location Date Provider Diagnosis [facility] [address] [address] 12/27/2023 Vince Perez Type 2 diabetes mellitus [...] aguilera, 12/25/2024 09:00:00 AM, [address] [facility], [address], [place], [address], Procedure Notes * Category Sub-Category Detail Notes Keratoma Treatment Parring or Cutting o f Benign Hyperkeratotic Lesion(s) 78396 ( >4 Lesions) - The Benign hyperkeratotic [...] Vince PHAN SDOB:[birth year] (73 yo M)Acc No.[id number]:12/27/2023 Progress Note Patient:?Vince Phan Provider:?Vince Perez DPM :1950???Age:73 Y???Sex:Male Sina e:12/27/2023 Address:[address] [place], [place] [id number] Pcp:Rob Valerio MD Subjective: * Chief Complaints: [...] yes. ?no Exercise. ?Marital status: . 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 * Medications:?TakingGabapenti n Clopidogrel Bisulfate Farxiga [...] Tablet 1 tablet Orally Once a dayVictoza [facility] Medication List reviewed and reconciled with the [...] Procedures:?Keratoma Treatment:?Parring or Cutting of Benign Hyperkeratotic Lesion(s)?67230 ( >4 Lesions) - The Benign hyperkeratotic lesions, as described above were pared, and/or cut utilizing a sterile #15 blade, tissue nippers, and/or dremel.?Nail Reduction:?Nail Reduction?Trimming of dystrophic nails performed to reduce/remove overall nail length and girth, by manual and electrical means with use of a nail nipper and/or dremel, to more viable healthy nail plate or bed tissue 6-10 (G0127).? * Procedure Codes:?68584 TRIM SKIN LESIONS, OVER 4, Modifiers: XS [...] DPM Date:? 024 Generated for Hugh luna/Joseph/eTlizitting on:?10/31/2024 06:07 PM [...] taking performed:: 1+ ORIENTED: person,place, and ti nm Ophthalmology Referral DIABETES EYE EXAM Diabetic Retinopa [...]
== END 2024-10-31 16:58 | disposition home or self-care (01) ==
LOC: HO.HMCH 15:47
PROVIDERS: PCP Internal Medicine; Visit Provider Internal Medicine
DX: E11.9 Type 2 diabetes mellitus without complications (principal); Z79.4 Long term (current) use of insulin; I10 Essential (primary) hypertension; R80.1 Persistent proteinuria, unspecified; E78.00 Pure hypercholesterolemia, unspecified; R74.8 Abnormal levels of other serum enzymes; E83.42 Hypomagnesemia; G47.62 Sleep related leg cramps; M51.362 Other intervertebral disc degeneration, lumbar region with discogenic back pain and lower extremity pain; M10.00 Idiopathic gout, unspecified site; E55.9 Vitamin D deficiency, unspecified; R79.89 Other specified abnormal findings of blood chemistry

== ENCOUNTER → 2024-10-31 15:46 | Outpatient (BNVA) | payer MEDICARE, OTHER, SELFPAY | PROVIDERS: PCP Internal Medicine; Visit Provider Internal Medicine | DX: E11.9 Type 2 diabetes mellitus without complications (principal); I10 Essential (primary) hypertension; R80.1 Persistent proteinuria, unspecified; E78.00 Pure hypercholesterolemia, unspecified; R74.8 Abnormal levels of other serum enzymes; E83.42 Hypomagnesemia; G47.62 Sleep related leg cramps; M51.362 Other intervertebral disc degeneration, lumbar region with discogenic back pain and lower extremity pain; M10.00 Idiopathic gout, unspecified site; E55.9 Vitamin D deficiency, unspecified; R79.89 Other specified abnormal findings of blood chemistry; R06.83 Snoring; L57.0 Actinic keratosis; E66.9 Obesity, unspecified; Z68.36 Body mass index [BMI] 36.0-36.9, adult; Z79.4 Long term (current) use of insulin; Z79.899 Other long term (current) drug therapy | CPT/HCPCS: 96127; 99212 ==

== ENCOUNTER 2024-11-12 13:20 | Outpatient (AMB) | payer MEDICARE, OTHER, SELFPAY ==
--- NOTE | 2024-11-12 13:58 | HO.SPINEOV ---
Intake Visit Reasons: 2nd post op Intake Note: Mr. Cedillo is here today for his 2nd post op. Collar Turner Required: No Allergies Sulfa (Sulfonamide Antibiotics) Allergy (Intermediate, Verified 11/12/24 14:01) ITCHING / HIVES sitagliptin [Januvia] Allergy (Unknown, Verified 11/12/24 14:01) Unknown-patient does not remember reaction metformin Adverse Reaction (Intermediate, Verified 11/12/24 14:01) Diarrhea Assessment & Plan Assessment & Plan (1) Lumbago: Code(s): M54.50 - Low back pain, unspecified Category: Medical (2) S/P spinal fusion: Code(s): Z98.1 - Arthrodesis status Category: Surgical Plan Procedure: L4-5 OLSTANISLAV Clarke comes in today for his 2nd postoperative visit after having a L4-5 lumbar fusion completed by Dr. Monteiro. To recap he was initially evaluated in clinic for back pain that radiates down both legs into his feet. Unfortunately, he continues to report fairly severe low back pain with the occasional shooting into his right posterior buttocks. This has been ongoing since surgery, and has not subsided despite attempted treatment with narcotic pain medications and muscle relaxers. He has attempted Tylenol xnfl-kqd-yguhxen as well and can not take NSAIDs due to his stage 2 kidney disease. He reports he has been miserable and in very severe pain, which he states is worse than before surgery. 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 No new neurological deficits. The patient ambulates well and rises from a seated position without much difficulty. His posterior incision sites are closed and well healing. I would like to send Vince for a CT scan of the lumbar spine to evaluate for any postoperative complications. I was not able to identify any significant changes when comparing his x-ray imaging to his fluoroscopy images. It is very possible that a suffering from some kind of complication (subsidence of interbody cage, pseudoarthrosis, hardware failure). I will follow up with him after his CT scan is read by Radiology. Arnulfo Monteiro MD,PhD [facility] Orders: Orders CT lumbar spine wo IV con Today M54.50 - Low back pain, unspecified Coding Level of Care Code Global (54824) Diagnoses Lumbago M54.50 S/P spinal fusion Z98.1
--- OUTSIDE RECORDS SUMMARY | 2024-11-12 15:51 | XMS_ITS | Clinical Summary ---
Author Organization [facility] Address [address] [place] [address] Care Team Providers Care Tub Puller Name Role Phone Unavailable Primary Care Provider [...]
--- OUTSIDE RECORDS SUMMARY | 2024-11-12 15:51 | XMS_ITS | Patient Health Record ---
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, accidental (unintentional), initial encounter (T56.0X1A) Active confirmed Problem Acquired hammer toe of right foot (9367828263500465) Other hammer toe(s) (acquired), right foot (M20.41) Active confirmed Problem Acquired hammer toe of left foot (6414459741266569) Other hammer toe(s) (acquired), left foot (M20.42) Active confirmed Problem Polyneuropathy due to type 2 diabetes mellitus (053419955) Type 2 diabetes mellitus with diabetic polyneuropathy (E11.42) Active confirmed Problem Primary gout (35090918) Idiopathic gout, 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) Active confirmed Problem Polyneuropathy due to diabetes mellitus type I (685916114) Type 1 diabetes mellitus with diabetic polyneuropathy (E10.42) Active confirmed Problem 8501537165155341 Acute gout of left foot, unspecified cause (M10.9) Active confirmed Vital Signs Height 5ft 7in in 06/26/2024 Weight 210 lbs 06/26/2024 BMI 32.89 kg/m2 06/26/2024 Procedures Procedure Date Ordered Date Performed Result Body Sit e 26888-KYUXOFD NAIL, 6 OR MORE 06/26/2024 N/A 45893-NYCM SKIN LESIONS, OVER 4 06/26/2024 N/A Encounters Encounter Location Date Provider Diagnosis [address] [address] 12/27/2023 Vince Perez Type 2 diabetes mellitus with diabetic polyneuropathy E11.42 ; Pain in right foot M79.671 ; Other hammer toe(s) (acquired), left foot M20.42 ; Other hammer toe(s) (acquired), right foot M20.41 ; Other viral warts B07.8 ; Pain in left foot M79.672 ; Metatarsalgia, right foot M77.41 and Xerosis cutis L85.[address] [facility] [address] 06/26/2024 Yocasta Ashford Other hammer toe(s) (acquired), [...] X ray : Foot, right 3V 08/13/2019 71154-GXOXJJJ NAIL, 6 OR MORE 06/26/2024 98596-KXIO SKIN LESIONS, OVER 4 06/26/20 24 16813-BCIF SKIN LESIONS, OVER 4 06/04/20 21 02933-TLKO SKIN LESIONS, OVER 4 12/23/19 22 07247-FILZ SKIN LESIONS, OVER 4 12/02/19 21 36018-DINP SKIN LESIONS, OVER 4 08/22/19 20 37176-RQNA SKIN LESIONS, OVER 4 06/02/20 20 Y1269-HLPBXERG DYSTROPHIC NAILS ANY # W5163-MJOHPTKC DYSTROPHIC NAILS ANY # Z4637-OPCXALRK DYSTROPHIC NAILS ANY # S8611-EXZUXYHP DYSTROPHIC NAILS ANY # Next Appt Details Provider Name:Yocasta Augustin ale, 12/25/2024 09:00:00 AM, [address] [facility], [address], [place], [address], Insurance Providers Payer Name Payer Address Payer Phone Subscriber Number Group Number Insured Name Patient Relationship to Insured Coverage Start Date Coverage End Date Medicare National Govt Sv[employer] [address] [place] [address] [id number] Vince Cedillo Self - patient is the insured [facility] [address] [place] [address] [id number] Aga Cedillo Spouse - patient is the spouse of the insured Medical (General) History Medical History History ICD Code Arthritis Back,Hip,and Knee pain type II diabetes High blood pressure Measles Mumps Chicken pox Joint implants/screws Surgical History Surgery Date(Month/Year) hip replacement-Bilateral 1997 bone scan, back 06/21/22 quadruple bypass 02/2023
--- OUTSIDE RECORDS SUMMARY | 2024-11-12 15:51 | XMS_ITS ---
Author Organization [facility] Address [address] [place] [address] Care Team Providers Care Unmanned Equipment Operator Name Role Phone Teodoro NAYLOR, Rob Primary Care Provider Yocasta Brito Unavailable [phone] Vince Perez Unavailable [phone] Allergies Allergen (clinical drug ingredient) Drug/Non Drug [...] 06/21/2023 Encounters Encounter Location Date Provider Diagnosis [facility] [address] [address] 06/21/2023 Vince Perez Type 2 diabetes mellitus [...] Name:Yocasta aguilera, 12/25/2024 09:00:00 AM, [address] [facility], [address], [place], [address], Procedure Notes * Category Sub-Category Detail Notes Keratoma Treatment Parring or Cutting o f Benign Hyperkeratotic Lesion(s) 50337 ( >4 Lesions) - The Benign hyperkeratotic [...] Vince PHAN SDOB:[birth year] (72 yo M)Acc No.[id number]:06/21/2023 Progress Note Patient:?Vince Phan Samantha Provider:?Vince Perez DPM :1950???Age:72 Y???Sex:Male Sina e:06/21/2023 Address:[address] [place], [place] [address] Pcp:Rob Valerio MD Subjective: * Chief Complaints: [...] Exercise. ?Marital status: . 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 * Medications:?TakingClopidogr el Bisulfate Extra Depth Diabetic [...] Tablet 1 tablet Orally Once a dayVicto [facility] [place] Medication List reviewed [...] Procedures:?Keratoma Treatment:?Parring or Cutting of Benign Hyperkeratotic Lesion(s)?52329 ( >4 Lesions) - The Benign hyperkeratotic lesions, as described above were pared, and/or cut utilizing a sterile #15 blade, tissue nippers, and/or dremel.?Nail Reduction:?Nail Reduction?Trimming of dystrophic nails performed to reduce/remove overall nail length and girth, by manual and electrical means with use of a nail nipper and/or dremel, to more viable healthy nail plate or bed tissue 6-10 (G0127).? * Procedure Codes:?69168 TRIM SKIN LESIONS, OVER 4, Modifiers: XS G0127 TRIMMING DYSTROPHIC NAILS ANY #, Modifiers: XS * Follow Up:?6 Months * Images: * Sign off status: Completed true * Provider:?Vince Perez DPM Date:? 023 Generated for Hugh luna/Joseph/eTlizitting on:?11/12/2024 03:51 PM EDT History and Physical Notes * [...]
--- OUTSIDE RECORDS SUMMARY | 2024-11-12 15:52 | XMS_ITS | Clinical Summary ---
Author Organization [facility] Address [address] [place] [address] Care Team Providers Care Refractive Surgeon Name Role Phone Rob Valerio MD Primary Care Provider [phone] Allergies Active Allergy Reactions Criticality Noted Date [...] age to complete this topic Insurance Medicare [facility] Medicare [facility] Care Teams Refractive Surgeon Relationship Specialty Start Date End Date Rob Valerio MD [address] [place] [address] PCP - General Internal Medicine 05/24/22
--- OUTSIDE RECORDS SUMMARY | 2024-11-12 15:52 | XMS_ITS ---
Author Organization [facility] Address [address] [place] [address] Care Team Providers Care Charter And Tour Bus Driver Name Role Phone Teodoro NAYLOR, Rob Primary Care Provider Yocasta Brito Unavailable [phone] Vince Perez Unavailable [phone] Allergies Allergen (clinical drug ingredient) Drug/Non Drug [...] 12/27/2023 Encounters Encounter Location Date Provider Diagnosis [facility] [address] [address] 12/27/2023 Vince Perez Type 2 diabetes mellitus [...] Provider Name:Yocasta aguilera, 12/25/2024 09:00:00 AM, [address] [facility], [address], [place], [address], Procedure Notes * Category Sub-Category Detail Notes Keratoma Treatment Parring or Cutting o f Benign Hyperkeratotic Lesion(s) 67744 ( >4 Lesions) - The Benign hyperkeratotic [...] Vince PHAN SDOB:[birth year] (73 yo M)Acc No.[id number]:12/27/2023 Progress Note Patient:?Vince Phan Provider:?Vince Perez DPM :1950???Age:73 Y???Sex:Male Sina e:12/27/2023 Address:[address] [place], [place] [address] Pcp:Rob Valerio MD Subjective: * Chief Complaints: [...] ?no Exercise. ?Marital status: . 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 * Medications:?TakingGabapenti n Clopidogrel Bisulfate Farxiga Atorvastatin [...] Tablet 1 tablet Orally Once a dayVictoza TrMartin [facility]Excel[facility] Medication List reviewed and reconciled with the [...] Procedures:?Keratoma Treatment:?Parring or Cutting of Benign Hyperkeratotic Lesion(s)?41872 ( >4 Lesions) - The Benign hyperkeratotic lesions, as described above were pared, and/or cut utilizing a sterile #15 blade, tissue nippers, and/or dremel.?Nail Reduction:?Nail Reduction?Trimming of dystrophic nails performed to reduce/remove overall nail length and girth, by manual and electrical means with use of a nail nipper and/or dremel, to more viable healthy nail plate or bed tissue 6-10 (G0127).? * Procedure Codes:?45798 TRIM SKIN LESIONS, OVER 4, Modifiers: XS [...] DPM Date:? 024 Generated for Hugh luna/Joseph/eTlizitting on:?11/12/2024 03:52 PM EDT History and Physical Notes * [...] taking performed:: 1+ ORIENTED: person,place, and ti ar Ophthalmology Referral DIABETES EYE EXAM Diabetic Retinopa [...]
--- OUTSIDE RECORDS SUMMARY | 2024-11-12 15:52 | XMS_ITS ---
Author Organization [facility] Address [address] [place] [address] Care Team Providers Care Splitter Tender Name Role Phone Teodoro NAYLOR, Rob Primary Care Provider Yocasta Brito Unavailable [phone] Allergies Allergen (clinical drug ingredient) Drug/Non Drug [...] Ordered Date Performed Result Body Sit e 14478-UAAJHGT NAIL, 6 OR MORE 06/26/2024 N/A 30744-JPRT SKIN LESIONS, OVER 4 06/26/2024 N/A Encounters Encounter Location Date Provider Diagnosis [facility] [address] [address] 06/26/2024 Yocasta Mcginnisaker Other hammer toe(s) (acquired), [...] INSTRUCTIONS.pdf) Pending Test Test Name Order Date 37739-CIBCFYS NAIL, 6 OR MORE 06/26/2024 33486-MAEZ SKIN LESIONS, OVER 4 06/26/20 24 Next Appt Details Follow Up: 6 Months, Reason: Provider Name:Yocasta Rahelnima ale, 12/25/2024 09:00:00 AM, [address] [facility], [address], [place], [address], Procedure Notes * Category Sub-Category Detail Notes [...] a nail nipper and/or dremel-type tool grinder operator external, to a more viable healthy nail plate [...] to maintain effectiveness in symptomatic relief - 29433 Keratoma Treatment Parring or Cutting o f [...] tissue nippers, and/or power dremel instrumentation - 08803 Progress Notes * Vince PHAN SDOB:[birth year] (73 yo M)Acc No.[id number]:06/26/2024 Progress Note Patient:?SYLVESTERVince GRAFF Samantha Provider:?Yocasta Ashford DPM :1950???Age:73 Y???Sex:Male Sina e:06/26/2024 Address:[address] [place], [place] [address] Pcp:Rob Valerio MD Subjective: * Chief Complaints: [...] yes. ?Exercise: no. ?Marital status: . 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 * Medications:?TakingLantus Fa rxiga Atorvastatin Calcium [...] 2.?Type 2 diabetes mellitus with diabetic polyneuropathy?Procedure: 12506-NUOCFRY NAIL, 6 OR MORE ?Procedure: 53384-JOJE SKIN LESIONS, OVER 4 * Procedures:?Debride Nail [...] a nail nipper and/or dremel-type tool grinder operator external, to a more viable healthy nail plate [...] to maintain effectiveness in symptomatic relief - 06500.?Keratoma Treatment:?Parring or Cutting of Benign Hyperkeratotic Lesion(s)?(-57) [...] tissue nippers, and/or power dremel instrumentation - 23642.? * Procedure Codes:?60336 DEBRI DE NAIL, 6 OR MORE, Modifiers: XS 72875 TRIM SKIN LESIONS, OVER 4, Modifiers: XS [...] Ashford DPM Date:?08/27/2023 Generated for Hugh luna/Joseph/Melviitting on:?11/12/2024 03:51 PM EDT History and Physical [...]
== END 2024-11-12 14:55 | disposition home or self-care (01) ==
LOC: HO.HNS 13:20
PROVIDERS: PCP Internal Medicine; Visit Provider Physician Assistant
DX: M54.50 Low back pain, unspecified (principal); Z98.1 Arthrodesis status
CPT/HCPCS: 99024

== ENCOUNTER → 2024-11-12 13:20 | Outpatient (BNVA) | payer MEDICARE, OTHER, SELFPAY | PROVIDERS: PCP Internal Medicine; Visit Provider Physician Assistant | DX: M54.50 Low back pain, unspecified (principal); Z47.89 Encounter for other orthopedic aftercare; Z98.1 Arthrodesis status | CPT/HCPCS: 99212 ==

== ENCOUNTER 2024-11-14 07:28 | Outpatient (REF) | payer MEDICARE, OTHER, SELFPAY ==
--- NOTE | ~2024-11-14 | CT_ITS ---
EXAMINATION: CT LUMBAR SPINE WITHOUT CONTRAST CLINICAL INFORMATION: Low back pain, evaluate for postoperative complication status post lumbar fusion. COMPARISON: X-ray lumbar spine 09/27/2024. MRI lumbar spine 04/30/2022. TECHNIQUE: Spiral CT imaging of the lumbar spine performed in axial plane without contrast. Multiplanar reformatted images were constructed from the axial data set. This CT examination was performed using dose optimization techniques as appropriate, variously including the following: *Automated exposure control *Adjustment of mA and/or kV according to patient size (this includes techniques or standardized protocols for targeted exams where dose is matched to indication/reason for exam; i.e. extremities or head) *Use of iterative reconstruction technique FINDINGS: POSTOPERATIVE CHANGES: -There has been posterior fusion of L4-5 with transpedicular screws, posterior connecting rods, and intervening disc prosthesis. Hardware appears intact, well seated, without evidence of loosening or fracture. No complication evident. -There has been associated left hemilaminotomy at L4-5. CORONAL ALIGNMENT: -There is a minimal levoconvex scoliosis, apex at L4. SAGITTAL ALIGNMENT: - There is a normal lordosis. There is a 2 mm anterolisthesis of L4 on L5, unchanged. Sagittal alignment is otherwise anatomic without additional subluxation. LUMBOSACRAL JUNCTION: -Normal. There are 5 zls-vug-rekdyxz lumbar-type vertebral bodies. VERTEBRAL BODIES/BONE: -There are no fractures, compression deformities, or suspicious bone lesions. Normal bone mineralization. -Sclerosis of the endplates at T12-L1 with severe intervening disc space degeneration. -Normal facet alignment bilaterally. There are degenerative facet changes predominantly at L3-S1. DISCS: -Severe disc degeneration T12-L1. -Mild to moderate disc degeneration L1-L2. -Remaining nonoperative disc levels demonstrate only mild disc degeneration. SPINAL CANAL: -No abnormal developmental findings. AXIAL DISC SPACE IMAGES: (Within confines of modality limitations) T12-L1: Severe disc degeneration. No central canal narrowing. Mild bilateral hypertrophic degenerative facet changes present. No central canal narrowing. There is moderate left greater than right neural foraminal narrowing. L1-L2: Shallow disc osteophytic bulging. No central canal narrowing. Mild hypertrophic degenerative facet changes bilaterally. Mild to moderate right greater than left neural foraminal narrowing. L2-L3: Shallow disc osteophytic bulging. No central canal narrowing. Mild hypertrophic degenerative facet changes bilaterally. Mild to moderate bilateral neural foraminal narrowing. L3-L4: Shallow concentric disc osteophytic bulge. Posterior ligamentous thickening and hypertrophy. Mild to moderate bilateral facet hypertrophy. Mild to moderate central canal stenosis, and bilateral subarticular recess stenosis. There is moderate left greater than right neural foraminal stenosis. L4-L5: Largely obscured by streak artifact from hardware. No definite residual significant central canal narrowing. Cannot evaluate neural foramen well. L5-S1: No central canal narrowing. There is mild bilateral neural foraminal narrowing right greater than left. IMAGED SI JOINTS: -There is minimal degenerative arthritis bilaterally. Otherwise normal. PARAVERTEBRAL AND INCLUDED EXTRASPINAL SOFT TISSUES: -Heavy calcification of the aorta and iliac arteries without aneurysm. -There is diverticulosis of the sigmoid colon. -There are parapelvic cysts in the right greater than left kidneys. CT/CT lumbar spine wo IV con IMPRESSION: 1. Posterior fusion and discectomy L4-5 without hardware complication or loosening. 2. No acute lumbar bony abnormalities identified. 3. Multilevel spondylosis as detailed, mild to moderate in severity. No definite residual significant central canal stenosis at any level. Scattered neural foraminal narrowings as detailed. 4. See the body the report for ancillary findings. Electronically signed by: Han Alejandre MD 11/14/2024 08:34 AM EDT
--- OUTSIDE RECORDS SUMMARY | 2024-11-14 07:30 | XMS_ITS | Patient Health Record ---
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, accidental (unintentional), initial encounter (T56.0X1A) Active confirmed Problem Acquired hammer toe of right foot (4913869833604297) Other hammer toe(s) (acquired), right foot (M20.41) Active confirmed Problem Acquired hammer toe of left foot (7634027735925826) Other hammer toe(s) (acquired), left foot (M20.42) Active confirmed Problem Polyneuropathy due to type 2 diabetes mellitus (715089924) Type 2 diabetes mellitus with diabetic polyneuropathy (E11.42) Active confirmed Problem Primary gout (43655823) Idiopathic gout, 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) Active confirmed Problem Polyneuropathy due to diabetes mellitus type I (884443416) Type 1 diabetes mellitus with diabetic polyneuropathy (E10.42) Active confirmed Problem 4650433511302892 Acute gout of left foot, unspecified cause (M10.9) Active confirmed Vital Signs Height 5ft 7in in 06/26/2024 Weight 210 lbs 06/26/2024 BMI 32.89 kg/m2 06/26/2024 Procedures Procedure Date Ordered Date Performed Result Body Sit e 10322-ETQHASG NAIL, 6 OR MORE 06/26/2024 N/A 46546-UJDF SKIN LESIONS, OVER 4 06/26/2024 N/A Encounters Encounter Location Date Provider Diagnosis [address] [address] 12/27/2023 Vince Perez Type 2 diabetes mellitus with diabetic polyneuropathy E11.42 ; Pain in right foot M79.671 ; Other hammer toe(s) (acquired), left foot M20.42 ; Other hammer toe(s) (acquired), right foot M20.41 ; Other viral warts B07.8 ; Pain in left foot M79.672 ; Metatarsalgia, right foot M77.41 and Xerosis cutis L85.[address] [facility] [address] 06/26/2024 Yocasta Ashford Other hammer toe(s) (acquired), [...] X ray : Foot, right 3V 08/13/2019 13986-LEPUPSD NAIL, 6 OR MORE 06/26/2024 20772-DSJM SKIN LESIONS, OVER 4 06/26/20 24 44019-AICF SKIN LESIONS, OVER 4 06/04/20 21 91886-YIDI SKIN LESIONS, OVER 4 12/23/19 22 75775-QCOD SKIN LESIONS, OVER 4 12/02/19 21 29889-MZEQ SKIN LESIONS, OVER 4 08/22/19 20 84189-IFVP SKIN LESIONS, OVER 4 06/02/20 20 W8533-TZDFYKJE DYSTROPHIC NAILS ANY # D5229-GJYDVYQX DYSTROPHIC NAILS ANY # X7086-BMYKAMXY DYSTROPHIC NAILS ANY # N6706-KJQEBKEN DYSTROPHIC NAILS ANY # Next Appt Details Provider Name:Yocasta Augustin ale, 12/25/2024 09:00:00 AM, [address] [facility], [address], [place], [address], Insurance Providers Payer Name Payer Address Payer Phone Subscriber Number Group Number Insured Name Patient Relationship to Insured Coverage Start Date Coverage End Date Medicare National [employer] [address] [place] [address] [id number] Vince Cedillo Self - patient is the insured [facility] [address] [place] [address] [id number] Aga Cedillo Spouse - patient is the spouse of the insured Medical (General) History Medical History History ICD Code Arthritis Back,Hip,and Knee pain type II diabetes High blood pressure Measles Mumps Chicken pox Joint implants/screws Surgical History Surgery Date(Month/Year) hip replacement-Bilateral 1997 bone scan, back 06/21/22 quadruple bypass 02/2023
--- OUTSIDE RECORDS SUMMARY | 2024-11-14 07:30 | XMS_ITS | Clinical Summary ---
Author Organization [facility] it[facility] Address [address] [place] [address] Care Team Providers Care News Library Director Name Role Phone Unavailable Primary Care Provider [...]
--- OUTSIDE RECORDS SUMMARY | 2024-11-14 07:30 | XMS_ITS ---
[facility] Organization [facility] Address [address] [place] [address] Care Team Providers Care Cabin Cleaner Name Role Phone Teodoro NAYLOR, Rob Primary Care Provider Yocasta Brito Unavailable [phone] Vince Perez Unavailable [phone] Allergies Allergen (clinical drug ingredient) Drug/Non Drug [...] 06/21/2023 Encounters Encounter Location Date Provider Diagnosis [facility] [address] [address] 06/21/2023 Vince Perez Type 2 diabetes mellitus [...] Provider Name:Yocasta aguilera, 12/25/2024 09:00:00 AM, [address] [facility], [address], [place], [address], Procedure Notes * Category Sub-Category Detail Notes Keratoma Treatment Parring or Cutting o f Benign Hyperkeratotic Lesion(s) 61730 ( >4 Lesions) - The Benign hyperkeratotic [...] Vince PHAN SDOB:[birth year] (72 yo M)Acc No.[id number]:06/21/2023 Progress Note Patient:?Vince Phan Samantha Provider:?Vince Perez DPM :1950???Age:72 Y???Sex:Male Sina e:06/21/2023 Address:[address] [place], [place] [address] Pcp:Rob Valerio MD Subjective: * Chief Complaints: [...] yes. ?no Exercise. ?Marital status: . 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 * Medications:?TakingClopidogr el Bisulfate Extra Depth [...] Tablet 1 tablet Orally Once a dayVicto [facility] [place] Medication List reviewed [...] Procedures:?Keratoma Treatment:?Parring or Cutting of Benign Hyperkeratotic Lesion(s)?15473 ( >4 Lesions) - The Benign hyperkeratotic lesions, as described above were pared, and/or cut utilizing a sterile #15 blade, tissue nippers, and/or dremel.?Nail Reduction:?Nail Reduction?Trimming of dystrophic nails performed to reduce/remove overall nail length and girth, by manual and electrical means with use of a nail nipper and/or dremel, to more viable healthy nail plate or bed tissue 6-10 (G0127).? * Procedure Codes:?58043 TRIM SKIN LESIONS, OVER 4, Modifiers: XS G0127 TRIMMING DYSTROPHIC NAILS ANY #, Modifiers: XS * Follow Up:?6 Months * Images: * Sign off status: Completed true * Provider:?Vince Perez DPM Date:? 023 Generated for Hugh luna/Joseph/eTlizitting on:?11/14/2024 07:30 AM EDT History and Physical Notes * [...]
--- OUTSIDE RECORDS SUMMARY | 2024-11-14 07:31 | XMS_ITS ---
Author Organization [facility] Address [address] [place] [address] Care Team Providers Care Military Pay Clerk Name Role Phone Teodoro NAYLOR, Rob Primary Care Provider Yocasta Brito Unavailable [phone] Vince Perez Unavailable [phone] Allergies Allergen (clinical drug ingredient) Drug/Non Drug [...] 12/27/2023 Encounters Encounter Location Date Provider Diagnosis [facility] [address] [address] 12/27/2023 Vince Perez Type 2 diabetes mellitus [...] Provider Name:Yocasta aguilera, 12/25/2024 09:00:00 AM, [address] [facility], [address], [place], [address], Procedure Notes * Category Sub-Category Detail Notes Keratoma Treatment Parring or Cutting o f Benign Hyperkeratotic Lesion(s) 81102 ( >4 Lesions) - The Benign hyperkeratotic [...] Vince PHAN SDOB:[birth year] (73 yo M)Acc No.[id number]:12/27/2023 Progress Note Patient:?Vince Phan Provider:?Vince Perez DPM :1950???Age:73 Y???Sex:Male Sina e:12/27/2023 Address:[address] [place], [place] [id number] Pcp:Rob Valerio MD Subjective: * Chief Complaints: [...] ?no Exercise. ?Marital status: . 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 * Medications:?TakingGabapenti n Clopidogrel Bisulfate Farxiga Atorvastatin [...] Tablet 1 tablet Orally Once a dayVictoza TrThe [facility] Medication List reviewed and reconciled with the [...] Procedures:?Keratoma Treatment:?Parring or Cutting of Benign Hyperkeratotic Lesion(s)?67124 ( >4 Lesions) - The Benign hyperkeratotic lesions, as described above were pared, and/or cut utilizing a sterile #15 blade, tissue nippers, and/or dremel.?Nail Reduction:?Nail Reduction?Trimming of dystrophic nails performed to reduce/remove overall nail length and girth, by manual and electrical means with use of a nail nipper and/or dremel, to more viable healthy nail plate or bed tissue 6-10 (G0127).? * Procedure Codes:?01280 TRIM SKIN LESIONS, OVER 4, Modifiers: XS [...] DPM Date:? 024 Generated for Hugh luna/Joseph/eTlizitting on:?11/14/2024 07:31 AM EDT History and Physical Notes * [...] taking performed:: 1+ ORIENTED: person,place, and ti ks Ophthalmology Referral DIABETES EYE EXAM Diabetic Retinopa [...]
--- OUTSIDE RECORDS SUMMARY | 2024-11-14 07:31 | XMS_ITS | Clinical Summary ---
Author Organization [facility] Address [address] [place] [address] Care Team Providers Care Ase Master Mechanic Name Role Phone Rob Valerio MD Primary Care Provider [phone] Allergies Active Allergy Reactions Criticality Noted Date [...] age to complete this topic Insurance Medicare [facility] Medicare [facility] Care Teams Ase Master Mechanic Relationship Specialty Start Date End Date Rob Valerio MD [address] [place] [address] PCP - General Internal Medicine 05/24/22
--- OUTSIDE RECORDS SUMMARY | 2024-11-14 07:31 | XMS_ITS ---
Author [facility] Address [address] [place] [address] Care Team Providers Care Sterile Process Coordinator Name Role Phone Teodoro NAYLOR, Rob Primary Care Provider Yocasta Brito Unavailable [phone] Allergies Allergen (clinical drug ingredient) Drug/Non Drug [...] Ordered Date Performed Result Body Sit e 51088-AJIBWTF NAIL, 6 OR MORE 06/26/2024 N/A 40274-OJXM SKIN LESIONS, OVER 4 06/26/2024 N/A Encounters Encounter Location Date Provider Diagnosis [facility] [address] [address] 06/26/2024 Yocasta Mcginnisaker Other hammer toe(s) (acquired), [...] INSTRUCTIONS.pdf) Pending Test Test Name Order Date 35377-HNOHTIG NAIL, 6 OR MORE 06/26/2024 04829-DQVZ SKIN LESIONS, OVER 4 06/26/20 24 Next Appt Details Follow Up: 6 Months, Reason: Provider Name:Yocasta Rahelnima ale, 12/25/2024 09:00:00 AM, [address] [facility], [address], [place], [address], Procedure Notes * Category Sub-Category Detail Notes [...] use of a nail nipper and/or dremel-type lens grinder apprentice, to a more viable healthy nail plate [...] to maintain effectiveness in symptomatic relief - 91941 Keratoma Treatment Parring or Cutting o f [...] tissue nippers, and/or power dremel instrumentation - 35078 Progress Notes * Vince PHAN SDOB:[birth year] (73 yo M)Acc No.[id number]:06/26/2024 Progress Note Patient:?SYLVESTERVince GRAFF Samantha Provider:?Yocasta Ashford DPM :1950???Age:73 Y???Sex:Male Sina e:06/26/2024 Address:[address] [place], [place] [address] Pcp:Rob Valerio MD Subjective: * Chief Complaints: [...] no. ?Marital status: . 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 * Medications:?TakingLantus Fa rxiga Atorvastatin Calcium Allopurinol [...] 2.?Type 2 diabetes mellitus with diabetic polyneuropathy?Procedure: 25344-LSERMVI NAIL, 6 OR MORE ?Procedure: 29024-RQQY SKIN LESIONS, OVER 4 * Procedures:?Debride Nail [...] use of a nail nipper and/or dremel-type lens grinder apprentice, to a more viable healthy nail plate [...] to maintain effectiveness in symptomatic relief - 17606.?Keratoma Treatment:?Parring or Cutting of Benign Hyperkeratotic Lesion(s)?(-57) [...] tissue nippers, and/or power dremel instrumentation - 88950.? * Procedure Codes:?36924 DEBRI DE NAIL, 6 OR MORE, Modifiers: XS 71082 TRIM SKIN LESIONS, OVER 4, Modifiers: XS [...] Ashford DPM Date:?08/27/2023 Generated for Hugh luna/Joseph/Melviitting on:?11/14/2024 07:30 AM EDT History and Physical [...]
== END 2024-11-14 07:29 | disposition home or self-care (01) ==
LOC: HO.CT 07:28
PROVIDERS: PCP Internal Medicine; Visit Provider Physician Assistant
DX: M54.50 Low back pain, unspecified (principal)
CPT/HCPCS: 72131

== ENCOUNTER → 2024-11-14 07:30 | Outpatient (BNV) | payer MEDICARE, OTHER, SELFPAY | PROVIDERS: PCP Internal Medicine; Visit Provider Radiology Diagnostic Radiology | DX: M43.26 Fusion of spine, lumbar region (principal); M47.896 Other spondylosis, lumbar region | CPT/HCPCS: 72131 ==

== ENCOUNTER → 2024-11-18 14:35 | Outpatient (BNV) | payer MEDICARE, OTHER, SELFPAY | PROVIDERS: PCP Internal Medicine; Visit Provider Radiology Diagnostic Radiology | DX: M54.50 Low back pain, unspecified (principal) | CPT/HCPCS: 72148 ==

== ENCOUNTER 2024-11-18 14:38 | Outpatient (REF) | payer MEDICARE, OTHER, SELFPAY ==
--- NOTE | ~2024-11-18 | MR_ITS ---
CLINICAL HISTORY: Z98.1 - Arthrodesis status --- Additional Notes or Special Instructions: Severe low back pain s p lumbar fusion L4-5 on 09/05/2024. Pain across low back but most on the right side MR lumbar spine without gadolinium Comparison: CT/SR - CT LUMBAR SPINE WO IV CON - 11/14/24 07:41 EDT MR/SR - MR LUMBAR SPINE WO CON - 04/30/22 18:14 EDT Findings: Status post posterior metallic and interbody fusion at L4-L5. Appropriate alignment. No evidence of hardware failure. No acute fracture or pathologic bone lesion. There is an hemangioma within the L1 vertebral body and there are severe degenerative type endplate marrow changes at T12-L1. Cauda equina and conus medullaris within normal limits. T12-L1: Mild broad-based disc bulge. No significant central canal narrowing. Mild narrowing of the left neural foramen. L1-L2: No disc bulge or herniation. No significant central canal or neural foraminal narrowing. L2-L3: Very mild broad-based disc bulge. No significant central canal or neural foraminal narrowing. L3-L4: Very mild broad-based disc bulge. Moderate facet osteoarthritis and mild ligamentum flavum hypertrophy. Mild central canal narrowing. Mild narrowing of bilateral neural foramina. L4-L5: Small left neural foraminal disc osteophyte complex. Moderate facet osteoarthritis. Mild central canal narrowing. Mild narrowing of bilateral neural foramina. L5-S1: Very mild central disc bulge. Severe bilateral facet osteoarthritis. No significant central canal narrowing. Mild narrowing of bilateral neural foramina. Paraspinous musculature intact. There is edema of the posterior soft tissues most advanced at the surgical levels. There is no walled-off fluid collection. IMPRESSION: 1. Status post posterior metallic and interbody fusion at L4-L5 with an appropriate postoperative appearance. This document has been electronically signed by: Linda Cooper MD on 11/18/2024 16:40:10
== END 2024-11-18 14:39 | disposition home or self-care (01) ==
LOC: HO.MRI 14:38
PROVIDERS: PCP Internal Medicine; Visit Provider Physician Assistant
DX: Z98.1 Arthrodesis status (principal)
CPT/HCPCS: 72148

== ENCOUNTER 2024-11-19 09:03 | Outpatient (AMB) | payer MEDICARE, OTHER, SELFPAY ==
[2024-11-19 09:15] VITALS: BP 126/82; PULSE 62; O2SAT 97; BMI 36.1
--- NOTE | 2024-11-19 09:15 | A.OFFPC_ITS ---
Vital Signs 11/19/24 09:15 Height 5 ft 6 in Weight 223 lb 8 oz BMI 36.1 BP 126/82 Blood Pressure Location Lt brachial Position Sitting Pulse 62 Pulse Source Pulse Oximeter Pulse Oximetry (%) 97 Oxygen Delivery Method Room Air Intake Visit Reasons: Preop Winder Hand Required: No Accompanied by: Self / Same As Patient Allergies Sulfa (Sulfonamide Antibiotics) Allergy (Intermediate, Verified 11/19/24 09:46) ITCHING / HIVES sitagliptin [Januvia] Allergy (Unknown, Verified 11/19/24 09:46) Unknown-patient does not remember reaction metformin Adverse Reaction (Intermediate, Verified 11/19/24 09:46) Diarrhea Medication List - Last Reconciled 11/19/24 by JESSE Poon acetaminophen 325 mg PO QID PRN Admelog SoloStar U-100 Insulin (insulin lispro) 6 to 8 units 3 times a day with meals SQ per sliding scale subcutaneously 3 times a day; 30 days NS allopurinol 300 mg (3 x 100 mg) PO QAM aspirin (Adult Aspirin Regimen) 81 mg PO QAM atorvastatin 40 mg PO BEDTIME baclofen 10 mg PO TID PRN Basaglar KwikPen U-100 Insulin (insulin glargine) 36 units (0.36 mL) subcut BEDTIME NS blood-glucose sensor (Dexcom G6 Sensor device) As directed blood-glucose transmitter (Dexcom G6 Transmitter device) As directed blood-glucose,terrazzo finisher helper,cont (Dexcom G6 Resident Services Manager) As directed cholecalciferol (vitamin D3) 25 mcg PO DAILY 90 days cyanocobalamin (vitamin B-12) (Vitamin B-12) 2,500 mcg sublingual Q2D dapagliflozin propanediol (Farxiga) 5 mg PO QAM lidocaine 5% 1 patch topical DAILY lisinopril 40 mg PO QAM magnesium oxide 800 mg PO BEDTIME metoprolol succinate ER 50 mg (2 x 25 mg) PO QAM milk thist seed-artichoke leaf 150-300 mg (Artichoke Premium Extract) 1 cap PO DAILY oxycodone Take 1-2 tablets every 4-6 hours. Partial Fill upon patient request. pen needle, diabetic (BD Ultra-Fine Mini Pen Needle) 4 times per day semaglutide 2 mg subcut FR@0900 tizanidine 4 mg PO BEDTIME PRN 90 days Tobacco use date assessed: 11/19/24 Fall risk assessment: No Falls in past year Last assessed Fall Risk: 11/19/24 Dental Screening Dental Screen Date: 11/19/24 Did you have a dental visit in the last 12 months?: Yes Did you have a dental problem in the last 6 months where you did not have access to dental care?: No Was dental information given to patient?: Patient has dentist HPI Preop HPI Details The patient is a 74-year-old male, patient of Dr. Valerio, last seen in office on 10/31/2024 The patient is presenting with a need for pre-operative evaluation for cataract surgery. He reports longstanding cataracts significantly impacting vision, described as difficulty reading and a persistent feeling of dirty lenses. The plan involves surgery for the left eye on December 03 and the right eye on December 17. Additionally, the patient reports ongoing chronic pain-related issues post multiple surgeries including hip replacements, a quadruple bypass, rotator cuff repair, and ineffective back surgery from August, with pain management complicated by chronic kidney disease. Blood pressure concerns correlate with pain despite recent readings indicating reasonable control. He has diabetes mellitus, managed with GLP-1 agonists, which requiring stopping a week before surgery and Farxiga needs to be stopped three days before surgery. Hold long- acting insulin the night before surgery. Surgeon/location: Artemio Hubbard at [facility] Anesthesia: MAC. The patient reports multiple surgery using general anesthesia without any issues. The patient will be getting a less potent anesthesia for this procedure. The patient denies any post surgery hypothermia or clotting disorder and he is not on any blood thinners. The patient is on an aspirin 81 mg daily, which is low risk and could be continued. Medical history significant for chronic kidney disease stage III, CAD, HTN, and Elevated liver enzymes The patient kidney has been stable, blood pressure within goal, liver enzymes stable with AST slightly elevated the last time it was checked. The patient denies chest pain, shortness of breath, heart palpitation and dizziness [facility] Medical History Skin cancer Back pain CAD (coronary artery disease) Allergic rhinitis Obesity (BMI 30-39.9) Depression Carpal tunnel syndrome on both sides Lumbar degenerative disc disease Vitamin D deficiency Elevated liver enzymes Gout Pure hypercholesterolemia Diabetes mellitus Benign essential hypertension Surgical History S/P CABG x 4 S/P cardiac catheterization Hx of colonoscopy Status post carpal tunnel release (~06/19/20) History of excision of lesion History of carpal tunnel release History of bilateral hip arthroplasty Family History Father Medical history unknown Mother Diabetes Social History Household Members: Spouse Housing: House Are you a primary palliative care physician to a significant other at home: No Do you presently have visiting nurse or other home services: No Alcohol intake: former Patient Tobacco Use Status: Former Tobacco user Tobacco use type: Cigarette Years Smoked: 15 e-Cigarette/Vaping Use: Never Used Second Hand Smoke Exposure: No service: No Current occupational status: employed Cognitive needs: No Hearing needs: No Vision needs: Yes (Glasses) Questionnaire PHQ-9 Over the last 2 weeks, how often have you been bothered by any of the following problems? 1. Little interest or pleasure in doing things: not at all 2. Feeling down, depressed, or hopeless: not at all 3. Trouble falling or staying asleep, or sleeping too much: not at all 4. Feeling tired or having little energy: not at all 5. Poor appetite or overeating: not at all 6. Feeling bad about yourself - or that you are a failure or have let yourself or your family down: not at all 7. Trouble concentrating on things, such as reading the newspaper or watching television: not at all 8. Moving or speaking so slowly that other people could have noticed. Or the opposite - being so fidgety or restless that you have been moving around a lot more than usual: not at all 9. Thoughts that you would be better off or of hurting yourself in some way: not at all Total score: 0 Depression Screening Interpretation: Negative Depression Screening Done: Yes Source: Developed by Drs. Rigoberto Iqbal, Celestina Murray, Tyrone Wong and colleagues, with an educational farida from [employer]. Thrive Questionnaire Date Thrive assessed: 11/19/24 I am a: Patient What is your living situation today?: I have a steady place to live Within the past 12 months, did the food you bought not last and you didn't have the money to get more?: Never true Within the past 12 months, did you worry whether your food would run out before you got money to buy more?: Never true Do you have trouble paying for medicines?: No Do you have trouble getting transportation to medical appointments?: No Do you have trouble paying your heating and electricity bill?: No Do you have trouble taking care of your child, family member or friend?: No Do you have trouble with day-to-day activities such as bathing, preparing meals, shopping, managing finances, etc.?: No Are you currently unemployed and looking for a job?: No Are you interested in more education?: No Please select the resources that you would like help with: None Currently or been in a relationship where the following occur: No concerns reported THRIVE Score: 0 AUDIT C Alcohol Use Questionnaire (AUDIT-C) 1. How often do you have a drink containing alcohol?: Never 3. How often do you have six or more drinks on one occasion?: Never Total Score: 0 Score Reviewed/Action Taken: Yes RIO-7 AMB Questionnaire RIO-7 Date RIO - 7 assessed: 11/19/24 Feeling nervous, anxious, or on edge: 0 = Not at all Not being able to stop or control worryin = Not at all Worrying too much about different things: 0 = Not at all Trouble relaxin = Not at all Being so restless that it is hard to sit still: 0 = Not at all Becoming easily annoyed or irritable: 0 = Not at all Feeling afraid as if something awful might happen: 0 = Not at all Total RIO-7 score (0-4 normal; 5-9 mild; 10-14 moderate; 15-21 severe): 0 Source: Developed by Drs. Rigoberto Iqbal, Ceelstina Murray, Tyrone Wong and colleagues, with an educational farida from [employer]. Review of Systems Const Denies headache(s) Eyes Reports change in vision, Reports decreased night vision, Denies loss of vision and Reports requires corrective lenses ENT Denies vertigo, Denies dizziness, Denies headache(s) and Denies sore throat Card Denies chest pain, Denies leg edema and Denies lightheadedness Resp Denies cough, Denies hemoptysis and Denies wheezing GI Denies abdominal pain, Denies melena, Denies constipation, Denies diarrhea and Denies vomiting Denies dysuria, Denies urinary frequency and Denies urinary urgency Musc Reports back pain (Chronic-increase with prolonged walking), Denies arthralgias, Denies joint swelling, Denies numbness and Denies tingling Neuro Denies Abnormal speech present, Denies behavioral changes, Denies vertigo, Denies dizziness, Denies headache(s), Denies loss of vision, Denies memory loss, Denies numbness and Denies tingling Psych Denies anxiety, Denies behavioral changes, Denies depression, Denies memory loss and Denies panic attacks Charles/Lymph Denies easy bleeding and Denies easy bruising Aller/Immun Denies wheezing Physical exam (Primary Care) Vital Signs: Last Vital Signs Pulse 62 11/19/24 09:15 BP 126/82 11/19/24 09:15 Pulse Ox 97 11/19/24 09:15 Oxygen Delivery Method Room Air 11/19/24 09:15 BMI result Body Mass Index 36.1 Tobacco/Smoking Status: Tobacco use Status Tobacco use date assessed 11/19/24 11/19/24 09:16 Patient Tobacco Use Status Former Tobacco user 11/19/24 09:16 Tobacco use type Cigarette 11/19/24 09:16 e-Cigarette/Vaping Use Never Used 11/19/24 09:16 PHQ-9: PHQ-9 Score PHQ-9: Total score 0 11/20/24 13:32 Depression Screening Interpretation: Negative Thrive Assessment: Date of Thrive Assessment Date Thrive assessed 11/19/24 11/19/24 09:16 Currently or been in a relationship where the following occur: No concerns reported Const General: healthy appearing, no acute distress, alert and awake Nutritional Appearance: well nourished Orientation/consciousness: oriented to person, oriented to place and oriented to time HENMT Ears: external ears normal General nose exam: Normal external nose present Eyes Conjunctivae: conjunctivae normal Sclerae: sclerae normal Pupils: Equal, round and reactive pupils present Neck Neck: Yes no lymphadenopathy and Yes no JVD Thyroid: Thyroid normal Carotids: no bruits Resp Effort & Inspection: normal respiratory effort and not tachypneic Auscultation: no crackles, no rales, no rhonchi and no wheezes Cardio Rate: regular rate Rhythm: regular rhythm Heart sounds: no murmurs and normal S1 and S2 GI Palpation (GI): Soft to palpation, nontender, no hepatomegaly and no splenomegaly Auscultation: normal bowel sounds Back/Spine/Pelvis Thoracic/Lumbar Spine: lumbar spinal tenderness Neuro General: oriented to person, oriented to place and oriented to time Cranial nerves: Yes Equal, round and reactive pupils present Speech: No Abnormal speech present Gait exam (Neuro): Normal gait present Extrem Right upper extremity: full ROM Left upper extremity: full ROM Right lower extremity: full ROM; no edema Left lower extremity: full ROM; no edema Psych Mental Status: mental status grossly normal Speech and movement: Normal speech and movement present Affect: normal affect Attitude: cooperative Thought process: Normal thought process present Results Reviewed Results Reviewed: Laboratory Tests 06/28/24 10/24/24 10/24/24 07:42 09:20 09:28 WBC 7.9 RBC 4.77 Hgb 14.0 Hct 43.1 MCV 90.4 MCH 29.4 MCHC 32.5 RDW 14.8 Plt Count 172 Sodium 139 Potassium 4.8 Chloride 109 H Carbon Dioxide 21 L Anion Gap 14 BUN 40 H Creatinine 1.25 Estimated GFR 57 Fasting Glucose 88 Estimat Average Glucose 114 Hemoglobin A1c % 5.6 Magnesium AST 40 H ALT 31 Alkaline Phosphatase 84 Triglycerides 76 Cholesterol 115 LDL Cholesterol, Calc 58 HDL Cholesterol 42 25-OH Vitamin D Total 43.9 TSH Urine Color Yellow Urine Appearance Clear Urine pH 5.5 Ur Specific [place] 1.015 Urine Protein 30 (1+) H Urine Glucose (UA) 250 H Urine Ketones Negative Urine Blood Negative Urine Nitrite Negative Ur Leukocyte Esterase Negative Urine RBC 0-2 Urine WBC 0-5 Ur Squamous Epith Cells 0-2 Urine Bacteria None Seen Hyaline Casts 0-2 Urine Creatinine 79.23 Urine Microalbumin 170.0 Microalb/Creat Ratio 214.5 H 10/26/24 09:46 WBC RBC Hgb Hct MCV MCH MCHC RDW Plt Count Sodium Potassium Chloride Carbon Dioxide Anion Gap BUN Creatinine Estimated GFR Fasting Glucose Estimat Average Glucose Hemoglobin A1c % Magnesium 1.6 AST ALT Alkaline Phosphatase Triglycerides 97 Cholesterol 132 LDL Cholesterol, Calc 61 HDL Cholesterol 52 25-OH Vitamin D Total 33.5 TSH 0.64 Urine Color Urine Appearance Urine pH Ur Specific [place] Urine Protein Urine Glucose (UA) Urine Ketones Urine Blood Urine Nitrite Ur Leukocyte Esterase Urine RBC Urine WBC Ur Squamous Epith Cells Urine Bacteria Hyaline Casts Urine Creatinine Urine Microalbumin Microalb/Creat Ratio Coding Level of Care Code Est Pt Level 4 (58774) Diagnoses Preoperative clearance Z01.818 Stage 3a chronic kidney disease N18.31 Chronic kidney disease stage 3 subtype: stage 3a (GFR 45-59) Spondylolisthesis, lumbar region M43.16 Coronary artery disease involving marshall coronary artery of marshall heart without angina pectoris I25.10 Coronary Disease-Associated Artery/Lesion type: marshall artery [place] vs. transplanted heart: marshall heart Associated angina: without angina Obesity (BMI 30-39.9) E66.9 Elevated liver enzymes R74.8 Type 2 diabetes mellitus without complication, with long-term current use of insulin E11.9; Z79.4 Diabetes mellitus type: type 2 Diabetes mellitus roasterman insulin use: with jail use Diabetes mellitus complication status: without complication Benign essential hypertension I10 Time Spent (min) 41 Assessment & Plan Assessment & Plan (1) Preoperative clearance: Code(s): Z01.818 - Encounter for other preprocedural examination Category: Medical (2) CKD (chronic kidney disease) stage 3, GFR 30-59 ml/min: Code(s): N18.30 - Chronic kidney disease, stage 3 unspecified Category: Medical Qualifiers: Chronic kidney disease stage 3 subtype: stage 3a (GFR 45-59) Qualified Code(s): N18.31 - Chronic kidney disease, stage 3a (3) Spondylolisthesis, lumbar region: Code(s): M43.16 - Spondylolisthesis, lumbar region Category: Medical (4) CAD (coronary artery disease): Code(s): I25.10 - Atherosclerotic heart disease of marshall coronary artery without angina pectoris Category: Medical Qualifiers: Coronary Disease-Associated Artery/Lesion type: marshall artery [place] vs. transplanted heart: marshall heart Associated angina: without angina Qualified Code(s): I25.10 - Atherosclerotic heart disease of marshall coronary artery without angina pectoris (5) Obesity (BMI 30-39.9): Code(s): E66.9 - Obesity, unspecified Category: Medical (6) Elevated liver enzymes: Code(s): R74.8 - Abnormal levels of other serum enzymes Category: Medical (7) Diabetes mellitus: Comment: type 2-dx ~ age 52-has glucose sensor-usually ~ 110 (A1C on 06/28/24 was 5.6%) Code(s): E11.9 - Type 2 diabetes mellitus without complications Category: Medical Qualifiers: Diabetes mellitus type: type 2 Diabetes mellitus roasterman insulin use: with roasterman use Diabetes mellitus complication status: without complication Qualified Code(s): E11.9 - Type 2 diabetes mellitus without complications; Z79.4 - long term care social worker (current) use of insulin (8) Benign essential hypertension: Code(s): I10 - Essential (primary) hypertension Category: Medical Plan I addressed the plan for pre-operative management of cataract surgery, emphasizing the protocols of holding farxiga and GLP-1 agonists. The patient's chronic conditions, including hypertension and diabetes, are under control, with chronic pain discussed and potential alternative therapies reviewed. Surgical risks and preparation steps were reviewed. Hold long acting insulin the night before surgery to prevent hypoglycemia during your fasting hours. Other medications are safe take with sips of water unless specified by your surgeon or anesthesia. Regarding preop clearance, the patient is at acceptable risk for proposed surgery. Reviewed with the patient that no surgery is completely free of risk and that this examination is to assist the surgeon in reviewing informed consent. Patient was informed and verbally consented to the use of an ambient scribe for clinic note documentation during this visit.
--- OUTSIDE RECORDS SUMMARY | 2024-11-19 09:35 | XMS_ITS | Clinical Summary ---
Author Organization [facility] ity Address [address] [place] [address] Care Team Providers Care Hole Digger Name Role Phone Unavailable Primary Care Provider [...]
--- OUTSIDE RECORDS SUMMARY | 2024-11-19 09:35 | XMS_ITS ---
[facility] Address [address] [place] [address] Care Team Providers Care Rotary Swaging Machine Operator Name Role Phone Teodoro NAYLOR, Rob Primary Care Provider Yocasta Brito Unavailable [phone] Vince Perez Unavailable [phone] Allergies Allergen (clinical drug ingredient) Drug/Non Drug [...] 06/21/2023 Encounters Encounter Location Date Provider Diagnosis [facility] [address] [address] 06/21/2023 Vince Perez Type 2 diabetes mellitus [...] Provider Name:Yocasta aguilera, 12/25/2024 09:00:00 AM, [address] [facility], [address], [address], Procedure Notes * Category Sub-Category Detail Notes Keratoma Treatment Parring or Cutting o f Benign Hyperkeratotic Lesion(s) 99360 ( >4 Lesions) - The Benign hyperkeratotic [...] Vince PHAN SDOB:[birth year] (72 yo M)Acc No.[id number]:06/21/2023 Progress Note Patient:?Vince Phan Samantha Provider:?Vince Perez DPM :1950???Age:72 Y???Sex:Male Sina e:06/21/2023 Address:[address] [place], [place] [id number] Pcp:Rob Valerio MD Subjective: * Chief Complaints: [...] Exercise. ?Marital status: . 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 * Medications:?TakingClopidogr el Bisulfate Extra Depth Diabetic [...] Tablet 1 tablet Orally Once a dayVicto [facility] [place] Medication List reviewed [...] Procedures:?Keratoma Treatment:?Parring or Cutting of Benign Hyperkeratotic Lesion(s)?79107 ( >4 Lesions) - The Benign hyperkeratotic lesions, as described above were pared, and/or cut utilizing a sterile #15 blade, tissue nippers, and/or dremel.?Nail Reduction:?Nail Reduction?Trimming of dystrophic nails performed to reduce/remove overall nail length and girth, by manual and electrical means with use of a nail nipper and/or dremel, to more viable healthy nail plate or bed tissue 6-10 (G0127).? * Procedure Codes:?57551 TRIM SKIN LESIONS, OVER 4, Modifiers: XS G0127 TRIMMING DYSTROPHIC NAILS ANY #, Modifiers: XS * Follow Up:?6 Months * Images: * Sign off status: Completed true * Provider:?Vince Perez DPM Date:? 023 Generated for Hugh luna/Joseph/eTestephaniasmitting on:?11/19/2024 09:35 AM EDT History and Physical Notes * [...]
--- OUTSIDE RECORDS SUMMARY | 2024-11-19 09:36 | XMS_ITS | Patient Health Record ---
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, accidental (unintentional), initial encounter (T56.0X1A) Active confirmed Problem Acquired hammer toe of right foot (5670081338561068) Other hammer toe(s) (acquired), right foot (M20.41) Active confirmed Problem Acquired hammer toe of left foot (3514720413594301) Other hammer toe(s) (acquired), left foot (M20.42) Active confirmed Problem Polyneuropathy due to type 2 diabetes mellitus (288108208) Type 2 diabetes mellitus with diabetic polyneuropathy (E11.42) Active confirmed Problem Primary gout (82265675) Idiopathic gout, 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) Active confirmed Problem Polyneuropathy due to diabetes mellitus type I (136813961) Type 1 diabetes mellitus with diabetic polyneuropathy (E10.42) Active confirmed Problem 9594152185028541 Acute gout of left foot, unspecified cause (M10.9) Active confirmed Vital Signs Height 5ft 7in in 06/26/2024 Weight 210 lbs 06/26/2024 BMI 32.89 kg/m2 06/26/2024 Procedures Procedure Date Ordered Date Performed Result Body Sit e 10216-CYGXVHN NAIL, 6 OR MORE 06/26/2024 N/A 21212-EJHY SKIN LESIONS, OVER 4 06/26/2024 N/A Encounters Encounter Location Date Provider Diagnosis [address] [address] 12/27/2023 Vince Perez Type 2 diabetes mellitus with diabetic polyneuropathy E11.42 ; Pain in right foot M79.671 ; Other hammer toe(s) (acquired), left foot M20.42 ; Other hammer toe(s) (acquired), right foot M20.41 ; Other viral warts B07.8 ; Pain in left foot M79.672 ; Metatarsalgia, right foot M77.41 and Xerosis cutis L85.[address] [facility] [address] 06/26/2024 Yocasta Ashford Other hammer toe(s) (acquired), [...] X ray : Foot, right 3V 08/13/2019 53721-JHWJCNZ NAIL, 6 OR MORE 06/26/2024 37135-THAU SKIN LESIONS, OVER 4 06/26/20 24 51375-KWOL SKIN LESIONS, OVER 4 06/04/20 21 25082-BVNT SKIN LESIONS, OVER 4 12/23/19 22 05243-OCKX SKIN LESIONS, OVER 4 12/02/19 21 11156-LPYP SKIN LESIONS, OVER 4 08/22/19 20 51240-YFVB SKIN LESIONS, OVER 4 06/02/20 20 W5824-UWUJCACM DYSTROPHIC NAILS ANY # S8833-DUHKHULB DYSTROPHIC NAILS ANY # V5062-NSXHQUEF DYSTROPHIC NAILS ANY # D7297-AWGSUUJN DYSTROPHIC NAILS ANY # Next Appt Details Provider Name:Yocasta Augustin ale, 12/25/2024 09:00:00 AM, [address] [facility], [address], [place], [address], Insurance Providers Payer Name Payer Address Payer Phone Subscriber Number Group Number Insured Name Patient Relationship to Insured Coverage Start Date Coverage End Date Medicare National [employer] [address] [place] [address] [id number] Vince Cedillo Self - patient is the insured [facility] [address] [place] [address] [phone] [id number] Aga Cedillo Spouse - patient is the spouse of the insured Medical (General) History Medical History History ICD Code Arthritis Back,Hip,and Knee pain type II diabetes High blood pressure Measles Mumps Chicken pox Joint implants/screws Surgical History Surgery Date(Month/Year) hip replacement-Bilateral 1997 bone scan, back 06/21/22 quadruple bypass 02/2023
--- OUTSIDE RECORDS SUMMARY | 2024-11-19 09:36 | XMS_ITS ---
[facility] Organization [facility] Address [address] [place] [address] Care Team Providers Care Stove Bottom Worker Name Role Phone Teodoro NAYLOR, Rob Primary Care Provider Yocasta Brito Unavailable [phone] Vince Perez Unavailable [phone] Allergies Allergen (clinical drug ingredient) Drug/Non Drug [...] 12/27/2023 Encounters Encounter Location Date Provider Diagnosis [facility] [address] [address] 12/27/2023 Vince Perez Type 2 diabetes mellitus [...] Provider Name:Yocasta aguilera, 12/25/2024 09:00:00 AM, [address] [facility], [address], [place], [address], Procedure Notes * Category Sub-Category Detail Notes Keratoma Treatment Parring or Cutting o f Benign Hyperkeratotic Lesion(s) 94429 ( >4 Lesions) - The Benign hyperkeratotic [...] Vince PHAN SDOB:[birth year] (73 yo M)Acc No.[id number]:12/27/2023 Progress Note Patient:?Vince Phan Provider:?Vince Perez DPM :1950???Age:73 Y???Sex:Male Sina e:12/27/2023 Address:[address] [place], [place] [id number] Pcp:Rob Valerio MD Subjective: * Chief Complaints: [...] ?no Exercise. ?Marital status: . 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 * Medications:?TakingGabapenti n Clopidogrel Bisulfate Farxiga Atorvastatin [...] tablet Orally Once a dayVictoza [facility] Medication List reviewed and reconciled with the [...] Procedures:?Keratoma Treatment:?Parring or Cutting of Benign Hyperkeratotic Lesion(s)?96909 ( >4 Lesions) - The Benign hyperkeratotic lesions, as described above were pared, and/or cut utilizing a sterile #15 blade, tissue nippers, and/or dremel.?Nail Reduction:?Nail Reduction?Trimming of dystrophic nails performed to reduce/remove overall nail length and girth, by manual and electrical means with use of a nail nipper and/or dremel, to more viable healthy nail plate or bed tissue 6-10 (G0127).? * Procedure Codes:?49290 TRIM SKIN LESIONS, OVER 4, Modifiers: XS [...] Perez DPM Date:? 024 Generated for Hugh luna/Joseph/Willy on:?11/19/2024 09:36 AM EDT History and Physical Notes * [...] taking performed:: 1+ ORIENTED: person,place, and ti pa Ophthalmology Referral DIABETES EYE EXAM Diabetic Retinopa [...]
--- OUTSIDE RECORDS SUMMARY | 2024-11-19 09:36 | XMS_ITS | Clinical Summary ---
Author Organization [facility] Facility Address [address] [place] [address] Care Team Providers Care Shipper/Receiver Name Role Phone Rob Valerio MD Primary Care Provider [phone] Allergies Active Allergy Reactions Criticality Noted Date [...] age to complete this topic Insurance Medicare [facility] Medicare [facility] Care Teams Shipper/Receiver Relationship Specialty Start Date End Date Rob Valerio MD [address] [place] [address] PCP - General Internal Medicine 05/24/22
--- OUTSIDE RECORDS SUMMARY | 2024-11-19 09:36 | XMS_ITS ---
[facility] Organization [facility] Address [address] [place] [address] Care Team Providers Care Business Technology Architect Name Role Phone Teodoro NAYLOR, Rob Primary Care Provider Yocasta Brito Unavailable [phone] Allergies Allergen (clinical drug ingredient) Drug/Non Drug [...] Ordered Date Performed Result Body Sit e 99787-KBZDLBU NAIL, 6 OR MORE 06/26/2024 N/A 02768-OXNO SKIN LESIONS, OVER 4 06/26/2024 N/A Encounters Encounter Location Date Provider Diagnosis [facility] [address] [address] 06/26/2024 Yocasta Mcginnisaker Other hammer toe(s) (acquired), [...] INSTRUCTIONS.pdf) Pending Test Test Name Order Date 56617-IZTCRCD NAIL, 6 OR MORE 06/26/2024 00546-DHGI SKIN LESIONS, OVER 4 06/26/20 24 Next Appt Details Follow Up: 6 Months, Reason: Provider Name:Yocasta Rahelnima ale, 12/25/2024 09:00:00 AM, [address] [facility], [address], [place], [address], Procedure Notes * Category Sub-Category Detail Notes [...] use of a nail nipper and/or dremel-type grinder operator automatic, to a more viable healthy nail plate [...] to maintain effectiveness in symptomatic relief - 31085 Keratoma Treatment Parring or Cutting o f [...] tissue nippers, and/or power dremel instrumentation - 62145 Progress Notes * Vince PHAN SDOB:[birth year] (73 yo M)Acc No.[id number]:06/26/2024 Progress Note Patient:?SYLVESTERVince GRAFF Samantha Provider:?Yocasta Ashford DPM :1950???Age:73 Y???Sex:Male Sina e:06/26/2024 Address:[address] [place], [place] [id number] Pcp:Rob Valerio MD Subjective: * Chief Complaints: [...] yes. ?Exercise: no. ?Marital status: . 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 * Medications:?TakingLantus Fa rxiga Atorvastatin Calcium [...] 2.?Type 2 diabetes mellitus with diabetic polyneuropathy?Procedure: 62136-UKVRFYA NAIL, 6 OR MORE ?Procedure: 74485-BCLC SKIN LESIONS, OVER 4 * Procedures:?Debride Nail [...] use of a nail nipper and/or dremel-type grinder operator automatic, to a more viable healthy nail plate [...] to maintain effectiveness in symptomatic relief - 16845.?Keratoma Treatment:?Parring or Cutting of Benign Hyperkeratotic Lesion(s)?(-57) [...] tissue nippers, and/or power dremel instrumentation - 78125.? * Procedure Codes:?57233 DEBRI DE NAIL, 6 OR MORE, Modifiers: XS 62593 TRIM SKIN LESIONS, OVER 4, Modifiers: XS [...] Ashford DPM Date:?08/27/2023 Generated for Hugh luna/Joseph/Melviitting on:?11/19/2024 09:36 AM EDT History and Physical [...]
== END 2024-11-19 10:10 | disposition home or self-care (01) ==
LOC: HO.HMCH 09:03
PROVIDERS: PCP Internal Medicine
DX: I12.9 Hypertensive chronic kidney disease with stage 1 through stage 4 chronic kidney disease, or unspecified chronic kidney disease (principal); E11.9 Type 2 diabetes mellitus without complications; N18.31 Chronic kidney disease, stage 3a; Z79.4 Long term (current) use of insulin; E66.9 Obesity, unspecified; Z68.36 Body mass index [BMI] 36.0-36.9, adult; Z01.818 Encounter for other preprocedural examination; R74.8 Abnormal levels of other serum enzymes; M43.16 Spondylolisthesis, lumbar region; I25.10 Atherosclerotic heart disease of native coronary artery without angina pectoris

== ENCOUNTER → 2024-11-19 09:03 | Outpatient (BNVA) | payer MEDICARE, OTHER, SELFPAY | PROVIDERS: PCP Internal Medicine | DX: Z01.818 Encounter for other preprocedural examination (principal); I12.9 Hypertensive chronic kidney disease with stage 1 through stage 4 chronic kidney disease, or unspecified chronic kidney disease; E11.22 Type 2 diabetes mellitus with diabetic chronic kidney disease; N18.31 Chronic kidney disease, stage 3a; I25.10 Atherosclerotic heart disease of native coronary artery without angina pectoris; E66.9 Obesity, unspecified; Z68.31 Body mass index [BMI] 31.0-31.9, adult; R74.8 Abnormal levels of other serum enzymes; Z79.4 Long term (current) use of insulin; Z71.3 Dietary counseling and surveillance | CPT/HCPCS: 99212 ==

== ENCOUNTER 2024-12-03 05:49 | Day surgery (SDC) | payer MEDICARE, OTHER, SELFPAY ==
--- OUTSIDE RECORDS SUMMARY | 2024-09-27 10:21 | XMS_ITS ---
Author Organization [facility] Address [address] [place] [address] Care Team Providers Care Welding Lead Burner Name Role Phone Teodoro NAYLOR, Rob Primary Care Provider Yocasta Brito Unavailable [phone] Vince Perez Unavailable [phone] Allergies Allergen (clinical drug ingredient) Drug/Non Drug Allergy documented on EMR Reaction Allergy Type Onset Date Status Bactrim DS Rash Drug Allergy Active REASON [...] 06/21/2023 Encounters Encounter Location Date Provider Diagnosis [facility] [address] [address] 06/21/2023 Vince Perez Type 2 diabetes mellitus [...] Provider Name:Yocasta aguilera, 12/25/2024 09:00:00 AM, [address] [facility], [address], [address], Procedure Notes * Category Sub-Category Detail Notes Keratoma Treatment Parring or Cutting o f Benign Hyperkeratotic Lesion(s) 87273 ( >4 Lesions) - The Benign hyperkeratotic [...] Vince PHAN SDOB:[birth year] (72 yo M)Acc No.[id number]:06/21/2023 Progress Note Patient:?Vince Phan Provider:Jerman Perez DPM :1950???Age:72 Y???Sex:Male Sina e:06/21/2023 Address:[address] [place], [place] [address] Pcp:Rob Valerio MD Subjective: * Chief Complaints: [...] yes. ?no Exercise. ?Marital status: . 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 * Medications:?TakingClopidogr el Bisulfate Extra Depth [...] tablet Orally Once a dayVicto [facility] [place] [place] Medication List reviewed and [...] and in no acute distress.?ORIENTED:?person,place, and time.?FOOT EXAM:?Lower Extremity Neurological Exam performed:?Yes ?Visual exam of foot performed:?Yes ?Date?12/21/2022 ?Sensory testing performed:?sensations diminished ?Pedal pulse taking performed:?1+?Neurological: ?SENSORY:?Neurological exam demonstrates, reduced vibration sensation, at Forefoot, at Midfoot, B/L--right has more sensory loss.?TINEL'S COMPRESSION:?Negative tarsal tunnel, sang pedis, and medial calcaneal nerves B/L.?BABINSKI REFLEX:?absent.?Neuroma Pain: ?PALPATION:?No interspace pain noted on palpation.?Vascular: ?DP PULSES:? 1/4, B/L.?PT PULSES:? 07/21, B/L.?CAPILLARY FILL TIME:?3 secs. per digit, B/L.?EDEMA:? 1/, Right.?TELANGECTASIA:?absent.?VARICOSITIES:?absent.?Dermatologic: ?SKIN FINDINGS:?Skin exam reveals Keratotic lesion(s) [...] no over, nor underlapping.?Ophthalmology Referral: ?DIABETES EYE EXAM?Diabetic Retinopathy Screening:?Yes?Nails: ?NAILS are:? Elongated, overgrown, dystrophic, lytic, greater [...] Procedures:?Keratoma Treatment:?Parring or Cutting of Benign Hyperkeratotic Lesion(s)?29476 ( >4 Lesions) - The Benign hyperkeratotic lesions, as described above were pared, and/or cut utilizing a sterile #15 blade, tissue nippers, and/or dremel.?Nail Reduction:?Nail Reduction?Trimming of dystrophic nails performed to reduce/remove overall nail length and girth, by manual and electrical means with use of a nail nipper and/or dremel, to more viable healthy nail plate or bed tissue 6-10 (G0127).? * Procedure Codes:?43107 TRIM SKIN LESIONS, OVER 4, Modifiers: XS G0127 TRIMMING DYSTROPHIC NAILS ANY #, Modifiers: XS * Follow Up:?6 Months * Images: * Sign off status: Completed true * Provider:?Vince Perez DPM Date:? 023 Generated for Hugh luna/Joseph/eTransmjade on:?09/27/2024 10:21 AM EDT History and Physical Notes * HPI (History [...] Diabetic Retinopa thy Screening:: Yes Vascular DP PULSES (B): 1/4, B/L PT PULSES (B): 1/4, B/L CAPILLARY FILL TIME: 3 secs. per digit, B/L EDEMA (C): 1/4, Right TELANGECTASIA: absent VARICOSITIES: absent Nails NAILS are: Elongated, overg rown, dystrophic, lytic, greater than 3mm thick, discolored and friable with crumbly malodorous subungual debris, with dull to no pain on palpation due to neuropathy, 1-5 B/L
--- OUTSIDE RECORDS SUMMARY | 2024-09-27 10:22 | XMS_ITS ---
Author Organization [facility] Address [address] [place] [address] Care Team Providers Care Billing Representative Name Role Phone Teodoro NAYLOR, Rob Primary Care Provider Yocasta Brito Unavailable [phone] Allergies Allergen (clinical drug ingredient) Drug/Non Drug [...] Ordered Date Performed Result Body Sit e 44789-FFJNVQG NAIL, 6 OR MORE 06/26/2024 N/A 15037-RYDD SKIN LESIONS, OVER 4 06/26/2024 N/A Encounters Encounter Location Date Provider Diagnosis [facility] [address] [address] 06/26/2024 Yocasta Ashford Other hammer toe(s) (acquired), [...] INSTRUCTIONS.pdf) Pending Test Test Name Order Date 77323-OCKTCEO NAIL, 6 OR MORE 06/26/2024 42483-HGSG SKIN LESIONS, OVER 4 06/26/20 24 Next Appt Details Follow Up: 6 Months, Reason: Provider Name:Yocasta Augustin ale, 12/25/2024 09:00:00 AM, [address] [facility], [address], [place], [address], Procedure Notes * Category Sub-Category Detail Notes [...] use of a nail nipper and/or dremel-type beef grinder, to a more viable healthy nail [...] to maintain effectiveness in symptomatic relief - 26845 Keratoma Treatment Parring or Cutting o f [...] tissue nippers, and/or power dremel instrumentation - 68311 Progress Notes * Vince PHAN SDOB:[birth year] (73 yo M)Acc No.[id number]:06/26/2024 Progress Note Patient:?SYLVESTERVince Jay Provider:?Yocasta Ashford DPM :1950???Age:73 Y???Sex:Male Sina e:06/26/2024 Address:[address] [place], [place] [id number] Pcp:Rob Valerio MD Subjective: * Chief Complaints: [...] yes. ?Exercise: no. ?Marital status: . 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 * Medications:?TakingLantus Fa rxiga Atorvastatin Calcium [...] for office visit today.?ORIENTED:?person, place, and time.?FOOT EXAM:?Lower Extremity Neurological Exam performed:?Yes ?Footwear Evaluation?Footwear Evaluation performed:?Yes?Orthopedic: ?MUSCLE STRENGTH:?5/5 all groups in a symmetrical [...] palpation due to neuropathy, 1-5 B/L.?Vascular: ?DP PULSES(B):?07/21, B/L.?PT PULSES(B):? 07/21, B/L.?CAPILLARY FILL TIME:?3 secs. per digit, B/L.?EDEMA(C):? 07/21, Right.?TELANGECTASIA:?absent.?VARICOSITIES:?absent.?Ophthalmology Referral: ?DIABETES EYE EXAM?Diabetic Retinopathy Screening:?Yes??? Assessment: * Assessment: 1.?Other hammer toe(s) (acqu ired), right foot - M20.41 (Primary)???Specify :Chronic problem, Worse (4),Rx Management (4)???2.?Other hammer toe(s) (acquired), left foot - M20.42???Specify :Chronic problem, Worse (4),Rx Management (4)???3.?Type 2 diabetes mellitus with diabetic polyneuropathy - E11.42???4.?Tinea unguium - B35.1??? Plan: * Treatment: 2.?Type 2 diabetes mellitus with diabetic polyneuropathy?Procedure: 59174-PJITZYX NAIL, 6 OR MORE ?Procedure: 02950-XFFD SKIN LESIONS, OVER 4 * Procedures:?Debride Nail [...] use of a nail nipper and/or dremel-type beef grinder, to a more viable healthy nail [...] to maintain effectiveness in symptomatic relief - 46251.?Keratoma Treatment:?Parring or Cutting of Benign Hyperkeratotic Lesion(s)?(-57) [...] tissue nippers, and/or power dremel instrumentation - 24555.? * Procedure Codes:?86806 DEBRI DE NAIL, 6 OR MORE, Modifiers: XS 46844 TRIM SKIN LESIONS, OVER 4, Modifiers: XS [...] status: Completed true * Provider:?Yocasta Ashford DPM Date:?1 08/27/2023 Generated for Hugh luna/Joseph/Willy on:?09/27/2024 10:21 AM EDT History and Physical [...] thy Screening:: Yes Vascular DP PULSES (B): 07/21, B/L PT PULSES (B): 07/21, B/L CAPILLARY FILL TIME: 3 secs. per digit, B/L EDEMA (C): 07/21, Right TELANGECTASIA: absent VARICOSITIES: absent Nails NAILS are: Elongated, overg rown, dystrophic, lytic, greater than 3mm thick, discolored and friable with crumbly malodorous subungual debris, with dull to no pain on palpation due to neuropathy, 1-5 B/L
--- OUTSIDE RECORDS SUMMARY | 2024-09-27 10:22 | XMS_ITS | Patient Health Record ---
Author Organization [facility] Address [address] [place] [address] Care Team Providers Care Overlock Collar Setter Name Role Phone Teodoro NAYLOR, [place] Primary Care Provider Yocasta Brito Unavailable [phone] Vince Perez Unavailable [phone] Allergies Allergen (clinical drug ingredient) Drug/Non Drug Allergy documented on EMR Reaction Allergy Type Onset Date Status Bactrim DS Rash Drug Allergy Active Results [...] Problem Status W/U Status Risk Notes Problem 090310009 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, accidental (unintentional), initial encounter (T56.0X1A) Active confirmed Problem Acquired hammer toe of right foot (9488804504602670) Other hammer toe(s) (acquired), right foot (M20.41) Active confirmed Problem Acquired hammer toe of left foot (6978171302821286) Other hammer toe(s) (acquired), left foot (M20.42) Active confirmed Problem Polyneuropathy due to type 2 diabetes mellitus (664951819) Type 2 diabetes mellitus with diabetic polyneuropathy (E11.42) Active confirmed Problem Primary gout (24858668) Idiopathic gout, 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) Active confirmed Problem Polyneuropathy due to diabetes mellitus type I (989577392) Type 1 diabetes mellitus with diabetic polyneuropathy (E10.42) Active confirmed Problem 2973583306713815 Acute gout of left foot, unspecified cause (M10.9) Active confirmed Vital Signs Height 5ft 7in in 06/26/2024 Weight 210 lbs 06/26/2024 BMI 32.89 kg/m2 06/26/2024 Procedures Procedure Date Ordered Date Performed Result Body Sit e 51043-UAOTGYC NAIL, 6 OR MORE 06/26/2024 N/A 72919-ZQER SKIN LESIONS, OVER 4 06/26/2024 N/A Encounters Encounter Location Date Provider Diagnosis [address] [address] 12/27/2023 Vince Perez Type 2 diabetes mellitus with diabetic polyneuropathy E11.42 ; Pain in right foot M79.671 ; Other hammer toe(s) (acquired), left foot M20.42 ; Other hammer toe(s) (acquired), right foot M20.41 ; Other viral warts B07.8 ; Pain in left foot M79.672 ; Metatarsalgia, right foot M77.41 and Xerosis cutis L85.[address] [facility] [address] 06/26/2024 Yocasta Ashford Other hammer toe(s) (acquired), [...] X ray : Foot, right 3V 08/13/2019 81002-ZIDERZN NAIL, 6 OR MORE 06/26/2024 88159-VGFC SKIN LESIONS, OVER 4 06/26/20 24 72679-IXIT SKIN LESIONS, OVER 4 06/04/20 21 08555-CNSO SKIN LESIONS, OVER 4 12/23/19 22 16717-CAWN SKIN LESIONS, OVER 4 05/17/20 21 45657-PIIB SKIN LESIONS, OVER 4 08/22/19 20 26292-LDAT SKIN LESIONS, OVER 4 06/02/20 20 D2538-YNFBJOGR DYSTROPHIC NAILS ANY # J3833-LCHYIUGP DYSTROPHIC NAILS ANY # G2614-SAFANKWT DYSTROPHIC NAILS ANY # C5691-FQWOJJLA DYSTROPHIC NAILS ANY # Next Appt Details Provider Name:Yocasta Augustin ale, 12/25/2024 09:00:00 AM, [address] [facility], [facility] [address], [place], [address], Insurance Providers Payer Name Payer Address Payer Phone Subscriber Number Group Number Insured Name Patient Relationship to Insured Coverage Start Date Coverage End Date Medicare National [employer] [address] [place] [address] [id number] Vince Cedillo Self - patient is the insured [facility] [address] [place] [address] [id number] Aga Cedillo Spouse - patient is the spouse of the insured Medical (General) History Medical History History ICD Code Arthritis Back,Hip,and Knee pain type II diabetes High blood pressure Measles Mumps Chicken pox Joint implants/screws Surgical History Surgery Date(Month/Year) hip replacement-Bilateral 1997 bone scan, back 06/21/22 quadruple bypass 02/2023
--- OUTSIDE RECORDS SUMMARY | 2024-09-27 10:22 | XMS_ITS ---
Author Organization [facility] Address [address] [place] [address] Care Team Providers Care Product Design Manager Name Role Phone Teodoro NAYLOR, Rob Primary Care Provider Yocasta Brito Unavailable [phone] Vince Perez Unavailable [phone] Allergies Allergen (clinical drug ingredient) Drug/Non Drug Allergy documented on EMR Reaction Allergy Type Onset Date Status Bactrim DS Rash Drug Allergy Active REASON FOR VISIT Wart(s) Medications Medication SIG (Take, Route, Frequency, Duration) Notes Start Date End Date Status Basaglarabella FloresitaPen Not -Taking Trulicity Not-Taking Victoza Not-Taking Colcrys [...] 12/27/2023 Encounters Encounter Location Date Provider Diagnosis [facility] [address] [address] 12/27/2023 Vince Perez Type 2 diabetes mellitus [...] Provider Name:Yocasta aguilera, 12/25/2024 09:00:00 AM, [address] [facility], [address], [place], [address], Procedure Notes * Category Sub-Category Detail Notes Keratoma Treatment Parring or Cutting o f Benign Hyperkeratotic Lesion(s) 37270 ( >4 Lesions) - The Benign hyperkeratotic [...] Vince PHAN SDOB:[birth year] (73 yo M)Acc No.[id number]:12/27/2023 Progress Note Patient:?Vince Phan Provider:?Vince Perez DPM :1950???Age:73 Y???Sex:Male Sina e:12/27/2023 Address:[address] [place] [address] [facility] [id number] Pcp:Rob Valerio MD Subjective: * Chief Complaints: [...] yes. ?no Exercise. ?Marital status: . 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 * Medications:?TakingGabapenti n Clopidogrel Bisulfate Farxiga [...] Tablet 1 tablet Orally Once a dayVictoza [facility] Medication List reviewed and reconciled with the [...] Exam performed:?Yes ?Visual exam of foot performed:?Yes ?Date?12/27/2023 ?Sensory testing performed:?sensations diminished ?Pedal pulse taking [...] fissure noted plantar right 1/2 mtpj?.?Orthopedic: ?MUSCLE STRENGTH:?5/5 all groups in a symmetrical [...] Procedures:?Keratoma Treatment:?Parring or Cutting of Benign Hyperkeratotic Lesion(s)?92966 ( >4 Lesions) - The Benign hyperkeratotic lesions, as described above were pared, and/or cut utilizing a sterile #15 blade, tissue nippers, and/or dremel.?Nail Reduction:?Nail Reduction?Trimming of dystrophic nails performed to reduce/remove overall nail length and girth, by manual and electrical means with use of a nail nipper and/or dremel, to more viable healthy nail plate or bed tissue 6-10 (G0127).? * Procedure Codes:?43685 TRIM SKIN LESIONS, OVER 4, Modifiers: XS [...] Perez DPM Date:? 024 Generated for Hugh luna/Joseph/Melivitting on:?09/27/2024 10:22 AM EDT History and Physical Notes * [...]
--- OUTSIDE RECORDS SUMMARY | 2024-09-27 10:22 | XMS_ITS | Clinical Summary ---
Author Organization [facility] Address [address] [place] [address] Care Team Providers Care Seal Mixer Name Role Phone Rob Valerio MD Primary Care Provider [phone] Allergies Active Allergy Reactions Criticality Noted Date Comments Metformin Other (see comments) 08/19/2022 Sulfadiazine 08/19/2022 Sulfamethoxazole-Trimet hoprim 08/19/2022 Other reaction(s): Rash Medications allopurinol (ZYLOPRIM) 100 MG tablet Take 2 tablets by mouth 1 (one) time each day 07/14/2022 Active Farxiga 5 MG tablet Take 5 mg by mouth 1 (one) time each day For 30 days 07/27/2022 Active metoprolol succinate XL (TOPROL XL) 25 MG 24 hr tablet Take 25 mg by mouth 1 (one) time each day 07/15/2022 Active omega-3 acid ethyl esters (LOVAZA) 1 g capsule Take 1 g by mouth 1 (one) time each day Active aspirin (ST NYDIA) 81 MG EC tablet Take 81 mg by mouth 1 (one) time each day Active Ozempic, 1 MG/DOSE, 4 MG/3ML solution pen-injector 1 mg per week 12/22/2022 Active atorvastatin (LIPITOR) 40 MG tablet Take 1 tablet by mouth 1 (one) time each day 12/23/2022 Active clopidogrel (PLAVIX) 75 MG tablet Take 75 mg by mouth 1 (one) time each day Active Active Problems Problem Noted Date Diagnosed Date Stage 3a chronic kidney disease 12/27/2022 Proteinuria 08/19/2022 Acquired hammer toe of left foot 08/19/2022 Acquired hammer toe of right foot 08/19/2022 Primary gout 08/19/2022 Polyneuropathy due to type 2 diabetes mellitus 0 08/19/2022 Sprain of tibiofibular ligament of left ankle Hypertension 08/19/2022 Hypotension 02/16/2011 Immunizations Name Administration Dates Next Due Influenza (IM) Preservative Free 04/16/2021 Pfizer SARS-COV-2 05/19/2021 Family History Medical History Relation Comments Diabetes Mother Kidney disease Sister Relation Status Comments Father Mother Sister Social History Tobacco Use Types Packs/Day Years Used Date Smoking Tobacco: Former Cigarettes Smokeless Tobacco: Never Alcohol Use Standard Drinks/Week Comments Never 0 (1 standard drink = 0.6 oz pur e alcohol) Sex and Gender Information Value Date Recorded Sex Assigned at Not on file Legal Sex Male 1:10 PM EST Gender Identity Not on file Sexual Orientation Not on file Last Filed Vital Signs Vital Sign Reading Time Taken Comments Blood Pressure 140/60 04/18/2023 4:03 PM EDT Pulse 75 04/18/2023 4:03 PM EDT Temperature - - Respiratory Rate - - Oxygen Saturation - - Inhaled Oxygen Concentration - - Weight 90.3 kg (199 lb) 04/18/2023 4:03 PM EDT Height - - Body Mass Index - - Plan of Treatment Health Maintenance Due Date Last Done Comments Pneumococcal Vaccine: 65+ Ye ars (1 of 2 - PCV) 1958 Colorectal Cancer Screening: Annual FOBT 2001 Colorectal Cancer Screening: Colonoscopy 2001 Colorectal Cancer Screening: Sigmoidoscopy 2001 Diabetes: Hemoglobin A1C 08/19/2022 Diabetes: Ophthalmology Exam 08/19/2022 Diabetes: Pedal Pulse Checked 08/19/2022 Diabetes: Sensory Foot Exam 08/19/2022 Diabetes: Visual Foot Exam 08/19/2022 Influenza Vaccine (#1) 2024 04/16/2021 Hepatitis B Vaccine Aged Out No longe r eligible based on patient's age to complete this topic Insurance MEDICARE [facility] MEDICARE [facility] Care Teams Seal Mixer Relationship Specialty Start Date End Date Rob Valerio MD [address] [place] [address] PCP - General Internal Medicine 05/24/22
--- OUTSIDE RECORDS SUMMARY | 2024-09-27 10:22 | XMS_ITS | Clinical Summary ---
Author Organization [facility] Address [address] [place] [address] Care Team Providers Care Merchandise Coordinator Name Role Phone Unavailable Primary Care Provider Unavailabl e Social History Tobacco Use Types Packs/Day Years Used Date Smoking Tobacco: Never Assessed Sex and Gender Information Value Date Recorded Sex Assigned at Not on file Legal Sex Male 6:05 PM EST Gender Identity Not on file Sexual Orientation Not on file Plan of Treatment Health Maintenance Due Date Last Done Comments DTaP,Tdap,and Td Vaccines (1 - Tdap) 1971 Pneumococcal Vaccine: 50+ Ye ars (1 of 1 - PCV) 2002 Zoster Vaccines (1 of 2) 2002 COVID-19 Vaccine ( - 2023-2 5 season) 2024 Influenza Vaccine (#1) 2024 RSV Immunization Patients 60 + Years Old (1 - 1-dose 75+ series) 2027 HIB Vaccines Aged Out No longer eligi ble based on patient's age to complete this topic HPV Vaccines Aged Out No longer eligi ble based on patient's age to complete this topic Hepatitis A Vaccines Aged Out No long er eligible based on patient's age to complete this topic Hepatitis B Vaccines Aged Out No long er eligible based on patient's age to complete this topic IPV Vaccines Aged Out No longer eligi ble based on patient's age to complete this topic MMR Vaccines Aged Out No longer eligi ble based on patient's age to complete this topic Meningococcal ACWY Vaccine Aged Out N o longer eligible based on patient's age to complete this topic Meningococcal B Vacine Aged Out No lo nger eligible based on patient's age to complete this topic RSV Immunization Patients Un gerardo 20 months Aged Out No longer eligible b ased on patient's age to complete this topic Varicella Vaccines Aged Out No longer eligible based on patient's age to complete this topic
[2024-11-29 08:32] VITALS: BMI 36.1
--- NOTE | 2024-11-29 14:56 | HO.ANESPROP2 ---
Documented by User: Mayte Cespedes NP 11/29/24 14:58 HPI - Anesthesia Eval Consult details Narrative: 74yo M for Left Cataract Extraction IOL Insertion Follows [facility] [place] [place] [facility] for CAD s/p CABG x 4 2022. Last office visit 12/2023, stable for 1 year routine f/u. Deemed optimized prior to 08/2024 spine surgery No previous cataract on record PMFSH Active Problems Active Problems: All Active Problems Preoperative clearance (Acute) S/P spinal fusion (Acute) Loud snoring (Acute) Keratotic lesion (Acute) Lumbago (Acute) Elevated vitamin B12 level (Acute) Diabetic nephropathy (Acute) Bronchitis (Acute) CKD (chronic kidney disease) stage 3, GFR 30-59 ml/min (Acute) Preop cardiovascular exam (Acute) Upper respiratory tract infection (Acute) Spondylolisthesis, lumbar region (Acute) Claudication of both lower extremities (Acute) CAD (coronary artery disease) (Acute) Atherosclerosis of abdominal aorta (Acute) Hypertension (Acute) Spinal stenosis, lumbar region, with neurogenic claudication (Acute) T12 compression fracture (Acute) Proteinuria (Acute) Chronic diarrhea (Acute) COVID-19 (Acute) Hyperkalemia (Acute) Abnormal electrocardiogram [ECG] [EKG] (Acute) Lumbar spondylolysis (Acute) Lumbar back pain with radiculopathy affecting lower extremity (Acute) Postprandial diarrhea (Acute) Hypomagnesemia (Acute) Nocturnal leg cramps (Acute) Colon cancer screening (Acute) Allergic rhinitis (Acute) Obesity (BMI 30-39.9) (Acute) Depression (Acute) Carpal tunnel syndrome on both sides (Acute) Lumbar degenerative disc disease (Acute) Vitamin D deficiency (Acute) Elevated liver enzymes (Acute) Gout (Acute) Pure hypercholesterolemia (Acute) Diabetes mellitus (Acute) Benign essential hypertension (Acute) Past Medical History Medical History Skin cancer Back pain CAD (coronary artery disease) Allergic rhinitis Obesity (BMI 30-39.9) Depression Carpal tunnel syndrome on both sides Lumbar degenerative disc disease Vitamin D deficiency Elevated liver enzymes Gout Pure hypercholesterolemia Diabetes mellitus Benign essential hypertension Family History Family History Father Medical history unknown Mother Diabetes Surgical History Surgical History History of back surgery S/P CABG x 4 S/P cardiac catheterization Hx of colonoscopy Status post carpal tunnel release (~06/19/20) History of excision of lesion History of carpal tunnel release History of bilateral hip arthroplasty History of Problems with Anesthesia: No Social History Social History Household Members: Spouse Housing: House Are you a primary respiratory care technician to a significant other at home: No Do you presently have visiting nurse or other home services: No Alcohol intake: former Patient Tobacco Use Status: Former Tobacco user Tobacco use type: Cigarette Years Smoked: 15 e-Cigarette/Vaping Use: Never Used Second Hand Smoke Exposure: No Use of substances other than those prescribed or required for medical reasons: No Have you been hit, kicked, punched, or otherwise hurt by someone within the past year? If so, by whom?: No Spiritual Healthcare Practices: no Cheondoism Healthcare Practices: no-Jehovah'S Witness Cultural Healthcare Practices: no Are you DNR?: No Advance Directives Information Provided: Yes (as above noted) Advance Directives on File: No Poor oral hygiene: No service: No Current occupational status: employed Cognitive needs: No Hearing needs: No Vision needs: Yes (Glasses) Meds Allergies Allergy/AdvReac Type Severity Reaction Status Date / Time Sulfa (Sulfonamide Allergy Intermediate ITCHING / Verified 11/19/24 09:46 Antibiotics) HIVES sitagliptin [Januvia] Allergy Unknown Unknown-patient Verified 11/19/24 09:46 does not remember reaction metformin AdvReac Intermediate Diarrhea Verified 11/19/24 09:46 Home Medications ?Medication ?Instructions ?Recorded ?Confirmed ?Last Taken ?Type aspirin 81 mg tablet,delayed 81 mg PO QAM 05/11/22 11/29/24 08/31/24 History release (Adult Aspirin Regimen) acetaminophen 325 mg tablet 325 mg PO QID PRN Pain 03/18/23 11/29/24 08/18/24 History atorvastatin 40 mg tablet 40 mg PO BEDTIME 07/09/24 11/29/24 08/30/24 History cyanocobalamin (vitamin B-12) 2,500 mcg sublingual Q2D 07/09/24 11/29/24 08/30/24 History 2,500 mcg sublingual tablet (Vitamin B-12) lisinopril 40 mg tablet 40 mg PO QAM 07/09/24 11/29/24 08/30/24 History magnesium oxide 800 mg PO BEDTIME 07/09/24 11/29/24 08/30/24 History milk thistle seed extract 150 1 cap PO DAILY 07/09/24 11/29/24 08/24/24 History mg-artichoke leaf extract 300 mg capsule (Artichoke Premium Extract) semaglutide 2 mg/dose (8 mg/3 mL) 2 mg subcut FR@0900 09/04/24 11/29/24 11/23/24 History subcutaneous pen injector Exam Height,Weight and Vital Signs: Height 5 ft 6 in Weight 101.378 kg Assessment and Plan Assessment Anesthesia Assessment: Chart Reviewed Final Anesthetic Review History of Problems with Anesthesia: No Documented by User: Bonny Kent MD 12/03/24 07:36 PMFSH Past Medical History Medical History Skin cancer Back pain CAD (coronary artery disease) Allergic rhinitis Obesity (BMI 30-39.9) Depression Carpal tunnel syndrome on both sides Lumbar degenerative disc disease Vitamin D deficiency Elevated liver enzymes Gout Pure hypercholesterolemia Diabetes mellitus Benign essential hypertension Family History Family History Father Medical history unknown Mother Diabetes Family history of problems with anesthesia: No Surgical History Surgical History History of back surgery S/P CABG x 4 S/P cardiac catheterization Hx of colonoscopy Status post carpal tunnel release (~06/19/20) History of excision of lesion History of carpal tunnel release History of bilateral hip arthroplasty Social History Social History Household Members: Spouse Housing: House Are you a primary respiratory care technician to a significant other at home: No Do you presently have visiting nurse or other home services: No Alcohol intake: former Patient Tobacco Use Status: Former Tobacco user Tobacco use type: Cigarette Years Smoked: 15 e-Cigarette/Vaping Use: Never Used Second Hand Smoke Exposure: No Use of substances other than those prescribed or required for medical reasons: No Have you been hit, kicked, punched, or otherwise hurt by someone within the past year? If so, by whom?: No Spiritual Healthcare Practices: no Cheondoism Healthcare Practices: no-Jehovah'S Witness Cultural Healthcare Practices: no Are you DNR?: No Advance Directives Information Provided: Yes (as above noted) Advance Directives on File: No Poor oral hygiene: No service: No Current occupational status: employed Cognitive needs: No Hearing needs: No Vision needs: Yes (Glasses) Meds Allergies Allergy/AdvReac Type Severity Reaction Status Date / Time Sulfa (Sulfonamide Allergy Intermediate ITCHING / Verified 11/19/24 09:46 Antibiotics) HIVES sitagliptin [Januvia] Allergy Unknown Unknown-patient Verified 11/19/24 09:46 does not remember reaction metformin AdvReac Intermediate Diarrhea Verified 11/19/24 09:46 Home Medications ?Medication ?Instructions ?Recorded ?Confirmed ?Last Taken ?Type aspirin 81 mg tablet,delayed 81 mg PO QAM 05/11/22 11/29/24 08/31/24 History release (Adult Aspirin Regimen) acetaminophen 325 mg tablet 325 mg PO QID PRN Pain 03/18/23 11/29/24 08/18/24 History atorvastatin 40 mg tablet 40 mg PO BEDTIME 07/09/24 11/29/24 08/30/24 History cyanocobalamin (vitamin B-12) 2,500 mcg sublingual Q2D 07/09/24 11/29/24 08/30/24 History 2,500 mcg sublingual tablet (Vitamin B-12) lisinopril 40 mg tablet 40 mg PO QAM 07/09/24 11/29/24 08/30/24 History magnesium oxide 800 mg PO BEDTIME 07/09/24 11/29/24 08/30/24 History milk thistle seed extract 150 1 cap PO DAILY 07/09/24 11/29/24 08/24/24 History mg-artichoke leaf extract 300 mg capsule (Artichoke Premium Extract) semaglutide 2 mg/dose (8 mg/3 mL) 2 mg subcut FR@0900 09/04/24 11/29/24 11/23/24 History subcutaneous pen injector Exam Airway Mallampati Class: III TM Dist: >3cm Neck ROM: Full Heart: rrr Lungs: cta Assessment and Plan Assessment Anesthesia Assessment: Anesthesia Plan Discussed Final Anesthetic Review Family History of Problems with Anesthesia: No NPO: Yes ASA Class: III Final Preanesthetic Review: No Changes in Pt Med Stat, Meds/Allgs Chart Reviewed, Consent Obtained/Reviewed and Anes Risks/Benef Reviewed Patient Risk: Intermediate Procedure Risk: Low Anesthetic Plan Anesthetic Plan: MAC: Disposition: Standard PACU
[2024-12-03 05:58] VITALS: BP 160/52; PULSE 61; RESP 20; TEMP 36.6; O2SAT 97
[2024-12-03 06:19] LABS: Glucose, Whole Blood 95 mg/dL (60-115)
[2024-12-03] MEDS: Tetracaine HCl/PF 0.5% Oph Sol 4 ML DROPS 1 DROP EYE-LEFT (06:25)
[2024-12-03] MEDS: Lactated Ringers 500 ML 50 ML IV (06:25)
[2024-12-03] MEDS: Cyclopentolate 1 % Ophth Sol 2 ML DRPBTL 1 DROP EYE-LEFT ×3 (06:26→06:27)
[2024-12-03] MEDS: Tropicamide 1 % Ophth Sol 3 ML BTL 1 DROP EYE-LEFT ×3 (06:26→06:27)
[2024-12-03] MEDS: Phenylephrine HCL 2.5% Oph SoL 2 ML BOTTLE 1 DROP EYE-LEFT ×3 (06:26→06:28)
[2024-12-03] MEDS: Ketorolac Tromethamine 0.5% Op 5 ML DROPS 1 DROP EYE-LEFT ×3 (06:26→06:27)
--- NOTE | 2024-12-03 06:42 | PC.NURSE ---
pt verbalized understanding of d/c
--- NOTE | 2024-12-03 07:36 | MHC.SHP ---
Pre-Procedural Eval Section A - 24 Hr Update-Section A only Date of Service: 12/03/24 The patient is an INPATIENT: No Changes since office visit: No Cold of Flu in the past 2 weeks, No New Medical Problems, No Changes in Medication and No Patient answered all questions The patient has been examined within 24 hours of the surgical procedure. The History & Physical has been completed within 30 days and I have reviewed it.: Yes Section B - Complete if H&P > 30 days Chief Complaint: Age-related nuclear cataract, left eye Allergies: Allergies Allergy/AdvReac Type Severity Reaction Status Date / Time Sulfa (Sulfonamide Allergy Intermediate ITCHING / Verified 11/19/24 09:46 Antibiotics) HIVES sitagliptin [Januvia] Allergy Unknown Unknown-patient Verified 11/19/24 09:46 does not remember reaction metformin AdvReac Intermediate Diarrhea Verified 11/19/24 09:46 Plan Diagnosis/Plan: Unchanged I have reviewed the history and physical and performed a pertinent physical examination on my patient. No changes have occurred unless specified. Time Spent With Patient Time: Total time managing care of this patient today ____ minutes.
--- NOTE | 2024-12-03 07:36 | HO.PNOPHT ---
Ophthalmology Procedure Procedure Date of Service: 12/03/24 Ophthalmology Viscoelastic: Healon Duet Dual Pack Pro Ophthalmology Lenses: IOL Acrysof MP - MA60AC (18.5) Procedure Notes: PREOPERATIVE DIAGNOSIS: Decreased visual acuity left eye secondary to cataract POSTOPERATIVE DIAGNOSIS: Same PROCEDURE: Left cataract extraction with intraocular lens insertion SURGEON: Artemio Hubbard M.D. ANESTHESIA: Topical/MAC ESTIMATED BLOOD LOSS: None COMPLICATIONS: None After obtaining informed consent, the patient was brought to the operation room suite and placed in the supine position. After adequate sedation per anesthesia, topical drops of Tetracaine were given to the left eye. The eye was then prepped and draped in the usual sterile fashion. The operating room microscope was then positioned over the operative eye and a lid speculum placed. A paracentesis was created. Viscoelastic was then instilled into the anterior chamber. A three plane incision was then created temporally, utilizing a 2.85 mm keratome. Capsulotomy forceps were then utilized to create a circular tear capsulotomy. Hydrodissection and hydrodelineation were carried out until adequate mobilization of the nucleus occurred. Phacoemulsification was then utilized to remove the dense central nucleus followed by removal of the cortical material utilizing the automated aspiration irrigation unit. Viscoat elastic was instilled into the posterior capsular bag followed by placement of a posterior chamber intraocular lens without difficulty. The residual Viscoat elastic was then removed utilizing the automated IA machine. The wound was check and found to be watertight. The patient tolerated the procedure well and the lid speculum was removed. Intracameral injection of Vigamox 0.1 mL followed by a subtenon injection of Kenalog-40 0.2 mL were administered. The patient will be seen in the a.m.
[2024-12-03 08:00] VITALS: BP 148/67; PULSE 61; RESP 18; TEMP 36.2; O2SAT 96
== END 2024-12-03 08:20 | disposition home or self-care (01) ==
PROVIDERS: PCP Internal Medicine; Visit Provider Ophthalmology
PROC: (CPT 66985; principal; 2024-12-03 07:30)
DX: H25.12 Age-related nuclear cataract, left eye (principal); H52.4 Presbyopia; H18.413 Arcus senilis, bilateral; I10 Essential (primary) hypertension; E11.9 Type 2 diabetes mellitus without complications; I25.10 Atherosclerotic heart disease of native coronary artery without angina pectoris; Z95.1 Presence of aortocoronary bypass graft; Z79.4 Long term (current) use of insulin; Z79.84 Long term (current) use of oral hypoglycemic drugs; Z79.85 Long-term (current) use of injectable non-insulin antidiabetic drugs; Z79.899 Other long term (current) drug therapy; Z88.2 Allergy status to sulfonamides; Z88.8 Allergy status to other drugs, medicaments and biological substances; Z87.891 Personal history of nicotine dependence
CPT/HCPCS: 66984; 82947; J2003; J2704; J3301; V2630

== ENCOUNTER 2024-12-17 06:11 | Day surgery (SDC) | payer MEDICARE, OTHER, SELFPAY ==
[2024-11-29 08:39] VITALS: BMI 36.0
[2024-12-17] MEDS: Tetracaine HCl/PF 0.5% Oph Sol 4 ML DROPS 1 DROP EYE-RIGHT (06:28)
[2024-12-17 06:29] VITALS: BP 159/59; PULSE 70; RESP 16; TEMP 36.3; O2SAT 98; BMI 35.3
[2024-12-17] MEDS: Cyclopentolate 1 % Ophth Sol 2 ML DRPBTL 1 DROP EYE-RIGHT ×3 (06:29→06:45)
[2024-12-17] MEDS: Tropicamide 1 % Ophth Sol 3 ML BTL 1 DROP EYE-RIGHT ×3 (06:31→06:47)
[2024-12-17] MEDS: Ketorolac Tromethamine 0.5% Op 5 ML DROPS 1 DROP EYE-RIGHT ×3 (06:33→06:49)
[2024-12-17 06:34] LABS: Glucose, Whole Blood 100 mg/dL (60-115)
[2024-12-17] MEDS: Phenylephrine HCL 2.5% Oph SoL 2 ML BOTTLE 1 DROP EYE-RIGHT ×2 (06:35→06:43)
[2024-12-17] MEDS: Lactated Ringers 500 ML 50 ML IV (07:00)
--- NOTE | 2024-12-17 07:16 | HO.ANESPROP2 ---
Documented by User: Mayte Cespedes NP 12/13/24 14:07 HPI - Anesthesia Eval Consult details Narrative: 74yo M for Right Cataract Extraction IOL Insertion Follows [facility] [place] Cardiology for CAD s/p CABG x 4 2022. Last office visit 12/2023, stable for 1 year routine f/u. Deemed optimized prior to 08/2024 spine surgery Left eye 12/03/24: Prop 20, Lido 10 Anesthesia Pre-Procedure Meds Is the patient on any of the following meds?: GLP1/DPP4 PMFSH Active Problems Active Problems: All Active Problems Preoperative clearance (Acute) S/P spinal fusion (Acute) Loud snoring (Acute) Keratotic lesion (Acute) Lumbago (Acute) Elevated vitamin B12 level (Acute) Diabetic nephropathy (Acute) Bronchitis (Acute) CKD (chronic kidney disease) stage 3, GFR 30-59 ml/min (Acute) Preop cardiovascular exam (Acute) Upper respiratory tract infection (Acute) Spondylolisthesis, lumbar region (Acute) Claudication of both lower extremities (Acute) CAD (coronary artery disease) (Acute) Atherosclerosis of abdominal aorta (Acute) Hypertension (Acute) Spinal stenosis, lumbar region, with neurogenic claudication (Acute) T12 compression fracture (Acute) Proteinuria (Acute) Chronic diarrhea (Acute) COVID-19 (Acute) Hyperkalemia (Acute) Abnormal electrocardiogram [ECG] [EKG] (Acute) Lumbar spondylolysis (Acute) Lumbar back pain with radiculopathy affecting lower extremity (Acute) Postprandial diarrhea (Acute) Hypomagnesemia (Acute) Nocturnal leg cramps (Acute) Colon cancer screening (Acute) Allergic rhinitis (Acute) Obesity (BMI 30-39.9) (Acute) Depression (Acute) Carpal tunnel syndrome on both sides (Acute) Lumbar degenerative disc disease (Acute) Vitamin D deficiency (Acute) Elevated liver enzymes (Acute) Gout (Acute) Pure hypercholesterolemia (Acute) Diabetes mellitus (Acute) Benign essential hypertension (Acute) Past Medical History Medical History Skin cancer Back pain CAD (coronary artery disease) Allergic rhinitis Obesity (BMI 30-39.9) Depression Carpal tunnel syndrome on both sides Lumbar degenerative disc disease Vitamin D deficiency Elevated liver enzymes Gout Pure hypercholesterolemia Diabetes mellitus Benign essential hypertension Family History Family History Father Medical history unknown Mother Diabetes Family history of problems with anesthesia: No Surgical History Surgical History (Updated 12/17/24 @ 06:22 by Tiana Marion RN) Cataract extraction status of left eye History of back surgery S/P CABG x 4 S/P cardiac catheterization Hx of colonoscopy Status post carpal tunnel release (~06/19/20) History of excision of lesion History of carpal tunnel release History of bilateral hip arthroplasty History of Problems with Anesthesia: No Social History Social History Household Members: Spouse Housing: House Are you a primary career development facilitator to a significant other at home: No Do you presently have visiting nurse or other home services: No Alcohol intake: former Patient Tobacco Use Status: Former Tobacco user Tobacco use type: Cigarette Years Smoked: 15 e-Cigarette/Vaping Use: Never Used Second Hand Smoke Exposure: No Use of substances other than those prescribed or required for medical reasons: No Have you been hit, kicked, punched, or otherwise hurt by someone within the past year? If so, by whom?: No Spiritual Healthcare Practices: no Nondenominational Healthcare Practices: no-Anglican Cultural Healthcare Practices: no Are you DNR?: No Advance Directives Information Provided: Yes (as above noted) Advance Directives on File: No Poor oral hygiene: No service: No Current occupational status: employed Cognitive needs: No Hearing needs: No Vision needs: Yes (Glasses) Meds Allergies Allergy/AdvReac Type Severity Reaction Status Date / Time Sulfa (Sulfonamide Allergy Intermediate ITCHING / Verified 12/17/24 06:22 Antibiotics) HIVES sitagliptin [Januvia] Allergy Unknown Unknown-patient Verified 12/17/24 06:22 does not remember reaction metformin AdvReac Intermediate Diarrhea Verified 12/17/24 06:22 Home Medications ?Medication ?Instructions ?Recorded ?Confirmed ?Last Taken ?Type aspirin 81 mg tablet,delayed 81 mg PO QAM 05/11/22 12/17/24 08/31/24 History release (Adult Aspirin Regimen) acetaminophen 325 mg tablet 325 mg PO QID PRN Pain 03/18/23 12/17/24 08/18/24 History atorvastatin 40 mg tablet 40 mg PO BEDTIME 12/12/17/24 08/30/24 History cyanocobalamin (vitamin B-12) 2,500 mcg sublingual Q2D 07/09/24 12/17/24 08/30/24 History 2,500 mcg sublingual tablet (Vitamin B-12) lisinopril 40 mg tablet 40 mg PO QAM 07/09/24 12/17/24 08/30/24 History magnesium oxide 800 mg PO BEDTIME 07/09/24 12/17/24 08/30/24 History milk thistle seed extract 150 1 cap PO DAILY 07/09/24 12/17/24 08/24/24 History mg-artichoke leaf extract 300 mg capsule (Artichoke Premium Extract) semaglutide 2 mg/dose (8 mg/3 mL) 2 mg subcut QWEEK 09/04/24 12/17/24 12/09/24 History subcutaneous pen injector Exam Height,Weight and Vital Signs: Height 5 ft 6 in Weight 101.151 kg Assessment and Plan Assessment Anesthesia Assessment: Chart Reviewed Final Anesthetic Review Family History of Problems with Anesthesia: No History of Problems with Anesthesia: No Documented by User: Bhavya Mcadams DO 12/17/24 07:18 HPI - Anesthesia Eval Consult details Narrative: 74yo M for Right Cataract Extraction IOL Insertion Follows [facility] [place] Cardiology for CAD s/p CABG x 2022. Last office visit 12/2023, stable for 1 year routine f/u. Deemed optimized prior to 08/2024 spine surgery Left eye 12/03/24: Prop 20, Lido 10 - patient reports that he needed more meds than previous cataract on 12/03; says that he was apprehensive and freaking out the entire time. Anesthesia Pre-Procedure Meds Is the patient on any of the following meds?: GLP1/DPP4 PMFSH Past Medical History Medical History Skin cancer Back pain CAD (coronary artery disease) Allergic rhinitis Obesity (BMI 30-39.9) Depression Carpal tunnel syndrome on both sides Lumbar degenerative disc disease Vitamin D deficiency Elevated liver enzymes Gout Pure hypercholesterolemia Diabetes mellitus Benign essential hypertension Family History Family History Father Medical history unknown Mother Diabetes Family history of problems with anesthesia: No Surgical History Surgical History (Updated 12/17/24 @ 06:22 by Tiana Marion RN) Cataract extraction status of left eye History of back surgery S/P CABG x 4 S/P cardiac catheterization Hx of colonoscopy Status post carpal tunnel release (~06/19/20) History of excision of lesion History of carpal tunnel release History of bilateral hip arthroplasty History of Problems with Anesthesia: No Social History Social History Household Members: Spouse Housing: House Are you a primary career development facilitator to a significant other at home: No Do you presently have visiting nurse or other home services: No Alcohol intake: former Patient Tobacco Use Status: Former Tobacco user Tobacco use type: Cigarette Years Smoked: 15 e-Cigarette/Vaping Use: Never Used Second Hand Smoke Exposure: No Use of substances other than those prescribed or required for medical reasons: No Have you been hit, kicked, punched, or otherwise hurt by someone within the past year? If so, by whom?: No Spiritual Healthcare Practices: no Nondenominational Healthcare Practices: no-Anglican Cultural Healthcare Practices: no Are you DNR?: No Advance Directives Information Provided: Yes (as above noted) Advance Directives on File: No Poor oral hygiene: No service: No Current occupational status: employed Cognitive needs: No Hearing needs: No Vision needs: Yes (Glasses) Meds Allergies Allergy/AdvReac Type Severity Reaction Status Date / Time Sulfa (Sulfonamide Allergy Intermediate ITCHING / Verified 12/17/24 06:22 Antibiotics) HIVES sitagliptin [Januvia] Allergy Unknown Unknown-patient Verified 12/17/24 06:22 does not remember reaction metformin AdvReac Intermediate Diarrhea Verified 12/17/24 06:22 Home Medications ?Medication ?Instructions ?Recorded ?Confirmed ?Last Taken ?Type aspirin 81 mg tablet,delayed 81 mg PO QAM 05/11/22 12/17/24 08/31/24 History release (Adult Aspirin Regimen) acetaminophen 325 mg tablet 325 mg PO QID PRN Pain 03/18/23 12/17/24 08/18/24 History atorvastatin 40 mg tablet 40 mg PO BEDTIME 07/09/24 12/17/24 08/30/24 History cyanocobalamin (vitamin B-12) 2,500 mcg sublingual Q2D 07/09/24 12/17/24 08/30/24 History 2,500 mcg sublingual tablet (Vitamin B-12) lisinopril 40 mg tablet 40 mg PO QAM 07/09/24 12/17/24 08/30/24 History magnesium oxide 800 mg PO BEDTIME 07/09/24 12/17/24 08/30/24 History milk thistle seed extract 150 1 cap PO DAILY 07/09/24 12/17/24 08/24/24 History mg-artichoke leaf extract 300 mg capsule (Artichoke Premium Extract) semaglutide 2 mg/dose (8 mg/3 mL) 2 mg subcut QWEEK 09/04/24 12/17/24 12/09/24 History subcutaneous pen injector Exam Exam Date and Time: 12/17/24 0715 Height,Weight and Vital Signs: Height 5 ft 6 in Weight 101.151 kg Vital Signs Temperature 97.3 F 12/17/24 06:29 Pulse Rate 70 12/17/24 06:29 Respiratory Rate 16 12/17/24 06:29 Blood Pressure 159/59 H 12/17/24 06:29 Pulse Oximetry 98 12/17/24 06:29 Oxygen Delivery Method Room Air 12/17/24 06:29 Temperature 97.3 F 12/17/24 06:29 Pulse Rate 70 12/17/24 06:29 Respiratory Rate 16 12/17/24 06:29 Blood Pressure 159/59 H 12/17/24 06:29 Pulse Oximetry 98 12/17/24 06:29 Oxygen Delivery Method Room Air 12/17/24 06:29 Airway Mallampati Class: II TM Dist: >3cm Neck ROM: Full Partial: Upper Heart: S1S2 Lungs: CTAB Assessment and Plan Assessment Anesthesia Assessment: Anesthesia Plan Discussed and Chart Reviewed Final Anesthetic Review Family History of Problems with Anesthesia: No History of Problems with Anesthesia: No NPO: Yes ASA Class: III Final Preanesthetic Review: No Changes in Pt Med Stat, Meds/Allgs Chart Reviewed, Consent Obtained/Reviewed and Anes Risks/Benef Reviewed Patient Risk: Intermediate Procedure Risk: Low Anesthetic Plan Anesthetic Plan: MAC: and Agree w/ Assess. and Plan Disposition: Standard PACU
--- NOTE | 2024-12-17 07:24 | MHC.SHP ---
Pre-Procedural Eval Section A - 24 Hr Update-Section A only Date of Service: 12/17/24 The patient is an INPATIENT: No Changes since office visit: No Cold of Flu in the past 2 weeks, No New Medical Problems, No Changes in Medication and No Patient answered all questions The patient has been examined within 24 hours of the surgical procedure. The History & Physical has been completed within 30 days and I have reviewed it.: Yes Section B - Complete if H&P > 30 days Chief Complaint: Age-related nuclear cataract, right eye Allergies: Allergies Allergy/AdvReac Type Severity Reaction Status Date / Time Sulfa (Sulfonamide Allergy Intermediate ITCHING / Verified 12/17/24 06:22 Antibiotics) HIVES sitagliptin [Januvia] Allergy Unknown Unknown-patient Verified 12/17/24 06:22 does not remember reaction metformin AdvReac Intermediate Diarrhea Verified 12/17/24 06:22 Plan Diagnosis/Plan: Unchanged I have reviewed the history and physical and performed a pertinent physical examination on my patient. No changes have occurred unless specified. Time Spent With Patient Time: Total time managing care of this patient today ____ minutes.
--- NOTE | 2024-12-17 07:25 | P.PCNO_ITS ---
Ophthalmology Procedure Procedure Date of Service: 12/17/24 Ophthalmology Viscoelastic: Healon Duet Dual Pack Pro Ophthalmology Lenses: IOL Acrysof MP - MA60AC (19) Procedure Notes: PREOPERATIVE DIAGNOSIS: Decreased visual acuity right eye secondary to cataract POSTOPERATIVE DIAGNOSIS: Same PROCEDURE: Right cataract extraction with intraocular lens insertion SURGEON: Artemio Hubbard M.D. ANESTHESIA: Topical/MAC ESTIMATED BLOOD LOSS: None COMPLICATIONS: None After obtaining informed consent, the patient was brought to the operating room suite and placed in the supine position. After adequate sedation per anesthesia, topical drops of Tetracaine were given to the right eye. The eye was then prepped and draped in the usual sterile fashion. The operating room microscope was then positioned over the operative eye and a lid speculum placed. A paracentesis was created. Viscoelastic was then instilled into the anterior chamber. A three plane incision was then created temporally, utilizing a 2.85 mm keratome. Capsulotomy forceps were then utilized to create a circular tear capsulotomy. Hydrodissection and hydrodelineation were carried out until adequate mobilization of the nucleus occurred. Phacoemulsification was then utilized to remove the dense central nucl eus followed by removal of the cortical material utilizing the automated aspiration irrigation unit. Viscoelastic was instilled into the posterior capsular bag followed by placement of a posterior chamber intraocular lens without difficulty. The residual Viscoelastic was then removed utilizing the automated IA machine. The wound was checked and found to be watertight. The patient tolerated the procedure well and the lid speculum was removed. Intracameral injection of Vigamox 0.1 mL followed by a subtenon injection of Kenalog-40 0.2 mL were administered. The patient will be seen in the a.m.
[2024-12-17 07:51] VITALS: BP 124/56; PULSE 61; RESP 16; TEMP 36.1; O2SAT 94
== END 2024-12-17 08:05 | disposition home or self-care (01) ==
PROVIDERS: PCP Internal Medicine; Visit Provider Ophthalmology
PROC: (CPT 66985; principal; 2024-12-17 07:30)
DX: H25.11 Age-related nuclear cataract, right eye (principal); H52.4 Presbyopia; H18.413 Arcus senilis, bilateral; E11.22 Type 2 diabetes mellitus with diabetic chronic kidney disease; I12.9 Hypertensive chronic kidney disease with stage 1 through stage 4 chronic kidney disease, or unspecified chronic kidney disease; N18.31 Chronic kidney disease, stage 3a; I25.10 Atherosclerotic heart disease of native coronary artery without angina pectoris; Z95.1 Presence of aortocoronary bypass graft; E78.00 Pure hypercholesterolemia, unspecified; R74.8 Abnormal levels of other serum enzymes; M43.16 Spondylolisthesis, lumbar region; E66.9 Obesity, unspecified; Z68.36 Body mass index [BMI] 36.0-36.9, adult; Z79.4 Long term (current) use of insulin; Z79.84 Long term (current) use of oral hypoglycemic drugs; Z79.85 Long-term (current) use of injectable non-insulin antidiabetic drugs; Z79.82 Long term (current) use of aspirin; Z79.899 Other long term (current) drug therapy; Z88.2 Allergy status to sulfonamides; Z88.8 Allergy status to other drugs, medicaments and biological substances; Z98.890 Other specified postprocedural states; Z87.891 Personal history of nicotine dependence
CPT/HCPCS: 66984; 82947; J2250; J3010; J3301; V2630

== ENCOUNTER → 2025-01-09 08:34 | Outpatient (REF) | payer MEDICARE, OTHER, SELFPAY ==
--- OUTSIDE RECORDS SUMMARY | 2025-01-09 08:55 | XMS_ITS | Clinical Summary ---
Author Organization [facility] ity Address [address] [place] [address] Care Team Providers Care Orthopedic Assistant Name Role Phone Unavailable Primary Care Provider [...]
== END ==
LOC: HO.SL 08:34
PROVIDERS: PCP Internal Medicine; Visit Provider Internal Medicine
DX: G47.33 Obstructive sleep apnea (adult) (pediatric) (principal)
CPT/HCPCS: 95806

== ENCOUNTER → 2025-01-09 08:49 | Outpatient (BNV) | payer MEDICARE, OTHER, SELFPAY | PROVIDERS: PCP Internal Medicine; Visit Provider Internal Medicine | DX: G47.33 Obstructive sleep apnea (adult) (pediatric) (principal) | CPT/HCPCS: 95806 ==

== ENCOUNTER 2025-01-15 14:35 | Outpatient (AMB) | payer MEDICARE, OTHER, SELFPAY ==
[2025-01-15 14:43] VITALS: BP 122/68; PULSE 75; BMI 35.2
--- NOTE | 2025-01-15 14:43 | A.OFFVIS_ITS ---
Vital Signs 01/15/25 14:43 Height 5 ft 6 in Weight 218 lb 4.122 oz BMI 35.2 BP 122/68 Blood Pressure Location Lt brachial Position Sitting Pulse 75 Pulse Source Monitor Intake Visit Reasons: r/s 12/27/24 1 yr followup w/ekg Allergies Sulfa (Sulfonamide Antibiotics) Allergy (Intermediate, Verified 12/17/24 06:22) ITCHING / HIVES sitagliptin (Januvia) Allergy (Unknown, Verified 12/17/24 06:22) Unknown-patient does not remember reaction metformin Adverse Reaction (Intermediate, Verified 12/17/24 06:22) Diarrhea Medication List - Last Reconciled 01/15/25 by Raza Torres MD acetaminophen 325 mg PO QID PRN Admelog SoloStar U-100 Insulin (insulin lispro) 6 to 8 units 3 times a day with meals SQ per sliding scale subcutaneously 3 times a day; 30 days NS allopurinol 300 mg (3 x 100 mg) PO QAM aspirin (Adult Aspirin Regimen) 81 mg PO QAM Held on 09/05/24. Instructions: Resume on 09/09/24. atorvastatin 40 mg PO BEDTIME baclofen 10 mg PO TID PRN Basaglar KwikPen U-100 Insulin (insulin glargine) 36 units (0.36 mL) subcut BEDTIME NS blood-glucose sensor (Dexcom G6 Sensor device) As directed blood-glucose transmitter (Dexcom G6 Transmitter device) As directed blood-glucose,raw material handler,cont (Dexcom G6 Automobile Accessories Installer) As directed cholecalciferol (vitamin D3) 25 mcg PO DAILY 90 days cyanocobalamin (vitamin B-12) (Vitamin B-12) 2,500 mcg sublingual Q2D dapagliflozin propanediol (Farxiga) 5 mg PO QAM lidocaine 5% 1 patch topical DAILY lisinopril 40 mg PO QAM magnesium oxide 800 mg PO BEDTIME metoprolol succinate ER 50 mg (2 x 25 mg) PO QAM milk thist seed-artichoke leaf 150-300 mg (Artichoke Premium Extract) 1 cap PO DAILY pen needle, diabetic (BD Ultra-Fine Mini Pen Needle) 4 times per day semaglutide 2 mg subcut QWEEK tizanidine 4 mg PO BEDTIME PRN 90 days HPI Comments Details: Vince comes for follow-up. His current main issue is the back pain which has not got better with surgery. He is quite upset about it. He said this is limits his overall activity level. He has not had any significant cardiac symptoms. Denies any anginal symptoms. Denies any heart failure symptoms. No orthopnea, PND, leg edema. No prolonged palpitation irregular heartbeat. Takes all his medications. LDL is well optimized. [facility] Medical History Skin cancer Back pain CAD (coronary artery disease) Allergic rhinitis Obesity (BMI 30-39.9) Depression Carpal tunnel syndrome on both sides Lumbar degenerative disc disease Vitamin D deficiency Elevated liver enzymes Gout Pure hypercholesterolemia Diabetes mellitus Benign essential hypertension Surgical History Cataract extraction status of left eye History of back surgery S/P CABG x 4 S/P cardiac catheterization Hx of colonoscopy Status post carpal tunnel release (~06/19/20) History of excision of lesion History of carpal tunnel release History of bilateral hip arthroplasty Family History Father Medical history unknown Mother Diabetes Social History Household Members: Spouse Housing: House Are you a primary animal care supervisor to a significant other at home: No Do you presently have visiting nurse or other home services: No Alcohol intake: former Patient Tobacco Use Status: Former Tobacco user Tobacco use type: Cigarette Years Smoked: 15 e-Cigarette/Vaping Use: Never Used Second Hand Smoke Exposure: No service: No Current occupational status: employed Cognitive needs: No Hearing needs: No Vision needs: Yes (Glasses) Review of Systems Const Reports no additional complaints and Denies weakness Eyes Reports no additional complaints ENT Reports no additional complaints and Denies dizziness Card Denies chest pain, Denies chest pain with activity, Denies syncope, Denies rapid heart rate, Denies pedal edema, Denies edema, Denies leg edema, Denies lightheadedness, Denies palpitations, Denies dyspnea, Denies dyspnea on exertion and Denies orthopnea Resp Denies cough, Denies dyspnea and Denies dyspnea on exertion GI Denies hematochezia and Denies change in stool character Musc Denies abnormal gait, Denies muscle cramps, Denies muscle weakness, Denies numbness, Denies radiating pain into limb and Denies tingling Neuro Denies abnormal gait, Denies dizziness, Denies syncope, Denies numbness, Denies tingling and Denies weakness Endo Denies palpitations Physical Exam Vital Signs: Last Vital Signs Pulse 75 01/15/25 14:43 BP 122/68 01/15/25 14:43 BMI result Body Mass Index 35.2 Const General: cooperative, healthy appearing, comfortable and no acute distress Orientation/consciousness: patient oriented x3 Neck Neck: Yes normal visual inspection and Yes no JVD Resp Effort & Inspection: normal respiratory effort Auscultation: clear to auscultation bilaterally, no crackles, no rales, no rhonchi and no wheezes Cardio Other: sternal incision well approximated, drain sites healing well. No signs of inflammation, infection, swelling. Jugular venous distension: no JVD Rate: regular rate Rhythm: regular rhythm Heart sounds: S1 normal heart sound present, S2 normal heart sound present, no gallops, no murmurs and no rubs Neuro General: patient oriented x3 Extrem General: Yes normal to inspection Psych Appearance: grossly normal Mental Status: mental status grossly normal Speech and movement: Normal speech and movement present Office Procedures EKG Details: EKG shows normal sinus rhythm with right bundle-branch block with inferior infarct 84882-Euaspokjeiqurhpeo, Complete Assessment & Plan Assessment & Plan (1) CAD (coronary artery disease): Code(s): I25.10 - Atherosclerotic heart disease of [place] coronary artery without angina pectoris Category: Medical Qualifiers: Associated angina: without angina Coronary Disease-Associated Artery/Lesion type: [place] artery [place] vs. transplanted heart: [place] heart Qualified Code(s): I25.10 - Atherosclerotic heart disease of [place] coronary artery without angina pectoris Plan: CAD status post coronary artery bypass grafting with no current symptoms although limited activity level due to back pain. Recommend to pursue that aggressively so we can increase activity level. Advised to focus on aggressive lifestyle modification. Continue lifelong aspirin therapy. Continue high- intensity statin therapy with well optimized LDL at this point time. Continue aggressive blood pressure control, see below. Continue aggressive diabetes management goal hemoglobin A1c less than 7%. No further workup is indicated from cardiac perspective at this point time. Advised to call me with any new symptoms. Symptoms of angina were discussed again. (2) Hypertension: Code(s): I10 - Essential (primary) hypertension Category: Medical Qualifiers: Hypertension type: primary hypertension Qualified Code(s): I10 - Essential (primary) hypertension Plan: Hypertension which is currently well optimized advised to monitor blood pressure at home maintain a log. Goal blood pressure less than 130/84. Low-salt diet was discussed. Continue to participate in aggressive lifestyle modification as well as aerobic cardiac activity. Will follow up in the clinic in 1 year's time, sooner p.r.n.. Thank you for allowing me to partake in his care Coding Level of Care Code Est Pt Level 4 (09578) Complex EM visit Add On G2211 Diagnoses Coronary artery disease involving [place] coronary artery of [place] heart without angina pectoris I25.10 Associated angina: without angina Coronary Disease-Associated Artery/Lesion type: [place] artery [place] vs. transplanted heart: [place] heart Primary hypertension I10 Hypertension type: primary hypertension CPT Codes EKG - CPT: 47150-[id number], Complete ([id number])
--- OUTSIDE RECORDS SUMMARY | 2025-01-15 15:41 | XMS_ITS | Clinical Summary ---
Author Organization [facility] ity Address [address] [place] [address] Care Team Providers Care Card Grinder Name Role Phone Unavailable Primary Care Provider [...]
--- OUTSIDE RECORDS SUMMARY | 2025-01-15 15:41 | XMS_ITS | Clinical Summary ---
Author Organization [facility] Facility Address [address] [place] [id number] Care Team Providers Care Harness Builder Name Role Phone Rob Valerio MD Primary Care Provider [phone] Allergies Active Allergy Reactions Criticality Noted Date [...] age to complete this topic Insurance Medicare [facility] Medicare [facility] Care Teams Harness Builder Relationship Specialty Start Date End Date Rob Valerio MD [address] [place] [address] PCP - General Internal Medicine 05/24/22
--- OUTSIDE RECORDS SUMMARY | 2025-01-15 15:41 | XMS_ITS | Patient Health Record ---
Author Organization [facility] Address [address] [place] [address] Care Team Providers Care Animal Researcher Name Role Phone Teodoro NAYLOR, [place] Primary Care Provider Yocasta Brito Unavailable [phone] Allergies Allergen (clinical drug ingredient) Drug/Non Drug Allergy documented on EMR Reaction Allergy Type Onset Date Status sulfamethoxazole / trimethoprim Bactrim DS Rash Drug Allergy Active Reason For Referral No Information Medications Medication SIG (Take, Route, Frequency, Duration) Notes Start Date End Date Status Vitamin D3 Not-Takadrian Extra Depth Orthopedic Shoes (1 Pair) with Customized Heat Molded Multidensity Innersoles (3 Pair) Dx: IDDM/Polyneuropathy (E10.42), Hammertoe Foot Deformity (M20.41,M20.42), Preulcerative Skin Lesion(s) (L85.1) 06/26/2024 Active Allopurinol 100 MG 1 tablet Orally Once a day; Duration: 30 day(s) 200mg Active Basaglar KwikPen Not -Taking Baby Aspirin Active Lisinopril 40 MG 1 tablet Orally Once a day; Duration: 30 day(s) Active Metoprolol & Diet Manage Prod 25 1/2 tablet twice daily Activ e Vitamin C Not-Taking Clopidogrel Bisulfate Not-Taking Colcrys 0.6 MG 1 tablet Orally Once a day; Duration: 30 Not-Taking Farxiga Active Victoza Not-Taking Atorvastatin Calcium Active Trulicity Not-Taking Colcrys 0.6 MG 1 tablet Orally Once a day; Duration: 30 days Not-Takin g metFORMIN HCl ER 500 MG 1 tablet with ev ening meal Orally Twice daily Not-Taki ng Lantus Active Extra Depth Diabetic Shoes with 3 Pair Custom heat-molded multi-density innersoles for 1 year Dx: N ot-Taking Extra Depth Diabetic Shoes with 3 Pair Custom heat-molded multi-density innersoles for 1 year Dx: N ot-Taking Indomethacin 50 MG 1 capsule with food Orally i po tid pc; Duration: 10 days 08/13/2019 Not-Taking Colcrys 0.6 MG 1 tablet Orally once a day; Duration: 10 days 06/16/2021 Not-Takin g Medrol eben 4mg as directed orally a s directed; Duration: 6 days 08/10/2021 Not-Taking Work Note . . . patient is disab led from work until further notice 08/13/2019 Not-Taking Gabapentin Not-Takin g Extra Depth Diabetic Shoes with 3 Pair Custom heat-molded multi-density innersoles for 1 year Dx: N ot-Taking Aleve Not-Taking Gabapentin 300 MG 1 capsule Orally Thr ee times daily Not-Taking Magnesium 500 MG 1 tablet with a meal Orally Once a day; Duration: 30 day(s) Not-Taking Ozempic Not-Taking Amlodipine & Diet Manage Prod 5 Once daily Not-Taking Simvastatin 20 MG 1 tablet in the even ing Orally Once a day; Duration: 30 day(s) Not-Taking Immunizations Vaccine Route Administration [...] Problem Status W/U Status Risk Notes Problem Sprain of tibiofibular ligament of left ankle (disorder) (5550981108754692 7) 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, accidental (unintentional), initial encounter (T56.0X1A) Active confirmed Problem Acquired hammer toe of right foot (3863463784285607 ) Other hammer toe(s) (acquired), right foot (M20.41) Active confirmed Problem Acquired hammer toe of left foot (2651553944396201 ) Other hammer toe(s) (acquired), left foot (M20.42) Active confirmed Problem Polyneuropathy due to type 2 diabetes mellitus (594999852) Type 2 diabetes mellitus with diabetic polyneuropathy (E11.42) Active confirmed Problem Primary gout (33121678) Idiopathic gout, 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) Active confirmed Problem Polyneuropathy due to diabetes mellitus type I (619811910) Type 1 diabetes mellitus with diabetic polyneuropathy (E10.42) Active confirmed Problem Gout (03309447) Acute gout of left foot, unspecified cause (M10.9) Active confirmed Vital Signs Height 5ft 7in in 06/26/2024 Weight 210 lbs 06/26/2024 BMI 32.89 kg/m2 06/26/2024 Procedures Procedure Date Ordered Date Performed Result Body Sit e 95778-UCNUUTX NAIL, 6 OR MORE 06/26/2024 N/A 68388-OQPR SKIN LESIONS, OVER 4 06/26/2024 N/A Encounters Encounter Location Date Provider Diagnosis [facility] [address] [address] 06/26/2024 Yocasta Ashford Other hammer toe(s) (acquired), right foot M20.41 ; Other hammer toe(s) (acquired), left foot M20.42 ; Type 2 diabetes mellitus with diabetic polyneuropathy E11.42 and Tinea unguium B35.1 [facility] [address] [place] [address] 12/21/2024 Yocasta Ashford Assessments Encounter Date Diagnosis (ICD Code) Assessment [...] unguium (ICD-10 - B35.1) Plan Of Treatment Pending Test Test Name Order Date *Uric Acid, Serum 08/13/2019 *Uric Acid, Serum 06/16/2021 *CBC With Differential/Platelet 08/13/19 20 *Sedimentation Rate-Westergren 0 *Sedimentation Rate-Westergren 1 X ray : Foot, left 3V 08/10/2021 X ray : Foot, right 3V 08/13/2019 34439-WTYJSLD NAIL, 6 OR MORE 06/26/2024 42881-CVSL SKIN LESIONS, OVER 4 06/26/20 24 01024-SFBX SKIN LESIONS, OVER 4 06/04/20 21 17902-KOLE SKIN LESIONS, OVER 4 12/23/19 22 50807-MOLN SKIN LESIONS, OVER 4 12/02/19 21 90788-QNSC SKIN LESIONS, OVER 4 08/22/19 20 95429-PDUW SKIN LESIONS, OVER 4 06/02/20 20 I8027-XGNPODQK DYSTROPHIC NAILS ANY # O4873-OGFHESPS DYSTROPHIC NAILS ANY # I0780-QCDVBJUI DYSTROPHIC NAILS ANY # F7431-CXVTRNHK DYSTROPHIC NAILS ANY # Insurance Providers Payer Name Payer Address Payer Phone Subscriber Number Group Number Insured Name Patient Relationship to Insured Coverage Start Date Coverage End Date Medicare [employer] [address] [place] [address] [id number] Vince Cedillo Self - patient is the insured [facility] [address] [place] [address] [id number] Aga Cedillo Spouse - patient is the spouse of the insured Medical (General) History Medical History History ICD Code Arthritis Back,Hip,and Knee pain type II diabetes High blood pressure Measles Mumps Chicken pox Joint implants/screws Surgical History Surgery Date(Month/Year) hip replacement-Bilateral 1997 bone scan, back 06/21/22 quadruple bypass 02/2023
== END 2025-01-15 15:15 | disposition home or self-care (01) ==
LOC: HO.HCS 14:36
PROVIDERS: PCP Internal Medicine; Visit Provider Internal Medicine Cardiovascular Disease
DX: I25.10 Atherosclerotic heart disease of native coronary artery without angina pectoris (principal); I10 Essential (primary) hypertension
CPT/HCPCS: 93010; 99214; G2211

== ENCOUNTER → 2025-01-15 14:35 | Outpatient (BNVA) | payer MEDICARE, OTHER, SELFPAY | PROVIDERS: PCP Internal Medicine; Visit Provider Internal Medicine Cardiovascular Disease | DX: I25.2 Old myocardial infarction (principal); I45.10 Unspecified right bundle-branch block; I25.10 Atherosclerotic heart disease of native coronary artery without angina pectoris; I10 Essential (primary) hypertension; Z95.1 Presence of aortocoronary bypass graft; M54.9 Dorsalgia, unspecified; Z87.891 Personal history of nicotine dependence; Z79.899 Other long term (current) drug therapy | CPT/HCPCS: 93005; 99212 ==

== ENCOUNTER 2025-02-06 13:21 | Outpatient (REF) | payer MEDICARE, OTHER, SELFPAY ==
[2025-02-06 16:48] LABS: Anion Gap 11 (12-20); Blood Urea Nitrogen 22 mg/dL (9-16); Calcium 9.0 mg/dL (8.4-10.2); Carbon Dioxide 23 mmol/L (22-29); Chloride 110 mmol/L (96-108); Estimated Glomerular Filt Rate > 60; Potassium 5.2 mmol/L (3.3-5.1); Sodium 139 mmol/L (135-145)
[2025-02-06 16:52] LABS: Hemoglobin A1C 163.7566 umol/L; Total Hemoglobin (HGBA1C) 3870.0127 umol/L
[2025-02-06 17:07] LABS: Protein/Creatinine Ratio, Ur 0.28 (<0.2); Total Protein Urine Random 29 mg/dL (<12)
== END 2025-02-06 13:22 | disposition home or self-care (01) ==
LOC: HO.HMGCLDS 13:21
PROVIDERS: PCP Internal Medicine; Visit Provider Internal Medicine Nephrology
DX: I12.9 Hypertensive chronic kidney disease with stage 1 through stage 4 chronic kidney disease, or unspecified chronic kidney disease (principal); E11.22 Type 2 diabetes mellitus with diabetic chronic kidney disease; N18.31 Chronic kidney disease, stage 3a; E87.5 Hyperkalemia; Z79.899 Other long term (current) drug therapy; Z79.84 Long term (current) use of oral hypoglycemic drugs; Z87.891 Personal history of nicotine dependence
CPT/HCPCS: 36415; 80051; 82310; 82565; 82570; 83036; 84156; 84520; 99212

== ENCOUNTER 2025-02-06 13:21 | Outpatient (AMB) | payer MEDICARE, OTHER, SELFPAY ==
--- NOTE | 2025-02-06 13:42 | HO.NEPHOV ---
Vital Signs 02/06/25 13:44 Height 5 ft 6 in Weight 228 lb 6 oz BMI 36.9 BP 146/72 H Blood Pressure Location Rt brachial Position Sitting Pulse 67 Pulse Source Pulse Oximeter Pulse Oximetry (%) 96 Oxygen Delivery Method Room Air Intake Visit Reasons: 10 mon follow up-CONF Microbiology Technician Required: No Accompanied by: Self / Same As Patient Allergies Sulfa (Sulfonamide Antibiotics) Allergy (Intermediate, Verified 02/06/25 13:43) ITCHING / HIVES sitagliptin (Januvia) Allergy (Unknown, Verified 02/06/25 13:43) Unknown-patient does not remember reaction metformin Adverse Reaction (Intermediate, Verified 02/06/25 13:43) Diarrhea HPI Comments Details: I had the privilege of seeing Vince in follow-up of his chronic kidney disease. He has longstanding diabetes. He had taken metformin in the past but has caused diarrhea and it was discontinued. He is on Ozempic and Farxiga. His last hemoglobin A1c was under 6. He denied any retinopathy but has some proteinuria. He has no neuropathy. He is hypertensive and is on medications including SARY inhibitor. His blood pressure has been at goal. He has history of coronary artery disease. He has history of gout but is on allopurinol 200 mg daily. His sister the age of 7 due to kidney issues. He took some nonsteroidal anti-inflammatories recently during his gout exacerbation. He is compliant with his medications. He has been having back pain and is looking forward for a second opinion. [facility] Medical History Skin cancer Back pain CAD (coronary artery disease) Allergic rhinitis Obesity (BMI 30-39.9) Depression Carpal tunnel syndrome on both sides Lumbar degenerative disc disease Vitamin D deficiency Elevated liver enzymes Gout Pure hypercholesterolemia Diabetes mellitus Benign essential hypertension Surgical History Cataract extraction status of left eye History of back surgery S/P CABG x 4 S/P cardiac catheterization Hx of colonoscopy Status post carpal tunnel release (~06/19/20) History of excision of lesion History of carpal tunnel release History of bilateral hip arthroplasty Family History Father Medical history unknown Mother Diabetes Social History Household Members: Spouse Housing: House Are you a primary primary care md to a significant other at home: No Do you presently have visiting nurse or other home services: No Alcohol intake: former Patient Tobacco Use Status: Former Tobacco user Tobacco use type: Cigarette Years Smoked: 15 e-Cigarette/Vaping Use: Never Used Second Hand Smoke Exposure: No service: No Current occupational status: employed Cognitive needs: No Hearing needs: No Vision needs: Yes (Glasses) Review of Systems Const All systems reviewed & are unremarkable except as noted in HPI and below Physical Exam Vital Signs: Last Vital Signs Pulse 67 02/06/25 13:44 BP 146/72 H 02/06/25 13:44 Pulse Ox 96 02/06/25 13:44 Oxygen Delivery Method Room Air 02/06/25 13:44 BMI result Body Mass Index 36.9 Const General: comfortable and no acute distress Orientation/consciousness: patient oriented x3 HEENT Head: Yes normocephalic Mouth: Normal oral and palatal mucosa present Eyes EOM: EOMs intact bilaterally Neck Neck: Yes supple Resp Auscultation: clear to auscultation bilaterally Cardio Jugular venous distension: no JVD Rate: regular rate GI Palpation (GI): Soft to palpation Auscultation: normal bowel sounds General: Yes no CVA tenderness Back/Spine/Pelvis Back: no CVA tenderness Skin General skin exam: no rashes or lesions noted Neuro General: patient oriented x3 and moves all extremities Extrem General: Yes no pedal edema Results Reviewed Nephrology Results: Sodium, (135-145) 139 mmol/L 02/06/25 Potassium, (3.3-5.1) 5.2 mmol/L H 02/06/25 Chloride, (96-108) 110 mmol/L H 02/06/25 Carbon Dioxide, (22-29) 23 mmol/L 02/06/25 BUN, (9-16) 22 mg/dL H 02/06/25 Creatinine, (0.5-1.4) 1.08 mg/dL 02/06/25 Calcium, (8.4-10.2) 9.0 mg/dL 02/06/25 Urine Creatinine 101.87 mg/dL 02/06/25 Protein/Creatinin Ratio, (<0.2) 0.28 H 02/06/25 Assessment & Plan Assessment & Plan (1) Benign essential hypertension: Code(s): I10 - Essential (primary) hypertension Category: Medical (2) CKD (chronic kidney disease) stage 3, GFR 30-59 ml/min: Code(s): N18.30 - Chronic kidney disease, stage 3 unspecified Category: Medical Qualifiers: Chronic kidney disease stage 3 subtype: stage 3a (GFR 45-59) Qualified Code(s): N18.31 - Chronic kidney disease, stage 3a (3) Hyperkalemia: Code(s): E87.5 - Hyperkalemia Category: Medical Plan 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 His renal functions are stable. He is on SARY inhibitor and Farxiga. His blood pressure is at goal. He should continue Allopurinol 300 mg daily. He will benefit from weight loss. He should minimize or abstain from nonsteroidal anti-inflammatories. He should be on a low K diet. If K continues to rise, we may have to back off on ACEI or add a K lowering medication regularly. He should keep up with good hydration. There is no indication for any renal biopsy now. I did not make any other medication changes today. All his questions were answered. Follow-up blood work ordered. Orders: Orders Electrolytes 02/06/25 I10 - Essential (primary) hypertension, N18.31 - Chronic kidney disease, stage 3a Calcium 02/06/25 I10 - Essential (primary) hypertension, N18.31 - Chronic kidney disease, stage 3a Blood Urea Nitrogen 02/06/25 I10 - Essential (primary) hypertension, N18.31 - Chronic kidney disease, stage 3a Creatinine 6 Months I10 - Essential (primary) hypertension, N18.31 - Chronic kidney disease, stage 3a Hemoglobin A1c 02/06/25 I10 - Essential (primary) hypertension, N18.31 - Chronic kidney disease, stage 3a Creatinine 02/06/25 I10 - Essential (primary) hypertension, N18.31 - Chronic kidney disease, stage 3a Blood Urea Nitrogen 6 Months I10 - Essential (primary) hypertension, N18.31 - Chronic kidney disease, stage 3a Electrolytes 6 Months I10 - Essential (primary) hypertension, N18.31 - Chronic kidney disease, stage 3a Protein Creatinine Ratio, Ur 02/06/25 I10 - Essential (primary) hypertension, N18.31 - Chronic kidney disease, stage 3a Coding Level of Care Code Est Pt Level 4 (05362) Diagnoses Benign essential hypertension I10 Stage 3a chronic kidney disease N18.31 Chronic kidney disease stage 3 subtype: stage 3a (GFR 45-59) Hyperkalemia E87.5
[2025-02-06 13:44] VITALS: BP 146/72; PULSE 67; O2SAT 96; BMI 36.9
--- OUTSIDE RECORDS SUMMARY | 2025-02-06 13:53 | XMS_ITS | Clinical Summary ---
Author Organization [facility] ity Address [address] [place] [address] Care Team Providers Care Quotation Checker Name Role Phone Unavailable Primary Care Provider [...] Vaccine ( - 2023-2 5 season) 2024 Depression Screening 07/18/2024 Influenza Vaccine (#1) 2025 RSV Immunization Adult Patie nts (1 [...]
--- OUTSIDE RECORDS SUMMARY | 2025-02-06 13:53 | XMS_ITS | Patient Health Record ---
Author Organization [facility] Address [address] [place] [address] Care Team Providers Care Special Needs Nanny Name Role Phone Teodoro NAYLOR, [place] Primary Care Provider Yocasta Brito Unavailable [phone] Allergies Allergen (clinical drug ingredient) Drug/Non Drug [...] Vaccine Route Administration Date Status Comme nts Influenza Unknown 04/16/2021 Administered COVID-19 Pfizer BioNTech Vaccine Unknown 05/19/2021 Administered 1st 10/12/2020 2nd 11/03/2020 Social History Tobacco Use: Social History Observation [...] of tibiofibular ligament of left ankle (disorder) (6502345410411058 7) 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, accidental (unintentional), initial encounter (T56.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) Active confirmed Problem Acquired hammer toe of right foot (1094699143843477 ) Other hammer toe(s) (acquired), right foot (M20.41) Active confirmed Problem Acquired hammer toe of left foot (1327816868895648 ) Other hammer toe(s) (acquired), left foot (M20.42) Active confirmed Problem Polyneuropathy due to type 2 diabetes mellitus (844716501) Type 2 diabetes mellitus with diabetic polyneuropathy (E11.42) Active confirmed Problem Primary gout (36024766) Idiopathic gout, 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) Active confirmed Problem Polyneuropathy due to diabetes mellitus type I (697307029) Type 1 diabetes mellitus with diabetic polyneuropathy (E10.42) Active confirmed Problem Gout (20553057) Acute gout of left foot, unspecified cause (M10.9) Active confirmed Vital Signs Height 5ft 7in in 06/26/2024 Weight 210 lbs 06/26/2024 BMI 32.89 kg/m2 06/26/2024 Procedures Procedure Date Ordered Date Performed Result Body Sit e 94444-DXVIHJD NAIL, 6 OR MORE 06/26/2024 N/A 57260-WNDY SKIN LESIONS, OVER 4 06/26/2024 N/A Encounters Encounter Location Date Provider Diagnosis [facility] [address] [address] 06/26/2024 Yocasta Ashford Other hammer toe(s) (acquired), right foot M20.41 ; Other hammer toe(s) (acquired), left foot M20.42 ; Type 2 diabetes mellitus with diabetic polyneuropathy E11.42 and Tinea unguium B35.1 [facility] [place] [address] [place] [address] 12/21/2024 Yocasta Ashford Assessments Encounter Date Diagnosis [...] X ray : Foot, right 3V 08/13/2019 87988-ZGCADKG NAIL, 6 OR MORE 06/26/2024 76641-ITBP SKIN LESIONS, OVER 4 06/26/20 24 73380-WTEL SKIN LESIONS, OVER 4 06/04/20 21 99201-PTHO SKIN LESIONS, OVER 4 12/23/19 22 50941-JPES SKIN LESIONS, OVER 4 12/02/19 21 77233-OKIF SKIN LESIONS, OVER 4 08/22/19 20 82160-POAV SKIN LESIONS, OVER 4 06/02/20 20 B2838-DMXEBSNK DYSTROPHIC NAILS ANY # E2570-AWVUGHWJ DYSTROPHIC NAILS ANY # O0466-FFGDEWOK DYSTROPHIC NAILS ANY # E4269-BIQWYPPO DYSTROPHIC NAILS ANY # Insurance Providers Payer Name Payer Address Payer Phone Subscriber Number Group Number Insured Name Patient Relationship to Insured Coverage Start Date Coverage End Date Medicare National [employer] [address] [facility] [place] [address] [id number] Vince Cedillo Self - patient is the insured [facility] [address] [place] [address] [id number] Aga Cedillo Spouse - patient is the spouse of the insured Medical (General) History Medical History History ICD Code Arthritis Back,Hip,and Knee pain type II diabetes High blood pressure Measles Mumps Chicken pox Joint implants/screws Surgical History Surgery Date(Month/Year) hip replacement-Bilateral 1997 bone scan, back 06/21/22 quadruple bypass 02/2023
--- OUTSIDE RECORDS SUMMARY | 2025-02-06 13:54 | XMS_ITS | Clinical Summary ---
Author Organization [facility] Facility Address [address] [place] [address] Care Team Providers Care Childcare Aide Name Role Phone Rob Valerio MD Primary Care Provider +1- [phone] Allergies Active Allergy Reactions Criticality Noted Date [...] Visual Foot Exam 08/19/2022 Influenza Vaccine (#1) 2025 04/16/2021 Hepatitis B Vaccine Aged Out No longe r eligible based on patient's age to complete this topic Insurance Medicare [facility] Medicare [facility] Care Teams Childcare Aide Relationship Specialty Start Date End Date Rob Valerio MD [address] [place] [address] PCP - General Internal Medicine 05/24/22
== END 2025-02-06 14:10 | disposition home or self-care (01) ==
LOC: HO.HKA 13:22
PROVIDERS: PCP Internal Medicine; Visit Provider Internal Medicine Nephrology
DX: I10 Essential (primary) hypertension (principal); N18.31 Chronic kidney disease, stage 3a; E87.5 Hyperkalemia
CPT/HCPCS: 99214

== ENCOUNTER 2025-02-21 11:58 | Outpatient (REF) | payer MEDICARE, OTHER, SELFPAY ==
--- OUTSIDE RECORDS SUMMARY | 2025-02-21 12:27 | XMS_ITS | Clinical Summary ---
Author Organization [facility] Facility Address [address] [place] [address] Care Team Providers Care Head Refrigeration Engineer Name Role Phone Rob Valerio MD Primary Care Provider +1- [phone] Allergies Active Allergy Reactions Criticality Noted Date [...] Hospital Medicare [facility] Care Teams Head Refrigeration Engineer Relationship Specialty Start Date End Date Rob Valerio MD [address] [place] [address] PCP - General Internal Medicine 05/24/22
--- OUTSIDE RECORDS SUMMARY | 2025-02-21 12:27 | XMS_ITS | Patient Health Record ---
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) Active confirmed Problem Acquired hammer toe of right foot (9103200221409688 ) Other hammer toe(s) (acquired), right foot (M20.41) Active confirmed Problem Acquired hammer toe of left foot (6638722291350828 ) Other hammer toe(s) (acquired), left foot (M20.42) Active confirmed Problem Polyneuropathy due to type 2 diabetes mellitus (334444659) Type 2 diabetes mellitus with diabetic polyneuropathy (E11.42) Active confirmed Problem Primary gout (04916605) Idiopathic gout, 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) Active confirmed Problem Polyneuropathy due to diabetes mellitus type I (324458939) Type 1 diabetes mellitus with diabetic polyneuropathy (E10.42) Active confirmed Problem Gout (59222768) Acute gout of left foot, unspecified cause (M10.9) Active confirmed Vital Signs Height 5ft 7in in 06/26/2024 Weight 210 lbs 06/26/2024 BMI 32.89 kg/m2 06/26/2024 Procedures Procedure Date Ordered Date Performed Result Body Sit e 02975-OPPFJUA NAIL, 6 OR MORE 06/26/2024 N/A 67669-GZDB SKIN LESIONS, OVER 4 06/26/2024 N/A Encounters Encounter Location Date Provider Diagnosis [facility] [address] [address] 06/26/2024 Yocasta Ashford Other hammer toe(s) (acquired), right foot M20.41 ; Other hammer toe(s) (acquired), left foot M20.42 ; Type 2 diabetes mellitus with diabetic polyneuropathy E11.42 and Tinea unguium B35.1 [facility] [place] [address] [place] [address] 12/21/2024 Yocasta Ashford Assessments Encounter Date Diagnosis [...] X ray : Foot, right 3V 08/13/2019 19253-NDQUUKU NAIL, 6 OR MORE 06/26/2024 24726-OFYU SKIN LESIONS, OVER 4 06/26/20 24 49286-HBBD SKIN LESIONS, OVER 4 06/04/20 21 59301-YTYG SKIN LESIONS, OVER 4 12/23/19 22 35144-GKSV SKIN LESIONS, OVER 4 12/02/19 21 56703-KDQZ SKIN LESIONS, OVER 4 08/22/19 20 44873-MEUH SKIN LESIONS, OVER 4 06/02/20 20 W9648-QBIAGAXN DYSTROPHIC NAILS ANY # B5771-EGLKUCHH DYSTROPHIC NAILS ANY # O0044-ZDAELTKN DYSTROPHIC NAILS ANY # H6274-GLVVCPPU DYSTROPHIC NAILS ANY # Insurance Providers Payer Name Payer Address Payer Phone Subscriber Number Group Number Insured Name Patient Relationship to Insured Coverage Start Date Coverage End Date Medicare National [employer] [address] [facility] [place] [address] [id number] Vince Cedillo Self - patient is the insured [facility] [address] [place] [address] [id number] Aga Cedillo Spouse - patient is the spouse of the insured Medical (General) History Medical History History ICD Code Arthritis Back,Hip,and Knee pain type II diabetes High blood pressure Measles Mumps Chicken pox Joint implants/screws Surgical History Surgery Date(Month/Year) hip replacement-Bilateral 1997 bone scan, back 06/21/22 quadruple bypass 02/2023
--- OUTSIDE RECORDS SUMMARY | 2025-02-21 12:27 | XMS_ITS | Clinical Summary ---
Author Organization [facility] Address [address] [place] [address] Care Team Providers Care Radiological Technologist Name Role Phone Unavailable Primary Care Provider [...]
[2025-02-21 13:51] LABS: Anion Gap 12 (12-20); Blood Urea Nitrogen 23 mg/dL (9-16); Carbon Dioxide 23 mmol/L (22-29); Chloride 110 mmol/L (96-108); Estimated Glomerular Filt Rate > 60; Potassium 4.3 mmol/L (3.3-5.1); Sodium 141 mmol/L (135-145)
== END 2025-02-21 11:59 | disposition home or self-care (01) ==
LOC: HO.HMGCLDS 11:58
PROVIDERS: PCP Internal Medicine; Visit Provider Internal Medicine Nephrology
DX: I12.9 Hypertensive chronic kidney disease with stage 1 through stage 4 chronic kidney disease, or unspecified chronic kidney disease (principal); E11.22 Type 2 diabetes mellitus with diabetic chronic kidney disease; N18.31 Chronic kidney disease, stage 3a; M10.00 Idiopathic gout, unspecified site; E11.21 Type 2 diabetes mellitus with diabetic nephropathy
CPT/HCPCS: 36415; 80051; 82565; 84520

== ENCOUNTER 2025-03-06 07:13 | Outpatient (REF) | payer MEDICARE, OTHER, SELFPAY ==
--- OUTSIDE RECORDS SUMMARY | 2025-03-06 07:16 | XMS_ITS | Patient Health Record ---
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) Active confirmed Problem Acquired hammer toe of right foot (6956964665499684 ) Other hammer toe(s) (acquired), right foot (M20.41) Active confirmed Problem Acquired hammer toe of left foot (8918888064579979 ) Other hammer toe(s) (acquired), left foot (M20.42) Active confirmed Problem Polyneuropathy due to type 2 diabetes mellitus (353353984) Type 2 diabetes mellitus with diabetic polyneuropathy (E11.42) Active confirmed Problem Primary gout (46732722) Idiopathic gout, 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) Active confirmed Problem Polyneuropathy due to diabetes mellitus type I (353254460) Type 1 diabetes mellitus with diabetic polyneuropathy (E10.42) Active confirmed Problem Gout (20145588) Acute gout of left foot, unspecified cause (M10.9) Active confirmed Vital Signs Height 5ft 7in in 06/26/2024 Weight 210 lbs 06/26/2024 BMI 32.89 kg/m2 06/26/2024 Procedures Procedure Date Ordered Date Performed Result Body Sit e 45954-AHKQQND NAIL, 6 OR MORE 06/26/2024 N/A 03272-NAOW SKIN LESIONS, OVER 4 06/26/2024 N/A Encounters Encounter Location Date Provider Diagnosis [facility] [address] [address] 06/26/2024 Yocasta Ashford Other hammer toe(s) (acquired), right foot M20.41 ; Other hammer toe(s) (acquired), left foot M20.42 ; Type 2 diabetes mellitus with diabetic polyneuropathy E11.42 and Tinea unguium B35.1 [facility] [place] [address] [place] [address] 12/21/2024 Yocasta Ashford Assessments Encounter Date Diagnosis [...] X ray : Foot, right 3V 08/13/2019 63834-BECRFAV NAIL, 6 OR MORE 06/26/2024 23122-QBSS SKIN LESIONS, OVER 4 06/26/20 24 15607-KTJH SKIN LESIONS, OVER 4 06/04/20 21 73497-MVUZ SKIN LESIONS, OVER 4 12/23/19 22 27902-PTAN SKIN LESIONS, OVER 4 12/02/19 21 89374-QDDV SKIN LESIONS, OVER 4 08/22/19 20 61736-JHIY SKIN LESIONS, OVER 4 06/02/20 20 U0643-XGJMBGDJ DYSTROPHIC NAILS ANY # Z1588-PUEGTEQA DYSTROPHIC NAILS ANY # Z9438-NYQFIJIR DYSTROPHIC NAILS ANY # C5502-WUQGEJOM DYSTROPHIC NAILS ANY # Insurance Providers Payer Name Payer Address Payer Phone Subscriber Number Group Number Insured Name Patient Relationship to Insured Coverage Start Date Coverage End Date Medicare National Govt Sv[employer] [address] [place] [address] [id number] Vince Cedillo Self - patient is the insured [facility] [address] [place] [address] [id number] Aga Cedillo Spouse - patient is the spouse of the insured Medical (General) History Medical History History ICD Code Arthritis Back,Hip,and Knee pain type II diabetes High blood pressure Measles Mumps Chicken pox Joint implants/screws Surgical History Surgery Date(Month/Year) hip replacement-Bilateral 1997 bone scan, back 06/21/22 quadruple bypass 02/2023
--- OUTSIDE RECORDS SUMMARY | 2025-03-06 07:16 | XMS_ITS | Clinical Summary ---
Author Organization [facility] Address [address] [place] [address] Care Team Providers Care Endoscopy Support Specialist Name Role Phone Rob Valerio MD Primary Care Provider +1- [phone] Allergies Active Allergy Reactions Criticality Noted Date [...] to complete this topic Insurance Medicare [facility] Medicare [facility] Care Teams Endoscopy Support Specialist Relationship Specialty Start Date End Date Rob Valerio MD [address] [place] [address] PCP - General Internal Medicine 05/24/22
[2025-03-06 10:50] LABS: Appearance Urine Clear; Glucose Urine UA 100 mg/dL (Negative); PH 6.0 (5.0-9.0); Specific Gravity - Urine 1.015 (1.005-1.025)
[2025-03-06 11:00] LABS: MANUAL DIFF FLAG NO
[2025-03-06 11:17] LABS: Microalbum/Creatinine Ratio Ur 78.3 ug/mg cr (<30)
[2025-03-06 11:18] LABS: Hematocrit 45.8 % (42.0-52.0); Hemoglobin 15.0 g/dl (14.0-18.0); Imm Gran Abs Auto 0.06 X10*3/uL (0.00-0.03); Imm Gran Pct Auto 0.8 % (0.0-0.4); Lymphocytes Absolute Auto 2.1 X10*3/uL (1.2-4.9); Mean Corpuscular HGB Conc 32.8 g/dl (31.0-36.0); Mean Corpuscular Hemoglobin 29.8 pg (27.0-33.0); Mean Corpuscular Volume 90.9 fL (80.0-98.0); NRBC Abs Auto 0.000 X10*3/uL (0.0-0.012); NRBC Pct Auto 0.0 /100WBC (0.0-0.2); Platelet Count 153 X10*3/uL (160-400); Red Blood Count 5.04 X10*6/uL (4.60-5.80); White Blood Count 7.6 X10*3/uL (4.8-10.8)
[2025-03-06 11:50] LABS: Hemoglobin A1C 179.2588 umol/L; Total Hemoglobin (HGBA1C) 4100.1040 umol/L
[2025-03-06 11:54] LABS: Alanine Aminotransferase 41 U/L (0-40); Albumin Level 4.0 g/dL (3.5-5.0); Alkaline Phosphatase 99 U/L (39-117); Anion Gap 14 (12-20); Aspartate Amino Transferase 46 U/L (5-37); Blood Urea Nitrogen 28 mg/dL (9-16); Calcium 9.0 mg/dL (8.4-10.2); Carbon Dioxide 22 mmol/L (22-29); Chloride 109 mmol/L (96-108); Cholesterol 114 mg/dL (<200); Estimated Glomerular Filt Rate > 60; HDL Cholesterol 38 mg/dL (>40); Potassium 4.6 mmol/L (3.3-5.1); Sodium 140 mmol/L (135-145); Total Protein 6.6 g/dL (6.5-8.0); Triglycerides 101 mg/dL (<150); Uric Acid 4.4 mg/dL (3.4-7.0)
[2025-03-06 12:10] LABS: Folate 14.8 ng/mL (> or = 4.0); Vitamin B12 962 pg/mL (200-900)
== END 2025-03-06 07:14 | disposition home or self-care (01) ==
LOC: HO.HMGCLDS 07:13
PROVIDERS: PCP Internal Medicine; Visit Provider Internal Medicine
DX: E11.9 Type 2 diabetes mellitus without complications (principal); E53.8 Deficiency of other specified B group vitamins; R30.0 Dysuria; E55.9 Vitamin D deficiency, unspecified; E78.00 Pure hypercholesterolemia, unspecified; M10.9 Gout, unspecified; D64.9 Anemia, unspecified
CPT/HCPCS: 36415; 80053; 80061; 81003; 82043; 82306; 82570; 82607; 82746; 83036; 84443; 84550; 85025

== ENCOUNTER 2025-03-11 09:00 | Outpatient (AMB) | payer MEDICARE, OTHER, SELFPAY ==
[2025-03-11 09:35] VITALS: BP 140/74; PULSE 66; O2SAT 95; BMI 36.5
--- NOTE | 2025-03-11 09:35 | A.OFFPC_ITS ---
Vital Signs 03/11/25 09:35 Height 5 ft 6 in Weight 226 lb 6 oz BMI 36.5 BP 140/74 H Blood Pressure Location Lt brachial Position Sitting Pulse 66 Pulse Source Pulse Oximeter Pulse Oximetry (%) 95 Oxygen Delivery Method Room Air Intake Visit Reasons: 4 month f/u Patient Manager Required: No Accompanied by: Self / Same As Patient Allergies Sulfa (Sulfonamide Antibiotics) Allergy (Intermediate, Verified 03/11/25 10:03) ITCHING / HIVES sitagliptin (Januvia) Allergy (Unknown, Verified 03/11/25 10:03) Unknown-patient does not remember reaction metformin Adverse Reaction (Intermediate, Verified 03/11/25 10:03) Diarrhea Medication List - Last Reconciled 03/11/25 by Rob Valerio MD acetaminophen 325 mg PO QID PRN Admelog SoloStar U-100 Insulin (insulin lispro) 6 to 8 units 3 times a day with meals SQ per sliding scale subcutaneously 3 times a day; 30 days NS allopurinol 300 mg (3 x 100 mg) PO QAM aspirin (Adult Aspirin Regimen) 81 mg PO QAM Held on 09/05/24. Instructions: Resume on 09/09/24. atorvastatin 40 mg PO BEDTIME baclofen 10 mg PO TID PRN Basaglar KwikPen U-100 Insulin (insulin glargine) 36 units (0.36 mL) subcut BEDTIME NS blood-glucose sensor (Dexcom G6 Sensor device) As directed blood-glucose transmitter (Dexcom G6 Transmitter device) As directed blood-glucose,tank truck milk receiver,cont (Dexcom G6 [employer] Research Analyst) As directed cholecalciferol (vitamin D3) 25 mcg PO DAILY 90 days cyanocobalamin (vitamin B-12) (Vitamin B-12) 2,500 mcg sublingual Q2D dapagliflozin propanediol (Farxiga) 5 mg PO QAM gabapentin 300 mg PO TID lidocaine 5% 1 patch topical DAILY lisinopril 40 mg PO QAM magnesium oxide 800 mg PO BEDTIME metoprolol succinate ER 50 mg (2 x 25 mg) PO QAM milk thist seed-artichoke leaf 150-300 mg (Artichoke Premium Extract) 1 cap PO DAILY pen needle, diabetic (BD Ultra-Fine Mini Pen Needle) 4 times per day semaglutide 2 mg subcut QWEEK tizanidine 4 mg PO BEDTIME PRN 90 days Tobacco use date assessed: 03/11/25 Fall risk assessment: No Falls in past year Last assessed Fall Risk: 03/11/25 Dental Screening Dental Screen Date: 03/11/25 Did you have a dental visit in the last 12 months?: Yes Did you have a dental problem in the last 6 months where you did not have access to dental care?: No Was dental information given to patient?: Patient has dentist HPI 4 month f/u HPI Details Patient comes in today for his follow up visit States that he has been experiencing increased low back pain and more recently, recurrent right-sided sciatica, which he feels is getting worse and is now impacting his mobility and quality of life He had lumbar spine surgery with Dr. Monteiro back in August 2024 but feels that the surgery did not help at all States that he recently tried going on his stationary bike to try exercising as he has been gaining weight lately - relates that he could not even stay on his bike for a minute and had to put it back due to increasing low back pain States that he feels okay otherwise He denies any headaches or dizziness Denies any chest pains, no increased SOB No nausea/vomiting, no abdominal pain No change in bowel habits noted He had his follow up labs done a few days ago - to discuss his results He would also like to know how he did on his home sleep study done last month - states that he has not heard back at all from Sleep Medicine regarding his results [facility] Medical History Skin cancer Back pain CAD (coronary artery disease) Allergic rhinitis Obesity (BMI 30-39.9) Depression Carpal tunnel syndrome on both sides Lumbar degenerative disc disease Vitamin D deficiency Elevated liver enzymes Gout Pure hypercholesterolemia Diabetes mellitus Benign essential hypertension Surgical History Cataract extraction status of left eye History of back surgery S/P CABG x 4 S/P cardiac catheterization Hx of colonoscopy Status post carpal tunnel release (~06/19/20) History of excision of lesion History of carpal tunnel release History of bilateral hip arthroplasty Family History Father Medical history unknown Mother Diabetes Social History Household Members: Spouse Housing: House Are you a primary geriatric personal care aide to a significant other at home: No Do you presently have visiting nurse or other home services: No Alcohol intake: former Patient Tobacco Use Status: Former Tobacco user Tobacco use type: Cigarette Years Smoked: 15 e-Cigarette/Vaping Use: Never Used Second Hand Smoke Exposure: No service: No Current occupational status: employed Cognitive needs: No Hearing needs: No Vision needs: Yes (Glasses) Questionnaire PHQ-9 Over the last 2 weeks, how often have you been bothered by any of the following problems? 1. Little interest or pleasure in doing things: not at all 2. Feeling down, depressed, or hopeless: not at all 3. Trouble falling or staying asleep, or sleeping too much: not at all 4. Feeling tired or having little energy: not at all 5. Poor appetite or overeating: not at all 6. Feeling bad about yourself - or that you are a failure or have let yourself or your family down: not at all 7. Trouble concentrating on things, such as reading the newspaper or watching television: not at all 8. Moving or speaking so slowly that other people could have noticed. Or the opposite - being so fidgety or restless that you have been moving around a lot more than usual: not at all 9. Thoughts that you would be better off or of hurting yourself in some way: not at all Total score: 0 Depression Screening Interpretation: Negative Depression Screening Done: Yes 77218 - PHQ-9 Billing: Yes Source: Developed by Drs. Rigoberto Iqbal, Celestina Murray, Tyrone Wong and colleagues, with an educational farida from [employer]. Thrive Questionnaire Date Thrive assessed: 03/11/25 I am a: Patient What is your living situation today?: I have a steady place to live Within the past 12 months, did the food you bought not last and you didn't have the money to get more?: Never true Within the past 12 months, did you worry whether your food would run out before you got money to buy more?: Never true Do you have trouble paying for medicines?: No Do you have trouble getting transportation to medical appointments?: No Do you have trouble paying your heating and electricity bill?: I choose not to answer this question Do you have trouble taking care of your child, family member or friend?: I choose not to answer this question Do you have trouble with day-to-day activities such as bathing, preparing meals, shopping, managing finances, etc.?: No Are you currently unemployed and looking for a job?: I choose not to answer this question Are you interested in more education?: No Please select the resources that you would like help with: None Currently or been in a relationship where the following occur: No concerns reported THRIVE Score: 0 AUDIT C Alcohol Use Questionnaire (AUDIT-C) 1. How often do you have a drink containing alcohol?: Never 3. How often do you have six or more drinks on one occasion?: Never Total Score: 0 Score Reviewed/Action Taken: Yes RIO-7 AMB Questionnaire RIO-7 Date RIO - 7 assessed: 03/11/25 Feeling nervous, anxious, or on edge: 0 = Not at all Not being able to stop or control worryin = Not at all Worrying too much about different things: 0 = Not at all Trouble relaxin = Not at all Being so restless that it is hard to sit still: 0 = Not at all Becoming easily annoyed or irritable: 0 = Not at all Feeling afraid as if something awful might happen: 0 = Not at all Total RIO-7 score (0-4 normal; 5-9 mild; 10-14 moderate; 15-21 severe): 0 Source: Developed by Drs. Rigoberto Iqbal, Celestina Murray, Tyrone Wong and colleagues, with an educational farida from [employer]. Review of Systems Const Denies chills, Denies fatigue, Denies fever(s) and Denies headache(s) ENT Denies dysphagia, Denies dizziness, Denies otalgia, Denies headache(s), Denies neck pain, Denies odynophagia and Denies sore throat Card Denies chest pain, Denies palpitations and Denies dyspnea Resp Denies chest congestion, Denies cough and Denies dyspnea GI Denies abdominal pain, Denies constipation, Denies dysphagia, Denies heartburn, Denies diarrhea, Denies nausea, Denies odynophagia and Denies vomiting Denies difficulty urinating, Denies dysuria, Denies nocturia and Denies urinary frequency Musc Reports back pain (chronic, worse with prolonged standing or increased activity), Denies neck pain and Reports radiating pain into limb (recurrent, down the back of his right lower extremity) Skin/Breast Denies rash Neuro Denies dizziness and Denies headache(s) Endo Denies fatigue and Denies palpitations Physical exam (Primary Care) Vital Signs: Last Vital Signs Pulse 66 03/11/25 09:35 BP 140/74 H 03/11/25 09:35 Pulse Ox 95 03/11/25 09:35 Oxygen Delivery Method Room Air 03/11/25 09:35 BMI result Body Mass Index 36.5 Tobacco/Smoking Status: Tobacco use Status Tobacco use date assessed 03/11/25 03/11/25 09:45 Patient Tobacco Use Status Former Tobacco user 03/11/25 09:45 Tobacco use type Cigarette 03/11/25 09:45 e-Cigarette/Vaping Use Never Used 03/11/25 09:45 PHQ-9: PHQ-9 Score PHQ-9: Total score 0 03/11/25 09:45 Depression Screening Interpretation: Negative Thrive Assessment: Date of Thrive Assessment Date Thrive assessed 03/11/25 03/11/25 09:45 Currently or been in a relationship where the following occur: No concerns reported Const General: no acute distress and alert HENMT Ears: TM's normal bilaterally and EAC's normal Throat: Yes posterior oropharynx normal and Yes tonsils normal (no TP congestion) Neck Neck: Yes supple and No lymphadenopathy Thyroid: Thyroid normal Resp Auscultation: clear to auscultation bilaterally, no rales and no wheezes Cardio Rate: regular rate Rhythm: regular rhythm Heart sounds: no murmurs GI Palpation (GI): Soft to palpation and nontender Auscultation: normal bowel sounds General: Yes no CVA tenderness Back/Spine/Pelvis Back: no CVA tenderness Thoracic/Lumbar Spine: lumbar spinal tenderness and straight leg raise positive right Skin Rashes: no rashes Extrem General: Yes no clubbing, cyanosis or edema Results Reviewed Results Reviewed: Laboratory Tests 03/06/25 07:17 WBC 7.6 Hgb 15.0 Hct 45.8 Plt Count 153 L Sodium 140 Potassium 4.6 Creatinine 1.08 Estimated GFR > 60 Fasting Glucose 114 H Hemoglobin A1c % 6.2 H Uric Acid 4.4 Calcium 9.0 AST 46 H ALT 41 H Triglycerides 101 Cholesterol 114 LDL Cholesterol, Calc 56 HDL Cholesterol 38 L Vitamin B12 962 H 25-OH Vitamin D Total 48.8 TSH 0.74 Ur Specific [place] 1.015 Urine Protein Negative Urine Glucose (UA) 100 H Urine Blood Negative Urine Nitrite Negative Ur Leukocyte Esterase Negative Microalb/Creat Ratio 78.3 H Coding Level of Care Code Est Pt Level 4 (60388) Complex EM visit Add On G2211 Diagnoses Type 2 diabetes mellitus without complication, with long-term current use of in sulin E11.9; Z79.4 Diabetes mellitus type: type 2 Diabetes mellitus mcfp insulin use: with laborer marine terminal use Diabetes mellitus complication status: without complication Benign essential hypertension I10 Persistent proteinuria R80.1 Proteinuria type: persistent Pure hypercholesterolemia E78.00 Elevated liver enzymes R74.8 Hypomagnesemia E83.42 Nocturnal leg cramps G47.62 Degeneration of intervertebral disc of lumbar region with discogenic back pain and lower extremity pain M51.362 Disc-related pain type: discogenic back pain and lower extremity pain Idiopathic gout, unspecified chronicity, unspecified site M10.00 Gout site: unspecified site Gout etiology: idiopathic Chronicity: unspecified Vitamin D deficiency E55.9 Elevated vitamin B12 level R79.89 Loud snoring R06.83 Obesity (BMI 30-39.9) E66.9 Additional Codes PHQ-9 - 61208 - PHQ-9 Billing: Yes ([id number]) Assessment & Plan Assessment & Plan (1) Diabetes mellitus: Comment: type 2-dx ~ age 52-has glucose sensor-usually ~ 110 (A1C on 06/28/24 was 5.6%) Code(s): E11.9 - Type 2 diabetes mellitus without complications Category: Medical Qualifiers: Diabetes mellitus type: type 2 Diabetes mellitus laborer marine terminal insulin use: with mcfp use Diabetes mellitus complication status: without complication Qualified Code(s): E11.9 - Type 2 diabetes mellitus without complications; Z79.4 - long term care administrator (current) use of insulin Plan: His HgbA1c was at 6.2% on his labs done a few days ago (was previously at 5.7% a few months ago) - goal is at least <7.0% but ideally <6.5% Have advised patient that his HgbA1c has been slowly but steadily climbing up over the past year, which patient is attributing to his decreased physical activity as a result of his increasing low back pain and recurrent right-sided sciatica Reinforced diabetic diet Continue Farxiga 5 mg QD, Ozempic 2 mg SQ once a week, Lantus 36 units Q HS and Admelog 6 to 8 units TID per sliding scale (Lantus might need to be switched over to Basaglar soon due to formulary changes) Patient could not tolerate Metformin or Metformin ER in the past due to diarrhea (2) Benign essential hypertension: Code(s): I10 - Essential (primary) hypertension Category: Medical Plan: Reinforced low sodium diet - goal is systolic BP of at least 130 mm or less Continue Lisinopril 40 mg QD and Metoprolol ER 50 mg QD Echocardiogram done a couple of years ago revealed low normal LV systolic function with LVEF of 50-55% with impaired relaxation filling pattern with severe focal hypertrophy of the basal septum, mild left atrial enlargement, normal cardiac valvular dopplers and no gross pericardial effusion Follow up with cardiology as scheduled (3) Proteinuria: Code(s): R80.9 - Proteinuria, unspecified Category: Medical Qualifiers: Proteinuria type: persistent Qualified Code(s): R80.1 - Persistent proteinuria, unspecified Plan: This is most likely related to his HTN and DM This appears to have cleared up previously as he did not have any proteins in his urine a few months ago and his microalbumin level also improved significantly but both appears to have regressed/recurred on his recent labs Have emphasized again the importance of tight BP and glucose control to slow down progression of renal disease Follow up with nephrology (Dr. Vann) as scheduled (4) Pure hypercholesterolemia: Code(s): E78.00 - Pure hypercholesterolemia, unspecified Category: Medical Plan: Results of his labs done a few days ago reviewed and discussed with patient Reinforced low cholesterol diet Continue Simvastatin 20 mg QD Will recheck his labs and fasting lipids in 4 months for follow up (5) Elevated liver enzymes: Code(s): R74.8 - Abnormal levels of other serum enzymes Category: Medical Plan: His LFTs were still slightly elevated on his recent labs They were improving when last checked a few months ago - have advised patient again that these were most likely related to his weight and should improve with continuing weight loss Will continue to monitor his LFTs regularly (6) Hypomagnesemia: Code(s): E83.42 - Hypomagnesemia Category: Medical Plan: Corrected - his serum magnesium level remained normal on his previous labs Continue Magnesium Oxide 400 mg BID (7) Nocturnal leg cramps: Code(s): G47.62 - Sleep related leg cramps Category: Medical Plan: Continue Tizanidine 4 mg Q HS PRN (8) Lumbar degenerative disc disease: Code(s): M51.36 - Other intervertebral disc degeneration, lumbar region Category: Medical Qualifiers: Disc-related pain type: discogenic back pain and lower extremity pain Qualified Code(s): M51.362 - Other intervertebral disc degeneration, lumbar region with discogenic back pain and lower extremity pain Plan: Reinforced activity and weight-lifting restrictions Lumbar spine MRI done back in April 2022 revealed (+) grade 1 degenerative anterolisthesis in the setting of advanced bilateral facet arthropathy and additional spondylitic changes resulting in mild central canal stenosis and severe bilateral foraminal stenosis with compression of the exiting L4 nerve roots bilaterally at L4-L5. THERE ARE VERY LARGE BILATERAL FACET JOINT EFFUSIONS AT L4-L5 THAT SHOULD BE FOLLOWED WITH FLEXION-EXTENSION RADIOGRAPHS TO EXCLUDE SEGMENTAL INSTABILITY. There is also a right lateral disc osteophyte protrusion contacts the extraforaminal right L5 nerve root at L5-S1 Patient has been referred to neurosurgery (Dr. Monteiro) regarding his lumbar spine issues and he subsequently underwent L4-5 oblique lumbar interbody fusion back on 09/04/2024 Patient states that it has been several months now since his back surgery but he has not yet experience any improvement so far and he is disappointed and frustrated that his back surgery apparently failed to address his symptoms, especially with his recurrent right-sided sciatica lately Follow-up with neurosurgery as scheduled Will try to refer him to pain management for further recommendations, especially since patient apparently has failed back surgery (9) Gout: Code(s): M10.9 - Gout, unspecified Category: Medical Qualifiers: Gout site: unspecified site Gout etiology: idiopathic Chronicity: unspecified Qualified Code(s): M10.00 - Idiopathic gout, unspecified site Plan: His serum uric acid has improved and has remained normal on his recent labs Reinforced low purine diet - states that he has not had any acute gout flare ups in a while now Continue Allopurinol 300 mg QD Will recheck his serum uric acid level in a few months for follow up (10) Vitamin D deficiency: Code(s): E55.9 - Vitamin D deficiency, unspecified Category: Medical Plan: Continue Vitamin D3 1000 units QD (11) Elevated vitamin B12 level: Code(s): R79.89 - Other specified abnormal findings of blood chemistry Category: Medical Plan: His Vitamin B12 level has remained normal at 962 pg/ml Continue Vitamin B12 tablets every 2 to 3 days Will recheck his Vitamin B12 level in a few months for follow up (12) Loud snoring: Code(s): R06.83 - Snoring Category: Medical Plan: He is reassured that his home sleep study done last month came back normal and that he DOES NOT have ELLI (13) Obesity (BMI 30-39.9): Code(s): E66.9 - Obesity, unspecified Category: Medical Plan: Reinforced diet; exercise and weight loss are not practical or realistic at this time due to his low back pain and physical issues Plan Follow up in 4 months Orders: Orders Hemoglobin A1c 4 Months E11.9 - Type 2 diabetes mellitus without complications Lipid Panel 4 Months E78.00 - Pure hypercholesterolemia, unspecified Comprehensive [place]. Panel Fast 4 Months E78.00 - Pure hypercholesterolemia, unspecified Vitamin D 25-OH Total 4 Months E55.9 - Vitamin D deficiency, unspecified Vitamin B12 and Folate 4 Months E53.8 - Deficiency of other specified B group vitamins Magnesium 4 Months E83.42 - Hypomagnesemia Uric Acid 4 Months M10.9 - Gout, unspecified Complete Blood Count Auto Diff 4 Months D64.9 - Anemia, unspecified Microalbumin, Random (w Creat) 4 Months E11.9 - Type 2 diabetes mellitus without complications UA CC w/rflx Micro + Cult 4 Months R30.0 - Dysuria TSH reflex Free T4 4 Months E78.00 - Pure hypercholesterolemia, unspecified Referrals Pain Management Referral M54.50 - Low back pain, unspecified
--- OUTSIDE RECORDS SUMMARY | 2025-03-11 09:41 | XMS_ITS | Clinical Summary ---
Author Organization [facility] Facility Address [address] [place] [address] Care Team Providers Care Nurses' [employer] Executive Director Name Role Phone Rob Valerio MD Primary Care Provider [phone] Allergies Active Allergy Reactions Criticality Noted Date [...] age to complete this topic Insurance Medicare [facility] Medicare [facility] Care Teams Nurses' Association Executive Director Relationship Specialty Start Date End Date Rob Valerio MD [address] [place] [address] PCP - General Internal Medicine 05/24/22
--- OUTSIDE RECORDS SUMMARY | 2025-03-11 09:41 | XMS_ITS | Clinical Summary ---
Author Organization [facility] ity Address [address] [place] [address] Care Team Providers Care Conservation Biology Professor Name Role Phone Unavailable Primary Care Provider [...]
--- OUTSIDE RECORDS SUMMARY | 2025-03-11 09:41 | XMS_ITS | Patient Health Record ---
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, accidental (unintentional), initial encounter (T56.0X1A) Active confirmed Problem Acquired hammer toe of right foot (4022279348311279 ) Other hammer toe(s) (acquired), right foot (M20.41) Active confirmed Problem Acquired hammer toe of left foot (4499510045463075 ) Other hammer toe(s) (acquired), left foot (M20.42) Active confirmed Problem Polyneuropathy due to type 2 diabetes mellitus (596211062) Type 2 diabetes mellitus with diabetic polyneuropathy (E11.42) Active confirmed Problem Primary gout (27837184) Idiopathic gout, 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) Active confirmed Problem Polyneuropathy due to diabetes mellitus type I (359260752) Type 1 diabetes mellitus with diabetic polyneuropathy (E10.42) Active confirmed Problem Gout (62576829) Acute gout of left foot, unspecified cause (M10.9) Active confirmed Vital Signs Height 5ft 7in in 06/26/2024 Weight 210 lbs 06/26/2024 BMI 32.89 kg/m2 06/26/2024 Procedures Procedure Date Ordered Date Performed Result Body Sit e 15243-NSYYNZZ NAIL, 6 OR MORE 06/26/2024 N/A 34177-CJQH SKIN LESIONS, OVER 4 06/26/2024 N/A Encounters Encounter Location Date Provider Diagnosis [facility] [address] [address] 06/26/2024 Yocasta Ashford Other hammer toe(s) (acquired), right foot M20.41 ; Other hammer toe(s) (acquired), left foot M20.42 ; Type 2 diabetes mellitus with diabetic polyneuropathy E11.42 and Tinea unguium B35.1 [facility] [address] [place] [address] 12/21/2024 Yocasta Ashford Assessments Encounter Date Diagnosis [...] X ray : Foot, right 3V 08/13/2019 37780-[id number] NAIL, 6 OR MORE 06/26/2024 22913-WYMV SKIN LESIONS, OVER 4 06/26/20 24 42732-YPQH SKIN LESIONS, OVER 4 06/04/20 21 02512-ELEH SKIN LESIONS, OVER 4 12/23/19 22 89705-DWJK SKIN LESIONS, OVER 4 12/02/19 21 39109-DQRT SKIN LESIONS, OVER 4 08/22/19 20 64800-JELC SKIN LESIONS, OVER 4 06/02/20 20 Y3212-[id number] DYSTROPHIC NAILS ANY # I0596-TYVLZLNN DYSTROPHIC NAILS ANY # M9461-TBUARJXV DYSTROPHIC NAILS ANY # I8451-OHDSTVAP DYSTROPHIC NAILS ANY # Insurance Providers Payer Name Payer Address Payer Phone Subscriber Number Group Number Insured Name Patient Relationship to Insured Coverage Start Date Coverage End Date Medicare [employer] [address] [place] [address] [id number] Vince Cedillo Self - patient is the insured [facility] [address] [place] [address] [id number] Aga Cedillo Spouse - patient is the spouse of the insured Medical (General) History Medical History History ICD Code Arthritis Back,Hip,and Knee pain type II diabetes High blood pressure Measles Mumps Chicken pox Joint implants/screws Surgical History Surgery Date(Month/Year) hip replacement-Bilateral 1997 bone scan, back 06/21/22 quadruple bypass 02/2023
== END 2025-03-11 10:18 | disposition home or self-care (01) ==
LOC: HO.HMCH 09:01
PROVIDERS: PCP Internal Medicine; Visit Provider Internal Medicine
DX: E11.9 Type 2 diabetes mellitus without complications (principal); Z79.4 Long term (current) use of insulin; E66.9 Obesity, unspecified; Z68.36 Body mass index [BMI] 36.0-36.9, adult; I10 Essential (primary) hypertension; R80.1 Persistent proteinuria, unspecified; E78.00 Pure hypercholesterolemia, unspecified; R74.8 Abnormal levels of other serum enzymes; E83.42 Hypomagnesemia; G47.62 Sleep related leg cramps; M51.362 Other intervertebral disc degeneration, lumbar region with discogenic back pain and lower extremity pain; M10.00 Idiopathic gout, unspecified site

== ENCOUNTER → 2025-03-11 09:00 | Outpatient (BNVA) | payer MEDICARE, OTHER, SELFPAY | PROVIDERS: PCP Internal Medicine; Visit Provider Internal Medicine | DX: E11.9 Type 2 diabetes mellitus without complications (principal); R80.1 Persistent proteinuria, unspecified; I10 Essential (primary) hypertension; E78.00 Pure hypercholesterolemia, unspecified; E83.42 Hypomagnesemia; G47.62 Sleep related leg cramps; M51.362 Other intervertebral disc degeneration, lumbar region with discogenic back pain and lower extremity pain; M10.00 Idiopathic gout, unspecified site; R79.89 Other specified abnormal findings of blood chemistry; R06.83 Snoring; E66.9 Obesity, unspecified; Z68.36 Body mass index [BMI] 36.0-36.9, adult; Z71.3 Dietary counseling and surveillance; Z87.891 Personal history of nicotine dependence | CPT/HCPCS: 96127; 99212 ==

== ENCOUNTER 2025-03-26 08:09 | Outpatient (AMB) | payer MEDICARE, OTHER, SELFPAY ==
--- OUTSIDE RECORDS SUMMARY | 2024-12-25 05:00 | XMS_ITS ---
Author Organization [facility] Address [address] [place] [address] Care Team Providers Care Residential Recycle Driver Name Role Phone Teodoro NAYLOR, Rob Primary Care Provider Unava Yocasta Fierro [facility] [phone] Encounters Encounter Location Date Provider Diagnosis [facility] [address] [address] 12/25/2024 Yocasta Ashford Plan Of Treatment No Information Progress Notes * SYLVESTERVince Jay SDOB:[birth year] (74 yo M)Acc No.[id number]:12/25/2024 Progress Note Patient: Vince MASTERS Provider: Olga Ashford DPM :1950 A ge:74 Y S ex:Male Date:12/25/2024 Address:[address] [place], [place] [phone] Pcp:Rob Valerio MD Subjective: * Chief Complaints: * * Medical History: Objective: * Vitals: Assessment: Plan: * Treatment: * Images: * The named appointment provid er may or may not be the originator of this progress note, and it is not deemed complete until electronically signed by the appointment provider. Sign off status: Pending * Provider: Olga Ashford DPM Date: 12/25/2024 Generated for Hugh luna/Joseph/Narcisaransmitting on: 03/26/2025 09:02 AM EDT
--- NOTE | 2025-03-26 08:23 | A.OFFVIS_ITS ---
Vital Signs 03/26/25 08:29 Height 5 ft 6 in Weight 220 lb BMI 35.5 BP 176/77 H Blood Pressure Location Rt brachial Position Sitting Pulse 62 Pulse Source Pulse Oximeter Pulse Oximetry (%) 98 Oxygen Delivery Method Room Air Intake Visit Reasons: Low back pain, unspecified Intake Note: Pain today 03/27 Commodity Management Specialist Required: No Accompanied by: Self / Same As Patient Allergies Sulfa (Sulfonamide Antibiotics) Allergy (Intermediate, Verified 03/26/25 08:29) ITCHING / HIVES sitagliptin (Januvia) Allergy (Unknown, Verified 03/26/25 08:29) Unknown-patient does not remember reaction metformin Adverse Reaction (Intermediate, Verified 03/26/25 08:29) Diarrhea HPI Comments Details: The patient is a 74-year-old male presenting with chronic pain management following spinal surgery. The patient underwent L4-L5 discectomy and fusion with cage implantation, OLIF in August 2024, performed by Dr. Monteiro. Post-surgery, the patient reports increased pain compared to pre-surgery levels, with pain radiating from the middle back to the right buttock and down the leg, below the knee and into his foot. The patient reports he has undergone multiple imaging studies, including x-rays, MRI, and CT scans, which have not provided relief or clear resolution of symptoms. The patient has a history of diabetes mellitus, with a recent HbA1c of approximately 6.2% on 03/06/25. He reports difficulty engaging in physical activities such as biking due to pain, and experiences pain while driving, necessitating frequent stops to stretch. The patient has bilateral hip replacements and has been avoiding crossing legs. The patient denies any history of sleep apnea, confirmed by a recent home CPAP test. He reports occasional weakness in the right leg, leading to a reluctance to use a cane despite recommendations. - Onset: Post-surgical, August 2022 - Quality: Sharp ache, burning sensation when touched - Location: Middle back, right buttock, down the leg below the knee - Radiation: Right buttock to back of the leg - Exacerbating factors: Sitting, driving, leaning backwards - Relieving factors: Lying down - Interference: Affects driving, biking, and general mobility - Affect: Pain impacts daily activities and mood, causing frustration and limitations in physical activities. - Analgesia: Medication trials included gabapentin, tizanidine, and oxycodone, with limited relief reported. - Adverse Effects: Gabapentin associated with weight gain; patient dislikes its use. - Activities of Daily Living: Pain limits ability to bike, drive, and perform physical tasks. - Aberrant Drug Related Behaviors: No aberrant behaviors reported. PRIOR 07/29/2022: Patient presents today for follow up and to assess response to Bilateral L4-L5 TFESI on 06/29/[address] Renee. Patient reports 7-10% pain relief for 2-3 days post procedure with no improvement in his daily activities, functions or sleep. Patient reports significant pain with back extension more than radicular pain in his legs, left worse than right. 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 We have reviewed his lumbar MRI and xray imaging with notable advanced bilateral facet arthropathy and grade 1 degenerative anterolisthesis at L4-L5 and additional spondylitic changes result in mild central canal stenosis and severe bilateral foraminal stenosis with compression of the exiting L4 nerve roots bilaterally. Patient is hesitant towards injections given low response with previous injections. We discussed indication for steroidal and diagnostic injections. Patient will think about proceeding with Bilateral Diagnostic L3-L4-L5 MBB with sedation and fluoroscopy for potential lumbar medial branch RFA procedure. Patient is not interested in peripheral nerve stimulation. Patient denies any fever, malaise, abdominal or groin pain, bowel or bladder incontinence or saddle anesthesia. Patient also presented with asymptomatic elevated BP 207/87 and rechecked 172/7 2. Patient reports he has been monitoring his BP at home and numbers have been 170-200's and occasionally 160-180's. Patient denies any chest pain, shortness of breaths, dizziness, headache, or weakness. Patient requests external cardiology referral within [facility]. He reports abnormal EKG last year, which is noted for NSR with RBBB, negative T in V4-V6 on 04/23/22 followed by Echo which is noted below. Patient also reports he would like to establish care with our Endocrinology team to better control his blood sugars. His A1C has been below 7.0 per previous reading. Patient expresses concerns for not getting Dexcom blood glucose monitoring device. Echo-05/12/22: - 1. Low normal LV systolic function with LVEF of 50-55% with impaired relaxation filling pattern with severe focal hypertrophy of the basal septum 2. Mild left atrial enlargement 3. Normal cardiac valvular Dopplers 4. No gross pericardial effusion PRIOR: Patient presents today via telehealth encounter to discuss recent lumbar spine xray and MRI results. Patient continues to endorse lower back pain with left sided radiculopathy and occasional radiation of pain to both of his legs laterally and posteriorly with numbness and tingling most prominent in his left greater toe and 2-3rd toes. Patient states his back pain is significantly increased with walking of more than 5-10 minutes and alleviated with rest. He reports mild to moderate relief of lower legs cramps and back spasms with tizanidine without noted side effects. Denies recent falls, trauma or injury. Patient reports increase in back pain with pulling, bending and lifting during his work at the home. Patient denies any fever, weight changes, malaise, abdominal or groin pain, weight changes, bowel or bladder incontinence or saddle anesthesia. Significant lumbar spine and MRI results were reviewed with patient today. He is interested to proceed with bilateral L4-L5 transforaminal epidural injection to alleviate his radicular symptoms. PRIOR: Patient is a pleasant 71 years old male who presents for evaluation of worsening chronic back pain that now presents with radiating pain to both of his lower extremities, mostly on the left side. 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 He reports spinal stenosis-related pain with walking and cannot tolerate more than 5 minutes of walking. Pain starts as axial and spreads across his lower back and into left buttock and left lower leg posteriorly with associated numbness and tingling. Patient reports that at times the same symptoms alternate on his right side but more frequent on the left. Pain is described as constant aching, stabbing, sharp, shooting and cramping. His main concerns are significant bilateral leg pain with walking, muscle spasming, and boston horses at rest and ambulation. Per PCP referral notes, patient had lumbar spine x-rays that showed advanced facet degenerative changes at L4-L5 and L5-S1 resulting in a slight grade 1 anterolisthesis of L4 on L5. The imaging report is not available to review today. Patient reports he was trying to manage his pain with a hot shower, heat therapy, Ibuprofen, Tylenol, Aleve, and aspirin which are not helpful. He reports tizanidine allows him to sleep through most of the night. Patient is unable to participate in physical therapy due to significant pain. Pain has affected his daily activities and functioning, mood, social interactions, and quality of life.He rates his pain at 9/10. Denies previous back surgery or injections. Patient denies any fever, malaise, abdominal or groin pain, weight changes, bowel or bladder incontinence or saddle anesthesia. Reports bilateral lower extremity weakness, left more than right. Ambulates with antalgic gait without assistive device. We reviewed his recent lab results and the patient actually completed labs this morning. He has critically high K at 6.0 and low magnesium 1.3. Patient denies any chest pain or pressure, dizziness, heart palpitations, or shortness of breaths. He also presents with elevated BP which he attributes to high pain levels and increased pain while walking from parking lot to our office. I advised the patient to follow up with his PCP regarding this today. Patient reports a history of diabetes for over 20 years with the most recent A1C at 7.4. He experiences mild diabetic neuropathy with mild decreased sensation in both of his feet. Patient is currently on gabapentin 400 mg TID which has not been provi ding much relief thus far. [facility] Medical History Skin cancer Back pain CAD (coronary artery disease) Allergic rhinitis Obesity (BMI 30-39.9) Depression Carpal tunnel syndrome on both sides Lumbar degenerative disc disease Vitamin D deficiency Elevated liver enzymes Gout Pure hypercholesterolemia Diabetes mellitus Benign essential hypertension Surgical History Cataract extraction status of left eye History of back surgery S/P CABG x 4 S/P cardiac catheterization Hx of colonoscopy Status post carpal tunnel release (~06/19/20) History of excision of lesion History of carpal tunnel release History of bilateral hip arthroplasty Family History Father Medical history unknown Mother Diabetes Social History Household Members: Spouse Housing: House Are you a primary workforce investment act career manager to a significant other at home: No Do you presently have visiting nurse or other home services: No Alcohol intake: former Patient Tobacco Use Status: Former Tobacco user Tobacco use type: Cigarette Years Smoked: 15 e-Cigarette/Vaping Use: Never Used Second Hand Smoke Exposure: No service: No Current occupational status: employed Cognitive needs: No Hearing needs: No Vision needs: Yes (Glasses) Review of Systems Const Details: - Musculoskeletal: Reports pain in middle back, right buttock, and leg. - Neurological: Denies numbness or tingling, bladder or bowel dysfunction or saddle anesthesia. All systems reviewed & are unremarkable except as noted in HPI and below ENT Reports Normal hearing present Neuro Reports Normal hearing present, Denies Abnormal speech present, Denies confusion and Denies Sensory deficit (Neuro) Psych Denies confusion Physical Exam Vital Signs: Last Vital Signs Pulse 62 03/26/25 08:29 BP 176/77 H 03/26/25 08:29 Pulse Ox 98 03/26/25 08:29 Oxygen Delivery Method Room Air 03/26/25 08:29 BMI result Body Mass Index 35.5 Const General: cooperative, no acute distress, alert, awake and well groomed; No confusion Nutritional Appearance: obese Orientation/consciousness: patient oriented x3 and No confusion HEENT Ears: hearing grossly normal bilaterally General nose exam: No nasal discharge present Face and sinus: Yes normal facial exam and Yes face symmetric Eyes General: appearance normal, both eyes and all related structures Resp Effort & Inspection: normal respiratory effort, able to speak in complete sentences, no audible wheezes, no cough and no respiratory distress Cardio Jugular venous distension: no JVD Peripheral pulses: radial pulses present, posterior tibial pulses present and dorsalis pedis present GI Inspection: Yes normal to inspection, No Abdominal wall edema and Yes obesity Palpation (GI): Soft to palpation and nontender General: Yes no CVA tenderness Back/Spine/Pelvis Other: Limited lumbar ROM due to pain. Well healed surgical incision lower lumbar spine. Lumbar extension and flexion reproduces moderate pain. Demonstrates 5/5 left and 4/5 right strength of quadriceps bilaterally as well as flexion/dorsiflexion of bilateral feet against resistance. 2+ pedal pulses bilaterally. Straight leg rise with dorsiflexion positive on the right. +1 patellar and diminished achilles reflexes bilaterally. Facet loading test positive bilaterally. Limited Shola?s and Stinchfield tests are negative bilaterally. No groin pain with I/E hip rotations. Back: no CVA tenderness Cervical Spine: cervical ROM normal, cervical muscular tenderness, No Cervical spine tenderness and No step off deformity Thoracic/Lumbar Spine: thoracic and lumbar spine normal to inspection, No Thoracic/lumbar spine scar(s), Lasegue's sign positive on the right and localized, pain with thoraco-lumbar ROM, paraspinal muscle tenderness, thoraco- lumbar ROM limited, thoraco-lumbar spasm, No thoracic spinal tenderness and lumbar spinal tenderness Pelvis: buttock tenderness on the right Sacroiliac joints: bilaterally nontender Skin General skin exam: no rashes or lesions noted Neuro General: patient oriented x3, moves all extremities, Normal light touch and pain sensation, CN's II-XI intact bilaterally and No confusion Cranial nerves: Yes Bilaterally intact EOM present, Yes Nystagmus not present and Yes Normal hearing present Cognition (Neuro): normal cognition Speech: No Abnormal speech present Gait exam (Neuro): Antalgic gait present and No Assistive device used Motor exam (neuro): 5/5 motor strength present throughout (RLE 4/5), no tremor noted and Motor abnormalities not present Sensory Exam: No Sensory deficit (Neuro) Extrem General: Yes capillary refill normal, Yes no clubbing, cyanosis or edema and Yes no calf tenderness Assessment & Plan Assessment & Plan (1) Lumbar degenerative disc disease: Code(s): M51.36 - Other intervertebral disc degeneration, lumbar region Category: Medical Qualifiers: Disc-related pain type: discogenic back pain and lower extremity pain Qualified Code(s): M51.362 - Other intervertebral disc degeneration, lumbar region with discogenic back pain and lower extremity pain (2) Lumbar back pain with radiculopathy affecting lower extremity: Code(s): M54.16 - Radiculopathy, lumbar region Category: Medical (3) Lumbar post-laminectomy syndrome: Code(s): M96.1 - Postlaminectomy syndrome, not elsewhere classified Category: Medical Plan The plan includes scheduling a Caudal JANET with catheter under sedation and fluoroscopy to manage the patient's chronic pain with right sided radiculopathy and post laminectomy syndrome. The patient is advised to monitor blood glucose levels closely following the injection due to its hyperglycemic effects. Expectations, risks and benefits were reviewed. Patient is aware he will be contacted to schedule this procedure. A follow-up appointment is scheduled one month post-injection to assess the effectiveness of the treatment and determine further management steps. We briefly discussed neuromodulation with spinal cord stimulation today for a longer term back and leg pain. Patient was informed and verbally consented to the use of an ambient scribe for clinic note documentation during this visit. Coding Level of Care Code Est Pt Level 4 (03859) Complex EM visit Add On G2211 Diagnoses Degeneration of intervertebral disc of lumbar region with discogenic back pain and lower extremity pain M51.362 Disc-related pain type: discogenic back pain and lower extremity pain Lumbar back pain with radiculopathy affecting lower extremity M54.16 Lumbar post-laminectomy syndrome M96.1
[2025-03-26 08:29] VITALS: BP 176/77; PULSE 62; O2SAT 98; BMI 35.5
--- OUTSIDE RECORDS SUMMARY | 2025-03-26 09:02 | XMS_ITS | Clinical Summary ---
Author Organization [facility] Facility Address [address] [place] [address] Care Team Providers Care Spectral Scientist Name Role Phone Rob Valerio MD Primary Care Provider [phone]- [phone] Allergies Active Allergy Reactions Criticality Noted Date [...] age to complete this topic Insurance Medicare [facility] Medicare [facility] Care Teams Spectral Scientist Relationship Specialty Start Date End Date Rob Valerio MD [address] [place] [address] PCP - General Internal Medicine 05/24/22
--- OUTSIDE RECORDS SUMMARY | 2025-03-26 09:02 | XMS_ITS | Patient Health Record ---
Author Organization [facility] Address [address] [place] [address] Care Team Providers Care Surfboard Designer Name Role Phone Teodoro NYALOR, [place] Primary Care Provider Yocasta Brito Unavailable [phone] Allergies Allergen (clinical drug ingredient) Drug/Non Drug [...] of tibiofibular ligament of left ankle (disorder) (7016662054394822 7) 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, accidental (unintentional), initial encounter (T56.0X1A) Active confirmed Problem Acquired hammer toe of right foot (8526357558447974 ) Other hammer toe(s) (acquired), right foot (M20.41) Active confirmed Problem Acquired hammer toe of left foot (8425210113588817 ) Other hammer toe(s) (acquired), left foot (M20.42) Active confirmed Problem Polyneuropathy due to type 2 diabetes mellitus (551541336) Type 2 diabetes mellitus with diabetic polyneuropathy (E11.42) Active confirmed Problem Primary gout (09599711) Idiopathic gout, 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) Active confirmed Problem Polyneuropathy due to diabetes mellitus type I (192027341) Type 1 diabetes mellitus with diabetic polyneuropathy (E10.42) Active confirmed Problem Gout (93064951) Acute gout of left foot, unspecified cause (M10.9) Active confirmed Vital Signs Height 5ft 7in in 06/26/2024 Weight 210 lbs 06/26/2024 BMI 32.89 kg/m2 06/26/2024 Procedures Procedure Date Ordered Date Performed Result Body Sit e 42428-BPATVXB NAIL, 6 OR MORE 06/26/2024 N/A 40141-PVTL SKIN LESIONS, OVER 4 06/26/2024 N/A Encounters Encounter Location Date Provider Diagnosis [facility] [address] [address] 06/26/2024 Yocasta Ashford Other hammer toe(s) (acquired), right foot M20.41 ; Other hammer toe(s) (acquired), left foot M20.42 ; Type 2 diabetes mellitus with diabetic polyneuropathy E11.42 and Tinea unguium B35.1 [facility] [place] [address] [place] [address] 12/21/2024 Yocasta Ashford Assessments Encounter Date Diagnosis [...] X ray : Foot, right 3V 08/13/2019 83168-HOOLUIR NAIL, 6 OR MORE 06/26/2024 72569-GFDH SKIN LESIONS, OVER 4 06/26/20 24 53426-SCKQ SKIN LESIONS, OVER 4 06/04/20 21 20633-SYMH SKIN LESIONS, OVER 4 12/23/19 22 60836-VVGS SKIN LESIONS, OVER 4 12/02/19 21 63634-EXBV SKIN LESIONS, OVER 4 08/22/19 20 49972-BWPN SKIN LESIONS, OVER 4 06/02/20 20 Z5032-HDHMYRCY DYSTROPHIC NAILS ANY # X6072-MSNJRATK DYSTROPHIC NAILS ANY # C5203-VNZEGNCX DYSTROPHIC NAILS ANY # Y1186-LSYGJRRN DYSTROPHIC NAILS ANY # Insurance Providers Payer Name Payer Address Payer Phone Subscriber Number Group Number Insured Name Patient Relationship to Insured Coverage Start Date Coverage End Date Medicare [employer] [address] [place] [address] [id number] Vince Cedillo Self - patient is the insured [facility] [address] [place] [address] [phone] [id number] Aga Cedillo Spouse - patient is the spouse of the insured Medical (General) History Medical History History ICD Code Arthritis Back,Hip,and Knee pain type II diabetes High blood pressure Measles Mumps Chicken pox Joint implants/screws Surgical History Surgery Date(Month/Year) hip replacement-Bilateral 1997 bone scan, back 06/21/22 quadruple bypass 02/2023
--- OUTSIDE RECORDS SUMMARY | 2025-03-26 09:02 | XMS_ITS | Clinical Summary ---
Author Organization [facility] ity Address [address] [place] [address] Care Team Providers Care Piano Case Maker Name Role Phone Unavailable Primary Care Provider [...] 2002 Zoster Vaccines (1 of 2) 2002 Depression Screening 07/18/2024 COVID-19 Vaccine (1 - 2023-2 5 season) 2025 Influenza Vaccine (#1) 2025 RSV Immunization Adult [...]
== END 2025-03-26 09:09 | disposition home or self-care (01) ==
LOC: HO.PMC 08:11
PROVIDERS: PCP Internal Medicine; Visit Provider Nurse Practitioner Family
DX: M51.362 Other intervertebral disc degeneration, lumbar region with discogenic back pain and lower extremity pain (principal); M54.16 Radiculopathy, lumbar region; M96.1 Postlaminectomy syndrome, not elsewhere classified
CPT/HCPCS: 99214; G2211

== ENCOUNTER → 2025-03-26 08:09 | Outpatient (BNVA) | payer MEDICARE, OTHER, SELFPAY | PROVIDERS: PCP Internal Medicine; Visit Provider Nurse Practitioner Family | DX: M51.362 Other intervertebral disc degeneration, lumbar region with discogenic back pain and lower extremity pain (principal); M54.16 Radiculopathy, lumbar region; M96.1 Postlaminectomy syndrome, not elsewhere classified | CPT/HCPCS: 99212 ==

== ENCOUNTER 2025-04-26 07:35 | Day surgery (SDC) | payer MEDICARE, OTHER, SELFPAY ==
--- OUTSIDE RECORDS SUMMARY | 2024-12-25 05:00 | XMS_ITS ---
Author Organization [facility] Address [address] [place] [address] Care Team Providers Care Camera Repairer Name Role Phone Teodoro NAYLOR, Rob Primary Care Provider Unava Yocasta Fierro [facility] [phone] Encounters Encounter Location Date Provider [facility] [address] [address] 12/25/2024 Yocasta Ashford Plan Of Treatment No Information Progress Notes * SYLVESTERVince SDOB:[birth year] (74 yo M)Acc No.[id number]:12/25/2024 Progress Note Patient: Vince MASTERS Provider: Olga Ashford DPM :1950 A ge:74 Y S ex:Male Date:12/25/2024 Address:[address] [place], [place] [phone] Pcp:Rob Valerio MD Subjective: * Chief Complaints: [...] Ashford DPM Date: 12/25/2024 Generated for Hugh luna/Joseph/eTransmitting on: 04/12/2025 01:30 PM EDT
--- OUTSIDE RECORDS SUMMARY | 2025-04-12 13:30 | XMS_ITS | Clinical Summary ---
Author Organization [facility] ity Address [address] [place] [address] Care Team Providers Care Coil Machine Operator Name Role Phone Unavailable Primary Care [...]
--- OUTSIDE RECORDS SUMMARY | 2025-04-12 13:30 | XMS_ITS | Patient Health Record ---
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, accidental (unintentional), initial encounter (T56.0X1A) Active confirmed Problem Acquired hammer toe of right foot (9294812765171053 ) Other hammer toe(s) (acquired), right foot (M20.41) Active confirmed Problem Acquired hammer toe of left foot (9392108324258899 ) Other hammer toe(s) (acquired), left foot (M20.42) Active confirmed Problem Polyneuropathy due to type 2 diabetes mellitus (972664574) Type 2 diabetes mellitus with diabetic polyneuropathy (E11.42) Active confirmed Problem Primary gout (64320574) Idiopathic gout, 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) Active confirmed Problem Polyneuropathy due to diabetes mellitus type I (875807604) Type 1 diabetes mellitus with diabetic polyneuropathy (E10.42) Active confirmed Problem Gout (25545037) Acute gout of left foot, unspecified cause (M10.9) Active confirmed Vital Signs Height 5ft 7in in 06/26/2024 Weight 210 lbs 06/26/2024 BMI 32.89 kg/m2 06/26/2024 Procedures Procedure Date Ordered Date Performed Result Body Sit e 73505-GZJFPQT NAIL, 6 OR MORE 06/26/2024 N/A 73892-HGHH SKIN LESIONS, OVER 4 06/26/2024 N/A Encounters Encounter Location Date Provider Diagnosis [facility] [address] [address] 06/26/2024 Yocasta Ashford Other hammer toe(s) (acquired), right foot M20.41 ; Other hammer toe(s) (acquired), left foot M20.42 ; Type 2 diabetes mellitus with diabetic polyneuropathy E11.42 and Tinea unguium B35.1 [facility] [place] [address] [place] [address] 12/21/2024 Yocasta Ashford Assessments Encounter Date Diagnosis [...] X ray : Foot, right 3V 08/13/2019 57843-HGRLGTN NAIL, 6 OR MORE 06/26/2024 40623-AYHC SKIN LESIONS, OVER 4 06/26/20 24 44910-NBWY SKIN LESIONS, OVER 4 06/04/20 21 95139-VEDZ SKIN LESIONS, OVER 4 12/23/19 22 39315-VQAQ SKIN LESIONS, OVER 4 12/02/19 21 66189-IUHQ SKIN LESIONS, OVER 4 08/22/19 20 84727-BLYH SKIN LESIONS, OVER 4 06/02/20 20 L4560-QZIOIJSR DYSTROPHIC NAILS ANY # E2460-FAZNAGCL DYSTROPHIC NAILS ANY # G9286-MJFLIHUQ DYSTROPHIC NAILS ANY # S3453-QQMRGBOJ DYSTROPHIC NAILS ANY # Insurance Providers Payer Name Payer Address Payer Phone Subscriber Number Group Number Insured Name Patient Relationship to Insured Coverage Start Date Coverage End Date Medicare National [employer] [address] [place] [address] [id number] Vince Cedillo Self - patient is the insured [facility] [address] [place] [address] [id number] Aag Cedillo Spouse - patient is the spouse of the insured Medical (General) History Medical History History ICD Code Arthritis Back,Hip,and Knee pain type II diabetes High blood pressure Measles Mumps Chicken pox Joint implants/screws Surgical History Surgery Date(Month/Year) hip replacement-Bilateral 1997 bone scan, back 06/21/22 quadruple bypass 02/2023
--- OUTSIDE RECORDS SUMMARY | 2025-04-12 13:30 | XMS_ITS | Clinical Summary ---
Author Organization [facility] Facility Address [address] [place] [address] Care Team Providers Care Mock Up Assembler Name Role Phone Rob Valerio MD Primary Care Provider [phone]- [phone] Allergies Active Allergy Reactions Criticality Noted Date [...] age to complete this topic Insurance Medicare [facility] Medicare [facility] Care Teams Mock Up Assembler Relationship Specialty Start Date End Date Rob Valerio MD [address] [place] [address] PCP - General Internal Medicine 05/24/22
[2025-04-19 08:43] VITALS: BMI 34.7
--- NOTE | 2025-04-19 12:39 | HO.ANESPROP2 ---
Documented by User: Mayte Cespedes NP 04/19/25 13:01 HPI - Anesthesia Eval Consult details Narrative: 74yo M for Caudal Epidural Steroid Injection with Catheter s/p L4-5 Oblique Lumbar Interbody Fusion 08/2024 with GA-ETT 7.[address] [facility] [place] Cardiology for CAD s/p CABG x 4 2022. Last office visit 01/2025, stable for 1 year routine f/u DM - FBS 90-100, A1C 6.2 02/2025 CKD r/t DM. Follows [facility] [place] nephro, stable disease per 01/2025 office visit Anesthesia Pre-Procedure Meds Is the patient on any of the following meds?: GLP1/DPP4 and SGLT2 Inhib PMFSH Active Problems Active Problems: All Active Problems Lumbar post-laminectomy syndrome (Acute) Preoperative clearance (Acute) S/P spinal fusion (Acute) Loud snoring (Acute) Keratotic lesion (Acute) Lumbago (Acute) Elevated vitamin B12 level (Acute) Diabetic nephropathy (Acute) Bronchitis (Acute) CKD (chronic kidney disease) stage 3, GFR 30-59 ml/min (Acute) Preop cardiovascular exam (Acute) Upper respiratory tract infection (Acute) Spondylolisthesis, lumbar region (Acute) Claudication of both lower extremities (Acute) CAD (coronary artery disease) (Acute) Atherosclerosis of abdominal aorta (Acute) Spinal stenosis, lumbar region, with neurogenic claudication (Acute) T12 compression fracture (Acute) Proteinuria (Acute) Chronic diarrhea (Acute) COVID-19 (Acute) Hyperkalemia (Acute) Abnormal electrocardiogram [ECG] [EKG] (Acute) Lumbar spondylolysis (Acute) Lumbar back pain with radiculopathy affecting lower extremity (Acute) Postprandial diarrhea (Acute) Hypomagnesemia (Acute) Nocturnal leg cramps (Acute) Colon cancer screening (Acute) Allergic rhinitis (Acute) Obesity (BMI 30-39.9) (Acute) Depression (Acute) Carpal tunnel syndrome on both sides (Acute) Lumbar degenerative disc disease (Acute) Vitamin D deficiency (Acute) Elevated liver enzymes (Acute) Gout (Acute) Pure hypercholesterolemia (Acute) Diabetes mellitus (Acute) Benign essential hypertension (Acute) Past Medical History Medical History Skin cancer Back pain CAD (coronary artery disease) Allergic rhinitis Obesity (BMI 30-39.9) Depression Carpal tunnel syndrome on both sides Lumbar degenerative disc disease Vitamin D deficiency Elevated liver enzymes Gout Pure hypercholesterolemia Diabetes mellitus Benign essential hypertension Family History Family History Father Medical history unknown Mother Diabetes Family history of problems with anesthesia: No Surgical History Surgical History Hx of bilateral cataract extraction (12/2024) History of back surgery (08/2024) S/P CABG x 4 S/P cardiac catheterization Hx of colonoscopy Status post carpal tunnel release (~06/19/20) History of excision of lesion History of carpal tunnel release History of bilateral hip arthroplasty History of Problems with Anesthesia: No Social History Social History Household Members: Spouse Housing: House Are you a primary personal caregiver to a significant other at home: No Do you presently have visiting nurse or other home services: No Alcohol intake: former Patient Tobacco Use Status: Former Tobacco user Tobacco use type: Cigarette Years Smoked: 15 Smoked in Last 30 Days: No e-Cigarette/Vaping Use: Never Used Second Hand Smoke Exposure: No Use of substances other than those prescribed or required for medical reasons: No Have you been hit, kicked, punched, or otherwise hurt by someone within the past year? If so, by whom?: No Are you DNR?: No Advance Directives: No Advance Directives Information Provided: Yes Advance Directives on File: No service: No Current occupational status: employed Cognitive needs: No Hearing needs: No Vision needs: Yes (Glasses) Meds Allergies Allergy/AdvReac Type Severity Reaction Status Date / Time Sulfa (Sulfonamide Allergy Intermediate ITCHING / Verified 04/26/25 08:15 Antibiotics) HIVES sitagliptin (Januvia) Allergy Unknown Unknown-patient Verified 04/26/25 08:15 does not remember reaction metformin AdvReac Intermediate Diarrhea Verified 04/26/25 08:15 Home Medications ?Medication ?Instructions ?Recorded ?Confirmed ?Last Taken ?Type aspirin 81 mg tablet,delayed 81 mg PO QAM 05/11/22 04/18/25 04/17/25 History release (Adult Aspirin Regimen) Held on 09/05/24. Instructions: Resume on 09/09/24. acetaminophen 325 mg tablet 325 mg PO QID PRN Pain 03/18/23 04/18/25 08/18/24 History atorvastatin 40 mg tablet 40 mg PO BEDTIME 07/09/24 04/18/25 08/30/24 History cyanocobalamin (vitamin B-12) 2,500 mcg sublingual Q2D 07/09/24 04/18/25 08/30/24 History 2,500 mcg sublingual tablet (Vitamin B-12) magnesium oxide 800 mg PO BEDTIME 07/09/24 04/18/25 08/30/24 History milk thistle seed extract 150 1 cap PO DAILY 07/09/24 04/18/25 08/24/24 History mg-artichoke leaf extract 300 mg capsule (Artichoke Premium Extract) semaglutide 2 mg/dose (8 mg/3 mL) 2 mg subcut QWEEK 09/04/24 04/18/25 04/13/25 History subcutaneous pen injector black seed 4.5 gram/5 mL oral oil g PO 04/18/25 04/18/25 Unknown History oxycodone 5 mg tablet 5 - 10 mg PO Q4-6H PRN pain 04/18/25 04/18/25 Unknown History Exam Height,Weight and Vital Signs: Height 5 ft 6 in Weight 97.522 kg Pertinent Lab Results Pertinent Lab Results: Laboratory Tests 03/06/25 07:17 WBC 7.6 Hgb 15.0 Hct 45.8 Plt Count 153 L Sodium 140 Potassium 4.6 Chloride 109 H Carbon Dioxide 22 BUN 28 H Creatinine 1.08 Narrative Narrative: EKG 01/2025 normal sinus rhythm with right bundle-branch block with inferior infarct Assessment and Plan Assessment Anesthesia Assessment: Chart Reviewed Final Anesthetic Review Family History of Problems with Anesthesia: No History of Problems with Anesthesia: No Documented by User: Bonny Kent MD 04/26/25 08:46 PMFSH Past Medical History Medical History Skin cancer Back pain CAD (coronary artery disease) Allergic rhinitis Obesity (BMI 30-39.9) Depression Carpal tunnel syndrome on both sides Lumbar degenerative disc disease Vitamin D deficiency Elevated liver enzymes Gout Pure hypercholesterolemia Diabetes mellitus Benign essential hypertension Family History Family History Father Medical history unknown Mother Diabetes Surgical History Surgical History Hx of bilateral cataract extraction (12/2024) History of back surgery (08/2024) S/P CABG x 4 S/P cardiac catheterization Hx of colonoscopy Status post carpal tunnel release (~06/19/20) History of excision of lesion History of carpal tunnel release History of bilateral hip arthroplasty Social History Social History Household Members: Spouse Housing: House Are you a primary personal caregiver to a significant other at home: No Do you presently have visiting nurse or other home services: No Alcohol intake: former Patient Tobacco Use Status: Former Tobacco user Tobacco use type: Cigarette Years Smoked: 15 Smoked in Last 30 Days: No e-Cigarette/Vaping Use: Never Used Second Hand Smoke Exposure: No Use of substances other than those prescribed or required for medical reasons: No Have you been hit, kicked, punched, or otherwise hurt by someone within the past year? If so, by whom?: No Are you DNR?: No Advance Directives: No Advance Directives Information Provided: Yes Advance Directives on File: No service: No Current occupational status: employed Cognitive needs: No Hearing needs: No Vision needs: Yes (Glasses) Meds Allergies Allergy/AdvReac Type Severity Reaction Status Date / Time Sulfa (Sulfonamide Allergy Intermediate ITCHING / Verified 04/26/25 08:15 Antibiotics) HIVES sitagliptin (Januvia) Allergy Unknown Unknown-patient Verified 04/26/25 08:15 does not remember reaction metformin AdvReac Intermediate Diarrhea Verified 04/26/25 08:15 Home Medications ?Medication ?Instructions ?Recorded ?Confirmed ?Last Taken ?Type aspirin 81 mg tablet,delayed 81 mg PO QAM 05/11/22 04/18/25 04/17/25 History release (Adult Aspirin Regimen) Held on 09/05/24. Instructions: Resume on 09/09/24. acetaminophen 325 mg tablet 325 mg PO QID PRN Pain 03/18/23 04/18/25 08/18/24 History atorvastatin 40 mg tablet 40 mg PO BEDTIME 07/09/24 04/18/25 08/30/24 History cyanocobalamin (vitamin B-12) 2,500 mcg sublingual Q2D 07/09/24 04/18/25 08/30/24 History 2,500 mcg sublingual tablet (Vitamin B-12) magnesium oxide 800 mg PO BEDTIME 07/09/24 04/18/25 08/30/24 History milk thistle seed extract 150 1 cap PO DAILY 07/09/24 04/18/25 08/24/24 History mg-artichoke leaf extract 300 mg capsule (Artichoke Premium Extract) semaglutide 2 mg/dose (8 mg/3 mL) 2 mg subcut QWEEK 09/04/24 04/18/25 04/13/25 History subcutaneous pen injector black seed 4.5 gram/5 mL oral oil g PO 04/18/25 04/18/25 Unknown History oxycodone 5 mg tablet 5 - 10 mg PO Q4-6H PRN pain 04/18/25 04/18/25 Unknown History Exam Airway Mallampati Class: II TM Dist: >3cm Neck ROM: Limited Loose/Missing/Broken Teeth: Yes Heart: rrr Lungs: cta Assessment and Plan Assessment Anesthesia Assessment: Anesthesia Plan Discussed Final Anesthetic Review NPO: Yes ASA Class: III Final Preanesthetic Review: No Changes in Pt Med Stat, Meds/Allgs Chart Reviewed, Consent Obtained/Reviewed and Anes Risks/Benef Reviewed Patient Risk: Intermediate Procedure Risk: Low Anesthetic Plan Anesthetic Plan: MAC: and Agree w/ Assess. and Plan Disposition: Standard PACU
--- NOTE | ~2025-04-26 | FL_ITS ---
EXAMINATION: FL GUIDANCE ONLY HISTORY: caudal epidural steroid injection COMPARISON: None available. TECHNIQUE: Fluoroscopy time: 12.3 seconds. Cumulative Dose: 11.777 mGy. DAP: 4.1423 Gycm2 Images: 3. FINDINGS: Fluoroscopic spot films of the sacrum demonstrate a needle in place. FL/FL guidance in OR IMPRESSION: Fluoroscopy during procedure. Please see procedure report for additional information. Electronically signed by: Rigoberto Pressley MD 04/26/2025 09:21 AM EDT
[2025-04-26 08:13] VITALS: BP 165/75; PULSE 61; RESP 14; TEMP 36.1; O2SAT 97
[2025-04-26] MEDS: Lactated Ringers 1,000 ML 100 ML IVCONT (08:31)
--- NOTE | 2025-04-26 08:32 | MHC.SHP ---
Pre-Procedural Eval Section A - 24 Hr Update-Section A only Date of Service: 04/26/25 The patient is an INPATIENT: No Changes since office visit: Yes Patient answered all questions The patient has been examined within 24 hours of the surgical procedure. The History & Physical has been completed within 30 days and I have reviewed it.: No Section B - Complete if H&P > 30 days Chief Complaint: Other intervertebral disc degeneration,Radiculopat Details of Present Illness: As above, postlaminectomy syndrome. Relevant Family History (Specify if Yes): No Relevant Social History: None Present Medications: see Short Stay Collaborative assessment Medical History: No relevant PMH History of Previous Operations: Relevant previous surgery/procedure and date(s) (L4-5 laminectomy and diskectomy.) Allergies: Allergies Allergy/AdvReac Type Severity Reaction Status Date / Time Sulfa (Sulfonamide Allergy Intermediate ITCHING / Verified 04/26/25 08:15 Antibiotics) HIVES sitagliptin (Januvia) Allergy Unknown Unknown-patient Verified 04/26/25 08:15 does not remember reaction metformin AdvReac Intermediate Diarrhea Verified 04/26/25 08:15 Review of Systems Sugical H&P ROS: Negative: Cardiovascular, Respiratory, Neurological, Psychiatric, Hem-Onc, Allergic/Immunologic, Gastrointestinal, Integumentary, Endocrine and Eyes/Ears/Nose/Throat and Yes, Specify: Constitution (Morbid obesity), Genitourinary (CKD 3) and Musculoskeletal (Postlaminectomy syndrome disc degeneration lumbar) Exam Surgical H&P Exam: Normal: HEENT, Normal: Heart, Normal: Lungs, Normal: Extremities, Normal: Skin and Normal: Neurological and Significant Findings: Abdomen (Enlarged due to fat) Plan Diagnosis/Plan: Unchanged I have reviewed the history and physical and performed a pertinent physical examination on my patient. No changes have occurred unless specified. Time Spent With Patient Time: Total time managing care of this patient today ____ minutes.
[2025-04-26 08:46] LABS: Glucose, Whole Blood 111 mg/dL (60-115)
[2025-04-26 09:15] VITALS: BP 115/63; PULSE 61; RESP 16; TEMP 36.3; O2SAT 95
[2025-04-26 09:30] VITALS: BP 107/47; PULSE 58; RESP 16; O2SAT 97
[2025-04-26 09:47] VITALS: BP 120/67; TEMP 36.1
--- NOTE | 2025-04-26 10:35 | PM.OP ---
Brief Operative Note Date of Service: 04/26/25 Pre-op diagnosis: postlaminectomy syndrome Post-op diagnosis: same Procedure: Caudal saline injection with cathter Surgeon: Cameron Renee MD Anesthesia: MAC Was an Sonoscope Operator used for this Procedure?: No Estimated blood loss (mL): 0 Pathology: none sent Condition: stable Disposition: PACU
--- NOTE | 2025-04-26 10:37 | W.PM.OPN ---
Operative Note Operative Note Date of Service: 04/26/25 Narrative: Caudal epidural-injection with catheter. Patient came to the operating room and was positioned prone on operating table. ASA monitors were applied and patient was minimally sedated. The lower back and upper buttocks and as well as intergluteal crease and lower buttocks were prepped with ChloraPrep and draped with sterile self adhesive utility towels. C-arm was brought over the operating field and picture of the sacral bone was demonstrated on the screen. After that 2 cm below the sacral hiatus injection of the local anesthetic lidocaine was performed. 18 gauge Touhy needle was inserted through the skin wheal and advanced to were the sacral hiatus on the anterior posterior and lateral views. When tip of the needle entered the caudal canal injection of the contrast was performed demonstrating epidurogram. After that 22 gauge intrathecal catheter was inserted into the needle and advanced into highest point possible with this non manipulating catheter. Injection of the contrast performed demonstrating spread of the contrast in the epidural space. After that injection of the 30 cc of normal saline was performed into the catheter. The decision was made not to inject steroids because the patient is diabetic. Upon completion of the injection the catheter and the needle were removed EN mass, sterile Band-Aid was applied. The patient tolerated the procedure well. He was taken outside of the operating room into recovery room.
== END 2025-04-26 10:15 | disposition home or self-care (01) ==
PROVIDERS: PCP Internal Medicine; Visit Provider Anesthesiology
PROC: 3E0R3GC Introduction of Other Therapeutic Substance into Spinal Canal, Percutaneous Approach (ICD-10-PCS; CPT 62322; principal; 2025-04-26 09:50)
DX: M96.1 Postlaminectomy syndrome, not elsewhere classified (principal); M54.16 Radiculopathy, lumbar region; M51.362 Other intervertebral disc degeneration, lumbar region with discogenic back pain and lower extremity pain; I10 Essential (primary) hypertension; E11.40 Type 2 diabetes mellitus with diabetic neuropathy, unspecified; I25.10 Atherosclerotic heart disease of native coronary artery without angina pectoris; Z95.1 Presence of aortocoronary bypass graft; Z79.82 Long term (current) use of aspirin; Z79.85 Long-term (current) use of injectable non-insulin antidiabetic drugs; Z79.899 Other long term (current) drug therapy; Z88.2 Allergy status to sulfonamides; Z88.8 Allergy status to other drugs, medicaments and biological substances; Z96.643 Presence of artificial hip joint, bilateral; Z98.890 Other specified postprocedural states; Z87.891 Personal history of nicotine dependence
CPT/HCPCS: 62323; 82947; J2003; J2250; J2704; J3010; J3301; Q9967

== ENCOUNTER → 2025-04-26 07:35 | Outpatient (BNV) | payer MEDICARE, OTHER, SELFPAY | PROVIDERS: PCP Internal Medicine; Visit Provider Anesthesiology | DX: M96.1 Postlaminectomy syndrome, not elsewhere classified (principal) | CPT/HCPCS: 62323 ==

== ENCOUNTER 2025-05-02 11:07 | Outpatient (AMB) | payer MEDICARE, OTHER, SELFPAY ==
--- OUTSIDE RECORDS SUMMARY | 2024-12-25 05:00 | XMS_ITS ---
Author Organization [facility] Address [address] [place] [address] Care Team Providers Care Emt/Paramedic Name Role Phone Teodoro NAYLOR, Rob Primary Care Provider Unava Yocasta Fierro [facility] [phone] Encounters Encounter Location Date Provider Diagnosis [facility] [address] [address] 12/25/2024 Yocasta Ashford Plan Of Treatment No Information Progress Notes * SYLVESTERVince SDOB:[birth year] (74 yo M)Acc No.[id number]:12/25/2024 Progress Note Patient: Vince MASTERS Provider: Olga Ashford DPM :1950 A ge:74 Y S ex:Male Date:12/25/2024 Address:[address] [place], [place] [phone] Pcp:Rob Valerio MD Subjective: * Chief Complaints: [...] 0 12/25/2024 Generated for Hugh luna/Joseph/eTransmitting on: 02:17 PM EDT
[2025-05-02 11:12] VITALS: BP 170/77; PULSE 67; RESP 16; O2SAT 93; BMI 34.9
--- NOTE | 2025-05-02 11:12 | A.OFFVIS_ITS ---
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 He was referred to our office by Dr. Monteiro to perform bi lateral transforaminal epidural steroid injection L4-5 to figure out whether or not the fusion at this level will be effective to control the pain of the patient. I perform the procedure however patient reported only 10% pain improvement. Unfortunately nevertheless patient went for the surgery. He reported significant pain exacerbation after the L4-5 fusion. Two weeks ago he went with me to perform caudal epidural steroid injection with catheter. Procedure was performed without steroids because the patient is brittle diabetic. Nevertheless patient reported only pain aggravation after the procedure. Not even short window of the pain improvement was observed after the procedure. Today I offered the patient to perform neuromodulation procedures to help his pain. I offered him spinal cord stimulator [employer] as well as potentially Intrathecal drug delivery system. Brochure was given to the patient to get psychological evaluation from [facility]. Spinal cord stimulator [employer] brochure was also given to the patient to get him familiarize with the device. This patient is very intelligent gentleman and he was asking multiple questions about possible procedures and possible diagnosis which could explain his pain. The piriformis syndrome was rule out by performing medial rotation of the right hip. Patient was also interested in possibility of performing BVN RFA [employer] device however the patient does not exhibit symptoms of the vertebra genic low back pain, he does not have prolonged sitting pain, he does not have pain exacerbation with flexing forward and picking up objects from the floor. I will see this patient in 3 weeks after the psychological evaluation will be done and I will schedule this patient for [employer] SCS trial. FORMERLY [facility] Medical History Skin cancer Back pain CAD (coronary artery disease) Allergic rhinitis Obesity (BMI 30-39.9) Depression Carpal tunnel syndrome on both sides Lumbar degenerative disc disease Vitamin D deficiency Elevated liver enzymes Gout Pure hypercholesterolemia Diabetes mellitus Benign essential hypertension Surgical History Hx of bilateral cataract extraction (12/2024) History of back surgery (08/2024) S/P CABG x 4 S/P cardiac catheterization Hx of colonoscopy Status post carpal tunnel release (~06/19/20) History of excision of lesion History of carpal tunnel release History of bilateral hip arthroplasty Family History Father Medical history unknown Mother Diabetes Social History Household Members: Spouse Housing: House Are you a primary healthcare receptionist to a significant other at home: No Do you presently have visiting nurse or other home services: No Alcohol intake: former Patient Tobacco Use Status: Former Tobacco user Tobacco use type: Cigarette Years Smoked: 15 e-Cigarette/Vaping Use: Never Used Second Hand Smoke Exposure: No service: No Current occupational status: employed Cognitive needs: No Hearing needs: No Vision needs: Yes (Glasses) Review of Systems Const All systems reviewed & are unremarkable except as noted in HPI and below ENT Reports Normal hearing present Neuro Reports Normal hearing present, Denies Abnormal speech present, Denies confusion and Denies Sensory deficit (Neuro) Psych Denies confusion Physical Exam Vital Signs: Last Vital Signs Pulse 67 05/02/25 11:12 Resp 16 05/02/25 11:12 BP 170/77 H 05/02/25 11:12 Pulse Ox 93 05/02/25 11:12 Oxygen Delivery Method Room Air 05/02/25 11:12 BMI result Body Mass Index 34.9 Const General: cooperative, no acute distress, alert, awake and well groomed; No confu monica Nutritional Appearance: obese Orientation/consciousness: patient oriented x3 and No confusion HEENT Ears: hearing grossly normal bilaterally General nose exam: No nasal discharge present Face and sinus: Yes normal facial exam and Yes face symmetric Eyes General: appearance normal, both eyes and all related structures Resp Effort & Inspection: normal respiratory effort, able to speak in complete sentences, no audible wheezes, no cough and no respiratory distress Cardio Jugular venous distension: no JVD Peripheral pulses: radial pulses present, posterior tibial pulses present and dorsalis pedis present GI Inspection: Yes normal to inspection, No Abdominal wall edema and Yes obesity Palpation (GI): Soft to palpation and nontender General: Yes no CVA tenderness Back/Spine/Pelvis Other: Limited lumbar ROM due to pain. Well healed surgical incision lower lumbar spine. Lumbar extension and flexion reproduces moderate pain. Demonstrates 5/5 left and 4/5 right strength of quadriceps bilaterally as well as flexion/dorsiflexion of bilateral feet against resistance. 2+ pedal pulses bila terally. Straight leg rise with dorsiflexion positive on the right. +1 patellar and diminished achilles reflexes bilaterally. Facet loading test positive bilaterally. Limited Shola?s and Stinchfield tests are negative bilaterally. No groin pain with I/E hip rotations. Back: no CVA tenderness Cervical Spine: cervical ROM normal, cervical muscular tenderness, No Cervical spine tenderness and No step off deformity Thoracic/Lumbar Spine: thoracic and lumbar spine normal to inspection, No Thoracic/lumbar spine scar(s), Lasegue's sign positive on the right and localized, pain with thoraco-lumbar ROM, paraspinal muscle tenderness, thoraco- lumbar ROM limited, thoraco-lumbar spasm, No thoracic spinal tenderness and lumbar spinal tenderness Pelvis: buttock tenderness on the right Sacroiliac joints: bilaterally nontender Skin General skin exam: no rashes or lesions noted Neuro General: patient oriented x3, moves all extremities, Normal light touch and pain sensation, CN's II-XI intact bilaterally and No confusion Cranial nerves: Yes Bilaterally intact EOM present, Yes Nystagmus not present and Yes Normal hearing present Cognition (Neuro): normal cognition Speech: No Abnormal speech present Gait exam (Neuro): Antalgic gait present and No Assistive device used Motor exam (neuro): 5/5 motor strength present throughout (RLE 4/5), no tremor noted and Motor abnormalities not present Sensory Exam: No Sensory deficit (Neuro) Extrem General: Yes capillary refill normal, Yes no clubbing, cyanosis or edema and Yes no calf tenderness Results Reviewed Results Reviewed: XR LUMBOSACRAL SPINE WITH OBLIQUES 05/03/22 FINDINGS: Approximate 55% superior plate compression deformity at T12. Severe degenerative disc disease at T12-L1. Mild multilevel degenerative disc disease in the remainder of the lumbar spine. Minimal grade 1 anterolisthesis of L4 over L5. Mild to moderate bilateral facet arthropathy at L4-L5 and L5-S1. Moderate to severe atherosclerosis in the abdominal aorta and iliac vessels. IMPRESSION: 1. Approximately 55% superior endplate compression deformity at T12 was not seen on the recent MRI. 2. Severe degenerative disc disease at T12-L1. Mild multilevel degenerative disc disease in the remainder of the lumbar spine. 3. Minimal grade 1 anterolisthesis of L4 over L5. MR LUMBAR SPINE WITHOUT CONTRAST 04/30/22 COMPARISON: Lumbar spine radiographs 09/15/2017. FINDINGS: There are 5 nonrib-bearing lumbar-type vertebral bodies. There is grade 1 degenerative anterolisthesis of L4 on L5. Vertebral body heights are maintained. Disc volumes are preserved. There is no bone marrow edema. There are no acute fractures. Modic type II endplate signal changes at T12-L1. Intraosseous hemangioma within the L1 vertebral body. There are multilevel endplate osteophytes. There is partial disc desiccation at all lumbar levels the exception of L5-S1. Conus terminates at the L1 level. There is bilateral perinephric stranding. T12-L1: There is a large left lateral disc osteophyte protrusion resulting in mild to moderate left-sided foraminal stenosis. L1-L2: Diffuse annular disc bulge with a superimposed right lateral disc osteophyte results in mild right-sided foraminal encroachment. L2-L3: Diffuse annular disc bulge and mild bilateral hypertrophic facet arthropathy. No central canal stenosis. Mild foraminal encroachment bilaterally. L3-L4: Diffuse annular disc bulge and moderate bilateral facet arthropathy and ligamentum flavum thickening. No central canal stenosis. Mild to moderate bilateral foraminal encroachment. L4-L5: There is grade 1 degenerative anterolisthesis with uncovered disc and a superimposed diffuse annular disc bulge. There is severe bilateral hypertrophic facet arthropathy and ligamentum flavum thickening. There are very large bilateral facet joint effusions. Disc osteophyte and facet arthropathy result in severe bilateral foraminal stenosis with compression of the exiting L4 nerve roots bilaterally. There is mild central canal stenosis. L5-S1: There is a diffuse annular disc bulge with a superimposed right lateral disc osteophyte protrusion that contacts the extraforaminal right L5 nerve root. Disc osteophyte and facet arthropathy result in mild bilateral foraminal encroachment. No central canal stenosis. IMPRESSION: - At L4-L5, grade 1 degenerative anterolisthesis in the setting of advanced bilateral facet arthropathy and additional spondylitic changes result in mild central canal stenosis and severe bilateral foraminal stenosis with compression of the exiting L4 nerve roots bilaterally. THERE ARE VERY LARGE BILATERAL FACET JOINT EFFUSIONS AT L4-L5 THAT SHOULD BE FOLLOWED WITH FLEXION-EXTENSION RADIOGRAPHS TO EXCLUDE SEGMENTAL INSTABILITY. - At L5-S1, a right lateral disc osteophyte protrusion contacts the extraforaminal right L5 nerve root. I personally examined MRI of this patient and only Modic type changes were observed at T12-L1 level. Unlikely pain generators for this patient. No lower lumbar spine Modic type changes were seen. Assessment & Plan Assessment & Plan (1) Lumbar degenerative disc disease: Code(s): M51.36 - Other intervertebral disc degeneration, lumbar region Category: Medical Qualifiers: Disc-related pain type: discogenic back pain and lower extremity pain Qualified Code(s): M51.362 - Other intervertebral disc degeneration, lumbar region with discogenic back pain and lower extremity pain (2) Lumbar back pain with radiculopathy affecting lower extremity: Code(s): M54.16 - Radiculopathy, lumbar region Category: Medical (3) Lumbar post-laminectomy syndrome: Code(s): M96.1 - Postlaminectomy syndrome, not elsewhere classified Category: Medical Plan Detailed discussion was held with the patient about possibility of treatment of his pain. Patient expressed understanding of spinal cord stimulator. He also expressed understanding of intrathecal pain pump. He also expressed understanding of psychological evaluation which is Federal requirement for preparation to SCS trial. I personally do not see any issues with him passing psychological evaluation. Patient Instructions: I here by testify that I spent 35 minutes in conversation with this patient as well as planning his care and organizing this note. Coding Level of Care Code Est Pt Level 4 (50224) Diagnoses Degeneration of intervertebral disc of lumbar region with discogenic back pain and lower extremity pain M51.362 Disc-related pain type: discogenic back pain and lower extremity pain Lumbar back pain with radiculopathy affecting lower extremity M54.16 Lumbar post-laminectomy syndrome M96.1
--- OUTSIDE RECORDS SUMMARY | 2025-05-02 14:17 | XMS_ITS | Clinical Summary ---
Author Organization [facility] ity Address [address] [place] [address] Care Team Providers Care Shingle Cutter Name Role Phone Unavailable Primary Care [...]
--- OUTSIDE RECORDS SUMMARY | 2025-05-02 14:17 | XMS_ITS | Clinical Summary ---
Author Organization [facility] Facility Address [address] [place] [address] Care Team Providers Care Rn Chronic Name Role Phone Rob Valerio MD Primary Care Provider [phone] Allergies Active Allergy Reactions Criticality Noted Date [...] 3a chronic kidney disease 12/27/2022 Proteinuria 08/19/2022 Hammer toe 08/19/2022 Acquired hammer toe of right foot [...] age to complete this topic Insurance Medicare [facility] Medicare [facility] Care Teams Rn Chronic Relationship Specialty Start Date End Date Rob Valerio MD [address] [place] [address] [address] [place] [address] PCP - General Internal Medicine 05/24/22
--- OUTSIDE RECORDS SUMMARY | 2025-05-02 14:17 | XMS_ITS | Patient Health Record ---
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, accidental (unintentional), initial encounter (T56.0X1A) Active confirmed Problem Acquired hammer toe of right foot (7144981488039764 ) Other hammer toe(s) (acquired), right foot (M20.41) Active confirmed Problem Acquired hammer toe of left foot (6518901804917630 ) Other hammer toe(s) (acquired), left foot (M20.42) Active confirmed Problem Polyneuropathy due to type 2 diabetes mellitus (247460671) Type 2 diabetes mellitus with diabetic polyneuropathy (E11.42) Active confirmed Problem Primary gout (65701147) Idiopathic gout, 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) Active confirmed Problem Polyneuropathy due to diabetes mellitus type I (415643001) Type 1 diabetes mellitus with diabetic polyneuropathy (E10.42) Active confirmed Problem Gout (68590234) Acute gout of left foot, unspecified cause (M10.9) Active confirmed Vital Signs Height 5ft 7in in 06/26/2024 Weight 210 lbs 06/26/2024 BMI 32.89 kg/m2 06/26/2024 Procedures Procedure Date Ordered Date Performed Result Body Sit e 47201-YXXMVYG NAIL, 6 OR MORE 06/26/2024 N/A 51228-ELHQ SKIN LESIONS, OVER 4 06/26/2024 N/A Encounters Encounter Location Date Provider Diagnosis [facility] [address] [address] 06/26/2024 Yocasta Ashford Other hammer toe(s) (acquired), right foot M20.41 ; Other hammer toe(s) (acquired), left foot M20.42 ; Type 2 diabetes mellitus with diabetic polyneuropathy E11.42 and Tinea unguium B35.1 [facility] [place] [address] [place] [address] 12/21/2024 Yocasta sAhford Assessments Encounter Date Diagnosis (ICD Code) Assessment [...] X ray : Foot, right 3V 08/13/2019 48797-ALHTWPG NAIL, 6 OR MORE 06/26/2024 36478-KJEN SKIN LESIONS, OVER 4 06/26/20 24 13251-RGIL SKIN LESIONS, OVER 4 06/04/20 21 05484-HIVX SKIN LESIONS, OVER 4 12/23/19 22 20682-BQDL SKIN LESIONS, OVER 4 12/02/19 21 66649-AIHM SKIN LESIONS, OVER 4 08/22/19 20 42014-LWVK SKIN LESIONS, OVER 4 06/02/20 20 C8828-SWGXPDVP DYSTROPHIC NAILS ANY # Y0604-ABYKNJTF DYSTROPHIC NAILS ANY # L1187-REKCRUKZ DYSTROPHIC NAILS ANY # P3442-FHDVPVEX DYSTROPHIC NAILS ANY # Insurance Providers Payer Name Payer Address Payer Phone Subscriber Number Group Number Insured Name Patient Relationship to Insured Coverage Start Date Coverage End Date Medicare [employer] [address] [facility] [place] [address] [id number] Vince Cedillo Self - patient is the insured [facility] [address] [place] [address] [phone] [id number] Aga Cedillo Spouse - patient is the spouse of the insured Medical (General) History Medical History History ICD Code Arthritis Back,Hip,and Knee pain type II diabetes High blood pressure Measles Mumps Chicken pox Joint implants/screws Surgical History Surgery Date(Month/Year) hip replacement-Bilateral 1997 bone scan, back 06/21/22 quadruple bypass 02/2023
== END 2025-05-02 12:06 | disposition home or self-care (01) ==
LOC: HO.PMC 11:09
PROVIDERS: PCP Internal Medicine; Visit Provider Anesthesiology
DX: M51.362 Other intervertebral disc degeneration, lumbar region with discogenic back pain and lower extremity pain (principal); M54.16 Radiculopathy, lumbar region; M96.1 Postlaminectomy syndrome, not elsewhere classified
CPT/HCPCS: 99214

== ENCOUNTER → 2025-05-02 11:07 | Outpatient (BNVA) | payer MEDICARE, OTHER, SELFPAY | PROVIDERS: PCP Internal Medicine; Visit Provider Anesthesiology | DX: M51.362 Other intervertebral disc degeneration, lumbar region with discogenic back pain and lower extremity pain (principal); M54.16 Radiculopathy, lumbar region; M96.1 Postlaminectomy syndrome, not elsewhere classified | CPT/HCPCS: 99212 ==

== ENCOUNTER 2025-05-23 13:30 | Outpatient (AMB) | payer MEDICARE, OTHER, SELFPAY ==
--- NOTE | 2025-05-23 13:38 | A.OFFVIS_ITS ---
Vital Signs 05/23/25 13:39 Height 5 ft 7 in Weight 227 lb BMI 35.5 BP 148/72 H Blood Pressure Location Lt brachial Position Sitting Respiration 16 Pulse 67 Pulse Source Pulse Oximeter Pulse Oximetry (%) 94 Oxygen Delivery Method Room Air Intake Visit Reasons: 3 wk follow up Manager Material Required: No Accompanied by: Life Partner Allergies Sulfa (Sulfonamide Antibiotics) Allergy (Intermediate, Verified 05/23/25 13:47) ITCHING / HIVES sitagliptin (Januvia) Allergy (Unknown, Verified 05/23/25 13:47) Unknown-patient does not remember reaction metformin Adverse Reaction (Intermediate, Verified 05/23/25 13:47) Diarrhea HPI Comments Details: Vince is very pleasant 74 years old gentleman who presents in my office with continuous complains on pain in the lower back with radiation down to the right lower extremity. He went through psychological evaluation and he was approved for a trial of Nevro spinal cord stimulator. Today we discussed a trial of Nevro spinal cord stimulator, we discussed possibility of implantation, we discussed mobility limitations and activities while on the trial. He specifically expresses desire to have paresthesia free device because he can not tolerate sensation of the stimulation. I will schedule him for Nevro trial. He was referred to our office by Dr. Monteiro to perform bilateral transforaminal epidural steroid injection L4-5 to figure out whether or not the fusion at this level will be effective to control the pain of the patient. I perform the procedure however patient reported only 10% pain improvement. Unfortunately nevertheless patient went for the surgery. He reported significant pain exacerbation after the L4-5 fusion. Two weeks ago he went with me to perform caudal epidural steroid injection with catheter. Procedure was performed without steroids because the patient is brittle diabetic. Nevertheless patient reported only pain aggravation after the procedure. Not even short window of the pain improvement was observed after the procedure. Today I offered the patient to perform neuromodulation procedures to help his pain. I offered him spinal cord stimulator [employer] as well as potentially Intrathecal drug delivery system. Brochure was given to the patient to get psychological evaluation from [facility]. Spinal cord stimulator [employer] brochure was also given to the patient to get him familiarize with the device. This patient is very intelligent gentleman and he was asking multiple questions about possible procedures and possible diagnosis which could explain his pain. The piriformis syndrome was rule out by performing medial rot ation of the right hip. Patient was also interested in possibility of performing BVN RFA [employer] device however the patient does not exhibit symptoms of the vertebra genic low back pain, he does not have prolonged sitting pain, he does not have pain exacerbation with flexing forward and picking up objects from the floor. I will see this patient in 3 weeks after the psychological evaluation will be done and I will schedule this patient for Hominy scientific SCS trial. [facility] Medical History Skin cancer Back pain CAD (coronary artery disease) Allergic rhinitis Obesity (BMI 30-39.9) Depression Carpal tunnel syndrome on both sides Lumbar degenerative disc disease Vitamin D deficiency Elevated liver enzymes Gout Pure hypercholesterolemia Diabetes mellitus Benign essential hypertension Surgical History Hx of bilateral cataract extraction (12/2024) History of back surgery (08/2024) S/P CABG x 4 S/P cardiac catheterization Hx of colonoscopy Status post carpal tunnel release (~06/19/20) History of excision of lesion History of carpal tunnel release History of bilateral hip arthroplasty Family History Father Medical history unknown Mother Diabetes Social History Household Members: Spouse Housing: House Are you a primary outdoor emergency care technician to a significant other at home: No Do you presently have visiting nurse or other home services: No Alcohol intake: former Patient Tobacco Use Status: Former Tobacco user Tobacco use type: Cigarette Years Smoked: 15 e-Cigarette/Vaping Use: Never Used Second Hand Smoke Exposure: No service: No Current occupational status: employed Cognitive needs: No Hearing needs: No Vision needs: Yes (Glasses) Review of Systems Const All systems reviewed & are unremarkable except as noted in HPI and below ENT Reports Normal hearing present Neuro Reports Normal hearing present, Denies Abnormal speech present, Denies confusion and Denies Sensory deficit (Neuro) Psych Denies confusion Physical Exam Vital Signs: Last Vital Signs Pulse 67 05/23/25 13:39 Resp 16 05/23/25 13:39 BP 148/72 H 05/23/25 13:39 Pulse Ox 94 05/23/25 13:39 Oxygen Delivery Method Room Air 05/23/25 13:39 BMI result Body Mass Index 35.5 Const General: cooperative, no acute distress, alert, awake and well groomed; No confusion Nutritional Appearance: obese Orientation/consciousness: patient oriented x3 and No confusion HEENT Ears: hearing grossly normal bilaterally General nose exam: No nasal discharge present Face and sinus: Yes normal facial exam and Yes face symmetric Eyes General: appearance normal, both eyes and all related structures Resp Effort & Inspection: normal respiratory effort, able to speak in complete sentences, no audible wheezes, no cough and no respiratory distress Cardio Jugular venous distension: no JVD Peripheral pulses: radial pulses present, posterior tibial pulses present and dorsalis pedis present GI Inspection: Yes normal to inspection, No Abdominal wall edema and Yes obesity Palpation (GI): Soft to palpation and nontender General: Yes no CVA tenderness Back/Spine/Pelvis Other: Limited lumbar ROM due to pain. Well healed surgical incision lower lumbar spine. Lumbar extension and flexion reproduces moderate pain. Demonstrates 5/5 left and 4/5 right strength of quadriceps bilaterally as well as fl exion/dorsiflexion of bilateral feet against resistance. 2+ pedal pulses bilaterally. Straight leg rise with dorsiflexion positive on the right. +1 patellar and diminished achilles reflexes bilaterally. Facet loading test positive bilaterally. Limited Shola?s and Stinchfield tests are negative bilaterally. No groin pain with I/E hip rotations. Back: no CVA tenderness Cervical Spine: cervical ROM normal, cervical muscular tenderness, No Cervical spine tenderness and No step off deformity Thoracic/Lumbar Spine: thoracic and lumbar spine normal to inspection, No Thoracic/lumbar spine scar(s), Lasegue's sign positive on the right and localized, pain with thoraco-lumbar ROM, paraspinal muscle tenderness, thoraco- lumbar ROM limited, thoraco-lumbar spasm, No thoracic spinal tenderness and lumbar spinal tenderness Pelvis: buttock tenderness on the right Sacroiliac joints: bilaterally nontender Skin General skin exam: no rashes or lesions noted Neuro General: patient oriented x3, moves all extremities, Normal light touch and pain sensation, CN's II-XI intact bilaterally and No confusion Cranial nerves: Yes Bilaterally intact EOM present, Yes Nystagmus not present and Yes Normal hearing present Cognition (Neuro): normal cognition Speech: No Abnormal speech present Gait exam (Neuro): Antalgic gait present and No Assistive device used Motor exam (neuro): 5/5 motor strength present throughout (RLE 4/5), no tremor noted and Motor abnormalities not present Sensory Exam: No Sensory deficit (Neuro) Extrem General: Yes capillary refill normal, Yes no clubbing, cyanosis or edema and Yes no calf tenderness Assessment & Plan Assessment & Plan (1) Lumbar degenerative disc disease: Code(s): M51.36 - Other intervertebral disc degeneration, lumbar region Category: Medical (2) Lumbar back pain with radiculopathy affecting lower extremity: Code(s): M54.16 - Radiculopathy, lumbar region Category: Medical (3) Lumbar post-laminectomy syndrome: Code(s): M96.1 - Postlaminectomy syndrome, not elsewhere classified Category: Medical Plan Detailed discussion was held with the patient about possibility of treatment of his pain. Patient expressed understanding of spinal cord stimulator. He also expressed understanding of intrathecal pain pump. Discussion see as above. I will schedule patient for the trial of Nevro SCS. Patient Instructions: I here by testify that I spent 30 minutes in conversation with this patient as well as planning his care , explaining anesthesia and surgical risks, explaining mobility limitations and activities during the trial as well as planning his care and organizing this note. Coding Level of Care Code Est Pt Level 4 (42648) Diagnoses Lumbar degenerative disc disease M51.36 Lumbar back pain with radiculopathy affecting lower extremity M54.16 Lumbar post-laminectomy syndrome M96.1
[2025-05-23 13:39] VITALS: BP 148/72; PULSE 67; RESP 16; O2SAT 94; BMI 35.5
--- OUTSIDE RECORDS SUMMARY | 2025-05-23 16:27 | XMS_ITS | Patient Health Record ---
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, accidental (unintentional), initial encounter (T56.0X1A) Active confirmed Problem Acquired hammer toe of right foot (2779835547812145 ) Other hammer toe(s) (acquired), right foot (M20.41) Active confirmed Problem Acquired hammer toe of left foot (3648431936760448 ) Other hammer toe(s) (acquired), left foot (M20.42) Active confirmed Problem Polyneuropathy due to type 2 diabetes mellitus (187103695) Type 2 diabetes mellitus with diabetic polyneuropathy (E11.42) Active confirmed Problem Primary gout (33994597) Idiopathic gout, 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) Active confirmed Problem Polyneuropathy due to diabetes mellitus type I (015693983) Type 1 diabetes mellitus with diabetic polyneuropathy (E10.42) Active confirmed Problem Gout (47708052) Acute gout of left foot, unspecified cause (M10.9) Active confirmed Vital Signs Height 5ft 7in in 06/26/2024 Weight 210 lbs 06/26/2024 BMI 32.89 kg/m2 06/26/2024 Procedures Procedure Date Ordered Date Performed Result Body Sit e 16373-GXQLNNU NAIL, 6 OR MORE 06/26/2024 N/A 64552-AXEC SKIN LESIONS, OVER 4 06/26/2024 N/A Encounters Encounter Location Date Provider Diagnosis [facility] [address] [address] 06/26/2024 Yocasta Ashford Other hammer toe(s) (acquired), right foot M20.41 ; Other hammer toe(s) (acquired), left foot M20.42 ; Type 2 diabetes mellitus with diabetic polyneuropathy E11.42 and Tinea unguium B35.1 [facility] [address] [place] [address] 12/21/2024 Yocasta Ashford Assessments Encounter Date Diagnosis [...] X ray : Foot, right 3V 08/13/2019 38671-BRGNXGK NAIL, 6 OR MORE 06/26/2024 41645-UXLN SKIN LESIONS, OVER 4 06/26/20 24 33529-GZNH SKIN LESIONS, OVER 4 06/04/20 21 96126-AOIW SKIN LESIONS, OVER 4 12/23/19 22 15777-UWAR SKIN LESIONS, OVER 4 12/02/19 21 27737-ZGJX SKIN LESIONS, OVER 4 08/22/19 20 74349-SZJO SKIN LESIONS, OVER 4 06/02/20 20 P7196-XBSZEMGO DYSTROPHIC NAILS ANY # D8615-PGBRDUUS DYSTROPHIC NAILS ANY # V8433-QLQUGOHX DYSTROPHIC NAILS ANY # J7684-NUYGWDRB DYSTROPHIC NAILS ANY # Insurance Providers Payer Name Payer Address Payer Phone Subscriber Number Group Number Insured Name Patient Relationship to Insured Coverage Start Date Coverage End Date Medicare [employer] [address] [place] [address] [id number] Vince Cedillo Self - patient is the insured [facility] [address] [place] [address] [phone] [id number] Aga Cedillo Spouse - patient is the spouse of the insured Medical (General) History Medical History History ICD Code Arthritis Back,Hip,and Knee pain type II diabetes High blood pressure Measles Mumps Chicken pox Joint implants/screws Surgical History Surgery Date(Month/Year) hip replacement-Bilateral 1997 bone scan, back 06/21/22 quadruple bypass 02/2023
== END 2025-05-23 14:48 | disposition home or self-care (01) ==
LOC: HO.PMC 13:31
PROVIDERS: PCP Internal Medicine; Visit Provider Anesthesiology
DX: M51.360 Other intervertebral disc degeneration, lumbar region with discogenic back pain only (principal); M96.1 Postlaminectomy syndrome, not elsewhere classified; M54.16 Radiculopathy, lumbar region
CPT/HCPCS: 99214

== ENCOUNTER → 2025-05-23 13:30 | Outpatient (BNVA) | payer MEDICARE, OTHER, SELFPAY | PROVIDERS: PCP Internal Medicine; Visit Provider Anesthesiology | DX: M54.16 Radiculopathy, lumbar region (principal); M96.1 Postlaminectomy syndrome, not elsewhere classified; M51.360 Other intervertebral disc degeneration, lumbar region with discogenic back pain only | CPT/HCPCS: 99212 ==

== ENCOUNTER 2025-05-31 09:41 | Outpatient (AMB) | payer MEDICARE, OTHER, SELFPAY ==
--- NOTE | 2025-05-31 09:44 | A.OFFVIS_ITS ---
Vital Signs 05/31/25 09:50 Height 5 ft 7 in Weight 225 lb 8 oz BMI 35.3 BP 177/79 H Blood Pressure Location Rt brachial Position Sitting Pulse 63 Pulse Source Pulse Oximeter Pulse Oximetry (%) 99 Oxygen Delivery Method Room Air Intake Visit Reasons: S/p Caudal JANET w/ Catheter 04/26/25 Intake Note: Pain today 02/24 Wood Milling Machine Hand Required: No Accompanied by: Spouse Allergies Sulfa (Sulfonamide Antibiotics) Allergy (Intermediate, Verified 05/31/25 09:51) ITCHING / HIVES sitagliptin (Januvia) Allergy (Unknown, Verified 05/31/25 09:51) Unknown-patient does not remember reaction metformin Adverse Reaction (Intermediate, Verified 05/31/25 09:51) Diarrhea HPI Comments Details: The patient is a 74-year-old male presenting with chronic low back pain and radiculopathy. The pain has been persistent and was initially managed with a caudal injection on April 26, which provided only 10% improvement. Patient also underwent an L4-L5 fusion in August 2024, which he reports exacerbated his pain. He has been taking ibuprofen and gabapentin without significant relief. The patient has been experiencing chronic radiculopathy, and the possibility of neuromodulation with spinal cord stimulation was discussed with patient pre viously and again with Dr. Renee on 05/23/25. Additionally, a pain pump was considered as a potential intervention. Patient passed behavioral evaluation and is eager to proceed with Lumbar Nevro SCS trial. The patient's diabetes mellitus is managed with an A1c level of approximately 6.3 to 6.4. Denies any recent cough, cold, infection, fever or any significant changes in medical history since last office visit. PRIOR: Vince is very pleasant 74 years old gentleman who presents in my office with continuous complains on pain in the lower back with radiation down to the right lower extremity. He went through psychological evaluation and he was approved for a trial of Nevro spinal cord stimulator. Today we discussed a trial of Nevro spinal cord stimulator, we discussed possibility of implantation, we discussed mobility limitations and activities while on the trial. He specifically expresses desire to have paresthesia free device because he can not tolerate sensation of the stimulation. I will schedule him for Nevro trial. He was referred to our office by Dr. Monteiro to perform bilateral transforaminal epidural steroid injection L4-5 to figure out whether or not the fusion at this level will be effective to control the pain of the patient. I perform the procedure however patient reported only 10% pain improvement. Unfortunately nevertheless patient went for the surgery. He reported significant pain exacerbation after the L4-5 fusion. Two weeks ago he went with me to perform caudal epidural steroid injection with catheter. Procedure was performed without steroids because the patient is brittle diabetic. Nevertheless patient reported only pain aggravation after the procedure. Not even short window of the pain improvement was observed after the procedure. Dajuan colon I offered the patient to perform neuromodulation procedures to help his pain. I offered him spinal cord stimulator [employer] as well as potentially Intrathecal drug delivery system. Brochure was given to the patient to get psychological evaluation from [facility]. Spinal cord stimulator [employer] brochure was also given to the patient to get him familiarize with the device. This patient is very intelligent gentleman and he was asking multiple questions about possible procedures and possible diagnosis which could explain his pain. The piriformis syndrome was rule out by performing medial rotation of the right hip. Patient was also interested in possibility of performing BVN RFA [employer] device however the patient does not exhibit symptoms of the vertebra genic low back pain, he does not have prolonged sitting pain, he does not have pain exacerbation with flexing forward and picking up objects from the floor. I will see this patient in 3 weeks after the psychological evaluation will be done and I will schedule this patient for [employer] SCS trial. [facility] Medical History Skin cancer Back pain CAD (coronary artery disease) Allergic rhinitis Obesity (BMI 30-39.9) Depression Carpal tunnel syndrome on both sides Lumbar degenerative disc disease Vitamin D deficiency Elevated liver enzymes Gout Pure hypercholesterolemia Diabetes mellitus Benign essential hypertension Surgical History Hx of bilateral cataract extraction (12/2024) History of back surgery (08/2024) S/P CABG x 4 S/P cardiac catheterization Hx of colonoscopy Status post carpal tunnel release (~06/19/20) History of excision of lesion History of carpal tunnel release History of bilateral hip arthroplasty Family History Father Medical history unknown Mother Diabetes Social History Household Members: Spouse Housing: House Are you a primary care associate to a significant other at home: No Do you presently have visiting nurse or other home services: No Alcohol intake: former Patient Tobacco Use Status: Former Tobacco user Tobacco use type: Cigarette Years Smoked: 15 e-Cigarette/Vaping Use: Never Used Second Hand Smoke Exposure: No service: No Current occupational status: employed Cognitive needs: No Hearing needs: No Vision needs: Yes (Glasses) Review of Systems Const All systems reviewed & are unremarkable except as noted in HPI and below ENT Reports Normal hearing present Neuro Reports Normal hearing present, Denies Abnormal speech present and Denies confusion Psych Denies confusion Physical Exam Vital Signs: Last Vital Signs Pulse 63 05/31/25 09:50 BP 177/79 H 05/31/25 09:50 Pulse Ox 99 05/31/25 09:50 Oxygen Delivery Method Room Air 05/31/25 09:50 BMI result Body Mass Index 35.3 Const General: cooperative, no acute distress, alert, awake and well groomed; No confusion Nutritional Appearance: obese Orientation/consciousness: patient oriented x3 and No confusion HEENT Ears: hearing grossly normal bilaterally General nose exam: No nasal discharge present Face and sinus: Yes normal facial exam and Yes face symmetric Eyes General: appearance normal, both eyes and all related structures Pupils: Equal, round and reactive pupils present Resp Effort & Inspection: normal respiratory effort, able to speak in complete sentences, no audible wheezes, no cough and no respiratory distress Cardio Jugular venous distension: no JVD Peripheral pulses: radial pulses present, posterior tibial pulses present and dorsalis pedis present GI Inspection: Yes normal to inspection, No Abdominal wall edema and Yes obesity Palpation (GI): Soft to palpation and nontender General: Yes no CVA tenderness Back/Spine/Pelvis Other: Limited lumbar ROM due to pain. Well healed surgical incision lower lumbar spine. Lumbar extension and flexion reproduces moderate pain. Demonstrates 5/5 left and 4/5 right strength of quadriceps bilaterally as well as flexion/dorsiflexion of bilateral feet against resistance. 2+ pedal pulses bilaterally. Straight leg rise with dorsiflexion positive on the right. +1 patellar and diminished achilles reflexes bilaterally. Facet loading test positive bilaterally. Limited Shola?s and Stinchfield tests are negative bilaterally. No groin pain with I/E hip rotations. Back: no CVA tenderness Cervical Spine: cervical ROM normal, cervical muscular tenderness, No Cervical spine tenderness and No step off deformity Thoracic/Lumbar Spine: thoracic and lumbar spine normal to inspection, No Thoracic/lumbar spine scar(s), Lasegue's sign positive on the right and localized, pain with thoraco-lumbar ROM, paraspinal muscle tenderness, thoraco- lumbar ROM limited, thoraco-lumbar spasm, No thoracic spinal tenderness and lumbar spinal tenderness Pelvis: buttock tenderness on the right Sacroiliac joints: bilaterally nontender Skin General skin exam: no rashes or lesions noted Neuro General: patient oriented x3, moves all extremities and No confusion Cranial nerves: Yes Equal, round and reactive pupils present, Yes Bilaterally i ntact EOM present, Yes Nystagmus not present and Yes Normal hearing present Cognition (Neuro): normal cognition Speech: No Abnormal speech present Gait exam (Neuro): Antalgic gait present and No Assistive device used Motor exam (neuro): 5/5 motor strength present throughout (RLE 4/5), no tremor noted and Motor abnormalities not present Extrem General: Yes capillary refill normal, Yes no clubbing, cyanosis or edema and Yes no calf tenderness Results Reviewed Results Reviewed: XR LUMBOSACRAL SPINE WITH OBLIQUES 05/03/22 FINDINGS: Approximate 55% superior plate compression deformity at T12. Severe degenerative disc disease at T12-L1. Mild multilevel degenerative disc disease in the remainder of the lumbar spine. Minimal grade 1 anterolisthesis of L4 over L5. Mild to moderate bilateral facet arthropathy at L4-L5 and L5-S1. Moderate to severe atherosclerosis in the abdominal aorta and iliac vessels. IMPRESSION: 1. Approximately 55% superior endplate compression deformity at T12 was not seen on the recent MRI. 2. Severe degenerative disc disease at T12-L1. Mild multilevel degenerative disc disease in the remainder of the lumbar spine. 3. Minimal grade 1 anterolisthesis of L4 over L5. MR LUMBAR SPINE WITHOUT CONTRAST 04/30/22 COMPARISON: Lumbar spine radiographs 09/15/2017. FINDINGS: There are 5 nonrib-bearing lumbar-type vertebral bodies. There is grade 1 degenerative anterolisthesis of L4 on L5. Vertebral body heights are maintained. Disc volumes are preserved. There is no bone marrow edema. There are no acute fractures. Modic type II endplate signal changes at T12-L1. Intraosseous hemangioma within the L1 vertebral body. There are multilevel endplate osteophytes. There is partial disc desiccation at all lumbar levels the exception of L5-S1. Conus terminates at the L1 level. There is bilateral perinephric stranding. T12-L1: There is a large left lateral disc osteophyte protrusion resulting in mild to moderate left-sided foraminal stenosis. L1-L2: Diffuse annular disc bulge with a superimposed right lateral disc osteophyte results in mild right-sided foraminal encroachment. L2-L3: Diffuse annular disc bulge and mild bilateral hypertrophic facet arthropathy. No central canal stenosis. Mild foraminal encroachment bilaterally. L3-L4: Diffuse annular disc bulge and moderate bilateral facet arthropathy and ligamentum flavum thickening. No central canal stenosis. Mild to moderate bilateral foraminal encroachment. L4-L5: There is grade 1 degenerative anterolisthesis with uncovered disc and a superimposed diffuse annular disc bulge. There is severe bilateral hypertrophic facet arthropathy and ligamentum flavum thickening. There are very large bilateral facet joint effusions. Disc osteophyte and facet arthropathy result in severe bilateral foraminal stenosis with compression of the exiting L4 nerve roots bilaterally. There is mild central canal stenosis. L5-S1: There is a diffuse annular disc bulge with a superimposed right lateral disc osteophyte protrusion that contacts the extraforaminal right L5 nerve root. Disc osteophyte and facet arthropathy result in mild bilateral foraminal encroachment. No central canal stenosis. IMPRESSION: - At L4-L5, grade 1 degenerative anterolisthesis in the setting of advanced bilateral facet arthropathy and additional spondylitic changes result in mild central canal stenosis and severe bilateral foraminal stenosis with compression of the exiting L4 nerve roots bilaterally. THERE ARE VERY LARGE BILATERAL FACET JOINT EFFUSIONS AT L4-L5 THAT SHOULD BE FOLLOWED WITH FLEXION-EXTENSION RADIOGRAPHS TO EXCLUDE SEGMENTAL INSTABILITY. - At L5-S1, a right lateral disc osteophyte protrusion contacts the extraforaminal right L5 nerve root. I personally examined MRI of this patient and only Modic type changes were observed at T12-L1 level. Unlikely pain generators for this patient. No lower lumbar spine Modic type changes were seen. Assessment & Plan Assessment & Plan (1) Lumbar degenerative disc disease: Code(s): M51.36 - Other intervertebral disc degeneration, lumbar region Category: Medical (2) Lumbar back pain with radiculopathy affecting lower extremity: Code(s): M54.16 - Radiculopathy, lumbar region Category: Medical (3) Lumbar spondylolysis: Code(s): M43.06 - Spondylolysis, lumbar region Category: Medical (4) Spinal stenosis, lumbar region, with neurogenic claudication: Code(s): M48.062 - Spinal stenosis, lumbar region with neurogenic claudication Category: Medical (5) Lumbar post-laminectomy syndrome: Code(s): M96.1 - Postlaminectomy syndrome, not elsewhere classified Category: Medical (6) Chronic pain syndrome: Code(s): G89.4 - Chronic pain syndrome Category: Medical Plan The plan for managing the patient's chronic low back pain includes considering neuromodulation with lumbar spinal cord stimulation and a potential ITDD pain pump trial. The trialed and failed therapy has been reviewed with the patient. T he risks, consequences, alternatives, and benefits of various treatment options were discussed with the patient in great detail, including conservative management, injections and procedures. Plan to proceed with Lumbar Nevro SCS trial with sedation and fluoroscopy. The patient is advised to discontinue black seed oil and aspirin one week before the trial. Insurance approval is pending for the Nevro trial, and the patient will be informed once it is approved. The patient has been prescribed oxycodone for severe pain only, and Narcan will be provided as a precautionary measure. All questions and concerns have been answered and patient agreed with the treatment plan. Follow up for post SCS trial and sooner as needed. Patient was informed and verbally consented to the use of an ambient scribe for clinic note documentation during this visit. Medications: New naloxone 4 mg/actuation (Narcan) spray 1 dose into ONE nostril; alternate nostrils w each dose until help arrives 4 mg intranasal Q2M PRN 2 ea 0RF opioid overdose G89.4 - Chronic pain syndrome Changed From oxycodone 5 - 10 mg PO Q4-6H PRN pain M43.06 - Spondylolysis, lumbar region, M48.062 - Spinal stenosis, lumbar region with neurogenic claudication, M51.362 - Other intervertebral disc degeneration, lumbar region with discogenic back pain and lower extremity pain, M54.16 - Radiculopathy, lumbar region, M96.1 - Postlaminectomy syndrome, not elsewhere classified To oxycodone 5 mg PO Q12H PRN 30 tabs 0RF pain (scale score 7-10) 15 days M43.06 - Spondylolysis, lumbar region, M48.062 - Spinal stenosis, lumbar region with neurogenic claudication, M51.362 - Other intervertebral disc degeneration, lumbar region with discogenic back pain and lower extremity pain, M54.16 - Radiculopathy, lumbar region, M96.1 - Postlaminectomy syndrome, not elsewhere classified Coding Level of Care Code Est Pt Level 4 (89387) Complex EM visit Add On G2211 Diagnoses Lumbar degenerative disc disease M51.36 Lumbar back pain with radiculopathy affecting lower extremity M54.16 Lumbar spondylolysis M43.06 Spinal stenosis, lumbar region, with neurogenic claudication M48.062 Lumbar post-laminectomy syndrome M96.1 Chronic pain syndrome G89.4
[2025-05-31 09:50] VITALS: BP 177/79; PULSE 63; O2SAT 99; BMI 35.3
--- OUTSIDE RECORDS SUMMARY | 2025-05-31 10:47 | XMS_ITS | Clinical Summary ---
Author Organization [facility] Facility Address [address] [place] [address] Care Team Providers Care Dry Pan Charger Name Role Phone Rob Valerio MD Primary Care Provider [phone]- [phone] Allergies Active Allergy Reactions Criticality Noted Date [...] age to complete this topic Insurance Medicare [facility] Medicare [facility] Care Teams Dry Pan Charger Relationship Specialty Start Date End Date Rob Valerio MD [address] [place] [address] [address] [place] [address] PCP - General Internal Medicine 05/24/22
--- OUTSIDE RECORDS SUMMARY | 2025-05-31 10:47 | XMS_ITS | Clinical Summary ---
Author Organization [facility] ity Address [address] [place] [address] Care Team Providers Care Sales Order Clerk Name Role Phone Unavailable Primary Care Provider [...] Depression Screening 07/18/2024 COVID-19 Vaccine (1 - 2024-2 6 season) 2025 Influenza Vaccine (#1) 2025 RSV [...]
== END 2025-05-31 10:16 | disposition home or self-care (01) ==
LOC: HO.PMC 09:42
PROVIDERS: PCP Internal Medicine; Visit Provider Nurse Practitioner Family
DX: M51.369 Other intervertebral disc degeneration, lumbar region without mention of lumbar back pain or lower extremity pain (principal); M54.16 Radiculopathy, lumbar region; M43.06 Spondylolysis, lumbar region; M48.062 Spinal stenosis, lumbar region with neurogenic claudication; M96.1 Postlaminectomy syndrome, not elsewhere classified; G89.4 Chronic pain syndrome
CPT/HCPCS: 99214; G2211

== ENCOUNTER → 2025-05-31 09:41 | Outpatient (BNVA) | payer MEDICARE, OTHER, SELFPAY | PROVIDERS: PCP Internal Medicine; Visit Provider Nurse Practitioner Family | DX: M54.16 Radiculopathy, lumbar region (principal); M43.06 Spondylolysis, lumbar region; M48.062 Spinal stenosis, lumbar region with neurogenic claudication; G89.4 Chronic pain syndrome; M96.1 Postlaminectomy syndrome, not elsewhere classified; I10 Essential (primary) hypertension; Z87.891 Personal history of nicotine dependence | CPT/HCPCS: 99212 ==

== ENCOUNTER 2025-07-08 11:03 | Outpatient (REF) | payer MEDICARE, OTHER, SELFPAY ==
--- OUTSIDE RECORDS SUMMARY | 2024-12-25 04:00 | XMS_ITS ---
Author Organization [facility] Address [address] [place] [address] Care Team Providers Care Digital Producer Name Role Phone Teodoro NAYLOR, Rob Primary Care Provider Unava Yocasta Fierro [facility] [phone] Encounters Encounter Location Date Provider [facility] [address] [address] 12/25/2024 Yocasta Ashford Plan Of Treatment No Information Progress Notes * SYLVESTERVince Jay SDOB:[birth year] (74 yo M)Acc No.[id number]:12/25/2024 Progress Note Patient: Vince MASTERS Provider: Olga Ashford DPM :1950 A ge:74 Y S ex:Male Date:12/25/2024 Address:[address] [place], [place] [id number] Pcp:Rob Valerio MD Subjective: * Chief Complaints: [...] DPM Date: 0 12/25/2024 Generated for Hugh luna/Joseph/eTransmitting on: 09/08/2024 01:59 PM EST
[2025-07-08 13:41] LABS: MANUAL DIFF FLAG NO
[2025-07-08 13:54] LABS: Hematocrit 46.6 % (42.0-52.0); Hemoglobin 15.2 g/dl (14.0-18.0); Imm Gran Abs Auto 0.04 X10*3/uL (0.00-0.03); Imm Gran Pct Auto 0.6 % (0.0-0.4); Lymphocytes Absolute Auto 1.7 X10*3/uL (1.2-4.9); Mean Corpuscular HGB Conc 32.6 g/dl (31.0-36.0); Mean Corpuscular Hemoglobin 30.5 pg (27.0-33.0); Mean Corpuscular Volume 93.4 fL (80.0-98.0); NRBC Abs Auto 0.000 X10*3/uL (0.0-0.012); NRBC Pct Auto 0.0 /100WBC (0.0-0.2); Platelet Count 147 X10*3/uL (160-400); Red Blood Count 4.99 X10*6/uL (4.60-5.80); White Blood Count 6.9 X10*3/uL (4.8-10.8)
--- OUTSIDE RECORDS SUMMARY | 2025-07-08 13:59 | XMS_ITS | Clinical Summary ---
Author Organization [facility] Facility Address [address] [place] [address] Care Team Providers Care Home Theater Expert Name Role Phone Rob Valerio MD Primary Care Provider +1- [phone] Allergies Active Allergy Reactions Criticality Noted Date [...] complete this topic Insurance Medicare [facility] Medicare [facility] Care Teams Home Theater Expert Relationship Specialty Start Date End Date Rob Valerio MD [address] [place] [address] [address] [place] [address] PCP - General Internal Medicine 05/24/22
--- OUTSIDE RECORDS SUMMARY | 2025-07-08 13:59 | XMS_ITS | Clinical Summary ---
Author Organization [facility] ity Address [address] [place] [address] Care Team Providers Care Sales Planning Manager Name Role Phone Unavailable Primary Care Provider [...]
--- OUTSIDE RECORDS SUMMARY | 2025-07-08 13:59 | XMS_ITS | Patient Health Record ---
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, accidental (unintentional), initial encounter (T56.0X1A) Active confirmed Problem Acquired hammer toe of right foot (0855095807711815 ) Other hammer toe(s) (acquired), right foot (M20.41) Active confirmed Problem Acquired hammer toe of left foot (2451963670123815 ) Other hammer toe(s) (acquired), left foot (M20.42) Active confirmed Problem Polyneuropathy due to type 2 diabetes mellitus (284026352) Type 2 diabetes mellitus with diabetic polyneuropathy (E11.42) Active confirmed Problem Primary gout (83407611) Idiopathic gout, 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) Active confirmed Problem Polyneuropathy due to diabetes mellitus type I (329345060) Type 1 diabetes mellitus with diabetic polyneuropathy (E10.42) Active confirmed Problem Gout (32701612) Acute gout of left foot, unspecified cause (M10.9) Active confirmed Encounters Encounter Location Date Provider Diagnosis [facility] [place] [address] [place] [address] 12/21/2024 Yocasta Ashford Plan Of Treatment Pending Test Test Name Order Date *Uric Acid, Serum 08/13/2019 *Uric Acid, Serum 06/16/2021 *CBC With Differential/Platelet 08/13/19 20 *Sedimentation Rate-Leadergren 0 *Sedimentation Rate-Leadergren 1 X ray : Foot, left 3V 08/10/2021 X ray : Foot, right 3V 08/13/2019 [id number] NAIL, 6 OR MORE 06/26/2024 45882-UVCU SKIN LESIONS, OVER 4 06/26/20 24 40925-UITT SKIN LESIONS, OVER 4 06/04/20 21 40871-GNHQ SKIN LESIONS, OVER 4 12/23/19 22 07714-NOLB SKIN LESIONS, OVER 4 12/02/19 21 18287-FHEV SKIN LESIONS, OVER 4 08/22/19 20 02067-UTXT SKIN LESIONS, OVER 4 06/02/20 20 C2221-JRNUVNBI DYSTROPHIC NAILS ANY # U6390-UMCBQWET DYSTROPHIC NAILS ANY # X1814-LXEUTJHY DYSTROPHIC NAILS ANY # I3703-ITHDAMQS DYSTROPHIC NAILS ANY # Insurance Providers Payer Name Payer Address Payer Phone Subscriber Number Group Number Insured Name Patient Relationship to Insured Coverage Start Date Coverage End Date Medicare National Govt Svcs Inc [address] [place] [address] [id number] Vince Cedillo Self - patient is the insured [facility] [address] [place] [address] [phone] [id number] Aga Cedillo Spouse - patient is the spouse of the insured Medical (General) History Medical History History ICD Code Arthritis Back,Hip,and Knee pain type II diabetes High blood pressure Measles Mumps Chicken pox Joint implants/screws Surgical History Surgery Date(Month/Year) hip replacement-Bilateral 1997 bone scan, back 06/21/22 quadruple bypass 02/2023
[2025-07-08 14:15] LABS: Appearance Urine Clear; Glucose Urine UA Negative (Negative); PH 5.5 (5.0-9.0); Specific Gravity - Urine 1.015 (1.005-1.025); UMIC TRIGGER UACC YES
[2025-07-08 14:47] LABS: Microalbum/Creatinine Ratio Ur 230.5 ug/mg cr (<30)
[2025-07-08 15:14] LABS: Folate 13.9 ng/mL (> or = 4.0); Vitamin B12 890 pg/mL (200-900)
[2025-07-08 16:39] LABS: Alanine Aminotransferase 39 U/L (0-40); Albumin Level 4.0 g/dL (3.5-5.0); Alkaline Phosphatase 106 U/L (39-117); Anion Gap 13 (12-20); Aspartate Amino Transferase 41 U/L (5-37); Blood Urea Nitrogen 20 mg/dL (9-16); Calcium 9.2 mg/dL (8.4-10.2); Carbon Dioxide 24 mmol/L (22-29); Chloride 111 mmol/L (96-108); Cholesterol 125 mg/dL (<200); Estimated Glomerular Filt Rate > 60; HDL Cholesterol 46 mg/dL (>40); Magnesium 1.7 mg/dL (1.6-2.6); Potassium 4.9 mmol/L (3.3-5.1); Sodium 143 mmol/L (135-145); Total Protein 6.6 g/dL (6.5-8.0); Triglycerides 120 mg/dL (<150); Uric Acid 4.8 mg/dL (3.4-7.0)
== END 2025-07-08 11:04 | disposition home or self-care (01) ==
LOC: HO.HMGCLDS 11:03
PROVIDERS: PCP Internal Medicine; Visit Provider Internal Medicine
DX: E11.9 Type 2 diabetes mellitus without complications (principal); E53.8 Deficiency of other specified B group vitamins; E78.00 Pure hypercholesterolemia, unspecified; D64.9 Anemia, unspecified; E83.42 Hypomagnesemia; M10.9 Gout, unspecified; Z13.21 Encounter for screening for nutritional disorder
CPT/HCPCS: 36415; 80053; 80061; 81001; 81003; 82043; 82306; 82570; 82607; 82746; 83036; 83735; 84443; 84550; 85025

== ENCOUNTER 2025-07-12 06:35 | Day surgery (SDC) | payer MEDICARE, OTHER, SELFPAY ==
--- OUTSIDE RECORDS SUMMARY | 2024-12-25 04:00 | XMS_ITS ---
Author Organization [facility] Address [address] [place] [address] Care Team Providers Care Estimate Clerk Name Role Phone Teodoro NAYLOR, Rob Primary Care Provider Unava Yocasta Fierro [facility] [phone] Encounters Encounter Location Date Provider [facility] [address] [address] 12/25/2024 Yocasta Ashford Plan Of Treatment No Information Progress Notes * SYLVESTERVince Jay SDOB:[birth year] (74 yo M)Acc No.[id number]:12/25/2024 Progress Note Patient: Vince MASTERS Provider: Olga Ashford DPM :1950 A ge:74 Y S ex:Male Date:12/25/2024 Address:[address] [place], [place] [id number] Pcp:Rob Valerio MD Subjective: * Chief Complaints: [...] 0 12/25/2024 Generated for Hugh luna/Joseph/Narcisaransmitting on: 08/27/2024 05:51 PM EST
--- OUTSIDE RECORDS SUMMARY | 2025-06-26 17:50 | XMS_ITS | Clinical Summary ---
Author Organization [facility] ity Address [address] [place] [address] Care Team Providers Care Semiconductor Wafers Marker Name Role Phone Unavailable Primary Care Provider [...]
--- OUTSIDE RECORDS SUMMARY | 2025-06-26 17:51 | XMS_ITS | Patient Health Record ---
Author Organization [facility] Address [address] [place] [address] Care Team Providers Care Interactive Media Specialist Name Role Phone Teodoro NAYLOR, [place] Primary Care Provider Yocasta Brito Unavailable [phone] Allergies Allergen (clinical drug ingredient) Drug/Non Drug [...] of tibiofibular ligament of left ankle (disorder) ([id number] 7) 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, accidental (unintentional), initial encounter (T56.0X1A) Active confirmed Problem Acquired hammer toe of right foot (3425489959761579 ) Other hammer toe(s) (acquired), right foot (M20.41) Active confirmed Problem Acquired hammer toe of left foot (6543821302568760 ) Other hammer toe(s) (acquired), left foot (M20.42) Active confirmed Problem Polyneuropathy due to type 2 diabetes mellitus (413288124) Type 2 diabetes mellitus with diabetic polyneuropathy (E11.42) Active confirmed Problem Primary gout (02351756) Idiopathic gout, 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) Active confirmed Problem Polyneuropathy due to diabetes mellitus type I (759262316) Type 1 diabetes mellitus with diabetic polyneuropathy (E10.42) Active confirmed Problem Gout (75106947) Acute gout of left foot, unspecified cause (M10.9) Active confirmed Vital Signs Height 5ft 7in in 06/26/2024 Weight 210 lbs 06/26/2024 BMI 32.89 kg/m2 06/26/2024 Procedures Procedure Date Ordered Date Performed Result Body Sit e 96917-DVOUGDE NAIL, 6 OR MORE 06/26/2024 N/A 88530-BFGI SKIN LESIONS, OVER 4 06/26/2024 N/A Encounters Encounter Location Date Provider Diagnosis [facility] [address] [address] 06/26/2024 Yocasta Ashford Other hammer toe(s) (acquired), right foot M20.41 ; Other hammer toe(s) (acquired), left foot M20.42 ; Type 2 diabetes mellitus with diabetic polyneuropathy E11.42 and Tinea unguium B35.1 [facility] [place] [address] [place] [address] 12/21/2024 Yocasta Ashford Assessments Encounter Date Diagnosis [...] X ray : Foot, right 3V 08/13/2019 09172-RZJMQIR NAIL, 6 OR MORE 06/26/2024 84108-KPZH SKIN LESIONS, OVER 4 06/26/20 24 18784-OWEP SKIN LESIONS, OVER 4 06/04/20 21 93213-YZYI SKIN LESIONS, OVER 4 12/23/19 22 55676-CWXA SKIN LESIONS, OVER 4 12/02/19 21 60157-IMRZ SKIN LESIONS, OVER 4 08/22/19 20 33195-CYUD SKIN LESIONS, OVER 4 06/02/20 20 X5961-TOZVMDYJ DYSTROPHIC NAILS ANY # A8082-UQXBRKVB DYSTROPHIC NAILS ANY # E3615-KBIIBBXS DYSTROPHIC NAILS ANY # S0038-OAQUHTDR DYSTROPHIC NAILS ANY # Insurance Providers Payer Name Payer Address Payer Phone Subscriber Number Group Number Insured Name Patient Relationship to Insured Coverage Start Date Coverage End Date Medicare [employer] [address] [place] [address] [id number] Vince Cedillo Self - patient is the insured [facility] [address] [place] [address] [id number] Aga Cedillo Spouse - patient is the spouse of the insured Medical (General) History Medical History History ICD Code Arthritis Back,Hip,and Knee pain type II diabetes High blood pressure Measles Mumps Chicken pox Joint implants/screws Surgical History Surgery Date(Month/Year) hip replacement-Bilateral 1997 bone scan, back 06/21/22 quadruple bypass 02/2023
--- OUTSIDE RECORDS SUMMARY | 2025-06-26 17:51 | XMS_ITS | Clinical Summary ---
Author Organization [facility] Facility Address [address] [place] [address] Care Team Providers Care Coremaking Machine Setter Name Role Phone Rob Valerio MD Primary Care Provider +1- [phone] Allergies Active Allergy Reactions Criticality Noted Date [...] age to complete this topic Insurance Medicare [facility] Medicare [facility] Care Teams Coremaking Machine Setter Relationship Specialty Start Date End Date Rob Valerio MD [address] [place] [address] [address] [place] [address] PCP - General Internal Medicine 05/24/22
[2025-07-08 14:24] VITALS: BMI 35.3
--- NOTE | 2025-07-08 14:47 | HO.ANESPROP2 ---
Documented by User: Najma Aviles NP 07/08/25 14:51 HPI - Anesthesia Eval Consult details Narrative: 74 yr old male for spinal cord stimulation trial s/p caudal epidural inj with TIVA 04/26/25. s/p L4-5 Oblique Lumbar Interbody Fusion 08/2024 with GA-ETT 7.5 [place]s [facility] for CAD s/p CABG x 4 2022. Last office visit 01/2025, stable for 1 year routine f/u DM - FBS 90-100, A1C 6.2 02/2025 CKD r/t DM. [place] [facility] [place], stable disease per 01/2025 office visit Anesthesia Pre-Procedure Meds Is the patient on any of the following meds?: GLP1/DPP4 and SGLT2 Inhib PMFSH Active Problems Active Problems: All Active Problems (Updated 07/08/25 @ 14:26 by Randa Flores RN) Chronic pain syndrome (Acute) Lumbar post-laminectomy syndrome (Acute) Preoperative clearance (Acute) S/P spinal fusion (Acute) Loud snoring (Acute) Keratotic lesion (Acute) Lumbago (Acute) Elevated vitamin B12 level (Acute) Diabetic nephropathy (Acute) Bronchitis (Acute) CKD (chronic kidney disease) stage 3, GFR 30-59 ml/min (Acute) Preop cardiovascular exam (Acute) Upper respiratory tract infection (Acute) Spondylolisthesis, lumbar region (Acute) Claudication of both lower extremities (Acute) CAD (coronary artery disease) (Acute) Atherosclerosis of abdominal aorta (Acute) Spinal stenosis, lumbar region, with neurogenic claudication (Acute) T12 compression fracture (Acute) Proteinuria (Acute) Chronic diarrhea (Acute) COVID-19 (Acute) Hyperkalemia (Acute) Abnormal electrocardiogram [ECG] [EKG] (Acute) Lumbar spondylolysis (Acute) Lumbar back pain with radiculopathy affecting lower extremity (Acute) Postprandial diarrhea (Acute) Hypomagnesemia (Acute) Nocturnal leg cramps (Acute) Colon cancer screening (Acute) Allergic rhinitis (Acute) Obesity (BMI 30-39.9) (Acute) Depression (Acute) Carpal tunnel syndrome on both sides (Acute) Lumbar degenerative disc disease (Acute) Vitamin D deficiency (Acute) Elevated liver enzymes (Acute) Gout (Acute) Pure hypercholesterolemia (Acute) Diabetes mellitus (Acute) Benign essential hypertension (Acute) Past Medical History Medical History (Updated 07/08/25 @ 14:26 by Randa Flores RN) History of exam under anesthesia with epidural steroid injection (04/26/25) Skin cancer Back pain CAD (coronary artery disease) Allergic rhinitis Obesity (BMI 30-39.9) Depression Carpal tunnel syndrome on both sides Lumbar degenerative disc disease Vitamin D deficiency Elevated liver enzymes Gout Pure hypercholesterolemia Diabetes mellitus Benign essential hypertension Family History Family History Father Medical history unknown Mother Diabetes Family history of problems with anesthesia: No Surgical History Surgical History Hx of bilateral cataract extraction (12/2024) History of back surgery (08/2024) S/P CABG x 4 S/P cardiac catheterization Hx of colonoscopy Status post carpal tunnel release (~06/19/20) History of excision of lesion History of carpal tunnel release History of bilateral hip arthroplasty History of Problems with Anesthesia: No Social History Social History Household Members: Spouse Housing: House Are you a primary direct support professional caregiver to a significant other at home: No Do you presently have visiting nurse or other home services: No Alcohol intake: former Patient Tobacco Use Status: Former Tobacco user Tobacco use type: Cigarette Years Smoked: 15 e-Cigarette/Vaping Use: Never Used Second Hand Smoke Exposure: No Use of substances other than those prescribed or required for medical reasons: No Have you been hit, kicked, punched, or otherwise hurt by someone within the past year? If so, by whom?: No Are you DNR?: No Advance Directives: No Advance Directives Information Provided: Yes Advance Directives on File: No service: No Current occupational status: employed Cognitive needs: No Hearing needs: No Vision needs: Yes (Glasses) Meds Allergies Allergy/AdvReac Type Severity Reaction Status Date / Time Sulfa (Sulfonamide Allergy Intermediate ITCHING / Verified 07/09/25 09:37 Antibiotics) HIVES sitagliptin (Januvia) Allergy Unknown Unknown-patient Verified 07/09/25 09:37 does not remember reaction metformin AdvReac Severe Diarrhea Verified 07/09/25 09:37 Home Medications ?Medication ?Instructions ?Recorded ?Confirmed ?Last Taken ?Type aspirin 81 mg tablet,delayed 81 mg PO QAM 05/11/22 07/09/25 07/03/25 History release (Adult Aspirin Regimen) Held on 09/05/24. Instructions: Resume on 09/09/24. cyanocobalamin (vitamin B-12) 2,500 mcg sublingual Q2D 07/09/24 07/08/25 08/30/24 History 2,500 mcg sublingual tablet (Vitamin B-12) magnesium oxide 800 mg PO BEDTIME 07/09/24 07/08/25 08/30/24 History semaglutide 2 mg/dose (8 mg/3 mL) 2 mg subcut QWEEK 09/04/24 07/09/25 06/29/25 History subcutaneous pen injector Exam Height,Weight and Vital Signs: Height 5 ft 7 in Weight 102.285 kg Narrative Narrative: EKG 04/2025 NSR, rate 60 RBBB Inferior infarct age undetermined Assessment and Plan Final Anesthetic Review Family History of Problems with Anesthesia: No History of Problems with Anesthesia: No Documented by User: Jos Tello MD 07/12/25 08:13 [facility] Past Medical History Medical History (Updated 07/08/25 @ 14:26 by Randa Flores RN) History of exam under anesthesia with epidural steroid injection (04/26/25) Skin cancer Back pain CAD (coronary artery disease) Allergic rhinitis Obesity (BMI 30-39.9) Depression Carpal tunnel syndrome on both sides Lumbar degenerative disc disease Vitamin D deficiency Elevated liver enzymes Gout Pure hypercholesterolemia Diabetes mellitus Benign essential hypertension Family History Family History Father Medical history unknown Mother Diabetes Surgical History Surgical History Hx of bilateral cataract extraction (12/2024) History of back surgery (08/2024) S/P CABG x 4 S/P cardiac catheterization Hx of colonoscopy Status post carpal tunnel release (~06/19/20) History of excision of lesion History of carpal tunnel release History of bilateral hip arthroplasty Social History Social History Household Members: Spouse Housing: House Are you a primary direct support professional caregiver to a significant other at home: No Do you presently have visiting nurse or other home services: No Alcohol intake: former Patient Tobacco Use Status: Former Tobacco user Tobacco use type: Cigarette Years Smoked: 15 e-Cigarette/Vaping Use: Never Used Second Hand Smoke Exposure: No Use of substances other than those prescribed or required for medical reasons: No Have you been hit, kicked, punched, or otherwise hurt by someone within the past year? If so, by whom?: No Are you DNR?: No Advance Directives: No Advance Directives Information Provided: Yes Advance Directives on File: No service: No Current occupational status: employed Cognitive needs: No Hearing needs: No Vision needs: Yes (Glasses) Meds Allergies Allergy/AdvReac Type Severity Reaction Status Date / Time Sulfa (Sulfonamide Allergy Intermediate ITCHING / Verified 07/09/25 09:37 Antibiotics) HIVES sitagliptin (Januvia) Allergy Unknown Unknown-patient Verified 07/09/25 09:37 does not remember reaction metformin AdvReac Severe Diarrhea Verified 07/09/25 09:37 Home Medications ?Medication ?Instructions ?Recorded ?Confirmed ?Last Taken ?Type aspirin 81 mg tablet,delayed 81 mg PO QAM 05/11/22 07/09/25 07/03/25 History release (Adult Aspirin Regimen) Held on 09/05/24. Instructions: Resume on 09/09/24. cyanocobalamin (vitamin B-12) 2,500 mcg sublingual Q2D 07/09/24 07/08/25 08/30/24 History 2,500 mcg sublingual tablet (Vitamin B-12) magnesium oxide 800 mg PO BEDTIME 07/09/24 07/08/25 08/30/24 History semaglutide 2 mg/dose (8 mg/3 mL) 2 mg subcut QWEEK 09/04/24 07/09/25 06/29/25 History subcutaneous pen injector Exam Airway Mallampati Class: III TM Dist: >3cm Neck ROM: Full Partial: Upper Heart: ok. see above. Lungs: ok. Sat 95% on RA. Assessment and Plan Assessment Anesthesia Assessment: Anesthesia Plan Discussed and Chart Reviewed Final Anesthetic Review NPO: Yes ASA Class: III Final Preanesthetic Review: No Changes in Pt Med Stat, Meds/Allgs Chart Reviewed, Consent Obtained/Reviewed and Anes Risks/Benef Reviewed Patient Risk: Intermediate Procedure Risk: Intermediate Anesthetic Plan Anesthetic Plan: Agree w/ Assess. and Plan and TIVA Disposition: Standard PACU
[2025-07-09 09:37] VITALS: BMI 33.7
--- NOTE | ~2025-07-12 | FL_ITS ---
EXAMINATION: FL GUIDANCE ONLY HISTORY: TRIAL COMPARISON: None available. TECHNIQUE: Fluoroscopy time: 7 minutes, 5.5 seconds. Cumulative Dose: 239.78 mGy. DAP: 62.813 Gycm2 Images: 3. FINDINGS: Fluoroscopic spot films of the thoracic spine demonstrate a stimulator in place with the tip at the level of the superior endplate of T8. FL/FL guidance in OR IMPRESSION: Fluoroscopy during procedure. Please see procedure report for additional information. Electronically signed by: Rigoberto Pressley MD 07/15/2025 10:52 AM JELLY AUGUST
[2025-07-12 06:49] VITALS: BP 115/81; PULSE 78; RESP 18; TEMP 36.1; O2SAT 96
--- NOTE | 2025-07-12 07:18 | MHC.SHP ---
Pre-Procedural Eval Section A - 24 Hr Update-Section A only Date of Service: 07/12/25 The patient is an INPATIENT: No Changes since office visit: Yes Patient answered all questions The patient has been examined within 24 hours of the surgical procedure. The History & Physical has been completed within 30 days and I have reviewed it.: No Section B - Complete if H&P > 30 days Chief Complaint: Postlaminectomy syndrome,Chronic pain syndrome Details of Present Illness: As above, postlaminectomy syndrome. Relevant Family History (Specify if Yes): No Relevant Social History: None Present Medications: see Short Stay Collaborative assessment Medical History: No relevant PMH History of Previous Operations: Relevant previous surgery/procedure and date(s) (L4-5 laminectomy and diskectomy.) Allergies: Allergies Allergy/AdvReac Type Severity Reaction Status Date / Time Sulfa (Sulfonamide Allergy Intermediate ITCHING / Verified 07/09/25 09:37 Antibiotics) HIVES sitagliptin (Januvia) Allergy Unknown Unknown-patient Verified 07/09/25 09:37 does not remember reaction metformin AdvReac Severe Diarrhea Verified 07/09/25 09:37 Review of Systems Sugical H&P ROS: Negative: Cardiovascular, Respiratory, Neurological, Psychiatric, Hem-Onc, Allergic/Immunologic, Gastrointestinal, Integumentary, Endocrine and Eyes/Ears/Nose/Throat and Yes, Specify: Constitution (Morbid obesity), Genitourinary (CKD 3) and Musculoskeletal (Postlaminectomy syndrome disc degeneration lumbar) Exam Surgical H&P Exam: Normal: HEENT, Normal: Heart, Normal: Lungs, Normal: Extremities, Normal: Skin and Normal: Neurological and Significant Findings: Abdomen (Enlarged due to fat) Plan Diagnosis/Plan: Unchanged I have reviewed the history and physical and performed a pertinent physical examination on my patient. No changes have occurred unless specified. Time Spent With Patient Time: Total time managing care of this patient today ____ minutes.
[2025-07-12 09:43] VITALS: BP 124/98; PULSE 60; RESP 20; TEMP 36.1; O2SAT 95
--- NOTE | 2025-07-12 09:44 | PM.OP ---
Brief Operative Note Date of Service: 07/12/25 Pre-op diagnosis: Trial of Nevro spinal cord stimulator. Post-op diagnosis: same Procedure: Postlaminectomy syndrome chronic pain syndrome Surgeon: Cameron Renee MD Anesthesia: MAC Was an Apartment Groundskeeper used for this Procedure?: No Estimated blood loss (mL): 2 Condition: stable Disposition: PACU
--- NOTE | 2025-07-12 09:45 | P.OP_ITS ---
Operative Note Operative Note Date of Service: 07/12/25 Narrative: Trial of Nevro spinal cord stimulator lumbar thoracic positionedTrevon Clarke is very pleasant 74 years old gentleman who is suffering from postlaminectomy syndrome and chronic pain syndrome. He came today to the operating room to receive a trial of Nevro spinal cord stimulator. Informed consent was thoroughly explained to the patient, risks and benefits were explained. The patient was brought to the operating room and positioned prone on the operating table. ASA monitors were applied. Patient was deeply sedated. His lower back was prepped with ChloraPrep and draped with full body fenestrated drape. Sterilely draped C-arm was brought over the operating field and sq picture of T11-T12 and L1 vertebra were demonstrated on the screen. The initial target was chosen as T12-L1 interlaminar interspace. The initial injection of local mixture of lidocaine 2% and ropivacaine 0.5% 1-1 performed in the projection of the lamina and pedicle of the right L2 level projection to the skin. After that 16 gauge introducer needle was inserted through the skin wheal and advanced to were T12-L1 epidural interspace. The advancement of the needle was very difficult. The needle encountered multiple areas of the severe bony resistance even though the projection of the tip of the needle was in the interlaminar interspace. Loss of resistance to air technique was used to detect the epidural space. When loss of resistance was felt and on the projection of the lateral view the tip of the needle was positioned 2 mm deeper than interlaminar line the guitar wire was introduced into the epidural space and spread in the epidural fashion. After that epidural lead was introduced to the epidural space and started to to advanced to were the T8 target. Several attempts to advance the epidural space lead electrode were made however the position of the lead ended up in anterior epidural space. The decision was made to change the area of the advancement of the needle to T11-T12 interspace. Again lots of resistance was felt on the needle advancement. The needle was replaced with coude 16 gauge number inches needle. After that the advancement of the guitar wire demonstrated the position of the wire in the epidural space, however again the advancement of the electrode ended up in the anterior epidural space and attempt to switch the direction of the electrode advancement more to the left side appeared to be very difficult : electrode was meeting severe resistance. The decision was made to attempt to advance the electrode in T10- T11 epidural interspace on the left side. The projection of T12 pedicle was chosen as initial target. 4 inches coude needle was used to reach the epidural space. Again severe resistance and bony obstacles were felt on needle advancement. However at this level when the epidural space was located I was able to advance epidural lead now in the posterior epidural space. When the epidural lead tip reached top T8 vertebral body projection on the x-ray view the decision was made to not to advance the right-sided electrode and finish the intervention with the left-sided inserted electrode only. Care was taken to remove the epidural needle while keeping the epidural lead in place, the anchoring device was advanced over the electrode to the level of the skin in it was sutured to the skin with 2 silk 0-0 sutures. After that the anchoring screw was turned on the anchor and 3 clicks were heard. After that sterile dressing was applied and the electrode was connected to the RPG. The impedances were appropriate..
[2025-07-12 09:58] VITALS: BP 102/51; PULSE 56; RESP 16; O2SAT 96
[2025-07-12 10:13] VITALS: BP 158/71; PULSE 54; RESP 16; O2SAT 96
[2025-07-12 10:28] VITALS: BP 158/73; PULSE 53; RESP 16; TEMP 36.3; O2SAT 94
== END 2025-07-12 11:58 | disposition home or self-care (01) ==
PROVIDERS: PCP Internal Medicine; Visit Provider Anesthesiology
PROC: (CPT 63650; principal; 2025-07-12 08:20)
DX: M96.1 Postlaminectomy syndrome, not elsewhere classified (principal); G89.4 Chronic pain syndrome; M54.16 Radiculopathy, lumbar region; M51.369 Other intervertebral disc degeneration, lumbar region without mention of lumbar back pain or lower extremity pain; M43.06 Spondylolysis, lumbar region; M48.062 Spinal stenosis, lumbar region with neurogenic claudication; E11.9 Type 2 diabetes mellitus without complications; Z79.1 Long term (current) use of non-steroidal anti-inflammatories (NSAID); Z79.85 Long-term (current) use of injectable non-insulin antidiabetic drugs; Z79.899 Other long term (current) drug therapy; Z98.1 Arthrodesis status; Z88.2 Allergy status to sulfonamides; Z88.8 Allergy status to other drugs, medicaments and biological substances; Z87.891 Personal history of nicotine dependence
CPT/HCPCS: 63650 ×2; C1889; C1897; J0736; J2003; J2250; J2704; J2795; J3010

== ENCOUNTER → 2025-07-12 06:35 | Outpatient (BNV) | payer MEDICARE, OTHER, SELFPAY | PROVIDERS: PCP Internal Medicine; Visit Provider Anesthesiology | DX: M96.1 Postlaminectomy syndrome, not elsewhere classified (principal) | CPT/HCPCS: 63650 ==

== ENCOUNTER 2025-07-17 08:37 | Outpatient (AMB) | payer MEDICARE, OTHER, SELFPAY ==
--- OUTSIDE RECORDS SUMMARY | 2024-12-25 04:00 | XMS_ITS ---
Author [facility] Address [address] [place] [address] Care Team Providers Care Blade Aligner Name Role Phone Teodoro NAYLOR, Rob Primary Care Provider Unava Yocasta Fierro [facility] [phone] Encounters Encounter Location Date Provider Diagnosis [facility] [address] [address] 12/25/2024 Yocasta Ashford Plan Of Treatment No Information Progress Notes * SYLVESTERVince Jay SDOB:[birth year] (74 yo M)Acc No.[id number]:12/25/2024 Progress Note Patient: Vince MASTERS Provider: Olga Ashford DPM :1950 A ge:74 Y S ex:Male Date:12/25/2024 Address:[address] [place], [place] [id number] Pcp:Rob Valerio MD Subjective: * Chief Complaints: * * Medical History: Objective: * Vitals: Assessment: Plan: * Treatment: * Images: * The named appointment provid er may or may not be the originator of this progress note, and it is not deemed complete until electronically signed by the appointment provider. Sign off status: Pending * Provider: Olga Ashford DPM Date: 0 12/25/2024 Generated for Hugh luna/Joseph/Narcisaransmitting on: 08:41 AM EST
--- OUTSIDE RECORDS SUMMARY | 2025-07-17 08:41 | XMS_ITS | Patient Health Record ---
Author Organization [facility] Address [address] [place] [address] Care Team Providers Care Pharmaceutical Process Engineer Name Role Phone Teodoro NAYLOR, [place] Primary Care Provider Yocasta Brito Unavailable [phone] Allergies Allergen (clinical drug ingredient) Drug/Non Drug [...] of tibiofibular ligament of left ankle (disorder) (0958584289073918 7) 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, accidental (unintentional), initial encounter (T56.0X1A) Active confirmed Problem Acquired hammer toe of right foot (5807418025248620 ) Other hammer toe(s) (acquired), right foot (M20.41) Active confirmed Problem Acquired hammer toe of left foot (0243796969982088 ) Other hammer toe(s) (acquired), left foot (M20.42) Active confirmed Problem Polyneuropathy due to type 2 diabetes mellitus (149030504) Type 2 diabetes mellitus with diabetic polyneuropathy (E11.42) Active confirmed Problem Primary gout (61998945) Idiopathic gout, 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) Active confirmed Problem Polyneuropathy due to diabetes mellitus type I (641396511) Type 1 diabetes mellitus with diabetic polyneuropathy (E10.42) Active confirmed Problem Gout (40898251) Acute gout of left foot, unspecified cause (M10.9) Active confirmed Encounters Encounter Location Date Provider Diagnosis [facility] [address] [place] [address] 12/21/2024 Yocasta Ashford Plan Of Treatment Pending Test Test Name Order Date *Uric Acid, Serum 08/13/2019 *Uric Acid, Serum 06/16/2021 *CBC With Differential/Platelet 08/13/19 20 *Sedimentation Rate-Cornlandergren 0 *Sedimentation Rate-Cornlandergren 1 X ray : Foot, left 3V 08/10/2021 X ray : Foot, right 3V 08/13/2019 67037-[id number] NAIL, 6 OR MORE 06/26/2024 16857-GQLJ SKIN LESIONS, OVER 4 06/26/20 24 22768-SZUR SKIN LESIONS, OVER 4 06/04/20 21 33771-FYAV SKIN LESIONS, OVER 4 12/23/19 22 80316-MQJZ SKIN LESIONS, OVER 4 12/02/19 21 57347-HLTB SKIN LESIONS, OVER 4 08/22/19 20 84943-IDPL SKIN LESIONS, OVER 4 06/02/20 20 Q1902-[id number] DYSTROPHIC NAILS ANY # N5234-UXFQQNCJ DYSTROPHIC NAILS ANY # B7636-DKWJGBYP DYSTROPHIC NAILS ANY # V0746-GEQCGSAQ DYSTROPHIC NAILS ANY # Insurance Providers Payer Name Payer Address Payer Phone Subscriber Number Group Number Insured Name Patient Relationship to Insured Coverage Start Date Coverage End Date Medicare National Govt Svcs Inc [address] [place] [address] [id number] Vince Cedillo Self - patient is the insured [facility] [address] [place] [address] [phone] [id number] Aga Cedillo Spouse - patient is the spouse of the insured Medical (General) History Medical History History ICD Code Arthritis Back,Hip,and Knee pain type II diabetes High blood pressure Measles Mumps Chicken pox Joint implants/screws Surgical History Surgery Date(Month/Year) hip replacement-Bilateral 1997 bone scan, back 06/21/22 quadruple bypass 02/2023
--- OUTSIDE RECORDS SUMMARY | 2025-07-17 08:41 | XMS_ITS | Clinical Summary ---
Author Organization [facility] Address [address] [place] [address] Care Team Providers Care Chief Controller Station Name Role Phone Rob Valerio MD Primary Care Provider [phone] Allergies Active Allergy Reactions Criticality Noted Date [...] age to complete this topic Insurance Medicare [facility] Medicare [facility] Care Teams Chief Controller Station Relationship Specialty Start Date End Date Rob Valerio MD [address] [place] [address] [address] [place] [address] PCP - General Internal Medicine 05/24/22
--- OUTSIDE RECORDS SUMMARY | 2025-07-17 08:41 | XMS_ITS | Clinical Summary ---
Author Organization [facility] Address [address] [place] [address] Care Team Providers Care It Service Continuity Supervisor Name Role Phone Unavailable Primary Care Provider [...] 2) 2002 Depression Screening 07/18/2024 COVID-19 Vaccine (2 - 2024-2 6 season) 2025 05/19/2021 Influenza Vaccine (#1) 2025 04/16/2021 RSV Immunization Adult Patie nts (1 - [...]
[2025-07-17 08:43] VITALS: BP 142/84; PULSE 69; O2SAT 96; BMI 35.4
--- NOTE | 2025-07-17 08:43 | A.OFFPC_ITS ---
Vital Signs 07/17/25 08:43 07/17/25 09:39 Height 5 ft 7 in Weight 226 lb 2 oz BMI 35.4 BP 142/84 H 140/78 H Blood Pressure Location Lt brachial Lt brachial Position Sitting Sitting Pulse 69 Pulse Source Pulse Oximeter Pulse Oximetry (%) 96 Oxygen Delivery Method Room Air Intake Visit Reasons: 4 months Aquarium Specialist Required: No Accompanied by: Self / Same As Patient Allergies Sulfa (Sulfonamide Antibiotics) Allergy (Intermediate, Verified 07/17/25 09:28) ITCHING / HIVES sitagliptin (Januvia) Allergy (Unknown, Verified 07/17/25 09:28) Unknown-patient does not remember reaction metformin Adverse Reaction (Severe, Verified 07/17/25 09:28) Diarrhea Medication List - Last Reconciled 07/17/25 by Rob Valerio MD Admelog SoloStar U-100 Insulin (insulin lispro) 6 to 8 units 3 times a day with meals SQ per sliding scale subcutaneously 3 times a day; 30 days NS allopurinol 300 mg (3 x 100 mg) PO QAM aspirin (Adult Aspirin Regimen) 81 mg PO QAM Held on 09/05/24. Instructions: Resume on 09/09/24. atorvastatin 40 mg PO DAILY Basaglar KwikPen U-100 Insulin (insulin glargine) 36 units (0.36 mL) subcut BEDTIME NS blood-glucose sensor (Dexcom G6 Sensor device) As directed blood-glucose transmitter (Dexcom G6 Transmitter device) As directed blood-glucose,woven blind loom tender,cont (Dexcom G6 Freight Team Associate) As directed cholecalciferol (vitamin D3) 25 mcg PO DAILY 90 days clindamycin HCl (Cleocin HCl) 600 mg (2 x 300 mg) PO TID 7 days cyanocobalamin (vitamin B-12) (Vitamin B-12) 2,500 mcg sublingual Q2D dapagliflozin propanediol (Farxiga) 5 mg PO QAM lisinopril 40 mg PO QAM magnesium oxide 800 mg PO BEDTIME metoprolol succinate ER 50 mg (2 x 25 mg) PO QAM naloxone 4 mg/actuation (Narcan) 4 mg intranasal Q2M PRN oxycodone 5 mg PO Q12H PRN 15 days pen needle, diabetic (BD Ultra-Fine Mini Pen Needle) 4 times per day semaglutide 2 mg subcut QWEEK tizanidine 4 mg PO BEDTIME PRN 90 days Tobacco use date assessed: 07/17/25 Fall risk assessment: No Falls in past year Last assessed Fall Risk: 07/17/25 Dental Screening Dental Screen Date: 07/17/25 Did you have a dental visit in the last 12 months?: Yes Did you have a dental problem in the last 6 months where you did not have access to dental care?: No Was dental information given to patient?: Patient has dentist HPI 4 months HPI Details Patient comes in today for his follow up visit States that he feels okay and that his low back pain has been better controlled lately He is currently still undergoing a trial of SCS with pain management and will be seeing them again later this week for follow up on this He denies any headaches or dizziness Denies any chest pains, no increased SOB No nausea/vomiting, no abdominal pain No change in bowel habits noted He had his follow up labs done last week - to discuss his results [facility] Medical History History of exam under anesthesia with epidural steroid injection (04/26/25) Skin cancer Back pain CAD (coronary artery disease) Allergic rhinitis Obesity (BMI 30-39.9) Depression Carpal tunnel syndrome on both sides Lumbar degenerative disc disease Vitamin D deficiency Elevated liver enzymes Gout Pure hypercholesterolemia Diabetes mellitus Benign essential hypertension Surgical History Hx of bilateral cataract extraction (12/2024) History of back surgery (08/2024) S/P CABG x 4 S/P cardiac catheterization Hx of colonoscopy Status post carpal tunnel release (~06/19/20) History of excision of lesion History of carpal tunnel release History of bilateral hip arthroplasty Family History Father Medical history unknown Mother Diabetes Social History Household Members: Spouse Housing: House Are you a primary clinical care manager to a significant other at home: No Do you presently have visiting nurse or other home services: No Alcohol intake: former Patient Tobacco Use Status: Former Tobacco user Tobacco use type: Cigarette Years Smoked: 15 e-Cigarette/Vaping Use: Never Used Second Hand Smoke Exposure: No service: No Current occupational status: employed Cognitive needs: No Hearing needs: No Vision needs: Yes (Glasses) Questionnaire PHQ-9 Over the last 2 weeks, how often have you been bothered by any of the following problems? 1. Little interest or pleasure in doing things: not at all 2. Feeling down, depressed, or hopeless: not at all 3. Trouble falling or staying asleep, or sleeping too much: not at all 4. Feeling tired or having little energy: not at all 5. Poor appetite or overeating: not at all 6. Feeling bad about yourself - or that you are a failure or have let yourself or your family down: not at all 7. Trouble concentrating on things, such as reading the newspaper or watching television: not at all 8. Moving or speaking so slowly that other people could have noticed. Or the opposite - being so fidgety or restless that you have been moving around a lot more than usual: not at all 9. Thoughts that you would be better off or of hurting yourself in some way: not at all Total score: 0 Depression Screening Interpretation: Negative Depression Screening Done: Yes 01478 - PHQ-9 Billing: Yes Source: Developed by Drs. Rigoberto Iqbal, Celestina Murray, Tyrone Wong and colleagues, with an educational farida from [employer]. Thrive Questionnaire Date Thrive assessed: 07/17/25 I am a: Patient What is your living situation today?: I have a steady place to live Within the past 12 months, did the food you bought not last and you didn't have the money to get more?: Never true Within the past 12 months, did you worry whether your food would run out before you got money to buy more?: Never true Do you have trouble paying for medicines?: No Do you have trouble getting transportation to medical appointments?: No Do you have trouble paying your heating and electricity bill?: I choose not to answer this question Do you have trouble taking care of your child, family member or friend?: I choose not to answer this question Do you have trouble with day-to-day activities such as bathing, preparing meals, shopping, managing finances, etc.?: No Are you currently unemployed and looking for a job?: I choose not to answer this question Are you interested in more education?: No Please select the resources that you would like help with: None Currently or been in a relationship where the following occur: No concerns reported THRIVE Score: 0 AUDIT C Alcohol Use Questionnaire (AUDIT-C) 1. How often do you have a drink containing alcohol?: Never 3. How often do you have six or more drinks on one occasion?: Never Total Score: 0 Score Reviewed/Action Taken: Yes RIO-7 AMB Questionnaire RIO-7 Date RIO - 7 assessed: 07/17/25 Feeling nervous, anxious, or on edge: 0 = Not at all Not being able to stop or control worryin = Not at all Worrying too much about different things: 0 = Not at all Trouble relaxin = Not at all Being so restless that it is hard to sit still: 0 = Not at all Becoming easily annoyed or irritable: 0 = Not at all Feeling afraid as if something awful might happen: 0 = Not at all Total RIO-7 score (0-4 normal; 5-9 mild; 10-14 moderate; 15-21 severe): 0 Source: Developed by Drs. Rigoberto Iqbal, Celestina Murray, Tyrone Wong and colleagues, with an educational farida from [employer]. Review of Systems Const Denies chills, Denies fatigue, Denies fever(s) and Denies headache(s) ENT Denies dysphagia, Denies dizziness, Denies otalgia, Denies headache(s), Denies neck pain, Denies odynophagia and Denies sore throat Card Denies chest pain, Denies palpitations and Denies dyspnea Resp Denies chest congestion, Denies cough and Denies dyspnea GI Denies abdominal pain, Denies constipation, Denies dysphagia, Denies heartburn, Denies diarrhea, Denies nausea, Denies odynophagia and Denies vomiting Denies difficulty urinating, Denies dysuria, Denies nocturia and Denies urinary frequency Musc Reports back pain (chronic, worse with prolonged standing or increased activity), Denies neck pain and Reports radiating pain into limb (recurrent, down the back of his right lower extremity) Skin/Breast Denies rash Neuro Denies dizziness and Denies headache(s) Endo Denies fatigue and Denies palpitations Physical exam (Primary Care) Vital Signs: Last Vital Signs Pulse 69 07/17/25 08:43 BP 142/84 H 07/17/25 08:43 Pulse Ox 96 07/17/25 08:43 Oxygen Delivery Method Room Air 07/17/25 08:43 BMI result Body Mass Index 35.4 Tobacco/Smoking Status: Tobacco use Status Tobacco use date assessed 07/17/25 07/17/25 08:53 Patient Tobacco Use Status Former Tobacco user 07/17/25 08:53 Tobacco use type Cigarette 07/17/25 08:53 e-Cigarette/Vaping Use Never Used 07/17/25 08:53 PHQ-9: PHQ-9 Score PHQ-9: Total score 0 07/17/25 08:53 Depression Screening Interpretation: Negative Thrive Assessment: Date of Thrive Assessment Date Thrive assessed 07/17/25 07/17/25 08:53 Currently or been in a relationship where the following occur: No concerns reported Const General: no acute distress and alert HENMT Ears: TM's normal bilaterally and EAC's normal Throat: Yes posterior oropharynx normal and Yes tonsils normal (no TP congestion) Neck Neck: Yes supple and No lymphadenopathy Thyroid: Thyroid normal Resp Auscultation: clear to auscultation bilaterally, no rales and no wheezes Cardio Rate: regular rate Rhythm: regular rhythm Heart sounds: no murmurs GI Palpation (GI): Soft to palpation and nontender Auscultation: normal bowel sounds General: Yes no CVA tenderness Back/Spine/Pelvis Back: no CVA tenderness Thoracic/Lumbar Spine: lumbar spinal tenderness and straight leg raise positive Skin Rashes: no rashes Extrem General: Yes no clubbing, cyanosis or edema Results Reviewed Results Reviewed: Laboratory Tests 07/08/25 11:23 WBC 6.9 Hgb 15.2 Hct 46.6 Plt Count 147 L Sodium 143 Potassium 4.9 Creatinine 1.11 Estimated GFR > 60 Fasting Glucose 110 H Hemoglobin A1c % 6.1 H Uric Acid 4.8 Calcium 9.2 Magnesium 1.7 AST 41 H ALT 39 Triglycerides 120 Cholesterol 125 LDL Cholesterol, Calc 55 HDL Cholesterol 46 Vitamin B12 890 25-OH Vitamin D Total 39.1 TSH 1.15 Ur Specific [place] 1.015 Urine Protein 100 (2+) H Urine Glucose (UA) Negative Urine Blood Negative Urine Nitrite Negative Ur Leukocyte Esterase Negative Microalb/Creat Ratio 230.5 H Coding Level of Care Code Est Pt Level 4 (74330) Add On Problem Visit Only Diagnoses Type 2 diabetes mellitus without complication, with long-term current use of insulin E11.9; Z79.4 Diabetes mellitus type: type 2 Diabetes mellitus ad terminal makeup operator insulin use: with fpc use Diabetes mellitus complication status: without complication Benign essential hypertension I10 Persistent proteinuria R80.1 Proteinuria type: persistent Pure hypercholesterolemia E78.00 Elevated liver enzymes R74.8 Hypomagnesemia E83.42 Nocturnal leg cramps G47.62 Degeneration of intervertebral disc of lumbar region with discogenic back pain and lower extremity pain M51.362 Disc-related pain type: discogenic back pain and lower extremity pain Idiopathic gout, unspecified chronicity, unspecified site M10.00 Gout site: unspecified site Gout etiology: idiopathic Chronicity: unspecified Vitamin D deficiency E55.9 Elevated vitamin B12 level R79.89 Obesity (BMI 30-39.9) E66.9 Additional Codes PHQ-9 - 67465 - PHQ-9 Billing: Yes ([id number]) Assessment & Plan Assessment & Plan (1) Diabetes mellitus: Comment: type 2-dx~age 52-has glucose sensor - usually ~ 110 (A1C on 06/28/24 was 5.6%) Code(s): E11.9 - Type 2 diabetes mellitus without complications Category: Medical Qualifiers: Diabetes mellitus type: type 2 Diabetes mellitus ad terminal makeup operator insulin use: with ad terminal makeup operator use Diabetes mellitus complication status: without complication Qualified Code(s): E11.9 - Type 2 diabetes mellitus without complications; Z79.4 - residential (current) use of insulin Plan: His HgbA1c was at 6.1% on his labs done last week (was previously at 6.2% a few months ago) - goal is at least <7.0% but ideally <6.5% Reinforced diabetic diet Continue Farxiga 5 mg QD, Ozempic 2 mg SQ once a week, Lantus 36 units Q HS and Admelog 6 to 8 units TID per sliding scale (Lantus might need to be switched over to Basaglar soon due to formulary changes) Patient could not tolerate Metformin or Metformin ER in the past due to diarrhea (2) Benign essential hypertension: Code(s): I10 - Essential (primary) hypertension Category: Medical Plan: Reinforced low sodium diet - goal is systolic BP of at least 130 mm or less Continue Lisinopril 40 mg QD and Metoprolol ER 50 mg QD Echocardiogram done a couple of years ago revealed low normal LV systolic function with LVEF of 50-55% with impaired relaxation filling pattern with severe focal hypertrophy of the basal septum, mild left atrial enlargement, normal cardiac valvular dopplers and no gross pericardial effusion Follow up with cardiology as scheduled (3) Proteinuria: Code(s): R80.9 - Proteinuria, unspecified Category: Medical Qualifiers: Proteinuria type: persistent Qualified Code(s): R80.1 - Persistent proteinuria, unspecified Plan: This is most likely related to his HTN and DM This appears to have cleared up previously as he did not have any proteins in his urine earlier this year and his microalbumin level also improved significantly but both appears to have regressed/recurred on his recent labs Have emphasized again the importance of tight BP and glucose control to slow down progression of renal disease Follow up with nephrology (Dr. Vann) as scheduled (4) Pure hypercholesterolemia: Code(s): E78.00 - Pure hypercholesterolemia, unspecified Category: Medical Plan: Results of his labs done last week reviewed and discussed with patient Reinforced low cholesterol diet Continue Atorvastatin 40 mg QD Will recheck his labs and fasting lipids in 4 months for follow up (5) Elevated liver enzymes: Code(s): R74.8 - Abnormal levels of other serum enzymes Category: Medical Plan: His AST is still slightly elevated on his recent labs; ALT is normal Have advised patient again that these were most likely related to his weight and should improve with continuing weight loss Will continue to monitor his LFTs regularly (6) Hypomagnesemia: Code(s): E83.42 - Hypomagnesemia Category: Medical Plan: Corrected - his serum magnesium level remained normal on his previous labs Continue Magnesium Oxide 400 mg BID (7) Nocturnal leg cramps: Code(s): G47.62 - Sleep related leg cramps Category: Medical Plan: Continue Tizanidine 4 mg Q HS PRN (8) Lumbar degenerative disc disease: Code(s): M51.36 - Other intervertebral disc degeneration, lumbar region Category: Medical Qualifiers: Disc-related pain type: discogenic back pain and lower extremity pain Qualified Code(s): M51.362 - Other intervertebral disc degeneration, lumbar region with discogenic back pain and lower extremity pain Plan: Reinforced activity and weight-lifting restrictions Lumbar spine MRI done back in April 2022 revealed (+) grade 1 degenerative anterolisthesis in the setting of advanced bilateral facet arthropathy and additional spondylitic changes resulting in mild central canal stenosis and severe bilateral foraminal stenosis with compression of the exiting L4 nerve roots bilaterally at L4-L5. THERE ARE VERY LARGE BILATERAL FACET JOINT EFFU SIONS AT L4-L5 THAT SHOULD BE FOLLOWED WITH FLEXION-EXTENSION RADIOGRAPHS TO EXCLUDE SEGMENTAL INSTABILITY. There is also a right lateral disc osteophyte protrusion contacts the extraforaminal right L5 nerve root at L5-S1 Patient has been referred to neurosurgery (Dr. Monteiro) regarding his lumbar spine issues and he subsequently underwent L4-5 oblique lumbar interbody fusion back on 09/04/2024 Patient states that it has been several months now since his back surgery but he has not yet experience any improvement so far and he is disappointed and frustrated that his back surgery apparently failed to address his symptoms, especially with his recurrent right-sided sciatica lately He is now seeing pain management and is undergoing a spinal cord stimulator trial at this time to help him manage his chronic low back pain Follow-up with neurosurgery and with pain management as scheduled (9) Gout: Code(s): M10.9 - Gout, unspecified Category: Medical Qualifiers: Gout site: unspecified site Gout etiology: idiopathic Chronicity: unspecified Qualified Code(s): M10.00 - Idiopathic gout, unspecified site Plan: His serum uric acid has improved and has remained normal on his recent labs Reinforced low purine diet - states that he has not had any acute gout flare ups in a while now Continue Allopurinol 300 mg QD Will recheck his serum uric acid level in a few months for follow up (10) Vitamin D deficiency: Code(s): E55.9 - Vitamin D deficiency, unspecified Category: Medical Plan: Continue Vitamin D3 1000 units QD (11) Elevated vitamin B12 level: Code(s): R79.89 - Other specified abnormal findings of blood chemistry Category: Medical Plan: His Vitamin B12 level has remained normal on his recent labs Continue Vitamin B12 tablets every 2 to 3 days Will recheck his Vitamin B12 level in a few months for follow up (12) Obesity (BMI 30-39.9): Code(s): E66.9 - Obesity, unspecified Category: Medical Plan: Reinforced diet; exercise and weight loss are not practical or realistic at this time due to his low back pain and physical issues Plan Follow up in 4 months Orders: Orders Hemoglobin A1c 4 Months E11.9 - Type 2 diabetes mellitus without complications Lipid Panel 4 Months E78.00 - Pure hypercholesterolemia, unspecified Microalbumin, Random (w Creat) 4 Months E11.9 - Type 2 diabetes mellitus without complications UA CC w/rflx Micro + Cult 4 Months R30.0 - Dysuria Uric Acid 4 Months M10.9 - Gout, unspecified Vitamin B12 and Folate 4 Months E53.8 - Deficiency of other specified B group vitamins Complete Blood Count Auto Diff 4 Months D64.9 - Anemia, unspecified Comprehensive [place]. Panel Fast 4 Months E78.00 - Pure hypercholesterolemia, unspecified TSH reflex Free T4 4 Months E78.00 - Pure hypercholesterolemia, unspecified Prostate Specific Antigen 4 Months N40.0 - Benign prostatic hyperplasia without lower urinary tract symptoms Vitamin D 25-OH Total 4 Months E55.9 - Vitamin D deficiency, unspecified
[2025-07-17 09:39] VITALS: BP 140/78
== END 2025-07-17 09:52 | disposition home or self-care (01) ==
LOC: HO.HMCH 08:38
PROVIDERS: PCP Internal Medicine; Visit Provider Internal Medicine
DX: E11.9 Type 2 diabetes mellitus without complications (principal); Z79.4 Long term (current) use of insulin; I10 Essential (primary) hypertension; R80.1 Persistent proteinuria, unspecified; E78.00 Pure hypercholesterolemia, unspecified; R74.8 Abnormal levels of other serum enzymes; E83.42 Hypomagnesemia; G47.62 Sleep related leg cramps; M51.362 Other intervertebral disc degeneration, lumbar region with discogenic back pain and lower extremity pain; M10.00 Idiopathic gout, unspecified site; E55.9 Vitamin D deficiency, unspecified; R79.89 Other specified abnormal findings of blood chemistry; E66.9 Obesity, unspecified

== ENCOUNTER → 2025-07-17 08:37 | Outpatient (BNVA) | payer MEDICARE, OTHER, SELFPAY | PROVIDERS: PCP Internal Medicine; Visit Provider Internal Medicine | DX: E11.9 Type 2 diabetes mellitus without complications (principal); I10 Essential (primary) hypertension; R80.1 Persistent proteinuria, unspecified; E78.00 Pure hypercholesterolemia, unspecified; R74.8 Abnormal levels of other serum enzymes; E83.42 Hypomagnesemia; G47.62 Sleep related leg cramps; M10.00 Idiopathic gout, unspecified site; E55.9 Vitamin D deficiency, unspecified; R79.89 Other specified abnormal findings of blood chemistry; E66.9 Obesity, unspecified; M51.362 Other intervertebral disc degeneration, lumbar region with discogenic back pain and lower extremity pain; Z13.31 Encounter for screening for depression; Z87.891 Personal history of nicotine dependence; Z79.4 Long term (current) use of insulin; Z79.85 Long-term (current) use of injectable non-insulin antidiabetic drugs | CPT/HCPCS: 96127; 99212 ==